=== PATIENT | male | born 1950 | race Two or more races ===

== ENCOUNTER 2019-09-13 16:01 | Inpatient (IN) | payer OTHER ==
[2019-09-13] MEDS ORDERED: IPRATROPIUM-ALBUTEROL 3 ML NEB INHALATION PRN (20:31)
[2019-09-13] MEDS: SODIUM CHLORIDE 0.9% 1,000 ML IV SCH (20:57)
[2019-09-14] MEDS: SODIUM CHLORIDE 0.9% 1,000 ML IV SCH ×2 (05:05→17:46)
[2019-09-14 06:35] LABS: African American GFR (CKD) >90 (>60 ml/min/1.73 sqM); Anion Gap 6 mmol/L; Blood Urea Nitrogen 17 mg/dL (9-20); Calcium 8.4 mg/dL (8.4-10.2); Carbon Dioxide 29 mmol/L (22-30); Chloride 100 mmol/L (98-107); Glucose 88 mg/dL (74-99); Non-African American GFR(CKD) >90 (>60 ml/min/1.73 sqM); Potassium 4.2 mmol/L (3.5-5.1); Sodium 135 mmol/L (137-145)
[2019-09-14 06:40] LABS: Basophils % (A) 0 %; Eosinophils % (A) 0 %; HCT 35.6 % (39.0-53.0); HGB 11.5 gm/dL (13.0-17.5); Lymphocytes # (A) 0.6 k/uL (1.0-4.8); Lymphocytes % (A) 3 %; MCHC 32.4 g/dL (31.0-37.0); MCV 98.8 fL (80.0-100.0); Mean Platelet Volume 7.6; Monocytes # (A) 0.7 k/uL (0-1.0); Monocytes % (A) 3 %; Neutrophils # (A) 19.3 k/uL (1.3-7.7); Neutrophils % (A) 93 %; Platelet Count 193 k/uL (150-450); RDW 12.7 % (11.5-15.5); WBC 20.7 k/uL (3.8-10.6)
[2019-09-14] MEDS ORDERED: LOPERAMIDE 2 MG CAP PO PRN (07:08)
--- NOTE | 2019-09-14 07:13 | P.HPIM ---
History of Present Illness This is a pleasant 68 years old male with past medical history of COPD, Parkinson disease, status post pacemaker, nicotine dependence, hypertension, hyperlipidemia. As per documents Patient was transferred from [facility] as predicament patient is originally from [place] recently moved to [place] to live with his daughter who had recent bronchoscopy done about 3-4 days ago for possible lung masses at the [facility] facility in [place]. The stomach presents with dyspnea and cough and there was mention of blood in the sputum. Patient himself says that he was living with his daughter and her place, he has history of COPD and on 2 L/m home oxygen via nasal cannula, when he got difficulty breathing with coughing with yellow phlegm of one-day duration and he checked his oxygen level and stated was low so he went to [facility] and from there the transfer him to [facility] in [place], they told me he has abnormal chest x-ray and they did CAT scan but was not sure what was abnormal to the chest x-ray. Patient still smokes about 1 pack per day and he quit about 2 weeks ago, denies alcohol or illicit tracts. At baseline and he walks very little using a cane. Vitals: Patient is afebrile, blood pressure was 90/55 currently 110/63, he saturating 94% on 3 L, no tachycardia, mild tachypnea with respiratory rate 18- 23 Labs from [place] showing negative troponin, sodium 142, potassium 4.3, creatinine 0.7, liver enzymes elevated. Chest x-ray: Bibasilar airway disease suspicious for pneumonia or pneumonitis, with no vascular congestion and trace pleural effusion. Also has leukocytosis of 20 5.0K, hemoglobin 13.5, platelets 252. BNP is 3787. EKG showing ventricular paced rhythm with no significant ST T changes, QTC of 455 I [facility] patient was given 1 dose of Solu-Medrol 125 mg, and he was started on levofloxacin and IV vancomycin. Review of Systems CONSTITUTIONAL: No fever, no malaise, no fatigue. HEENT: No recent visual problems or hearing problems. Denied any sore throat. CARDIOVASCULAR: No orthopnea, PND, no palpitations, no syncope. PULMONARY: No sneezing or sore throat. GASTROINTESTINAL: No diarrhea, no nausea, no vomiting, no abdominal pain. Normoactive bowel sounds. NEUROLOGICAL: No headaches, no weakness, no numbness. HEMATOLOGICAL: Denies any bleeding or petechiae. GENITOURINARY: Denies any burning micturition, frequency, or urgency. MUSCULOSKELETAL/RHEUMATOLOGICAL: Denies any joint pain, swelling, or any muscle pain. ENDOCRINE: Denies any polyuria or polydipsia. ROS unobtainable: due to endotracheal tube Past Medical History Past Medical History: COPD Additional Past Medical History / Comment(s): pacer, emphesma, parkinsons History of Any Multi-Drug Resistant Organisms: None Reported Smoking Status: Current every day smoker Medications and Allergies Home Medications Medication Instructions Recorded Confirmed Type Albuterol Inhaler [Ventolin Hfa 2 puff INHALATION RT-QID 09/13/19 09/13/19 History Inhaler] Artificial Tears-Hypromellose 1 drop BOTH EYES QID 09/13/19 09/13/19 History [Artificial Tear Drops] Aspirin EC [Ecotrin Low Dose] 81 mg PO DAILY 09/13/19 09/13/19 History Budesonide/Formoterol Fumarate 2 puff INHALATION RT-BID 09/13/19 09/13/19 History [Symbicort 80-4.5 Mcg Inhaler] Cetirizine HCl [Zyrtec] 10 mg PO DAILY 09/13/19 09/13/19 History Cholecalciferol [Vitamin D3 (25 2,000 unit PO DAILY 09/13/19 09/13/19 History Mcg = 1000 Iu)] Furosemide [Lasix] 40 mg PO DAILY 09/13/19 09/13/19 History Furosemide [Lasix] 40 mg PO DAILY@1500 PRN 09/13/19 09/13/19 History Gabapentin 300 mg PO BID 09/13/19 09/13/19 History Loperamide HCl [Loperamide] 4 mg PO Q6H 09/13/19 09/13/19 History Magnesium Oxide [Mag-Ox] 800 mg PO DAILY 09/13/19 09/13/19 History Metoprolol Tartrate [Lopressor] 12.5 mg PO BID 09/13/19 09/13/19 History Omeprazole 40 mg PO BID 09/13/19 09/13/19 History Potassium Chloride ER [K-Dur 10] 10 meq PO DAILY 09/13/19 09/13/19 History Primidone [Mysoline] 50 mg PO BID 09/13/19 09/13/19 History Terbinafine [LamISIL] 250 mg PO DAILY 09/13/19 09/13/19 History Vits A,C,E/Lutein/Minerals 1 tab PO BID 09/13/19 09/13/19 History [Ocuvite with Lutein Tablet] Warfarin Sodium [Coumadin] 5 mg PO HS 09/13/19 09/13/19 History amLODIPine [Norvasc] 10 mg PO DAILY 09/13/19 09/13/19 History Allergies Allergy/AdvReac Type Severity Reaction Status Date / Time cephradine AdvReac Cough Verified 09/13/19 19:24 lisinopril AdvReac Cough Verified 09/13/19 19:24 Physical Exam Vitals: Vital Signs Temp Pulse Resp BP Pulse Ox 09/14/19 04:00 98.2 F 72 18 110/63 94 L 09/14/19 03:50 20 09/13/19 23:03 98.4 F 71 20 95/55 93 L 09/13/19 18:52 98.8 F 71 23 97/63 93 L 09/13/19 18:51 98.2 F 70 20 92/51 96 Intake and Output 09/13/19 09/13/19 09/14/19 14:59 22:59 06:59 Intake Total 240 Balance 240 Intake: Oral 240 Other: # Voids 1 Weight 63.503 kg 67.1 kg GENERAL: The patient is alert and oriented x3, not in any acute distress. Well developed, well nourished. HEENT: Pupils are round and equally reacting to light. EOMI. No scleral icterus. No conjunctival pallor. Normocephalic, atraumatic. No pharyngeal erythema. No thyromegaly. CARDIOVASCULAR: S1 and S2 present. No murmurs, rubs, or gallops. -PULMONARY: Chest is clear to auscultation, bilateral expiratory wheezing ABDOMEN: Soft, nontender, nondistended, normoactive bowel sounds. No palpable organomegaly. MUSCULOSKELETAL: No joint swelling or deformity. EXTREMITIES: No cyanosis, clubbing, or pedal edema. NEUROLOGICAL: Gross neurological examination did not reveal any focal deficits. SKIN: No rashes. No petechiae Results CBC & Chem 7: 09/14/19 05:26 09/14/19 05:26 Labs: Abnormal Lab Results - Last 24 Hours (Table) 09/14/19 09/14/19 Range/Units 05:26 05:26 WBC 20.7 H (3.8-10.6) k/uL RBC 3.60 L (4.30-5.90) m/uL Hgb 11.5 L (13.0-17.5) gm/dL Hct 35.6 L (39.0-53.0) % Neutrophils # 19.3 H (1.3-7.7) k/uL Lymphocytes # 0.6 L (1.0-4.8) k/uL Sodium 135 L (137-145) mmol/L Creatinine 0.53 L (0.66-1.25) mg/dL Microbiology - Last 24 Hours (Table) 09/13/19 22:13 Sputum Culture - Preliminary Sputum Thrombosis Risk Factor Assmnt - Choose All That Apply Any of the Below Risk Factors Present?: Yes Each Factor Represents 1 point: Abnormal pulmonary function (COPD) Each Risk Factor Represents 2 Points: Age 61-74 years Thrombosis Risk Factor Assessment Total Risk Factor Score: 3 Thrombosis Risk Factor Assessment Level: Moderate Risk Assessment and Plan Plan: This is a pleasant 68 years old male who was transferred from [facility] for possible pneumonia and bibasilar infiltrates. We'll continue with Rocephin and Zithromax, continue with steroids and bronchodilators. sent for respiratory and blood culture. Repeat chest x-ray. Consult pulmonary Labs and medication were reviewed.. Continue same treatment. Continue with symptomatic treatment. Resume home medication. Monitor lytes and vitals. DVT and GI prophylaxis. Further recommendations of the clinical course of the patient DVT prophylaxis: On Coumadin GI Prophylaxis: Pepcid PT/OT: Pending Prognosis is guarded
[2019-09-14 08:15] LABS: Basophils % (A) 0 %; Eosinophils % (A) 0 %; HCT 37.3 % (39.0-53.0); HGB 12.1 gm/dL (13.0-17.5); Lymphocytes # (A) 0.6 k/uL (1.0-4.8); Lymphocytes % (A) 3 %; MCH 31.9 pg (25.0-35.0); MCHC 32.5 g/dL (31.0-37.0); MCV 98.3 fL (80.0-100.0); Mean Platelet Volume 7.6; Monocytes # (A) 0.6 k/uL (0-1.0); Monocytes % (A) 3 %; Neutrophils # (A) 17.4 k/uL (1.3-7.7); Neutrophils % (A) 93 %; Platelet Count 210 k/uL (150-450); RBC 3.79 m/uL (4.30-5.90); RDW 12.7 % (11.5-15.5); WBC 18.7 k/uL (3.8-10.6)
[2019-09-14 08:24] LABS: INR 1.3 (<1.2); Partial Thromboplastin Time 31.6 sec (22.0-30.0); Prothrombin Time 13.3 sec (9.0-12.0)
[2019-09-14 08:31] LABS: ALT 19 U/L (21-72); AST 17 U/L (17-59); African American GFR (CKD) >90 (>60 ml/min/1.73 sqM); Albumin 3.2 g/dL (3.5-5.0); Alkaline Phosphatase 47 U/L (38-126); Anion Gap 8 mmol/L; Bilirubin, Delta 0.1 mg/dL (0.0-0.2); Bilirubin,Unconjugated 0.5 mg/dL (0.0-1.1); Blood Urea Nitrogen 16 mg/dL (9-20); Calcium 8.6 mg/dL (8.4-10.2); Carbon Dioxide 30 mmol/L (22-30); Chloride 99 mmol/L (98-107); Glucose 101 mg/dL (74-99); Non-African American GFR(CKD) >90 (>60 ml/min/1.73 sqM); Potassium 4.1 mmol/L (3.5-5.1); Sodium 137 mmol/L (137-145); Total Bilirubin 0.6 mg/dL (0.2-1.3); Total Protein 5.9 g/dL (6.3-8.2)
[2019-09-14] MEDS ORDERED: AZITHROMYCIN 500 MG in SODIUM CHLORIDE 0.9% 250 ML IVPB SCH (09:00)
[2019-09-14] MEDS ORDERED: predniSONE 20 MG TAB PO SCH (09:00)
[2019-09-14] MEDS ORDERED: FAMOTIDINE 20 MG/2 ML VIAL IV SCH (09:00)
[2019-09-14] MEDS: IPRATROPIUM-ALBUTEROL 3 ML NEB INHALATION SCH ×4 (09:14→20:06)
[2019-09-14] MEDS: SYMBICORT 80-4.5 MCG INHALER INHALATION SCH ×2 (09:15→20:06)
--- NOTE | 2019-09-14 09:40 | XR ---
EXAMINATION TYPE: XR chest 2V DATE OF EXAM: 09/14/2019 COMPARISON: NONE TECHNIQUE: PA and lateral views submitted. HISTORY: Cough FINDINGS: There is a large area of consolidation involving the right lower lobe with pleural thickening. There is a rib deformity on the right. Left-sided patchy infiltrate and small bilateral effusions or pleura l thickening noted. Interstitial prominence seen bilaterally. Cardiac device noted. No pneumothorax. Atherosclerotic change aorta. Hyperinflation suggestive COPD. Chronic rib deformity on the right uppe r rib cage noted suggest remote trauma. IMPRESSION: 1. Bilateral infiltrate. Suspect a large mass in the right lower lobe with possible rib deformity or metastasis. Recommend CT of the chest.
[2019-09-14] MEDS: HEPARIN SODIUM,PORCINE 5,000 UNIT/ML 1 ML VIAL SQ SCH ×2 (10:47→19:38)
[2019-09-14] MEDS: methylPREDNISolone SOD SUCCI 125 MG/2 ML VIAL IV SCH ×4 (10:47→22:20)
[2019-09-14] MEDS: ARTIFICIAL TEARS-HYPROMELLOSE DROPS 15 ML BTL BOTH EYES SCH ×4 (10:47→20:28)
--- NOTE | 2019-09-14 11:33 | FL ---
EXAMINATION TYPE: FL barium swallow w video DATE OF EXAM: 09/14/2019 MODIFIED SWALLOW / DEGLUTITION STUDY CLINICAL HISTORY: Dysphagia. Rule out aspiration. History of Parkinson's. TECHNIQUE: Deglutition study is performed utilizing thin liquid barium, honey and nectar thick liqui d barium, barium thick applesauce, and barium coated cracker. A total of 2 minutes 26 seconds of fluo roscopic time utilized. Serial spot images saved. COMPARISON: None. FINDINGS: The oral and pharyngeal phases show mild delay in initiation with satisfactory propagation with all modalities tested. Satisfactory mastication is seen with solid modalities tested. Patient d id have some coughing making chewing difficult. There is transient penetration with thin liquid bariu m and nectar thick liquid barium which clears even more rapidly with chin tuck. No aspiration with an y modality. Mild to moderate pharyngeal residue was appreciated with more viscous modalities. IMPRESSION: No aspiration observed. Please refer to speech therapist notes for further details if ne cessary.
[2019-09-14] MEDS: PRIMIDONE 50 MG TAB PO SCH ×2 (17:45→19:39)
[2019-09-14] MEDS: GABAPENTIN 300 MG CAP PO SCH ×2 (17:45→19:38)
[2019-09-14] MEDS: amLODIPine 10 MG TAB PO SCH (17:45)
[2019-09-14] MEDS: CHOLECALCIFEROL 1,000 UNIT TAB PO SCH (17:45)
[2019-09-14] MEDS: MAGNESIUM OXIDE 400 MG TAB PO SCH (17:45)
[2019-09-14] MEDS: TERBINAFINE 250 MG TAB PO SCH (17:45)
[2019-09-14] MEDS: METOPROLOL TARTRATE 12.5 MG TAB PO SCH ×2 (17:45→19:39)
[2019-09-14] MEDS: ASPIRIN 81 MG PO SCH (17:45)
[2019-09-14] MEDS: FUROSEMIDE 40 MG TAB PO SCH (17:46)
[2019-09-14] MEDS: POTASSIUM CHLORIDE ER 10 MEQ TAB.ER.PRT PO SCH (17:46)
[2019-09-14] MEDS: FAMOTIDINE 20 MG TAB PO SCH (19:38)
[2019-09-14] MEDS ORDERED: WARFARIN 5 MG TAB PO SCH (21:00)
--- NOTE | 2019-09-14 21:49 | CT ---
EXAMINATION TYPE: CT chest wo con DATE OF EXAM: 09/14/2019 COMPARISON: Radiograph same day HISTORY: 68-year-old male Lung mass. TECHNIQUE: Contiguous axial scanning of the chest without IV contrast. Coronal and sagittal reconstru ctions performed. CT DLP: 300 mGycm Automated exposure control for dose reduction was used. FINDINGS: Left anterior chest wall pacemaker generator with right atrial, right ventricular, and coronary sinus leads. Heart upper limits of normal in size without pericardial effusion. Three-vessel coronary artery calci fications are present. Mild to moderate arthritic arch calcifications with a conventional arch vessel branching anatomy. Ect atic upper descending thoracic aorta 3.3 cm. Mild generalized anasarca change. Abnormally enlarged bilateral axillary lymph nodes measuring 2.3 x 1.9 cm on the right and 2 on the l eft measuring up to 2.5 x 1.7 cm. Left tracheobronchial angle lymph node measures 1.3 cm. Precarinal lymph node measures 1.2 cm. Subcar inal lymph node measures 3.8 cm in may be contiguous with the right infrahilar mass which occludes th e bronchus intermedius. Mass is estimated to measure up to at least 6.4 cm. There is focal 6.7 x 5.6 cm round fluid collection along the inferior major fissure and extensive pat jayde consolidation throughout the right lower lobe and to a lesser extent within the right middle lobe . Chronic pleural-based calcifications posteriorly in the lower lungs on both sides. Old healed fractur e deformities perform right base. Additional patchy and confluent consolidation within the lingula at the midlung level, axial image 33 . Suspect scarring in rounded atelectasis in the left lower lobe. Background of mild to moderate emphys johann. Visualized upper abdomen shows continuity syndrome and calcified granulomas within the spleen. Left a drenal nodule measures 2.7 x 1.8 cm. Right adrenal nodule measures 3.5 x 1.8 cm and are not diagnosti c of adrenal adenomas. Possible additional gastrohepatic ligament lymph node measuring 2.0 cm, axial image 63. Bones: No osseous destructive process. Atrophy of the right-sided rotator cuff musculature suggests u nderlying chronic rotator cuff tear. IMPRESSION: 1. COPD WITH MILD TO MODERATE EMPHYSEMA. PLEURAL BASED CALCIFICATIONS COULD BE SECONDARY TO PRIOR PLE URODESIS, OLD EMPYEMA, OR OLD HEMOTHORACES. SUGGESTION OF SOME SCARRING AND ROUNDED ATELECTASIS IN TH E LEFT LOWER LOBE. 2. LARGE RIGHT INFRAHILAR MASS OBSTRUCTING THE BRONCHUS INTERMEDIUS MEASURING AT LEAST 6.4 CM AND DEM ONSTRATING EITHER EXTENSION INTO THE SUBCARINAL REGION OR CONTIGUOUS 3.8 CM SUBCARINAL LYMPHADENOPATH Y. 3. ADDITIONAL ENLARGED MEDIASTINAL LYMPH NODES MEASURING UP TO 1.3 CM AND BILATERAL AXILLARY LYMPHADE NOPATHY MEASURING UP TO 1.9 CM SHORT AXIS ALSO SUSPICIOUS FOR METASTATIC DISEASE. BILATERAL ADRENAL N ODULES MEASURING UP TO 3.5 CM AND POSSIBLE 1.9 CM GASTROHEPATIC LIGAMENT METASTATIC LYMPH NODE. 4. EXTENSIVE POSTOBSTRUCTIVE PNEUMONITIS WITHIN THE RIGHT LOWER LOBE. THERE IS A 6.7 X 5.6 CM ROUND F LUID COLLECTION ALONG THE INFERIOR RIGHT MAJOR FISSURE SUGGESTIVE OF A LOCULATED PLEURAL EFFUSION. 5. ADDITIONAL PNEUMONIC INFILTRATE WITHIN THE LINGULA.
--- NOTE | 2019-09-14 21:54 | CONS ---
CONSULTATION Eloy Guzman is a 68-year-old male who presented to [facility] with increasing shortness of breath. He was transferred to [facility] for further treatment. He recently was being worked up apparently for a lung mass at the ID in [place] and underwent a bronchoscopy 3 to 4 days ago. He says he had what he thinks was a panic attack where he became more short of breath. He was transferred to again [facility]. He has shortness of breath at this time but is feeling slightly better than yesterday. PAST MEDICAL HISTORY: His past medical history is positive for Parkinson's disease, hypertension, previous pacemaker placement, emphysema. SOCIAL HISTORY: Patient is a current everyday smoker. He does not drink alcohol excessively. He is a . MEDICATIONS: His medications prior to admission were: 1. Amlodipine. 2. Coumadin. 3. Ocuvite. 4. Lamisil. 5. Mysoline. 6. K-Dur 10. 7. Omeprazole. 8. Lopressor. 9. Magnesium oxide. 10.Loperamide. 11.Gabapentin. 12.Lasix. 13.Vitamin D3. 14.Zyrtec. 15.Symbicort. 16.Ecotrin. 17.Albuterol inhaler. 18.Artificial Tears. PHYSICAL EXAMINATION: He was lying in bed. He was moderately short of breath and in moderate respiratory distress. His blood pressure was 130/57, respiratory rate of 18, pulse rate of 70, temperature 98.2. Oxygen saturation on 3 L by nasal cannula is 98%. HEENT reveals pupils that are equal. Chest reveals decreased breath sounds, prolonged exhalation and expiratory wheeze. Cardiovascular system is in S1, S2. No S3, no S4. No murmurs. Abdomen is soft. There is no pedal edema. LABS: White count is 18.7, hemoglobin of 12.1 with 17,400 neutrophils. PT/INR is 1.3. Sodium 137, potassium 4.1, chloride 99, bicarb 30. BUN 16, creatinine 0.55. IMAGING: Chest x-ray shows evidence of bibasilar infiltrate with a possible large mass in the right lower zone, bilateral small effusions. IMPRESSION AT THIS TIME: 1. Postprocedural pneumonia is likely. 2. Chronic obstructive pulmonary disease exacerbation. 3. Lung mass, etiology of which is unclear. At this point in time, we would switch his antibiotics to cover for gram-negatives and anaerobes to Zosyn. [facility] his [facility]. Keep him on IV steroids, bronchodilators, aerosolized steroids. Prognosis at this time is guarded. He is not to be considered for CPR or intubation. MMODL / IJN: [id number] /
[2019-09-14] MEDS: PIPERACILLIN-TAZOBACTAM 3.375 GM in SODIUM CHLORIDE 0.9% 100 ML IVPB SCH (22:20)
[2019-09-15] MEDS: SODIUM CHLORIDE 0.9% 1,000 ML IV SCH ×2 (05:51→21:17)
[2019-09-15] MEDS: INSULIN ASPART (NovoLOG) 100 UNIT/ML VIAL SQ SCH ×4 (05:56→21:17)
[2019-09-15] MEDS: methylPREDNISolone SOD SUCCI 125 MG/2 ML VIAL IV SCH (05:56)
[2019-09-15 06:02] LABS: Glucose,Whole Blood 128 mg/dL (75-99)
[2019-09-15 06:36] LABS: Basophils % (A) 0 %; Eosinophils % (A) 0 %; HCT 33.7 % (39.0-53.0); HGB 11.5 gm/dL (13.0-17.5); Lymphocytes # (A) 0.4 k/uL (1.0-4.8); Lymphocytes % (A) 3 %; MCH 33.4 pg (25.0-35.0); MCHC 34.1 g/dL (31.0-37.0); Mean Platelet Volume 6.7; Monocytes # (A) 0.2 k/uL (0-1.0); Monocytes % (A) 2 %; Neutrophils # (A) 11.1 k/uL (1.3-7.7); Neutrophils % (A) 95 %; Platelet Count 194 k/uL (150-450); RBC 3.44 m/uL (4.30-5.90); RDW 12.7 % (11.5-15.5); WBC 11.8 k/uL (3.8-10.6)
[2019-09-15 06:48] LABS: INR 1.1 (<1.2); Prothrombin Time 11.2 sec (9.0-12.0)
[2019-09-15 06:59] LABS: African American GFR (CKD) >90 (>60 ml/min/1.73 sqM); Anion Gap 7 mmol/L; Blood Urea Nitrogen 13 mg/dL (9-20); Calcium 8.5 mg/dL (8.4-10.2); Carbon Dioxide 33 mmol/L (22-30); Chloride 96 mmol/L (98-107); Glucose 130 mg/dL (74-99); Non-African American GFR(CKD) >90 (>60 ml/min/1.73 sqM); Potassium 3.8 mmol/L (3.5-5.1); Sodium 136 mmol/L (137-145)
[2019-09-15] MEDS: IPRATROPIUM-ALBUTEROL 3 ML NEB INHALATION SCH ×4 (07:31→19:19)
[2019-09-15] MEDS ORDERED: AZITHROMYCIN 500 MG TAB PO SCH (09:00)
--- NOTE | 2019-09-15 10:19 | P.PN ---
Subjective This is a pleasant 68 years old male with past medical history of COPD, Parkinson disease, status post pacemaker, nicotine dependence, hypertension, hyperlipidemia. As per documents Patient was transferred from [facility] as predicament patient is originally from [place] recently moved to [place] to live with his daughter who had recent bronchoscopy done about 3-4 days ago for possible lung masses at the [facility] in [place]. The stomach presents with dyspnea and cough and there was mention of blood in the sputum. Patient himself says that he was living with his daughter and her place, he has history of COPD and on 2 L/m home oxygen via nasal cannula, when he got difficulty breathing with coughing with yellow phlegm of one-day duration and he checked his oxygen level and stated was low so he went to [facility] and from there the transfer him to [facility] in [place], they told me he has abnormal chest x-ray and they did CAT scan but was not sure what was abnormal to the chest x-ray. Patient still smokes about 1 pack per day and he quit about 2 weeks ago, denies alcohol or illicit tracts. At baseline and he walks very little using a cane. Vitals: Patient is afebrile, blood pressure was 90/55 currently 110/63, he saturating 94% on 3 L, no tachycardia, mild tachypnea with respiratory rate 18- 23 Labs from [place] showing negative troponin, sodium 142, potassium 4.3, creatinine 0.7, liver enzymes elevated. Chest x-ray: Bibasilar airway disease suspicious for pneumonia or pneumonitis, with no vascular congestion and trace pleural effusion. Also has leukocytosis of 20 5.0K, hemoglobin 13.5, platelets 252. BNP is 3787. EKG showing ventricular paced rhythm with no significant ST T changes, QTC of 455 I [facility] patient was given 1 dose of Solu-Medrol 125 mg, and he was started on levofloxacin and IV vancomycin. 09/15/2019 Patient still have the similar respiratory symptoms he came in with some dyspnea and coughing with phlegm. And no chest pain. Vitals are stable and he is on 3 L oxygen via [place] similar to his baseline. WBC is back to 11.8 K which is close to normal. INR is 1.1 and patient is on Coumadin 5 m sputum and blood culture are pending. g daily which he was adherent to and he was taken it appeared to come to the hospital as he confirmed to me today. We going to give him extra doses of Coumadin. His blood thinners for his atrial fibrillation where he has pacemaker as well. Swallow evaluation showed small penetration. Patient confirmed to me that he did not go the result of his lung mass biopsy which was done prior to this hospitalization. Pulmonary input is appreciated and patient was started on Zosyn, also lower his on Medrol from 60 down to 40 mg. And lower his normal saline 2 mL per hour Review of systems CONSTITUTIONAL: No fever, no malaise, no fatigue. HEENT: No recent visual problems or hearing problems. Denied any sore throat. CARDIOVASCULAR: No orthopnea, PND, no palpitations, no syncope. PULMONARY: No sneezing or sore throat. GASTROINTESTINAL: No diarrhea, no nausea, no vomiting, no abdominal pain. Normoactive bowel sounds. NEUROLOGICAL: No headaches, no weakness, no numbness. HEMATOLOGICAL: Denies any bleeding or petechiae. GENITOURINARY: Denies any burning micturition, frequency, or urgency. MUSCULOSKELETAL/RHEUMATOLOGICAL: Denies any joint pain, swelling, or any muscle pain. ENDOCRINE: Denies any polyuria or polydipsia. Objective - Vital Signs Vital signs: Vital Signs Temp 98 F 09/15/19 03:00 Pulse 72 09/15/19 07:42 Resp 18 09/15/19 03:00 BP 124/71 09/15/19 03:00 Pulse Ox 96 09/15/19 03:00 Intake & Output 09/14/19 09/15/19 09/15/19 18:59 06:59 18:59 Intake Total 500 Balance 500 Weight 70.1 kg Intake: Intake, IV Titration 70 Amount Sodium Chloride 0.9% 1, 20 000 ml @ 75 mls/hr IV . [id number] TOM Rx#:[id number] cefTRIAXone 2 gm In 50 Sodium Chloride 0.9% 50 ml @ 100 mls/hr IVPB Q24HR TOM Rx#:[id number] Oral 430 Other: # Voids 3 1 - Labs CBC & Chem 7: 09/15/19 05:45 09/15/19 05:45 Labs: Abnormal Lab Results - Last 24 Hours (Table) 09/15/19 09/15/19 09/15/19 Range/Units 05:45 05:45 05:54 WBC 11.8 H (3.8-10.6) k/uL RBC 3.44 L (4.30-5.90) m/uL Hgb 11.5 L (13.0-17.5) gm/dL Hct 33.7 L (39.0-53.0) % Neutrophils # 11.1 H (1.3-7.7) k/uL Lymphocytes # 0.4 L (1.0-4.8) k/uL Sodium 136 L (137-145) mmol/L Chloride 96 L (98-107) mmol/L Carbon Dioxide 33 H (22-30) mmol/L Creatinine 0.53 L (0.66-1.25) mg/dL Glucose 130 H (74-99) mg/dL POC Glucose (mg/dL) 128 H (75-99) mg/dL Microbiology - Last 24 Hours (Table) 09/14/19 07:45 Blood Culture - Preliminary Blood No Growth after 24 hours 09/13/19 22:13 Gram Stain - Preliminary Sputum Sputum Culture - Preliminary Assessment and Plan Assessment: Bilateral pneumonia suspicious for aspiration versus postobstructive Lung mass status post biopsy, with result is pending A. fib status post pacemaker, rate controlled and on Coumadin. Mild to moderate acute COPD exacerbation History of Parkinson disease Chronic hypoxic respiratory failure Nicotine dependence Hypertension Hyperlipidemia Plan: This is a pleasant 68 years old male who was transferred from [facility] for possible pneumonia and bibasilar infiltrates. We'll continue with Rocephin and Zithromax, continue with steroids and bronchodilators. sent for respiratory and blood culture. Repeat chest x-ray. Consult pulmonary Labs and medication were reviewed.. Continue same treatment. Continue with symptomatic treatment. Resume home medication. Monitor lytes and vitals. DVT and GI prophylaxis. Further recommendations of the clinical course of the patient DVT prophylaxis: On Coumadin GI Prophylaxis: Pepcid PT/OT: Pending Prognosis is guarded
[2019-09-15] MEDS: GABAPENTIN 300 MG CAP PO SCH ×2 (10:35→21:16)
[2019-09-15] MEDS: ASPIRIN 81 MG PO SCH (10:35)
[2019-09-15] MEDS: MAGNESIUM OXIDE 400 MG TAB PO SCH (10:35)
[2019-09-15] MEDS: CHOLECALCIFEROL 1,000 UNIT TAB PO SCH (10:35)
[2019-09-15] MEDS: PRIMIDONE 50 MG TAB PO SCH ×2 (10:35→21:16)
[2019-09-15] MEDS: PIPERACILLIN-TAZOBACTAM 3.375 GM in SODIUM CHLORIDE 0.9% 100 ML IVPB SCH ×3 (10:35→23:25)
[2019-09-15] MEDS: HYDROcodone/APAP 5-325MG 1 EACH TAB PO PRN ×2 (10:36→23:23)
[2019-09-15] MEDS: amLODIPine 10 MG TAB PO SCH (10:36)
[2019-09-15] MEDS: FUROSEMIDE 40 MG TAB PO SCH (10:36)
[2019-09-15] MEDS: METOPROLOL TARTRATE 12.5 MG TAB PO SCH ×2 (10:36→21:17)
[2019-09-15] MEDS: POTASSIUM CHLORIDE ER 10 MEQ TAB.ER.PRT PO SCH (10:36)
[2019-09-15] MEDS: FAMOTIDINE 20 MG TAB PO SCH ×2 (10:36→21:16)
[2019-09-15] MEDS: ARTIFICIAL TEARS-HYPROMELLOSE DROPS 15 ML BTL BOTH EYES SCH ×4 (10:45→21:22)
[2019-09-15] MEDS: HEPARIN SODIUM,PORCINE 5,000 UNIT/ML 1 ML VIAL SQ SCH ×2 (10:45→21:17)
--- NOTE | 2019-09-15 11:19 | PN ---
PROGRESS NOTE Covering for Dr. Glenn Silva. DATE OF SERVICE: 09/15/2019 Patient is a 68-year-old male who is seen sitting up in a chair. He is awake, alert. States that he is feeling a bit better. I did look into the chart to see if there was any results on the bronch the patient had at the [facility]. However, none were noted. The patient is going to be seen by speech therapy and have a swallow eval. Currently, patient is hemodynamically stable afebrile in no acute distress. PHYSICAL EXAM: VITAL SIGNS: Temp 98, heart rate is 76, respiratory rate 18, blood pressure is 124/71 and O2 sats 96% on 3 L O2 via nasal cannula. HEENT: Head is normocephalic, atraumatic. Neck: Is supple. Trachea is midline. LUNGS: With diminished breath sounds. No clear rales or wheezes. HEART: S1, S2 are heard. Not tachycardic. ABDOMEN: Soft. Bowel sounds are positive. EXTREMITIES: With trace edema on the right. No edema on the left. NEUROLOGIC: Patient is awake and alert. LABS: White count 11.8, hemoglobin is 11.5, hematocrit 33.7 with 194,000 platelets. PT 11.2, INR is 1.1. Sodium is 136, potassium is 3.8, chloride 96. CO2 is 33, anion gap is 7, BUN is 13, creatinine 0.53. Glucose is 130. Calcium is 8.5. CT of the chest shows COPD with [id number] emphysema. Pleural-based calcifications could be secondary to prior pleurodesis. Old empyema or old hemothoraces. Suggestion of some scarring and round atelectasis in the left lower lobe. Large right infrahilar mass obstructing the bronchus intermedius measuring at least 6.4 cm and demonstrating either extension to the subcarinal region or contiguous 3.8 cm subcarinal lymphadenopathy. Additional enlarged mediastinal lymph node measuring up to 1.3 cm and bilateral axillary lymphadenopathy measuring up to 1.9 cm, short axis also suspicious suspicious for metastatic disease. Bilateral adrenal nodules measuring up to 3.5 cm and possible 1.9 cm gastrohepatic ligament metastatic lymph node. Extensive post obstructive pneumonitis within the right lower lobe. There is a 6.7 x 5.6 cm round fluid collection along the inferior right major fissure suggestive of a loculated pleural effusion. Additional pneumonic infiltrate within the lingula. IMPRESSION AT THIS TIME: 1. Post procedure pneumonia. 2. Chronic obstructive pulmonary disease exacerbation. 3. Lung mass. PLAN: Continue current medications which have been reviewed. Continue bronchodilators and aerosol steroids. Continue the IV steroids. Continue the antibiotics. Continue GI and DVT prophylaxis and will follow patient closely with you making further changes as necessary. MMODL / IJN: [id number] /
[2019-09-15 11:57] LABS: Glucose,Whole Blood 168 mg/dL (75-99)
[2019-09-15] MEDS: methylPREDNISolone SOD SUCCI 40 MG/ML 1 ML VIAL IV SCH ×2 (15:01→23:25)
[2019-09-15] MEDS: TERBINAFINE 250 MG TAB PO SCH (15:01)
[2019-09-15 17:01] LABS: Glucose,Whole Blood 120 mg/dL (75-99)
[2019-09-15] MEDS ORDERED: WARFARIN 10 MG TAB PO ONE (18:00)
[2019-09-15] MEDS: BUDESONIDE 0.5 MG/2 ML NEBU INHALATION SCH (19:19)
[2019-09-15 20:57] LABS: Glucose,Whole Blood 134 mg/dL (75-99)
[2019-09-16 06:12] LABS: Glucose,Whole Blood 111 mg/dL (75-99)
[2019-09-16] MEDS: INSULIN ASPART (NovoLOG) 100 UNIT/ML VIAL SQ SCH ×4 (06:18→22:21)
[2019-09-16] MEDS: HYDROcodone/APAP 5-325MG 1 EACH TAB PO PRN ×3 (06:26→18:50)
[2019-09-16 06:31] LABS: Basophils % (A) 0 %; Eosinophils % (A) 0 %; HCT 34.9 % (39.0-53.0); HGB 11.9 gm/dL (13.0-17.5); Lymphocytes # (A) 0.4 k/uL (1.0-4.8); Lymphocytes % (A) 3 %; MCH 33.2 pg (25.0-35.0); MCHC 34.1 g/dL (31.0-37.0); MCV 97.2 fL (80.0-100.0); Mean Platelet Volume 6.8; Monocytes # (A) 0.2 k/uL (0-1.0); Monocytes % (A) 2 %; Neutrophils # (A) 10.5 k/uL (1.3-7.7); Neutrophils % (A) 94 %; Platelet Count 209 k/uL (150-450); RBC 3.59 m/uL (4.30-5.90); RDW 12.6 % (11.5-15.5); WBC 11.2 k/uL (3.8-10.6)
[2019-09-16 06:38] LABS: INR 1.4 (<1.2); Prothrombin Time 14.1 sec (9.0-12.0)
[2019-09-16 06:39] LABS: African American GFR (CKD) >90 (>60 ml/min/1.73 sqM); Anion Gap 6 mmol/L; Blood Urea Nitrogen 16 mg/dL (9-20); Calcium 8.6 mg/dL (8.4-10.2); Carbon Dioxide 32 mmol/L (22-30); Chloride 96 mmol/L (98-107); Glucose 111 mg/dL (74-99); Non-African American GFR(CKD) >90 (>60 ml/min/1.73 sqM); Potassium 4.2 mmol/L (3.5-5.1); Sodium 134 mmol/L (137-145)
[2019-09-16] MEDS: BUDESONIDE 0.5 MG/2 ML NEBU INHALATION SCH ×2 (08:28→20:26)
[2019-09-16] MEDS: IPRATROPIUM-ALBUTEROL 3 ML NEB INHALATION SCH ×4 (08:28→20:26)
[2019-09-16] MEDS: PIPERACILLIN-TAZOBACTAM 3.375 GM in SODIUM CHLORIDE 0.9% 100 ML IVPB SCH ×3 (09:36→22:41)
[2019-09-16] MEDS: METOPROLOL TARTRATE 12.5 MG TAB PO SCH ×2 (09:37→20:20)
[2019-09-16] MEDS: ARTIFICIAL TEARS-HYPROMELLOSE DROPS 15 ML BTL BOTH EYES SCH ×4 (09:37→22:22)
[2019-09-16] MEDS: methylPREDNISolone SOD SUCCI 40 MG/ML 1 ML VIAL IV SCH ×3 (09:37→22:41)
[2019-09-16] MEDS: amLODIPine 10 MG TAB PO SCH (09:37)
[2019-09-16] MEDS: CHOLECALCIFEROL 1,000 UNIT TAB PO SCH (09:37)
[2019-09-16] MEDS: PRIMIDONE 50 MG TAB PO SCH ×2 (09:38→20:20)
[2019-09-16] MEDS: HEPARIN SODIUM,PORCINE 5,000 UNIT/ML 1 ML VIAL SQ SCH ×2 (09:38→20:21)
[2019-09-16] MEDS: POTASSIUM CHLORIDE ER 10 MEQ TAB.ER.PRT PO SCH (09:38)
[2019-09-16] MEDS: GABAPENTIN 300 MG CAP PO SCH ×2 (09:38→20:21)
[2019-09-16] MEDS: MAGNESIUM OXIDE 400 MG TAB PO SCH (09:38)
[2019-09-16] MEDS: FAMOTIDINE 20 MG TAB PO SCH ×2 (09:38→20:20)
[2019-09-16] MEDS: TERBINAFINE 250 MG TAB PO SCH (09:38)
[2019-09-16] MEDS: FUROSEMIDE 40 MG TAB PO SCH (09:38)
[2019-09-16] MEDS: ASPIRIN 81 MG PO SCH (09:38)
--- NOTE | 2019-09-16 11:12 | P.PN ---
Subjective This is a pleasant 68 years old male with past medical history of COPD, Parkinson disease, status post pacemaker, nicotine dependence, hypertension, hyperlipidemia. As per documents Patient was transferred from [facility] as predicament patient is originally from [place] recently moved to [place] to live with his daughter who had recent bronchoscopy done about 3-4 days ago for possible lung masses at the [facility] in [place]. The stomach presents with dyspnea and cough and there was mention of blood in the sputum. Patient himself says that he was living with his daughter and her place, he has history of COPD and on 2 L/m home oxygen via nasal cannula, when he got difficulty breathing with coughing with yellow phlegm of one-day duration and he checked his oxygen level and stated was low so he went to [facility] and from there the transfer him to [facility] in [place], they told me he has abnormal chest x-ray and they did CAT scan but was not sure what was abnormal to the chest x-ray. Patient still smokes about 1 pack per day and he quit about 2 weeks ago, denies alcohol or illicit tracts. At baseline and he walks very little using a cane. Vitals: Patient is afebrile, blood pressure was 90/55 currently 110/63, he saturating 94% on 3 L, no tachycardia, mild tachypnea with respiratory rate 18- 23 Labs from [place] showing negative troponin, sodium 142, potassium 4.3, creatinine 0.7, liver enzymes elevated. Chest x-ray: Bibasilar airway disease suspicious for pneumonia or pneumonitis, with no vascular congestion and trace pleural effusion. Also has leukocytosis of 20 5.0K, hemoglobin 13.5, platelets 252. BNP is 3787. EKG showing ventricular paced rhythm with no significant ST T changes, QTC of 455 I [facility] patient was given 1 dose of Solu-Medrol 125 mg, and he was started on levofloxacin and IV vancomycin. 09/15/2019 Patient still have the similar respiratory symptoms he came in with some dyspnea and coughing with phlegm. And no chest pain. Vitals are stable and he is on 3 L oxygen via [place] similar to his baseline. WBC is back to 11.8 K which is close to normal. INR is 1.1 and patient is on Coumadin 5 m sputum and blood culture are pending. g daily which he was adherent to and he was taken it appeared to come to the hospital as he confirmed to me today. We going to give him extra doses of Coumadin. His blood thinners for his atrial fibrillation where he has pacemaker as well. Swallow evaluation showed small penetration. Patient confirmed to me that he did not go the result of his lung mass biopsy which was done prior to this hospitalization. Pulmonary input is appreciated and patient was started on Zosyn, also lower his on Medrol from 60 down to 40 mg. And lower his normal saline 2 mL per hour 09/16/2019 Patient still feels this ache with some improvement especially with bronchodilator. His coughing with phlegm. He is hemodynamically stable. He saturating 98% on 3 L of oxygen. Leukocytosis improving gradually to 11.2k, INR is 1.4, Coumadin dose was already increased from 5 to 7.5 mg for his A. fib. Electrolytes are acceptable and creatinine is normal. Sugar is controlled. Pending, patient remains on Zosyn currently. And Solu-Medrol 40 mg, normal saline at [address] thorax shows COPD, pneumonia and lung mass, see the report for more details. Hematology/oncology team were consulted and they're still pending Objective - Vital Signs Vital signs: Vital Signs Temp 98.3 F 09/16/19 08:30 Pulse 72 09/16/19 08:43 Resp 18 09/16/19 08:30 BP 123/65 09/16/19 08:30 Pulse Ox 98 09/16/19 08:30 Intake & Output 09/15/19 09/16/19 09/16/19 18:59 06:59 18:59 Intake Total 680 290 240 Output Total 900 200 Balance 680 -610 40 Weight 72.6 kg Intake: IV 50 Invasive Line 2 50 Oral 680 240 240 Output: Urine 900 200 Other: Voiding Method Toilet Urinal # Voids 2 1 - Exam GENERAL: The patient is alert and oriented x3, not in any acute distress. Well developed, well nourished. HEENT: Pupils are round and equally reacting to light. EOMI. No scleral icterus. No conjunctival pallor. Normocephalic, atraumatic. No pharyngeal erythema. No thyromegaly. CARDIOVASCULAR: S1 and S2 present. No murmurs, rubs, or gallops. -PULMONARY: Chest is clear to auscultation, bilateral expiratory wheezing ABDOMEN: Soft, nontender, nondistended, normoactive bowel sounds. No palpable organomegaly. MUSCULOSKELETAL: No joint swelling or deformity. EXTREMITIES: No cyanosis, clubbing, or pedal edema. NEUROLOGICAL: Gross neurological examination did not reveal any focal deficits. SKIN: No rashes. No petechiae - Labs CBC & Chem 7: 09/16/19 05:34 09/16/19 05:34 Labs: Abnormal Lab Results - Last 24 Hours (Table) 09/15/19 09/15/19 09/15/19 Range/Units 11:39 16:39 20:56 WBC (3.8-10.6) k/uL RBC (4.30-5.90) m/uL Hgb (13.0-17.5) gm/dL Hct (39.0-53.0) % Neutrophils # (1.3-7.7) k/uL Lymphocytes # (1.0-4.8) k/uL PT (9.0-12.0) sec INR (<1.2) Sodium (137-145) mmol/L Chloride (98-107) mmol/L Carbon Dioxide (22-30) mmol/L Creatinine (0.66-1.25) mg/dL Glucose (74-99) mg/dL POC Glucose (mg/dL) 168 H 120 H 134 H (75-99) mg/dL 09/16/19 09/16/19 09/16/19 Range/Units 05:34 05:34 05:34 WBC 11.2 H (3.8-10.6) k/uL RBC 3.59 L (4.30-5.90) m/uL Hgb 11.9 L (13.0-17.5) gm/dL Hct 34.9 L (39.0-53.0) % Neutrophils # 10.5 H (1.3-7.7) k/uL Lymphocytes # 0.4 L (1.0-4.8) k/uL PT 14.1 H (9.0-12.0) sec INR 1.4 H (<1.2) Sodium 134 L (137-145) mmol/L Chloride 96 L (98-107) mmol/L Carbon Dioxide 32 H (22-30) mmol/L Creatinine 0.55 L (0.66-1.25) mg/dL Glucose 111 H (74-99) mg/dL POC Glucose (mg/dL) (75-99) mg/dL 09/16/19 Range/Units 06:02 WBC (3.8-10.6) k/uL RBC (4.30-5.90) m/uL Hgb (13.0-17.5) gm/dL Hct (39.0-53.0) % Neutrophils # (1.3-7.7) k/uL Lymphocytes # (1.0-4.8) k/uL PT (9.0-12.0) sec INR (<1.2) Sodium (137-145) mmol/L Chloride (98-107) mmol/L Carbon Dioxide (22-30) mmol/L Creatinine (0.66-1.25) mg/dL Glucose (74-99) mg/dL POC Glucose (mg/dL) 111 H (75-99) mg/dL Microbiology - Last 24 Hours (Table) 09/14/19 07:45 Blood Culture - Preliminary Blood No Growth after 48 hours Assessment and Plan Assessment: Bilateral pneumonia suspicious for aspiration versus postobstructive Lung mass status post biopsy, with result is pending A. fib status post pacemaker, rate controlled and on Coumadin. Mild to moderate acute COPD exacerbation History of Parkinson disease Chronic hypoxic respiratory failure Nicotine dependence Hypertension Hyperlipidemia Plan: This is a pleasant 68 years old male who was transferred from [facility] for possible pneumonia and bibasilar infiltrates. We'll continue with Zosyn, continue with steroids and bronchodilators. sent for respiratory and blood culture. Repeat chest x-ray. Follow-up recommendations by pulmonary and cardiology teams. Labs and medication were reviewed.. Continue same treatment. Continue with symptomatic treatment. Resume home medication. Monitor lytes and vitals. DVT and GI prophylaxis. Further recommendations of the clinical course of the patient DVT prophylaxis: On Coumadin GI Prophylaxis: Pepcid PT/OT: Patient will benefit from ECF for rehab, healthcare social worker was consulted Prognosis is guarded
[2019-09-16 11:50] LABS: Glucose,Whole Blood 104 mg/dL (75-99)
--- NOTE | 2019-09-16 12:44 | PN ---
PROGRESS NOTE DATE OF SERVICE: 09/16/2019 The patient is a 68-year-old male who was seen sitting up in a chair. He is awake and alert. Feeling a little bit better today. States that they did do a swallow eval and he was told that he is able to the eat what he wants to eat. They did not find any signs of aspiration. The patient states that he does not believe they have obtained the results of the bronchoscopy done at the [facility] and his daughter will be in tomorrow and he hopes that she will to bring the results in. Patient is hemodynamically stable, afebrile, in no acute distress. PHYSICAL EXAMINATION: VITAL SIGNS: Temp 98.3, heart rate 72, respiratory rate 18, blood pressure is 123/65, O2 sats 98% on 3 L O2 via nasal cannula. HEENT. Head is normocephalic, atraumatic. NECK: Is supple. Trachea is midline. LUNGS: With decreased breath sounds and some fine scattered wheezes. HEART: S1 and S2 are heard. Not tachycardic. ABDOMEN: Soft. Bowel sounds are good. EXTREMITIES: With 1+ edema bilaterally. NEUROLOGIC: Patient is awake and alert. LABS: White count 11.2, hemoglobin 11.9, hematocrit 34.9 with 209,000 platelets. PT is 14.1, INR is 1.4. Sodium is 134, potassium is 4.2, chloride is 96, CO2 is 32, anion gap is 6. BUN 16, creatinine 0.55. Glucose is 111. Calcium is 8.6. No new imaging to review. IMPRESSION AT THIS TIME: 1. Post procedure pneumonia. 2. Chronic obstructive pulmonary disease with acute exacerbation. 3. Lung mass. PLAN: Continue current medications which have been reviewed with bronchodilators and aerosol steroids. Continue IV Solu-Medrol and antibiotics. Continue GI and DVT prophylaxis. Increase activity as tolerated. We will follow patient closely with you making further changes as necessary. MMODL / IJN: [id number] /
--- NOTE | 2019-09-16 15:46 | CDI ---
Documentation Clarification Form Date: 09/16/2019 3:38:38 PM From: Liat Young RN, CCDS Admit Date: 09/13/2019 6:50:00 PM Patient Name: Eloy Guzman Visit Number: [id number] Discharge Date: ATTENTION: The Clinical Documentation Specialists (CDI) and [facility] Coding Staff appreciate your assistance in clarifying documentation. Please respond to the clarification below the line at the bottom and electronically sign. The CDI & [facility] Coding staff will review the response and follow-up if needed. Please note: Queries are made part of the Legal Health Record. If you have any questions, please contact the author of this message via ITS. Dr. Jomar Peterson Atrial Fibrillation is documented in your history and physical and subsequent progress notes and further clarification is needed. History/Risk Factors: Atrial Fibrillation post pacemaker, Parkinsons, COPD, Current every day smoker Clinical Indicators: 68-year-old male with history of atrial fibrillation. EKG/telemetry: showing ventricular paced rhythm with no significant ST T wave changes. Treatment: PT/INR monitoring Coumadin 5 Mg PO In your professional opinion, can you please clarify the type of Atrial Fibrillation, if known? Chronic/Permanent Paroxysmal Persistent Other, please specify Unable to determine (Last Revision: January 2018) unable to determine MTDD
--- NOTE | 2019-09-16 16:29 | P.CONS ---
History of Present Illness - Reason for Consult Consult date: 09/16/19 lung mass Requesting physician: Jomar E Sheet - Chief Complaint TRUDY, cough - History of Present Illness Mr. Guzman is a very pleasant 68-year-old male patient [facility] [place] who presented to the hospital with progressive shortness of breath and difficulty in breathing. If been asked to see the patient in regards to a lung mass found on imaging. Pt is status post a biopsy at the [facility] in [place] with pathology pending, he has a f/u appt Thursday. Patient states recent changes in speech, some slurring and loss of words, voice changes, states previous weight 250lbs, he lost a significant amount when his but, he has lost more, he has progressive weakness, no nausea, vomiting, mild chest discomfort with coughing, no hemoptysis, acute changes in bowel or bladder, bleeding, does have easy bruising, on coumadin for afib and pacemaker. He hurt his right shoulder and has decreased ROM, numbness or tingling. Review of Systems 14 point ROS is negative except as stated in HPI Past Medical History Past Medical History: COPD Additional Past Medical History / Comment(s): pacer, emphesma, parkinsons History of Any Multi-Drug Resistant Organisms: None Reported Past Psychological History: No Psychological Hx Reported Smoking Status: Current every day smoker - Past Family History Mother Family Medical History: Coronary Artery Disease (CAD), Hypertension Father Family Medical History: Hyperlipidemia, Hypertension Medications and Allergies Home Medications Medication Instructions Recorded Confirmed Type Albuterol Inhaler [Ventolin Hfa 2 puff INHALATION RT-QID 09/13/19 09/13/19 History Inhaler] Artificial Tears-Hypromellose 1 drop BOTH EYES QID 09/13/19 09/13/19 History [Artificial Tear Drops] Aspirin EC [Ecotrin Low Dose] 81 mg PO DAILY 09/13/19 09/13/19 History Budesonide/Formoterol Fumarate 2 puff INHALATION RT-BID 09/13/19 09/13/19 History [Symbicort 80-4.5 Mcg Inhaler] Cetirizine HCl [Zyrtec] 10 mg PO DAILY 09/13/19 09/13/19 History Cholecalciferol [Vitamin D3 (25 2,000 unit PO DAILY 09/13/19 09/13/19 History Mcg = 1000 Iu)] Furosemide [Lasix] 40 mg PO DAILY 09/13/19 09/13/19 History Furosemide [Lasix] 40 mg PO DAILY@1500 PRN 09/13/19 09/13/19 History Gabapentin 300 mg PO BID 09/13/19 09/13/19 History Loperamide HCl [Loperamide] 4 mg PO Q6H 09/13/19 09/13/19 History Magnesium Oxide [Mag-Ox] 800 mg PO DAILY 09/13/19 09/13/19 History Metoprolol Tartrate [Lopressor] 12.5 mg PO BID 09/13/19 09/13/19 History Omeprazole 40 mg PO BID 09/13/19 09/13/19 History Potassium Chloride ER [K-Dur 10] 10 meq PO DAILY 09/13/19 09/13/19 History Primidone [Mysoline] 50 mg PO BID 09/13/19 09/13/19 History Terbinafine [LamISIL] 250 mg PO DAILY 09/13/19 09/13/19 History Vits A,C,E/Lutein/Minerals 1 tab PO BID 09/13/19 09/13/19 History [Ocuvite with Lutein Tablet] Warfarin Sodium [Coumadin] 5 mg PO HS 09/13/19 09/13/19 History amLODIPine [Norvasc] 10 mg PO DAILY 09/13/19 09/13/19 History Allergies Allergy/AdvReac Type Severity Reaction Status Date / Time cephradine AdvReac Cough Verified 09/13/19 19:24 lisinopril AdvReac Cough Verified 09/13/19 19:24 Physical Exam Vitals: Vital Signs Temp Pulse Pulse Resp BP Pulse Ox Pulse Ox 09/16/19 12:33 72 09/16/19 12:22 76 09/16/19 12:16 94 L 09/16/19 12:10 69 18 120/63 97 09/16/19 08:43 72 09/16/19 08:30 98.3 F 74 18 123/65 98 09/16/19 08:28 72 09/16/19 04:00 98.1 F 75 18 145/63 93 L 09/16/19 00:00 97.7 F 69 17 141/64 94 L 09/15/19 20:00 97.2 F L 70 18 102/59 94 L 09/15/19 19:34 70 09/15/19 19:19 68 98 09/15/19 16:24 76 09/15/19 16:14 76 Pulse Ox Pulse Ox 09/16/19 12:33 09/16/19 12:22 09/16/19 12:16 93 L 92 L 09/16/19 12:10 09/16/19 08:43 09/16/19 08:30 09/16/19 08:28 09/16/19 04:00 09/16/19 00:00 09/15/19 20:00 09/15/19 19:34 09/15/19 19:19 09/15/19 16:24 09/15/19 16:14 Intake and Output 09/16/19 09/16/19 09/16/19 06:59 14:59 22:59 Intake Total 30 840 Output Total 400 200 Balance -370 640 Intake: IV 30 Invasive Line 2 30 Oral 840 Output: Urine 400 200 Other: Voiding Method Toilet Urinal # Voids 1 2 Weight 72.6 kg - Constitutional General appearance: cooperative, no acute distress, thin - EENT Eyes: anicteric sclerae, EOMI, poor dentition ENT: hearing grossly normal - Neck Neck: no lymphadenopathy - Respiratory Respiratory: bilateral: diminished, rhonchi - Cardiovascular Heart sounds: normal: S1, S2 Abnormal Heart Sounds: no systolic murmur, no diastolic murmur, no rub, no S3 Gallop, no S4 Gallop, no click, no other leg Peripheral Edema: bilateral: None - Gastrointestinal General gastrointestinal: no absent bowel sounds, no decreased bowel sounds, no distended, no hepatomegaly, no hyperactive bowel sounds, normal bowel sounds, no organomegaly, no rigid, no scaphoid, soft, no splenomegaly, no tenderness, no umbilical hernia, no ventral hernia - Neurologic slurred speech - Musculoskeletal decreased ROM RUE - Psychiatric Psychiatric: A&O x's 3, appropriate affect, intact judgment & insight Results CBC & Chem 7: 09/16/19 05:34 09/16/19 05:34 Labs: Abnormal Lab Results - Last 24 Hours (Table) 09/15/19 09/15/19 09/16/19 Range/Units 16:39 20:56 05:34 WBC 11.2 H (3.8-10.6) k/uL RBC 3.59 L (4.30-5.90) m/uL Hgb 11.9 L (13.0-17.5) gm/dL Hct 34.9 L (39.0-53.0) % Neutrophils # 10.5 H (1.3-7.7) k/uL Lymphocytes # 0.4 L (1.0-4.8) k/uL PT (9.0-12.0) sec INR (<1.2) Sodium (137-145) mmol/L Chloride (98-107) mmol/L Carbon Dioxide (22-30) mmol/L Creatinine (0.66-1.25) mg/dL Glucose (74-99) mg/dL POC Glucose (mg/dL) 120 H 134 H (75-99) mg/dL 09/16/19 09/16/19 09/16/19 Range/Units 05:34 05:34 06:02 WBC (3.8-10.6) k/uL RBC (4.30-5.90) m/uL Hgb (13.0-17.5) gm/dL Hct (39.0-53.0) % Neutrophils # (1.3-7.7) k/uL Lymphocytes # (1.0-4.8) k/uL PT 14.1 H (9.0-12.0) sec INR 1.4 H (<1.2) Sodium 134 L (137-145) mmol/L Chloride 96 L (98-107) mmol/L Carbon Dioxide 32 H (22-30) mmol/L Creatinine 0.55 L (0.66-1.25) mg/dL Glucose 111 H (74-99) mg/dL POC Glucose (mg/dL) 111 H (75-99) mg/dL 09/16/19 Range/Units 11:36 WBC (3.8-10.6) k/uL RBC (4.30-5.90) m/uL Hgb (13.0-17.5) gm/dL Hct (39.0-53.0) % Neutrophils # (1.3-7.7) k/uL Lymphocytes # (1.0-4.8) k/uL PT (9.0-12.0) sec INR (<1.2) Sodium (137-145) mmol/L Chloride (98-107) mmol/L Carbon Dioxide (22-30) mmol/L Creatinine (0.66-1.25) mg/dL Glucose (74-99) mg/dL POC Glucose (mg/dL) 104 H (75-99) mg/dL Microbiology - Last 24 Hours (Table) 09/13/19 22:13 Gram Stain - Final Sputum Sputum Culture - Final 09/14/19 07:45 Blood Culture - Preliminary Blood No Growth after [address] scan - chest: report reviewed Assessment and Plan (1) Lung mass Narrative/Plan: Patient is status post biopsy at the [facility] in [place]. Patient states he has an appointment on Thursday for follow-up regarding this. Granddaughter confirms that the patient has had additional scans as well. We will not order any additional workup at this time. Current Visit: Yes Status: Acute Code(s): R91.8 - OTHER NONSPECIFIC ABNORMAL FINDING OF LUNG FIELD SNOMED Code(s): 940788195 (2) Postobstructive pneumonia Narrative/Plan: Patient is being followed by Pulmonary and being treated for the same. Current Visit: Yes Status: Acute Priority: High Code(s): J18.9 - PNEUMONIA, UNSPECIFIED ORGANISM SNOMED Code(s): 416821696
[2019-09-16 16:56] LABS: Glucose,Whole Blood 137 mg/dL (75-99)
[2019-09-16] MEDS: SODIUM CHLORIDE 0.9% 1,000 ML IV SCH (16:59)
[2019-09-16] MEDS: WARFARIN 7.5 MG TAB PO SCH (20:20)
[2019-09-16] MEDS: DICLOFENAC SODIUM GEL 100 GM TUBE TOPICAL SCH (20:21)
[2019-09-16 20:30] LABS: Glucose,Whole Blood 117 mg/dL (75-99)
--- NOTE | 2019-09-16 23:03 | P.EN ---
I got a call from the physician from the [facility] in [place] stating the pathology report is showing small cell cancer. i asked him to fax the pathology report and provided unit number also informed RN at bed side and request for record and pathologist report to be obtained.
[2019-09-17 05:48] LABS: Basophils % (A) 0 %; Eosinophils % (A) 0 %; HCT 36.9 % (39.0-53.0); HGB 12.5 gm/dL (13.0-17.5); Lymphocytes # (A) 0.3 k/uL (1.0-4.8); Lymphocytes % (A) 4 %; MCH 32.6 pg (25.0-35.0); MCHC 33.8 g/dL (31.0-37.0); MCV 96.4 fL (80.0-100.0); Mean Platelet Volume 6.5; Monocytes # (A) 0.2 k/uL (0-1.0); Monocytes % (A) 2 %; Neutrophils # (A) 7.7 k/uL (1.3-7.7); Neutrophils % (A) 94 %; Platelet Count 236 k/uL (150-450); RBC 3.83 m/uL (4.30-5.90); RDW 12.6 % (11.5-15.5); WBC 8.3 k/uL (3.8-10.6)
[2019-09-17 05:58] LABS: African American GFR (CKD) >90 (>60 ml/min/1.73 sqM); Anion Gap 7 mmol/L; Blood Urea Nitrogen 16 mg/dL (9-20); Calcium 8.8 mg/dL (8.4-10.2); Carbon Dioxide 34 mmol/L (22-30); Chloride 93 mmol/L (98-107); Glucose 114 mg/dL (74-99); Non-African American GFR(CKD) >90 (>60 ml/min/1.73 sqM); Prothrombin Time 19.8 sec (9.0-12.0); Sodium 134 mmol/L (137-145)
[2019-09-17 06:22] LABS: Glucose,Whole Blood 108 mg/dL (75-99)
[2019-09-17] MEDS: INSULIN ASPART (NovoLOG) 100 UNIT/ML VIAL SQ SCH ×4 (06:22→22:12)
[2019-09-17] MEDS: HYDROcodone/APAP 5-325MG 1 EACH TAB PO PRN ×2 (06:22→13:12)
[2019-09-17] MEDS: FUROSEMIDE 40 MG TAB PO SCH (08:20)
[2019-09-17] MEDS: POTASSIUM CHLORIDE ER 10 MEQ TAB.ER.PRT PO SCH (08:20)
[2019-09-17] MEDS: TERBINAFINE 250 MG TAB PO SCH (08:20)
[2019-09-17] MEDS: GABAPENTIN 300 MG CAP PO SCH ×2 (08:20→20:11)
[2019-09-17] MEDS: PRIMIDONE 50 MG TAB PO SCH ×2 (08:20→20:11)
[2019-09-17] MEDS: ASPIRIN 81 MG PO SCH (08:20)
[2019-09-17] MEDS: METOPROLOL TARTRATE 12.5 MG TAB PO SCH ×2 (08:20→20:11)
[2019-09-17] MEDS: amLODIPine 10 MG TAB PO SCH (08:21)
[2019-09-17] MEDS: MAGNESIUM OXIDE 400 MG TAB PO SCH (08:21)
[2019-09-17] MEDS: FAMOTIDINE 20 MG TAB PO SCH ×2 (08:21→20:12)
[2019-09-17] MEDS: PIPERACILLIN-TAZOBACTAM 3.375 GM in SODIUM CHLORIDE 0.9% 100 ML IVPB SCH ×3 (08:21→22:13)
[2019-09-17] MEDS: CHOLECALCIFEROL 1,000 UNIT TAB PO SCH (08:21)
[2019-09-17] MEDS: methylPREDNISolone SOD SUCCI 40 MG/ML 1 ML VIAL IV SCH ×2 (08:21→20:12)
[2019-09-17] MEDS: DICLOFENAC SODIUM GEL 100 GM TUBE TOPICAL SCH ×4 (08:22→22:12)
[2019-09-17] MEDS: ARTIFICIAL TEARS-HYPROMELLOSE DROPS 15 ML BTL BOTH EYES SCH ×4 (08:30→20:12)
[2019-09-17] MEDS: BUDESONIDE 0.5 MG/2 ML NEBU INHALATION SCH ×2 (08:54→19:12)
[2019-09-17] MEDS: IPRATROPIUM-ALBUTEROL 3 ML NEB INHALATION SCH ×4 (08:54→19:12)
[2019-09-17] MEDS: HEPARIN SODIUM,PORCINE 5,000 UNIT/ML 1 ML VIAL SQ SCH ×2 (11:33→20:12)
[2019-09-17] MEDS: SODIUM CHLORIDE 0.9% 1,000 ML IV SCH (11:34)
[2019-09-17 11:40] LABS: Glucose,Whole Blood 107 mg/dL (75-99)
--- NOTE | 2019-09-17 15:23 | PN ---
PROGRESS NOTE DATE OF SERVICE: 09/17/2019 Patient is a 68-year-old male who is seen lying in bed, awake, alert. Denies any worsening shortness of breath. Denies any pain. He is hemodynamically stable, afebrile, in no acute distress. It appears that a phone call came in last night from the [facility] in [place] informing the primary team that the pathology for the bronchoscopy that was done at the [facility] was positive for small cell cancer. The patient is aware of that. PHYSICAL EXAM: VITAL SIGNS: Temperature 97.3, heart rate is 71, respiratory rate 18, blood pressure is 121/58, O2 sats 97% on 3 L O2 via nasal cannula. HEENT: Head is normocephalic, atraumatic. Neck is supple. Trachea is midline. LUNGS: With decreased breath sounds and fine expiratory wheeze in the left upper lobe. HEART: S1, S2 are heard. Not tachycardic. ABDOMEN: Soft. Bowel sounds are positive. EXTREMITIES: With trace edema bilaterally. NEUROLOGIC: Patient is awake and alert. LABS: White count is 8.3, hemoglobin 12.5, hematocrit 36.9 with 236,000 platelets. PT is 19.8, INR is 2.0. Sodium is 134, potassium is 4, chloride is 93, CO2 is 34, anion gap is 7, BUN is 16, creatinine 0.58, glucose is 114, calcium is 8.8. No new imaging to review. IMPRESSION: 1. Post procedure pneumonia. 2. Chronic obstructive pulmonary disease with acute exacerbation. 3. Lung mass with pathology positive for small cell lung cancer per the [facility]. PLAN: Continue current medications which have been reviewed. Will start weaning IV Solu- Medrol. Continue the antibiotics. Continue GI, DVT prophylaxis, and increase activity as tolerated. We will follow patient closely with you making further changes as necessary. MMODL / IJN: [id number] /
[2019-09-17 16:35] LABS: Glucose,Whole Blood 197 mg/dL (75-99)
[2019-09-17] MEDS: ALPRAZolam 0.25 MG TAB PO PRN (20:11)
[2019-09-17] MEDS: WARFARIN 7.5 MG TAB PO SCH (20:12)
[2019-09-17 20:42] LABS: Glucose,Whole Blood 108 mg/dL (75-99)
--- NOTE | 2019-09-17 21:14 | PN ---
PROGRESS NOTE DATE OF SERVICE: September 17, 2019 CHIEF COMPLAINT: Weak and tired. Eloy is seen today as a followup. He remains weak, tired, short of breath. He has lost a significant amount of weight over the last few months. He denies any fever or chills. No nausea or vomiting. PHYSICAL EXAMINATION: He is alert, oriented x3. He does not appear to be in pain. His vital signs: Temperature 97.6, afebrile, pulse 72 regular, respiration 18, blood pressure 115/59. HEENT: Normocephalic, atraumatic. NECK: Supple. CHEST equal expansion bilaterally. LUNGS revealed decreased breath sounds in the right lung and the left base and the right lower lobe. ABDOMEN: Soft. There is no tenderness. EXTREMITIES reveal minimal edema. SKIN: Multiple bruises in the upper extremities. LABORATORY DATA: WBC are 8.3, hemoglobin 12.5, hematocrit 36.9, platelet 239. Sodium 143, potassium 4.0, chloride is 93, CO2 is 34, BUN is 16, creatinine 0.58. IMPRESSION: Recent diagnosis of lung carcinoma. Preliminary report from the [facility] is consistent with small cell lung carcinoma. A recent CT scan done on September 14 revealed very large right infrahilar mass with postobstructive changes along with mediastinal and bilateral hilar adenopathies and there was also large bilateral adrenal lesion and also suspicious gastrohepatic ligament lymph node and rounded fluid collection along the right major fissure. RECOMMENDATION: 1. I did discuss the above CAT scan finding with the patient and his daughter at bedside. 2. To complete workup he might require a PET scan in the outpatient setting. However, based on recent CAT scan finding, likely the patient has extensive stage disease and also to complete the workup, an MRI of the brain would be obtained. However, he has a pacemaker. A CT scan could be considered. 3. We discussed systemic therapy with a combination of chemotherapy and immunotherapy. Likely will start him early next week and possibly as an inpatient prior to his discharge. Thank you very much. MMODL / IJN: [id number] /
[2019-09-18] MEDS: SODIUM CHLORIDE 0.9% 1,000 ML IV SCH (05:20)
[2019-09-18] MEDS: HYDROcodone/APAP 5-325MG 1 EACH TAB PO PRN ×3 (05:37→19:42)
[2019-09-18 05:41] LABS: Glucose,Whole Blood 91 mg/dL (75-99)
[2019-09-18] MEDS: INSULIN ASPART (NovoLOG) 100 UNIT/ML VIAL SQ SCH ×4 (05:41→20:54)
[2019-09-18] MEDS: IPRATROPIUM-ALBUTEROL 3 ML NEB INHALATION SCH ×4 (08:33→20:04)
[2019-09-18] MEDS: BUDESONIDE 0.5 MG/2 ML NEBU INHALATION SCH ×2 (08:33→20:04)
[2019-09-18] MEDS: GABAPENTIN 300 MG CAP PO SCH ×2 (08:37→19:42)
[2019-09-18] MEDS: ASPIRIN 81 MG PO SCH (08:37)
[2019-09-18] MEDS: CHOLECALCIFEROL 1,000 UNIT TAB PO SCH (08:37)
[2019-09-18] MEDS: ALPRAZolam 0.25 MG TAB PO PRN ×2 (08:37→19:42)
[2019-09-18] MEDS: FUROSEMIDE 40 MG TAB PO SCH (08:37)
[2019-09-18] MEDS: FAMOTIDINE 20 MG TAB PO SCH ×2 (08:37→19:42)
[2019-09-18] MEDS: MAGNESIUM OXIDE 400 MG TAB PO SCH (08:37)
[2019-09-18] MEDS: TERBINAFINE 250 MG TAB PO SCH (08:37)
[2019-09-18] MEDS: PRIMIDONE 50 MG TAB PO SCH ×2 (08:37→19:42)
[2019-09-18] MEDS: METOPROLOL TARTRATE 12.5 MG TAB PO SCH ×2 (08:38→19:41)
[2019-09-18] MEDS: POTASSIUM CHLORIDE ER 10 MEQ TAB.ER.PRT PO SCH (08:38)
[2019-09-18] MEDS: PIPERACILLIN-TAZOBACTAM 3.375 GM in SODIUM CHLORIDE 0.9% 100 ML IVPB SCH ×3 (08:38→22:49)
[2019-09-18] MEDS: methylPREDNISolone SOD SUCCI 40 MG/ML 1 ML VIAL IV SCH (08:38)
[2019-09-18] MEDS: amLODIPine 10 MG TAB PO SCH (08:38)
[2019-09-18] MEDS: DICLOFENAC SODIUM GEL 100 GM TUBE TOPICAL SCH ×4 (08:39→20:54)
[2019-09-18 08:42] LABS: INR 3.2 (<1.2); Prothrombin Time 30.7 sec (9.0-12.0)
[2019-09-18] MEDS: HEPARIN SODIUM,PORCINE 5,000 UNIT/ML 1 ML VIAL SQ SCH (08:48)
[2019-09-18] MEDS: ARTIFICIAL TEARS-HYPROMELLOSE DROPS 15 ML BTL BOTH EYES SCH ×4 (08:48→20:55)
[2019-09-18 08:54] LABS: African American GFR (CKD) >90 (>60 ml/min/1.73 sqM); Anion Gap 9 mmol/L; Blood Urea Nitrogen 18 mg/dL (9-20); Calcium 9.1 mg/dL (8.4-10.2); Carbon Dioxide 36 mmol/L (22-30); Chloride 91 mmol/L (98-107); Glucose 89 mg/dL (74-99); Non-African American GFR(CKD) >90 (>60 ml/min/1.73 sqM); Potassium 3.9 mmol/L (3.5-5.1); Sodium 136 mmol/L (137-145)
[2019-09-18 11:26] LABS: Glucose,Whole Blood 160 mg/dL (75-99)
[2019-09-18] MEDS: predniSONE 50 MG TAB PO SCH (11:54)
--- NOTE | 2019-09-18 13:07 | PN ---
PROGRESS NOTE DATE OF SERVICE: 09/18/2019 Patient is a 68-year-old male who is seen sitting up in a chair. He is awake, alert, comfortable at this time. Does state that he had an episode last night of some confusion where he pulled out his IV and could not get his breath. Further discussion with nursing indicates patient appears to have had a panic attack. Oxygen saturation was in the upper 90s at the time. Patient did get informed of the diagnosis of stage IV lung cancer yesterday as well and is a bit anxious about the new diagnosis. Patient's vital signs are stable. The patient is afebrile, in no acute distress. Daughter is at the bedside at this time as well. PHYSICAL EXAM: VITAL SIGNS: Temp is 98.8, heart rate is 67, respiratory rate is 18, blood pressure is 109/66, O2 sats 96% on 2 L O2 via nasal cannula. HEENT: Head is normocephalic, atraumatic. Neck is supple. Trachea is midline. LUNGS: With fair air entry bilaterally. A few scattered wheezes and diminished bases. HEART: S1, S2 are heard. Not tachycardic. ABDOMEN: Soft. Bowel sounds are positive. EXTREMITIES: With 1+ edema bilaterally. NEUROLOGIC: Patient is awake and alert, comfortable at this time. LABS: PT is 30.7, INR is 3.2, sodium is 136, potassium is 3.9, chloride is 91, CO2 is 36, anion gap is 9, BUN is 18, creatinine 0.77, glucose is 89, calcium is 9.1. No new imaging to review. IMPRESSION: 1. Post procedure pneumonia. 2. Chronic obstructive pulmonary disease with acute exacerbation. 3. Stage IV small cell lung cancer. PLAN: Will stop IV Solu-Medrol and start patient on oral prednisone. Continue the antibiotics. Continue GI prophylaxis. Patient is supratherapeutic with his INR. Would hold Coumadin today. Continue to increase activity as tolerated and will follow patient closely with you making further changes as necessary. MMODL / IJN: [id number] /
[2019-09-18 16:57] LABS: Glucose,Whole Blood 141 mg/dL (75-99)
[2019-09-18] MEDS: WARFARIN 7.5 MG TAB PO SCH (19:36)
[2019-09-18 19:59] LABS: Glucose,Whole Blood 232 mg/dL (75-99)
--- NOTE | 2019-09-18 23:52 | P.PN ---
Subjective Progress Note Date: 09/17/19 Principal diagnosis: Recently diagnosed lung mass. Status post biopsy at [facility] in [place]. Report pending. Postobstructive pneumonia. This is a pleasant 68 years old male with past medical history of COPD, Parkinson disease, status post pacemaker, nicotine dependence, hypertension, hyperlipidemia. As per documents Patient was transferred from [facility] as predicament patient is originally from [place] recently moved to [place] to live with his daughter who had recent bronchoscopy done about 3-4 days ago for possible lung masses at the [facility] in [place]. The stomach presents with dyspnea and cough and there was mention of blood in the s putum. Patient himself says that he was living with his daughter and her place, he has history of COPD and on 2 L/m home oxygen via nasal cannula, when he got difficulty breathing with coughing with yellow phlegm of one-day duration and he checked his oxygen level and stated was low so he went to [facility] and from there the transfer him to [facility] in [place], they told me he has abnor mal chest x-ray and they did CAT scan but was not sure what was abnormal to the chest x-ray. Patient still smokes about 1 pack per day and he quit about 2 weeks ago, denies alcohol or illicit tracts. At baseline and he walks very little using a cane. Vitals: Patient is afebrile, blood pressure was 90/55 currently 110/63, he saturating 94% on 3 L, no tachycardia, mild tachypnea with respiratory rate 18- 23 Labs from [place] showing negative troponin, sodium 142, potassium 4.3, creatinine 0.7, liver enzymes elevated. Chest x-ray: Bibasilar airway disease suspicious for pneumonia or pneumonitis, with no vascular congestion and trace pleural effusion. Also has leukocytosis of 20 5.0K, hemoglobin 13.5, platelets 252. BNP is 3787. EKG showing ventricular paced rhythm with no significant ST T changes, QTC of 455 I [facility] patient was given 1 dose of Solu-Medrol 125 mg, and he was started on levofloxacin and IV vancomycin. 09/15/2019 Patient still have the similar respiratory symptoms he came in with some dyspnea and coughing with phlegm. And no chest pain. Vitals are stable and he is on 3 L oxygen via NC similar to his baseline. WBC is back to 11.8 K which is close to normal. INR is 1.1 and patient is on Coumadin 5 m sputum and blood culture are pending. g daily which he was adherent to and he was taken it appeared to come to the hospital as he confirmed to me today. We going to give him extra doses of Coumadin. His blood thinners for his atrial fibrillation where he has pacemaker as well. Swallow evaluation showed small penetration. Patient confirmed to me that he did not go the result of his lung mass biopsy which was done prior to this hospitalization. Pulmonary input is appreciated and patient was started on Zosyn, also lower his on Medrol from 60 down to 40 mg. And lower his normal saline 2 mL per hour 09/16/2019 Patient still feels this ache with some improvement especially with bronchodilator. His coughing with phlegm. He is hemodynamically stable. He saturating 98% on 3 L of oxygen. Leukocytosis improving gradually to 11.2k, INR is 1.4, Coumadin dose was already increased from 5 to 7.5 mg for his A. fib. Electrolytes are acceptable and creatinine is normal. Sugar is controlled. Pending, patient remains on Zosyn currently. And Solu-Medrol 40 mg, normal saline at [address] thorax shows COPD, pneumonia and lung mass, see the report for more details. Hematology/oncology team were consulted and they're still pending 09/17/2019 Patient has been having cough and exertional dyspnea. Currently on nausea micheal karlene oxygen. Leukocytosis is improving. Antibiotics in the form of Zosyn. Patient is also being continued on Coumadin for atrial fibrillation. Awaiting biopsy report at [facility].. Patient has scheduled appointment on Thursday. Hematology is on board. Pulmonary is following as well. Patient has been afebrile. Tolerating oral diet. No nausea vomiting or diarrhea. Current medications reviewed. Objective - Vital Signs Vital signs: Vital Signs Temp 97.6 F 09/17/19 15:00 Pulse 70 09/17/19 15:51 Resp 18 09/17/19 15:00 BP 115/59 09/17/19 15:00 Pulse Ox 97 09/17/19 15:38 Intake & Output 09/16/19 09/17/19 09/17/19 18:59 06:59 18:59 Intake Total 1080 960 Output Total 200 1225 900 Balance 880 -1225 60 Intake: Oral 1080 960 Output: Urine 200 1225 900 Other: Voiding Method Toilet Toilet Urinal Urinal # Voids 2 1 1 - Exam GENERAL: The patient is alert and oriented x3, not in any acute distress. Well developed, well nourished. HEENT: Pupils are round and equally reacting to light. EOMI. No scleral icterus. No conjunctival pallor. Normocephalic, atraumatic. No pharyngeal erythema. No thyromegaly. CARDIOVASCULAR: S1 and S2 present. No murmurs, rubs, or gallops. -PULMONARY: Chest is clear to auscultation, bilateral expiratory wheezing ABDOMEN: Soft, nontender, nondistended, normoactive bowel sounds. No palpable organomegaly. MUSCULOSKELETAL: No joint swelling or deformity. EXTREMITIES: No cyanosis, clubbing, or pedal edema. NEUROLOGICAL: Gross neurological examination did not reveal any focal deficits. SKIN: No rashes. No petechiae - Labs CBC & Chem 7: 09/17/19 05:15 09/18/19 08:26 Labs: Abnormal Lab Results - Last 24 Hours (Table) 09/16/19 09/17/19 09/17/19 Range/Units 20:29 05:15 05:15 RBC 3.83 L (4.30-5.90) m/uL Hgb 12.5 L (13.0-17.5) gm/dL Hct 36.9 L (39.0-53.0) % Lymphocytes # 0.3 L (1.0-4.8) k/uL PT (9.0-12.0) sec INR (<1.2) Sodium 134 L (137-145) mmol/L Chloride 93 L (98-107) mmol/L Carbon Dioxide 34 H (22-30) mmol/L Creatinine 0.58 L (0.66-1.25) mg/dL Glucose 114 H (74-99) mg/dL POC Glucose (mg/dL) 117 H (75-99) mg/dL 09/17/19 09/17/19 09/17/19 Range/Units 05:15 06:21 11:38 RBC (4.30-5.90) m/uL Hgb (13.0-17.5) gm/dL Hct (39.0-53.0) % Lymphocytes # (1.0-4.8) k/uL PT 19.8 H (9.0-12.0) sec INR 2.0 H (<1.2) Sodium (137-145) mmol/L Chloride (98-107) mmol/L Carbon Dioxide (22-30) mmol/L Creatinine (0.66-1.25) mg/dL Glucose (74-99) mg/dL POC Glucose (mg/dL) 108 H 107 H (75-99) mg/dL 09/17/19 Range/Units 16:34 RBC (4.30-5.90) m/uL Hgb (13.0-17.5) gm/dL Hct (39.0-53.0) % Lymphocytes # (1.0-4.8) k/uL PT (9.0-12.0) sec INR (<1.2) Sodium (137-145) mmol/L Chloride (98-107) mmol/L Carbon Dioxide (22-30) mmol/L Creatinine (0.66-1.25) mg/dL Glucose (74-99) mg/dL POC Glucose (mg/dL) 197 H (75-99) mg/dL Microbiology - Last 24 Hours (Table) 09/14/19 07:45 Blood Culture - Preliminary Blood No Growth after 72 hours Assessment and Plan Assessment: Bilateral pneumonia suspicious for aspiration versus postobstructive Lung mass status post biopsy, with result is pending from [facility] Chronic A. fib status post pacemaker, rate controlled and on Coumadin. Mild to moderate acute COPD exacerbation History of Parkinson disease Chronic hypoxic respiratory failure Nicotine dependence Hypertension Hyperlipidemia Plan: This is a pleasant 68 years old male who was transferred from [facility] for possible pneumonia and bibasilar infiltrates. We'll continue with Zosyn, continue with steroids and bronchodilators. sent for respiratory and blood culture. Follow-up recommendations by pulmonary and cardiology teams. Labs and medication were reviewed.. Continue same treatment. Continue with symptomatic treatment. Resume home medication. Monitor lytes and vitals. DVT and GI prophylaxis. Further recommendations of the clinical course of the patient DVT prophylaxis: On Coumadin GI Prophylaxis: Pepcid PT/OT: Patient will benefit from ECF for rehab, social welfare administrator was consulted Prognosis is guarded Time with Patient: Greater than 30
--- NOTE | 2019-09-18 23:56 | P.PN ---
Subjective Progress Note Date: 09/18/19 Principal diagnosis: Recently diagnosed lung mass. Status post biopsy at [facility] in [place]. Report pending. Postobstructive pneumonia. This is a pleasant 68 years old male with past medical history of COPD, Parkinson disease, status post pacemaker, nicotine dependence, hypertension, hyperlipidemia. As per documents Patient was transferred from [facility] as predicament patient is originally from [place] recently moved to [place] to live with his daughter who had recent bronchoscopy done about 3-4 days ago for possible lung masses at the [facility] in [place]. The stomach presents with dyspnea and cough and there was mention of blood in the s putum. Patient himself says that he was living with his daughter and her place, he has history of COPD and on 2 L/m home oxygen via nasal cannula, when he got difficulty breathing with coughing with yellow phlegm of one-day duration and he checked his oxygen level and stated was low so he went to [facility] and from there the transfer him to [facility] in [place], they told me he has abnor mal chest x-ray and they did CAT scan but was not sure what was abnormal to the chest x-ray. Patient still smokes about 1 pack per day and he quit about 2 weeks ago, denies alcohol or illicit tracts. At baseline and he walks very little using a cane. Vitals: Patient is afebrile, blood pressure was 90/55 currently 110/63, he saturating 94% on 3 L, no tachycardia, mild tachypnea with respiratory rate 18- 23 Labs from [place] showing negative troponin, sodium 142, potassium 4.3, creatinine 0.7, liver enzymes elevated. Chest x-ray: Bibasilar airway disease suspicious for pneumonia or pneumonitis, with no vascular congestion and trace pleural effusion. Also has leukocytosis of 20 5.0K, hemoglobin 13.5, platelets 252. BNP is 3787. EKG showing ventricular paced rhythm with no significant ST T changes, QTC of 455 I [facility] patient was given 1 dose of Solu-Medrol 125 mg, and he was started on levofloxacin and IV vancomycin. 09/15/2019 Patient still have the similar respiratory symptoms he came in with some dyspnea and coughing with phlegm. And no chest pain. Vitals are stable and he is on 3 L oxygen via NC similar to his baseline. WBC is back to 11.8 K which is close to normal. INR is 1.1 and patient is on Coumadin 5 m sputum and blood culture are pending. g daily which he was adherent to and he was taken it appeared to come to the hospital as he confirmed to me today. We going to give him extra doses of Coumadin. His blood thinners for his atrial fibrillation where he has pacemaker as well. Swallow evaluation showed small penetration. Patient confirmed to me that he did not go the result of his lung mass biopsy which was done prior to this hospitalization. Pulmonary input is appreciated and patient was started on Zosyn, also lower his on Medrol from 60 down to 40 mg. And lower his normal saline 2 mL per hour 09/16/2019 Patient still feels this ache with some improvement especially with bronchodilator. His coughing with phlegm. He is hemodynamically stable. He saturating 98% on 3 L of oxygen. Leukocytosis improving gradually to 11.2k, INR is 1.4, Coumadin dose was already increased from 5 to 7.5 mg for his A. fib. Electrolytes are acceptable and creatinine is normal. Sugar is controlled. Pending, patient remains on Zosyn currently. And Solu-Medrol 40 mg, normal saline at [address] thorax shows COPD, pneumonia and lung mass, see the report for more details. Hematology/oncology team were consulted and they're still pending 09/17/2019 Patient has been having cough and exertional dyspnea. Currently on nausea micheal karlene oxygen. Leukocytosis is improving. Antibiotics in the form of Zosyn. Patient is also being continued on Coumadin for atrial fibrillation. Awaiting biopsy report at [facility].. Patient has scheduled appointment on Thursday. Hematology is on board. Pulmonary is following as well. Patient has been afebrile. Tolerating oral diet. No nausea vomiting or diarrhea. 09 18 2019 Patient is currently sitting in the chair. On nausea cannula oxygen. Continued on breathing treatments and antibiotics. Final recommendations from oncology and biopsy report is pending. No other acute overnight issues. Patient has been afebrile. INR is 3.2 today Current medications reviewed. Active Medications Hydrocodone Bitart/Acetaminophen (Alden 5-325) 1 each PO Q6HR PRN PRN Reason: Moderate Pain Last Admin: 09/18/19 19:42 Dose: 1 each Documented by: Albuterol/Ipratropium (Duoneb 0.5 Mg-3 Mg/3 Ml Soln) 3 ml INHALATION RT-QID [facility] Last Admin: 09/18/19 20:04 Dose: 3 ml Documented by: Albuterol/Ipratropium (Duoneb 0.5 Mg-3 Mg/3 Ml Soln) 3 ml INHALATION RT-QID PRN PRN Reason: Shortness Of Breath Or Wheezing Alprazolam (Xanax) 0.25 mg PO TID PRN PRN Reason: Anxiety Last Admin: 09/18/19 19:42 Dose: 0.25 mg Documented by: Amlodipine Besylate (Norvasc) 10 mg PO DAILY [facility] Last Admin: 09/18/19 08:38 Dose: 10 mg Documented by: Artificial Tears (Artificial Tear Drops) 1 drops BOTH EYES QID [facility] Last Admin: 09/18/19 20:55 Dose: 1 drops Documented by: Aspirin (Aspirin) 81 mg PO DAILY [facility] Last Admin: 09/18/19 08:37 Dose: 81 mg Documented by: Budesonide (Pulmicort) 0.5 mg INHALATION RT-BID [facility] Last Admin: 09/18/19 20:04 Dose: 0.5 mg Documented by: Cholecalciferol (Vitamin D3 (25 Mcg = 1000 Iu)) 2,000 unit PO DAILY [facility] Last Admin: 09/18/19 08:37 Dose: 2,000 unit Documented by: Diclofenac Sodium (Voltaren Gel) 2 gm TOPICAL QID [facility] Last Admin: 09/18/19 20:54 Dose: 2 gm Documented by: Famotidine (Pepcid) 20 mg PO Q12HR [facility] Last Admin: 09/18/19 19:42 Dose: 20 mg Documented by: Furosemide (Lasix) 40 mg PO DAILY [facility] Last Admin: 09/18/19 08:37 Dose: 40 mg Documented by: Gabapentin (Neurontin) 300 mg PO BID [facility] Last Admin: 09/18/19 19:42 Dose: 300 mg Documented by: Sodium Chloride (Saline 0.9%) 1,000 mls @ 50 mls/hr IV .Q20H [facility] Last Admin: 09/18/19 05:20 Dose: Not Given Documented by: Piperacillin Sod/Tazobactam (Sod 3.375 gm/ Sodium Chloride) 100 mls @ 25 mls/hr IVPB Q8HR [facility] Last Admin: 09/18/19 22:49 Dose: 25 mls/hr Documented by: Insulin Aspart (Novolog) 0 unit SQ ACHS [facility]; Protocol Last Admin: 09/18/19 20:54 Dose: 8 unit Documented by: Loperamide HCl (Imodium) 4 mg PO Q6H PRN PRN Reason: Diarrhea Magnesium Oxide (Mag-Ox) 800 mg PO DAILY [facility] Last Admin: 09/18/19 08:37 Dose: 800 mg Documented by: Metoprolol Tartrate (Lopressor) 12.5 mg PO BID [facility] Last Admin: 09/18/19 19:41 Dose: 12.5 mg Documented by: Potassium Chloride (K-Dur 10) 10 meq PO DAILY [facility] Last Admin: 09/18/19 08:38 Dose: 10 meq Documented by: Prednisone () 50 mg PO DAILY [facility] Last Admin: 09/18/19 11:54 Dose: 50 mg Documented by: Primidone (Mysoline) 50 mg PO BID [facility] Last Admin: 09/18/19 19:42 Dose: 50 mg Documented by: Terbinafine HCl (Lamisil) 250 mg PO DAILY [facility] Last Admin: 09/18/19 08:37 Dose: 250 mg Documented by: Warfarin Sodium (Coumadin) 7.5 mg PO HS [facility] Last Admin: 09/18/19 19:36 Dose: Not Given Documented by: Objective - Vital Signs Vital signs: Vital Signs Temp 96.2 F L 09/18/19 15:00 Pulse 64 09/18/19 20:22 Resp 18 09/18/19 15:00 BP 103/56 09/18/19 15:00 Pulse Ox 98 09/18/19 16:04 Intake & Output 09/18/19 09/18/19 09/19/19 06:59 18:59 06:59 Intake Total 400 760 Output Total 2100 Balance -1700 760 Weight 67.8 kg Intake: Intake, IV Titration 400 100 Amount Piperacillin-Tazobactam 3 100 100 .375 gm In Sodium Chloride 0.9% 100 ml @ 25 mls/hr IVPB Q8HR [facility] Rx# :[id number] Sodium Chloride 0.9% 1, 300 000 ml @ 50 mls/hr IV . Q20H [facility] Rx#:[id number] Oral 660 Output: Urine 2100 Other: Voiding Method Toilet Toilet Urinal Urinal # Voids 1 # Bowel Movements 1 - Exam GENERAL: The patient is alert and oriented x3, not in any acute distress. Well developed, well nourished. HEENT: Pupils are round and equally reacting to light. EOMI. No scleral icterus. No conjunctival pallor. Normocephalic, atraumatic. No pharyngeal erythema. No thyromegaly. CARDIOVASCULAR: S1 and S2 present. No murmurs, rubs, or gallops. -PULMONARY: Chest is clear to auscultation, scattered rhonchi. Mild expiratory wheeze. ABDOMEN: Soft, nontender, nondistended, normoactive bowel sounds. No palpable organomegaly. MUSCULOSKELETAL: No joint swelling or deformity. EXTREMITIES: No cyanosis, clubbing, or pedal edema. NEUROLOGICAL: Gross neurological examination did not reveal any focal deficits. SKIN: No rashes. No petechiae - Labs CBC & Chem 7: 09/17/19 05:15 09/18/19 08:26 Labs: Abnormal Lab Results - Last 24 Hours (Table) 09/17/19 09/18/19 09/18/19 Range/Units 20:41 08:26 08:26 PT 30.7 H (9.0-12.0) sec INR 3.2 H (<1.2) Sodium 136 L (137-145) mmol/L Chloride 91 L (98-107) mmol/L Carbon Dioxide 36 H (22-30) mmol/L POC Glucose (mg/dL) 108 H (75-99) mg/dL 09/18/19 09/18/19 09/18/19 Range/Units 11: 16:56 19:58 PT (9.0-12.0) sec INR (<1.2) Sodium (137-145) mmol/L Chloride (98-107) mmol/L Carbon Dioxide (22-30) mmol/L POC Glucose (mg/dL) 160 H 141 H 232 H (75-99) mg/dL Microbiology - Last 24 Hours (Table) 09/14/19 07:45 Blood Culture - Preliminary Blood No Growth after 96 hours Assessment and Plan Assessment: Bilateral pneumonia suspicious for aspiration versus postobstructive Lung mass status post biopsy, with result is pending from [facility] Chronic A. fib status post pacemaker, rate controlled and on Coumadin. Mild to moderate acute COPD exacerbation History of Parkinson disease Chronic hypoxic respiratory failure Nicotine dependence Hypertension Hyperlipidemia Plan: This is a pleasant 68 years old male who was transferred from [facility] for possible pneumonia and bibasilar infiltrates. We'll continue with Zosyn, continue with steroids and bronchodilators. sent for respiratory and blood culture. Follow-up recommendations by pulmonary and cardiology teams. Labs and medication were reviewed.. Continue same treatment. Continue with symptomatic treatment. Monitor lytes and vitals. DVT and GI prophylaxis. Further recommendations of the clinical course of the patient DVT prophylaxis: On Coumadin GI Prophylaxis: Pepcid PT/OT: Patient will benefit from ECF for rehab, social economist was consulted Prognosis is guarded Time with Patient: Greater than 30
[2019-09-19] MEDS: SODIUM CHLORIDE 0.9% 1,000 ML IV SCH ×2 (05:08→22:46)
[2019-09-19 06:08] LABS: Glucose,Whole Blood 125 mg/dL (75-99)
[2019-09-19 06:34] LABS: Basophils % (A) 0 %; Eosinophils % (A) 0 %; HCT 38.7 % (39.0-53.0); HGB 13.1 gm/dL (13.0-17.5); Lymphocytes # (A) 0.5 k/uL (1.0-4.8); Lymphocytes % (A) 5 %; MCH 32.9 pg (25.0-35.0); MCHC 33.9 g/dL (31.0-37.0); Mean Platelet Volume 6.2; Monocytes # (A) 0.6 k/uL (0-1.0); Monocytes % (A) 6 %; Neutrophils # (A) 9.2 k/uL (1.3-7.7); Neutrophils % (A) 88 %; Platelet Count 258 k/uL (150-450); RBC 3.98 m/uL (4.30-5.90); RDW 12.7 % (11.5-15.5); WBC 10.5 k/uL (3.8-10.6)
[2019-09-19 06:40] LABS: INR 3.6 (<1.2); Prothrombin Time 34.2 sec (9.0-12.0)
[2019-09-19] MEDS: INSULIN ASPART (NovoLOG) 100 UNIT/ML VIAL SQ SCH ×4 (06:41→20:01)
[2019-09-19 06:47] LABS: African American GFR (CKD) >90 (>60 ml/min/1.73 sqM); Anion Gap 6 mmol/L; Blood Urea Nitrogen 16 mg/dL (9-20); Calcium 8.6 mg/dL (8.4-10.2); Carbon Dioxide 38 mmol/L (22-30); Chloride 92 mmol/L (98-107); Glucose 136 mg/dL (74-99); Non-African American GFR(CKD) >90 (>60 ml/min/1.73 sqM); Potassium 3.7 mmol/L (3.5-5.1); Sodium 136 mmol/L (137-145)
[2019-09-19] MEDS: HYDROcodone/APAP 5-325MG 1 EACH TAB PO PRN (08:35)
[2019-09-19] MEDS: CHOLECALCIFEROL 1,000 UNIT TAB PO SCH (08:36)
[2019-09-19] MEDS: FAMOTIDINE 20 MG TAB PO SCH ×2 (08:36→20:55)
[2019-09-19] MEDS: FUROSEMIDE 40 MG TAB PO SCH (08:36)
[2019-09-19] MEDS: MAGNESIUM OXIDE 400 MG TAB PO SCH (08:36)
[2019-09-19] MEDS: PRIMIDONE 50 MG TAB PO SCH ×2 (08:36→22:46)
[2019-09-19] MEDS: ASPIRIN 81 MG PO SCH (08:36)
[2019-09-19] MEDS: METOPROLOL TARTRATE 12.5 MG TAB PO SCH ×2 (08:36→20:55)
[2019-09-19] MEDS: GABAPENTIN 300 MG CAP PO SCH ×2 (08:36→20:55)
[2019-09-19] MEDS: amLODIPine 10 MG TAB PO SCH (08:36)
[2019-09-19] MEDS: POTASSIUM CHLORIDE ER 10 MEQ TAB.ER.PRT PO SCH (08:36)
[2019-09-19] MEDS: IPRATROPIUM-ALBUTEROL 3 ML NEB INHALATION SCH ×4 (08:37→20:13)
[2019-09-19] MEDS: PIPERACILLIN-TAZOBACTAM 3.375 GM in SODIUM CHLORIDE 0.9% 100 ML IVPB SCH ×2 (08:37→16:14)
[2019-09-19] MEDS: BUDESONIDE 0.5 MG/2 ML NEBU INHALATION SCH ×2 (08:37→20:13)
[2019-09-19] MEDS: DICLOFENAC SODIUM GEL 100 GM TUBE TOPICAL SCH ×4 (08:39→20:55)
[2019-09-19] MEDS: TERBINAFINE 250 MG TAB PO SCH (08:40)
[2019-09-19] MEDS: predniSONE 50 MG TAB PO SCH (08:40)
[2019-09-19] MEDS: ARTIFICIAL TEARS-HYPROMELLOSE DROPS 15 ML BTL BOTH EYES SCH ×4 (08:41→20:55)
--- NOTE | 2019-09-19 09:52 | P.PN ---
Subjective This is a pleasant 68 years old male with past medical history of COPD, Parkinson disease, status post pacemaker, nicotine dependence, hypertension, hyperlipidemia. As per documents Patient was transferred from [facility] as predicament patient is originally from [place] recently moved to [place] to live with his daughter who had recent bronchoscopy done about 3-4 days ago for possible lung masses at the [facility] in [place]. The stomach presents with dyspnea and cough and there was mention of blood in the sputum. Patient himself says that he was living with his daughter and her place, he has history of COPD and on 2 L/m home oxygen via nasal cannula, when he got difficulty breathing with coughing with yellow phlegm of one-day duration and he checked his oxygen level and stated was low so he went to [facility] and from there the transfer him to [facility] in [place], they told me he has abnormal chest x-ray and they did CAT scan but was not sure what was abnormal to the chest x-ray. Patient still smokes about 1 pack per day and he quit about 2 weeks ago, denies alcohol or illicit tracts. At baseline and he walks very little using a cane. Vitals: Patient is afebrile, blood pressure was 90/55 currently 110/63, he saturating 94% on 3 L, no tachycardia, mild tachypnea with respiratory rate 18- 23 Labs from [place] showing negative troponin, sodium 142, potassium 4.3, creatinine 0.7, liver enzymes elevated. Chest x-ray: Bibasilar airway disease suspicious for pneumonia or pneumonitis, with no vascular congestion and trace pleural effusion. Also has leukocytosis of 20 5.0K, hemoglobin 13.5, platelets 252. BNP is 3787. EKG showing ventricular paced rhythm with no significant ST T changes, QTC of 455 I [facility] patient was given 1 dose of Solu-Medrol 125 mg, and he was started on levofloxacin and IV vancomycin. 09/15/2019 Patient still have the similar respiratory symptoms he came in with some dyspnea and coughing with phlegm. And no chest pain. Vitals are stable and he is on 3 L oxygen via NC similar to his baseline. WBC is back to 11.8 K which is close to normal. INR is 1.1 and patient is on Coumadin 5 m sputum and blood culture are pending. g daily which he was adherent to and he was taken it appeared to come to the hospital as he confirmed to me today. We going to give him extra doses of Coumadin. His blood thinners for his atrial fibrillation where he has pacemaker as well. Swallow evaluation showed small penetration. Patient confirmed to me that he did not go the result of his lung mass biopsy which was done prior to this hospitalization. Pulmonary input is appreciated and patient was started on Zosyn, also lower his on Medrol from 60 down to 40 mg. And lower his normal saline 2 mL per hour 09/16/2019 Patient still feels this ache with some improvement especially with bronchodilator. His coughing with phlegm. He is hemodynamically stable. He saturating 98% on 3 L of oxygen. Leukocytosis improving gradually to 11.2k, INR is 1.4, Coumadin dose was already increased from 5 to 7.5 mg for his A. fib. Electrolytes are acceptable and creatinine is normal. Sugar is controlled. Pending, patient remains on Zosyn currently. And Solu-Medrol 40 mg, normal saline at [address] thorax shows COPD, pneumonia and lung mass, see the report for more details. Hematology/oncology team were consulted and they're still pending 09/19/2019 Patient is awake and alert, is still have some dyspnea but is improving. Patient and family at bedside are aware with the patient diagnosis of lung cancer and expecting chemotherapy to be started in house, therapy today. Vitals are stable, WBC is back to normal at 10.5 K. INR 3.6, BMP is unremarkable. Sugars controlled. Also we'll hold Coumadin today and start tomorrow at 6 mg as his INR still supratherapeutic. Objective - Vital Signs Vital signs: Vital Signs Temp 96.8 F L 09/19/19 08:42 Pulse 72 09/19/19 08:56 Resp 16 09/19/19 08:42 BP 115/57 09/19/19 08:42 Pulse Ox 97 09/19/19 08:42 Intake & Output 09/18/19 09/19/19 09/19/19 18:59 06:59 18:59 Intake Total 760 230 Output Total 500 Balance 760 -500 230 Weight 71.8 kg Intake: Intake, IV Titration 100 Amount Piperacillin-Tazobactam 3 100 .375 gm In Sodium Chloride 0.9% 100 ml @ 25 mls/hr IVPB Q8HR [facility] Rx# :[id number] Oral 660 230 Output: Urine 500 Other: Voiding Method Toilet Toilet Urinal Urinal # Voids 1 # Bowel Movements 1 - Exam GENERAL: The patient is alert and oriented x3, not in any acute distress. Well developed, well nourished. HEENT: Pupils are round and equally reacting to light. EOMI. No scleral icterus. No conjunctival pallor. Normocephalic, atraumatic. No pharyngeal erythema. No thyromegaly. CARDIOVASCULAR: S1 and S2 present. No murmurs, rubs, or gallops. -PULMONARY: Chest is clear to auscultation, bilateral expiratory wheezing ABDOMEN: Soft, nontender, nondistended, normoactive bowel sounds. No palpable organomegaly. MUSCULOSKELETAL: No joint swelling or deformity. EXTREMITIES: No cyanosis, clubbing, or pedal edema. NEUROLOGICAL: Gross neurological examination did not reveal any focal deficits. SKIN: No rashes. No petechiae - Labs CBC & Chem 7: 09/19/19 05:25 09/19/19 05:25 Labs: Abnormal Lab Results - Last 24 Hours (Table) 09/18/19 09/18/19 09/18/19 Range/Units 11: 16:56 19:58 RBC (4.30-5.90) m/uL Hct (39.0-53.0) % Neutrophils # (1.3-7.7) k/uL Lymphocytes # (1.0-4.8) k/uL PT (9.0-12.0) sec INR (<1.2) Sodium (137-145) mmol/L Chloride (98-107) mmol/L Carbon Dioxide (22-30) mmol/L Glucose (74-99) mg/dL POC Glucose (mg/dL) 160 H 141 H 232 H (75-99) mg/dL 09/19/19 09/19/19 09/19/19 Range/Units 05:25 05:25 05:25 RBC 3.98 L (4.30-5.90) m/uL Hct 38.7 L (39.0-53.0) % Neutrophils # 9.2 H (1.3-7.7) k/uL Lymphocytes # 0.5 L (1.0-4.8) k/uL PT 34.2 H (9.0-12.0) sec INR 3.6 H (<1.2) Sodium 136 L (137-145) mmol/L Chloride 92 L (98-107) mmol/L Carbon Dioxide 38 H (22-30) mmol/L Glucose 136 H (74-99) mg/dL POC Glucose (mg/dL) (75-99) mg/dL 09/19/19 Range/Units 06:02 RBC (4.30-5.90) m/uL Hct (39.0-53.0) % Neutrophils # (1.3-7.7) k/uL Lymphocytes # (1.0-4.8) k/uL PT (9.0-12.0) sec INR (<1.2) Sodium (137-145) mmol/L Chloride (98-107) mmol/L Carbon Dioxide (22-30) mmol/L Glucose (74-99) mg/dL POC Glucose (mg/dL) 125 H (75-99) mg/dL Microbiology - Last 24 Hours (Table) 09/14/19 07:45 Blood Culture - Preliminary Blood No Growth after 96 hours Assessment and Plan Assessment: Bilateral pneumonia suspicious for aspiration versus postobstructive Lung mass status post biopsy, but due to small cell lung cancer, patient is aware oncology team are following A. fib status post pacemaker, rate controlled and on Coumadin. Mild to moderate acute COPD exacerbation History of Parkinson disease Chronic hypoxic respiratory failure Nicotine dependence Hypertension Hyperlipidemia Plan: This is a pleasant 68 years old male who was transferred from [facility] for possible pneumonia and bibasilar infiltrates. We'll continue with Zosyn, continue with steroids and bronchodilators. Continue with the prednisone with slow taper. Oncology team are planning for chemotherapy, and outpatient workup including PET scan. Continue with oxygen Labs and medication were reviewed.. Continue same treatment. Continue with s ymptomatic treatment. Resume home medication. Monitor lytes and vitals. DVT and GI prophylaxis. Further recommendations of the clinical course of the patient DVT prophylaxis: On Coumadin GI Prophylaxis: Pepcid PT/OT: Patient will benefit from ECF for rehab, social work instructor was consulted Prognosis is guarded
[2019-09-19 12:21] LABS: Glucose,Whole Blood 124 mg/dL (75-99)
--- NOTE | 2019-09-19 15:09 | P.PN ---
Subjective Progress Note Date: 09/19/19 Principal diagnosis: Bilateral aspiration pneumonia, lung mass, small cell lung cancer, atrial fibrillation, moderate COPD with acute exacerbation, advanced Parkinson's disease, acute on chronic hypoxic respiratory failure, hypertension hypertensive cardiovascular disease, dyslipidemia 09/19/2019, patient has removed to oncology and it patient has been diagnosed with small cell lung cancer biopsy was performed at [facility] hematology is considering initiation of chemotherapy patient is somewhat anxious family present at bedside, denies any chest pain Objective - Vital Signs Vital signs: Vital Signs Temp 98.6 F 09/19/19 14:33 Pulse 70 09/19/19 14:33 Resp 17 09/19/19 14:33 BP 110/58 09/19/19 14:33 Pulse Ox 95 09/19/19 14:33 Intake & Output 09/18/19 09/19/19 09/19/19 18:59 06:59 18:59 Intake Total 760 330 Output Total 500 Balance 760 -500 330 Weight 71.8 kg Intake: Intake, IV Titration 100 100 Amount Piperacillin-Tazobactam 3 100 100 .375 gm In Sodium Chloride 0.9% 100 ml @ 25 mls/hr IVPB Q8HR [facility] Rx# :[id number] Oral 660 230 Output: Urine 500 Other: Voiding Method Toilet Toilet Toilet Urinal Urinal Urinal # Voids 1 # Bowel Movements 1 - Exam GENERAL: The patient is alert and oriented x3, not in any acute distress. Well developed, well nourished. HEENT: Pupils are round and equally reacting to light. EOMI. No scleral icterus. No conjunctival pallor. Normocephalic, atraumatic. No pharyngeal erythema. No thyromegaly. CARDIOVASCULAR: S1 and S2 present. No murmurs, rubs, or gallops. -PULMONARY: Chest is clear to auscultation, bilateral expiratory wheezing ABDOMEN: Soft, nontender, nondistended, normoactive bowel sounds. No palpable organomegaly. MUSCULOSKELETAL: No joint swelling or deformity. EXTREMITIES: No cyanosis, clubbing, or pedal edema. NEUROLOGICAL: Gross neurological examination did not reveal any focal deficits. SKIN: No rashes. No petechiae - Labs CBC & Chem 7: 09/19/19 05:25 09/19/19 05:25 Labs: Abnormal Lab Results - Last 24 Hours (Table) 09/18/19 09/18/19 09/19/19 Range/Units 16:56 19:58 05:25 RBC 3.98 L (4.30-5.90) m/uL Hct 38.7 L (39.0-53.0) % Neutrophils # 9.2 H (1.3-7.7) k/uL Lymphocytes # 0.5 L (1.0-4.8) k/uL PT (9.0-12.0) sec INR (<1.2) Sodium (137-145) mmol/L Chloride (98-107) mmol/L Carbon Dioxide (22-30) mmol/L Glucose (74-99) mg/dL POC Glucose (mg/dL) 141 H 232 H (75-99) mg/dL 09/19/19 09/19/19 09/19/19 Range/Units 05:25 05:25 06:02 RBC (4.30-5.90) m/uL Hct (39.0-53.0) % Neutrophils # (1.3-7.7) k/uL Lymphocytes # (1.0-4.8) k/uL PT 34.2 H (9.0-12.0) sec INR 3.6 H (<1.2) Sodium 136 L (137-145) mmol/L Chloride 92 L (98-107) mmol/L Carbon Dioxide 38 H (22-30) mmol/L Glucose 136 H (74-99) mg/dL POC Glucose (mg/dL) 125 H (75-99) mg/dL 09/19/19 Range/Units 11:58 RBC (4.30-5.90) m/uL Hct (39.0-53.0) % Neutrophils # (1.3-7.7) k/uL Lymphocytes # (1.0-4.8) k/uL PT (9.0-12.0) sec INR (<1.2) Sodium (137-145) mmol/L Chloride (98-107) mmol/L Carbon Dioxide (22-30) mmol/L Glucose (74-99) mg/dL POC Glucose (mg/dL) 124 H (75-99) mg/dL Microbiology - Last 24 Hours (Table) 09/14/19 07:45 Blood Culture - Preliminary Blood No Growth after 120 hours Assessment and Plan Assessment: Bilateral pneumonia versus postobstructive changes Small cell lung cancer Atrial fibrillation well anticoagulated Moderate to severe COPD Advanced Parkinson's disease Chronic hypoxic respiratory failure Dyslipidemia Hypertension hypertensive cardiovascular disease Plan: Continue Zosyn bronchodilators and steroids Continue prednisone slowly taper it Patient has been on Coumadin Chemotherapy plan as per oncology service Time with Patient: Greater than 30
[2019-09-19] MEDS: DEXAMETHASONE SOD PHOSPHATE 10 MG/ML 1 ML VIAL IV SCH (16:14)
[2019-09-19] MEDS: ONDANSETRON 16 MG in SODIUM CHLORIDE 0.9% 50 ML IVPB SCH (16:14)
[2019-09-19] MEDS: FAMOTIDINE 20 MG/2 ML VIAL IVP SCH (16:14)
[2019-09-19] MEDS ORDERED: [UNRECOGNIZED DRUG - OTHER] IV ONE (17:00)
[2019-09-19] MEDS ORDERED: CARBOPLATIN IV ONE (17:00)
[2019-09-19 17:03] LABS: Glucose,Whole Blood 142 mg/dL (75-99)
--- NOTE | 2019-09-19 17:43 | P.PN ---
Subjective Progress Note Date: 09/19/19 Principal diagnosis: small cell lung cancer In follow-up today patient has no specific complaints, still some generalized weakness, appetite is pretty large though, no nausea or vomiting, he denies any acute changes in his bowel or bladder habits. Breathing is stable, no pain Objective - Vital Signs Vital signs: Vital Signs Temp 98.6 F 09/19/19 14:33 Pulse 72 09/19/19 15:42 Resp 17 09/19/19 14:33 BP 110/58 09/19/19 14:33 Pulse Ox 96 09/19/19 15:32 Intake & Output 09/18/19 09/19/19 09/19/19 18:59 06:59 18:59 Intake Total 760 330 Output Total 500 Balance 760 -500 330 Weight 71.8 kg Intake: Intake, IV Titration 100 100 Amount Piperacillin-Tazobactam 3 100 100 .375 gm In Sodium Chloride 0.9% 100 ml @ 25 mls/hr IVPB Q8HR [facility] Rx# :[id number] Oral 660 230 Output: Urine 500 Other: Voiding Method Toilet Toilet Toilet Urinal Urinal Urinal # Voids 1 # Bowel Movements 1 - Constitutional General appearance: Present: cooperative, no acute distress, thin - EENT Eyes: Present: anicteric sclerae, EOMI - Respiratory Respiratory: bilateral: rhonchi, wheezing - Cardiovascular Rhythm: regular Heart sounds: normal: S1, S2 Abnormal Heart Sounds: Absent: systolic murmur, diastolic murmur, rub, S3 Gallop, S4 Gallop, click, other - Peripheral edema leg Peripheral Edema: right: Trace, left: 2+ - Gastrointestinal General gastrointestinal: Present: normal bowel sounds, soft - Musculoskeletal Musculoskeletal: Present: generalized weakness - Psychiatric Psychiatric: Present: A&O x's 3, appropriate affect, intact judgment & insight - Labs CBC & Chem 7: 09/19/19 05:25 09/19/19 05:25 Labs: Abnormal Lab Results - Last 24 Hours (Table) 09/18/19 09/19/19 09/19/19 Range/Units 19:58 05:25 05:25 RBC 3.98 L (4.30-5.90) m/uL Hct 38.7 L (39.0-53.0) % Neutrophils # 9.2 H (1.3-7.7) k/uL Lymphocytes # 0.5 L (1.0-4.8) k/uL PT 34.2 H (9.0-12.0) sec INR 3.6 H (<1.2) Sodium (137-145) mmol/L Chloride (98-107) mmol/L Carbon Dioxide (22-30) mmol/L Glucose (74-99) mg/dL POC Glucose (mg/dL) 232 H (75-99) mg/dL 09/19/19 09/19/19 09/19/19 Range/Units 05:25 06:02 11:58 RBC (4.30-5.90) m/uL Hct (39.0-53.0) % Neutrophils # (1.3-7.7) k/uL Lymphocytes # (1.0-4.8) k/uL PT (9.0-12.0) sec INR (<1.2) Sodium 136 L (137-145) mmol/L Chloride 92 L (98-107) mmol/L Carbon Dioxide 38 H (22-30) mmol/L Glucose 136 H (74-99) mg/dL POC Glucose (mg/dL) 125 H 124 H (75-99) mg/dL 09/19/19 Range/Units 17:01 RBC (4.30-5.90) m/uL Hct (39.0-53.0) % Neutrophils # (1.3-7.7) k/uL Lymphocytes # (1.0-4.8) k/uL PT (9.0-12.0) sec INR (<1.2) Sodium (137-145) mmol/L Chloride (98-107) mmol/L Carbon Dioxide (22-30) mmol/L Glucose (74-99) mg/dL POC Glucose (mg/dL) 142 H (75-99) mg/dL Microbiology - Last 24 Hours (Table) 09/14/19 07:45 Blood Culture - Preliminary Blood No Growth after 120 hours Assessment and Plan (1) Small cell lung cancer Narrative/Plan: Pathology was reported as small cell lung cancer. Patient and family state multiple images performed at the [facility] in [place]. So, at this time, we do not know if this is limited stage or extensive stage. We will await one more day for those reports, if they are not received then re-staging is going to be recommended. Dr. Hussein spoke with the patient and his family about beginning chemotherapy over the weekend due to his severe symptoms and progressive decline, rather rapidly. They are interested in pursuing active treatment. Reviewed carboplatin and etoposide days 1, 2 and 3, reviewed some of the side effects that can be anticipated. All of their questions were answered to the best of my ability. Orders have been sent. Plan is to start treatment tomorrow. Current Visit: Yes Status: Acute Priority: High Code(s): C34.90 - MALIGNANT NEOPLASM OF UNSP PART OF UNSP BRONCHUS OR LUNG SNOMED Code(s): 498972736 (2) Lung mass Current Visit: Yes Status: Acute Code(s): R91.8 - OTHER NONSPECIFIC ABNORMAL FINDING OF LUNG FIELD SNOMED Code(s): 577945786 (3) Postobstructive pneumonia Narrative/Plan: Due to above, start treatment with hopeful relief of symptoms from cancer Current Visit: Yes Status: Acute Priority: High Code(s): J18.9 - PNEUMONIA, UNSPECIFIED ORGANISM SNOMED Code(s): 167643571 Time with Patient: Greater than 30 (chemo ed, counseling and coordingating care)
[2019-09-19] MEDS: ETOPOSIDE 190 MG in SODIUM CHLORIDE 0.9% 500 ML 500 ML IV SCH (19:48)
[2019-09-19 19:54] LABS: Glucose,Whole Blood 125 mg/dL (75-99)
[2019-09-19] MEDS ORDERED: FAMOTIDINE 20 MG/2 ML VIAL IVP SCH (20:00)
[2019-09-20] MEDS: PIPERACILLIN-TAZOBACTAM 3.375 GM in SODIUM CHLORIDE 0.9% 100 ML IVPB SCH ×4 (05:58→23:29)
[2019-09-20 07:27] LABS: Glucose,Whole Blood 110 mg/dL (75-99)
[2019-09-20] MEDS: IPRATROPIUM-ALBUTEROL 3 ML NEB INHALATION SCH ×4 (07:43→22:12)
[2019-09-20] MEDS: BUDESONIDE 0.5 MG/2 ML NEBU INHALATION SCH ×2 (07:43→22:12)
[2019-09-20] MEDS: INSULIN ASPART (NovoLOG) 100 UNIT/ML VIAL SQ SCH ×4 (07:43→20:17)
--- NOTE | 2019-09-20 08:38 | P.PN ---
Subjective This is a pleasant 68 years old male with past medical history of COPD, Parkinson disease, status post pacemaker, nicotine dependence, hypertension, hyperlipidemia. As per documents Patient was transferred from [facility] as predicament patient is originally from [place] recently moved to [place] to live with his daughter who had recent bronchoscopy done about 3-4 days ago for possible lung masses at the [facility] in [place]. The stomach presents with dyspnea and cough and there was mention of blood in the sputum. Patient himself says that he was living with his daughter and her place, he has history of COPD and on 2 L/m home oxygen via nasal cannula, when he got difficulty breathing with coughing with yellow phlegm of one-day duration and he checked his oxygen level and stated was low so he went to [facility] and from there the transfer him to [facility] in [place], they told me he has abnormal chest x-ray and they did CAT scan but was not sure what was abnormal to the chest x-ray. Patient still smokes about 1 pack per day and he quit about 2 weeks ago, denies alcohol or illicit tracts. At baseline and he walks very little using a cane. Vitals: Patient is afebrile, blood pressure was 90/55 currently 110/63, he saturating 94% on 3 L, no tachycardia, mild tachypnea with respiratory rate 18- 23 Labs from [place] showing negative troponin, sodium 142, potassium 4.3, creatinine 0.7, liver enzymes elevated. Chest x-ray: Bibasilar airway disease suspicious for pneumonia or pneumonitis, with no vascular congestion and trace pleural effusion. Also has leukocytosis of 20 5.0K, hemoglobin 13.5, platelets 252. BNP is 3787. EKG showing ventricular paced rhythm with no significant ST T changes, QTC of 455 I [facility] patient was given 1 dose of Solu-Medrol 125 mg, and he was started on levofloxacin and IV vancomycin. 09/15/2019 Patient still have the similar respiratory symptoms he came in with some dyspnea and coughing with phlegm. And no chest pain. Vitals are stable and he is on 3 L oxygen via [place] similar to his baseline. WBC is back to 11.8 K which is close to normal. INR is 1.1 and patient is on Coumadin 5 m sputum and blood culture are pending. g daily which he was adherent to and he was taken it appeared to come to the hospital as he confirmed to me today. We going to give him extra doses of Coumadin. His blood thinners for his atrial fibrillation where he has pacemaker as well. Swallow evaluation showed small penetration. Patient confirmed to me that he did not go the result of his lung mass biopsy which was done prior to this hospitalization. Pulmonary input is appreciated and patient was started on Zosyn, also lower his on Medrol from 60 down to 40 mg. And lower his normal saline 2 mL per hour 09/16/2019 Patient still feels this ache with some improvement especially with bronchodilator. His coughing with phlegm. He is hemodynamically stable. He saturating 98% on 3 L of oxygen. Leukocytosis improving gradually to 11.2k, INR is 1.4, Coumadin dose was already increased from 5 to 7.5 mg for his A. fib. Electrolytes are acceptable and creatinine is normal. Sugar is controlled. Pending, patient remains on Zosyn currently. And Solu-Medrol 40 mg, normal saline at [address] thorax shows COPD, pneumonia and lung mass, see the report for more details. Hematology/oncology team were consulted and they're still pending 09/19/2019 Patient is awake and alert, is still have some dyspnea but is improving. Patient and family at bedside are aware with the patient diagnosis of lung cancer and expecting chemotherapy to be started in house, therapy today. Vitals are stable, WBC is back to normal at 10.5 K. INR 3.6, BMP is unremarkable. Sugars controlled. Also we'll hold Coumadin today and start tomorrow at 6 mg as his INR still supratherapeutic. 09/20/2019 Patient feels generally tired however he does not have significant respiratory or GI symptoms he denies chest pain. Vitals are stable and patient is afebrile. Sugars controlled. Labs are still pending. Patient remains on Zosyn and prednisone 40 mg daily and normal saline at 50 mg,his INR yesterday was 3.6 and his Coumadin was held and lowered to 6 mg first dose today. Follow up INR level. Patient was instructed and is to follow-up with the oncologist was discharge as he might need PET scan. And he agrees Objective - Vital Signs Vital signs: Vital Signs Temp 96.4 F L 09/20/19 05:00 Pulse 72 11/26/19 07:59 Resp 16 09/20/19 05:00 BP 150/70 09/20/19 05:00 Pulse Ox 99 09/20/19 07:43 Intake & Output 09/19/19 09/20/19 09/20/19 18:59 06:59 18:59 Intake Total 330 2190 Output Total 700 Balance 330 1490 Weight 75.5 kg Intake: Intake, IV Titration 100 1010 Amount Etoposide 190 mg In 510 Sodium Chloride 0.9% 500 ml 500 ml @ 509.5 mls/hr IV Q24H [facility] Rx#:[id number] Piperacillin-Tazobactam 3 100 100 .375 gm In Sodium Chloride 0.9% 100 ml @ 25 mls/hr IVPB Q8HR [facility] Rx# :[id number] Sodium Chloride 0.9% 1, 400 000 ml @ 50 mls/hr IV . Q20H [facility] Rx#:[id number] Oral 230 1180 Output: Urine 700 Other: Voiding Method Toilet Toilet Urinal # Voids 3 - Exam GENERAL: The patient is alert and oriented x3, not in any acute distress. Well developed, well nourished. HEENT: Pupils are round and equally reacting to light. EOMI. No scleral icterus. No conjunctival pallor. Normocephalic, atraumatic. No pharyngeal erythema. No thyromegaly. CARDIOVASCULAR: S1 and S2 present. No murmurs, rubs, or gallops. -PULMONARY: Chest is clear to auscultation, bilateral expiratory wheezing ABDOMEN: Soft, nontender, nondistended, normoactive bowel sounds. No palpable organomegaly. MUSCULOSKELETAL: No joint swelling or deformity. EXTREMITIES: No cyanosis, clubbing, or pedal edema. NEUROLOGICAL: Gross neurological examination did not reveal any focal deficits. SKIN: No rashes. No petechiae - Labs CBC & Chem 7: 09/19/19 05:25 09/19/19 05:25 Labs: Abnormal Lab Results - Last 24 Hours (Table) 09/19/19 09/19/19 09/19/19 Range/Units 11:58 17:01 19:52 POC Glucose (mg/dL) 124 H 142 H 125 H (75-99) mg/dL 09/20/19 Range/Units 07:26 POC Glucose (mg/dL) 110 H (75-99) mg/dL Microbiology - Last 24 Hours (Table) 09/14/19 07:45 Blood Culture - Preliminary Blood No Growth after 120 hours Assessment and Plan Assessment: Bilateral pneumonia suspicious for aspiration versus postobstructive Lung mass status post biopsy, but due to small cell lung cancer, patient is aware oncology team started chemotherapy A. fib status post pacemaker, rate controlled and on Coumadin. Mild to moderate acute COPD exacerbation History of Parkinson disease Chronic hypoxic respiratory failure Nicotine dependence Hypertension Hyperlipidemia Plan: This is a pleasant 68 years old male who is in the hospital for pneumonia of lung cancer.. We'll continue with Zosyn, continue with steroids and bronchodilators. Continue with the prednisone with slow taper. Oncology team forstart patient on chemotherapy, and outpatient workup including PET scan. Continue with oxygen Labs and medication were reviewed.. Continue same treatment. Continue with symptomatic treatment. Resume home medication. Monitor lytes and vitals. DVT and GI prophylaxis. Further recommendations of the clinical course of the patient DVT prophylaxis: On Coumadin GI Prophylaxis: Pepcid PT/OT: Patient will benefit from ECF for rehab, health and social care teacher was consulted Prognosis is guarded
[2019-09-20] MEDS: TERBINAFINE 250 MG TAB PO SCH (09:13)
[2019-09-20] MEDS: MAGNESIUM OXIDE 400 MG TAB PO SCH (09:13)
[2019-09-20] MEDS: ASPIRIN 81 MG PO SCH (09:13)
[2019-09-20] MEDS: METOPROLOL TARTRATE 12.5 MG TAB PO SCH ×2 (09:13→20:17)
[2019-09-20] MEDS: FAMOTIDINE 20 MG TAB PO SCH ×3 (09:13→20:17)
[2019-09-20] MEDS: predniSONE 20 MG TAB PO SCH (09:13)
[2019-09-20] MEDS: GABAPENTIN 300 MG CAP PO SCH ×2 (09:13→20:17)
[2019-09-20] MEDS: POTASSIUM CHLORIDE ER 10 MEQ TAB.ER.PRT PO SCH (09:13)
[2019-09-20] MEDS: FUROSEMIDE 40 MG TAB PO SCH (09:13)
[2019-09-20] MEDS: CHOLECALCIFEROL 1,000 UNIT TAB PO SCH (09:13)
[2019-09-20] MEDS: amLODIPine 10 MG TAB PO SCH (09:13)
[2019-09-20] MEDS: DICLOFENAC SODIUM GEL 100 GM TUBE TOPICAL SCH ×4 (09:14→21:27)
[2019-09-20] MEDS: PRIMIDONE 50 MG TAB PO SCH ×2 (09:14→20:18)
[2019-09-20] MEDS: ARTIFICIAL TEARS-HYPROMELLOSE DROPS 15 ML BTL BOTH EYES SCH ×4 (09:14→21:27)
[2019-09-20 10:27] LABS: Basophils % (A) 0 %; Eosinophils % (A) 0 %; HGB 12.9 gm/dL (13.0-17.5); Lymphocytes # (A) 0.5 k/uL (1.0-4.8); Lymphocytes % (A) 4 %; MCH 32.7 pg (25.0-35.0); MCHC 33.2 g/dL (31.0-37.0); MCV 98.7 fL (80.0-100.0); Mean Platelet Volume 6.2; Monocytes # (A) 0.6 k/uL (0-1.0); Monocytes % (A) 5 %; Neutrophils # (A) 11.8 k/uL (1.3-7.7); Neutrophils % (A) 91 %; Platelet Count 306 k/uL (150-450); RBC 3.95 m/uL (4.30-5.90)
[2019-09-20 10:29] LABS: African American GFR (CKD) >90 (>60 ml/min/1.73 sqM); Anion Gap 7 mmol/L; Calcium 8.6 mg/dL (8.4-10.2); Carbon Dioxide 35 mmol/L (22-30); Chloride 93 mmol/L (98-107); Glucose 97 mg/dL (74-99); Non-African American GFR(CKD) >90 (>60 ml/min/1.73 sqM); Potassium 3.6 mmol/L (3.5-5.1); Sodium 135 mmol/L (137-145)
[2019-09-20 10:31] LABS: INR 2.2 (<1.2); Prothrombin Time 21.8 sec (9.0-12.0)
[2019-09-20 10:58] LABS: Blood Urea Nitrogen 17 mg/dL (9-20)
[2019-09-20 11:24] LABS: Glucose,Whole Blood 105 mg/dL (75-99)
[2019-09-20] MEDS: SALT AND SODA MOUTHWASH 1,000 ML PO SCH ×4 (13:27→23:29)
[2019-09-20] MEDS: ONDANSETRON 16 MG in SODIUM CHLORIDE 0.9% 50 ML IVPB SCH (16:57)
[2019-09-20] MEDS: FAMOTIDINE 20 MG/2 ML VIAL IVP SCH (16:58)
[2019-09-20] MEDS: DEXAMETHASONE SOD PHOSPHATE 10 MG/ML 1 ML VIAL IV SCH (16:58)
[2019-09-20] MEDS: WARFARIN 5 MG TAB PO SCH (16:59)
[2019-09-20 17:15] LABS: Glucose,Whole Blood 116 mg/dL (75-99)
--- NOTE | 2019-09-20 18:28 | P.PN ---
Subjective Progress Note Date: 09/20/19 Principal diagnosis: small cell lung cancer Patient started chemotherapy yesterday, he will continue today. Patient denies any significant complaints related to the treatment, no side effects to report, no oral irritation, nausea, diarrhea. Objective - Vital Signs Vital signs: Vital Signs Temp 97.8 F 09/20/19 11:35 Pulse 72 09/20/19 15:57 Resp 20 09/20/19 11:35 BP 118/68 09/20/19 11:35 Pulse Ox 96 09/20/19 11:35 Intake & Output 09/19/19 09/20/19 09/20/19 18:59 06:59 18:59 Intake Total 330 2190 500 Output Total 700 Balance 330 1490 500 Weight 75.5 kg 75.5 kg Intake: Intake, IV Titration 100 1010 500 Amount Etoposide 190 mg In 510 Sodium Chloride 0.9% 500 ml 500 ml @ 509.5 mls/hr IV Q24H TOM Rx#:[id number] Piperacillin-Tazobactam 3 100 100 100 .375 gm In Sodium Chloride 0.9% 100 ml @ 25 mls/hr IVPB Q8HR TOM Rx# :[id number] Sodium Chloride 0.9% 1, 400 400 000 ml @ 50 mls/hr IV . Q20H TOM Rx#:[id number] Oral 230 1180 Output: Urine 700 Other: Voiding Method Toilet Toilet Toilet Urinal # Voids 3 1 - Constitutional General appearance: Present: cooperative, no acute distress, thin - EENT Eyes: Present: anicteric sclerae, EOMI ENT: Present: hearing grossly normal, normal oropharynx - Respiratory Respiratory: bilateral: CTA, diminished - Cardiovascular Rhythm: regular Heart sounds: normal: S1, S2 - Peripheral edema leg Peripheral Edema: bilateral: None - Gastrointestinal General gastrointestinal: Present: normal bowel sounds, soft - Musculoskeletal Musculoskeletal: Present: generalized weakness - Psychiatric Psychiatric: Present: A&O x's 3, appropriate affect, intact judgment & insight - Labs CBC & Chem 7: 09/20/19 09:54 09/20/19 09:54 Labs: Abnormal Lab Results - Last 24 Hours (Table) 09/19/19 09/20/19 09/20/19 Range/Units 19:52 07:26 09:54 WBC 13.0 H (3.8-10.6) k/uL RBC 3.95 L (4.30-5.90) m/uL Hgb 12.9 L (13.0-17.5) gm/dL Neutrophils # 11.8 H (1.3-7.7) k/uL Lymphocytes # 0.5 L (1.0-4.8) k/uL PT (9.0-12.0) sec INR (<1.2) Sodium (137-145) mmol/L Chloride (98-107) mmol/L Carbon Dioxide (22-30) mmol/L Creatinine (0.66-1.25) mg/dL POC Glucose (mg/dL) 125 H 110 H (75-99) mg/dL 09/20/19 09/20/19 09/20/19 Range/Units 09:54 09:54 11:22 WBC (3.8-10.6) k/uL RBC (4.30-5.90) m/uL Hgb (13.0-17.5) gm/dL Neutrophils # (1.3-7.7) k/uL Lymphocytes # (1.0-4.8) k/uL PT 21.8 H (9.0-12.0) sec INR 2.2 H (<1.2) Sodium 135 L (137-145) mmol/L Chloride 93 L (98-107) mmol/L Carbon Dioxide 35 H (22-30) mmol/L Creatinine 0.64 L (0.66-1.25) mg/dL POC Glucose (mg/dL) 105 H (75-99) mg/dL 09/20/19 Range/Units 17:03 WBC (3.8-10.6) k/uL RBC (4.30-5.90) m/uL Hgb (13.0-17.5) gm/dL Neutrophils # (1.3-7.7) k/uL Lymphocytes # (1.0-4.8) k/uL PT (9.0-12.0) sec INR (<1.2) Sodium (137-145) mmol/L Chloride (98-107) mmol/L Carbon Dioxide (22-30) mmol/L Creatinine (0.66-1.25) mg/dL POC Glucose (mg/dL) 116 H (75-99) mg/dL Microbiology - Last 24 Hours (Table) 09/14/19 07:45 Blood Culture - Final Blood No Growth after 144 hours Assessment and Plan (1) Small cell lung cancer Narrative/Plan: Pathology was reported as small cell lung cancer. Still pending scans. The reports were not available at office but, there was a response with anticipation of delivery tomorrow? Started 1st cycle of carboplatin and etoposide days 1, 2 and 3, 09/19/19. Pt seems to have tolerated well. He had no questions today. Labs daily Daily f/u Cont chemo without adjustment Current Visit: Yes Status: Acute Priority: High Code(s): C34.90 - MALIGNANT NEOPLASM OF UNSP PART OF UNSP BRONCHUS OR LUNG SNOMED Code(s): 746556453 (2) Lung mass Current Visit: Yes Status: Acute Code(s): R91.8 - OTHER NONSPECIFIC ABNORMAL FINDING OF LUNG FIELD SNOMED Code(s): 052113620 (3) Postobstructive pneumonia Narrative/Plan: Due to above in part, start treatment with hopeful relief of symptoms from cancer. Abx and steroids cont and are improving pt symptoms Current Visit: Yes Status: Acute Priority: High Code(s): J18.9 - PNEUMONIA, UNSPECIFIED ORGANISM SNOMED Code(s): 262531294
[2019-09-20] MEDS: ETOPOSIDE 190 MG in SODIUM CHLORIDE 0.9% 500 ML 500 ML IV SCH (19:41)
[2019-09-20 20:11] LABS: Glucose,Whole Blood 142 mg/dL (75-99)
[2019-09-20] MEDS: SODIUM CHLORIDE 0.9% 1,000 ML IV SCH (20:19)
[2019-09-20] MEDS: ALPRAZolam 0.25 MG TAB PO PRN (21:26)
[2019-09-20] MEDS: HYDROcodone/APAP 5-325MG 1 EACH TAB PO PRN (21:50)
[2019-09-21] MEDS: SALT AND SODA MOUTHWASH 1,000 ML PO SCH ×4 (05:45→21:09)
[2019-09-21 07:09] LABS: Glucose,Whole Blood 99 mg/dL (75-99)
[2019-09-21 07:57] LABS: Basophils # (A) 0.1 k/uL (0-0.2); Basophils % (A) 1 %; Eosinophils % (A) 0 %; HCT 37.9 % (39.0-53.0); HGB 12.9 gm/dL (13.0-17.5); Lymphocytes # (A) 0.3 k/uL (1.0-4.8); Lymphocytes % (A) 3 %; MCH 33.2 pg (25.0-35.0); MCV 97.6 fL (80.0-100.0); Mean Platelet Volume 6.6; Monocytes # (A) 0.5 k/uL (0-1.0); Monocytes % (A) 5 %; Neutrophils # (A) 9.6 k/uL (1.3-7.7); Neutrophils % (A) 91 %; Platelet Count 267 k/uL (150-450); RBC 3.88 m/uL (4.30-5.90); WBC 10.5 k/uL (3.8-10.6)
[2019-09-21 08:07] LABS: INR 1.8 (<1.2)
[2019-09-21 08:10] LABS: African American GFR (CKD) >90 (>60 ml/min/1.73 sqM); Anion Gap 4 mmol/L; Blood Urea Nitrogen 20 mg/dL (9-20); Calcium 9.6 mg/dL (8.4-10.2); Carbon Dioxide 37 mmol/L (22-30); Chloride 92 mmol/L (98-107); Glucose 85 mg/dL (74-99); Non-African American GFR(CKD) >90 (>60 ml/min/1.73 sqM); Potassium 4.4 mmol/L (3.5-5.1); Sodium 133 mmol/L (137-145)
[2019-09-21] MEDS: INSULIN ASPART (NovoLOG) 100 UNIT/ML VIAL SQ SCH ×4 (08:40→21:09)
[2019-09-21] MEDS: MAGNESIUM OXIDE 400 MG TAB PO SCH (08:58)
[2019-09-21] MEDS: ASPIRIN 81 MG PO SCH (08:59)
[2019-09-21] MEDS: FUROSEMIDE 40 MG TAB PO SCH (08:59)
[2019-09-21] MEDS: predniSONE 20 MG TAB PO SCH (08:59)
[2019-09-21] MEDS: FAMOTIDINE 20 MG TAB PO SCH (08:59)
[2019-09-21] MEDS: CHOLECALCIFEROL 1,000 UNIT TAB PO SCH (08:59)
[2019-09-21] MEDS: GABAPENTIN 300 MG CAP PO SCH ×2 (08:59→21:08)
[2019-09-21] MEDS: METOPROLOL TARTRATE 12.5 MG TAB PO SCH ×2 (08:59→21:08)
[2019-09-21] MEDS: POTASSIUM CHLORIDE ER 10 MEQ TAB.ER.PRT PO SCH (08:59)
[2019-09-21] MEDS: amLODIPine 10 MG TAB PO SCH (08:59)
[2019-09-21] MEDS: PRIMIDONE 50 MG TAB PO SCH ×2 (09:01→21:08)
[2019-09-21] MEDS: TERBINAFINE 250 MG TAB PO SCH (09:02)
[2019-09-21] MEDS: PIPERACILLIN-TAZOBACTAM 3.375 GM in SODIUM CHLORIDE 0.9% 100 ML IVPB SCH ×2 (09:03→18:12)
[2019-09-21] MEDS: IPRATROPIUM-ALBUTEROL 3 ML NEB INHALATION SCH ×4 (09:45→20:25)
[2019-09-21] MEDS: BUDESONIDE 0.5 MG/2 ML NEBU INHALATION SCH ×2 (09:45→20:25)
[2019-09-21 11:22] LABS: Glucose,Whole Blood 102 mg/dL (75-99)
[2019-09-21] MEDS ORDERED: BISACODYL 5 MG TABLET.DR PO PRN (12:02)
--- NOTE | 2019-09-21 12:32 | P.CON ---
Consult Note - . Consult date: 09/21/19 Assessment/Plan:: This is a 68-year-old pleasant gentleman being seen by the wound care center for nonhealing ulceration to the coccyx. Patient states that the ulceration started bothering him yesterday increasing with pain. Patient states that he has previously had a similar ulceration in the past. He used barrier cream at that time. Patient states that the ulceration has increasing him pain. He denies any drainage from the site. Chest medical history significant for COPD, emphysema, is a current every day smoker. Ulceration is Limited to skin breakdown. Wound skin is attached. Area shows granulation with minimal slough. Measuring approximately 2 x 0.4 x 0.1 cm. Periwound has erythema no ecchymosis. Review of systems: Integumentary: Reports ulceration, no other wounds, no pruritus, no unusual bruising Physical exam: Integumentary: See HPI Assessment/plan: 1. Nonhealing ulceration with pressure component Limited to skin breakdown. Apply zinc barrier cream daily, DuoDERM to cover. Utilize wall for cushion for sitting. Discussed with patient the importance of offloading. Discussed with patient the need for outpatient wound treatment if ulceration does not heal. Patient of family verbalized understanding. Thank you, for the consultation. Any questions please contact the wound care center DNP note has been reviewed and discussed with Dr. Ahuja and the impression and plan of care has been directed as dictated.
[2019-09-21] MEDS: ARTIFICIAL TEARS-HYPROMELLOSE DROPS 15 ML BTL BOTH EYES SCH ×4 (13:07→21:10)
[2019-09-21] MEDS: DICLOFENAC SODIUM GEL 100 GM TUBE TOPICAL SCH ×4 (13:09→21:10)
[2019-09-21] MEDS: PANTOPRAZOLE 40 MG TABLET PO SCH ×2 (13:18→18:16)
--- NOTE | 2019-09-21 14:09 | P.PN ---
Subjective Progress Note Date: 09/20/19 Principal diagnosis: Bilateral aspiration pneumonia, lung mass, small cell lung cancer, atrial fibrillation, moderate COPD with acute exacerbation, advanced Parkinson's disease, acute on chronic hypoxic respiratory failure, hypertension hypertensive cardiovascular disease, dyslipidemia 09/20/2019, patient seen eval examined during the rounds labs reviewed medications reviewed, still short of breath cough and congestion slightly better, patient is going chemotherapy 09/19/2019, patient has removed to oncology and it patient has been diagnosed with small cell lung cancer biopsy was performed at [facility] hematology is considering initiation of chemotherapy patient is somewhat anxious family present at bedside, denies any chest pain Objective - Vital Signs Vital signs: Vital Signs Temp 97.8 F 09/20/19 11:35 Pulse 72 09/20/19 15:57 Resp 20 09/20/19 11:35 BP 118/68 09/20/19 11:35 Pulse Ox 96 09/20/19 11:35 Intake & Output 09/19/19 09/20/19 09/20/19 18:59 06:59 18:59 Intake Total 330 2190 500 Output Total 700 Balance 330 1490 500 Weight 75.5 kg 75.5 kg Intake: Intake, IV Titration 100 1010 500 Amount Etoposide 190 mg In 510 Sodium Chloride 0.9% 500 ml 500 ml @ 509.5 mls/hr IV Q24H TOM Rx#:[id number] Piperacillin-Tazobactam 3 100 100 100 .375 gm In Sodium Chloride 0.9% 100 ml @ 25 mls/hr IVPB Q8HR TOM Rx# :[id number] Sodium Chloride 0.9% 1, 400 400 000 ml @ 50 mls/hr IV . Q20H TOM Rx#:[id number] Oral 230 1180 Output: Urine 700 Other: Voiding Method Toilet Toilet Toilet Urinal # Voids 3 1 - Exam GENERAL: The patient is alert and oriented x3, not in any acute distress. Well developed, well nourished. HEENT: Pupils are round and equally reacting to light. EOMI. No scleral icterus. No conjunctival pallor. Normocephalic, atraumatic. No pharyngeal erythema. No thyromegaly. CARDIOVASCULAR: S1 and S2 present. No murmurs, rubs, or gallops. -PULMONARY: Chest is clear to auscultation, bilateral expiratory wheezing ABDOMEN: Soft, nontender, nondistended, normoactive bowel sounds. No palpable organomegaly. MUSCULOSKELETAL: No joint swelling or deformity. EXTREMITIES: No cyanosis, clubbing, or pedal edema. NEUROLOGICAL: Gross neurological examination did not reveal any focal deficits. SKIN: No rashes. No petechiae - Labs CBC & Chem 7: 09/21/19 07:36 09/21/19 07:36 Labs: Abnormal Lab Results - Last 24 Hours (Table) 09/19/19 09/20/19 09/20/19 Range/Units 19:52 07:26 09:54 WBC 13.0 H (3.8-10.6) k/uL RBC 3.95 L (4.30-5.90) m/uL Hgb 12.9 L (13.0-17.5) gm/dL Neutrophils # 11.8 H (1.3-7.7) k/uL Lymphocytes # 0.5 L (1.0-4.8) k/uL PT (9.0-12.0) sec INR (<1.2) Sodium (137-145) mmol/L Chloride (98-107) mmol/L Carbon Dioxide (22-30) mmol/L Creatinine (0.66-1.25) mg/dL POC Glucose (mg/dL) 125 H 110 H (75-99) mg/dL 09/20/19 09/20/19 09/20/19 Range/Units 09:54 09:54 11:22 WBC (3.8-10.6) k/uL RBC (4.30-5.90) m/uL Hgb (13.0-17.5) gm/dL Neutrophils # (1.3-7.7) k/uL Lymphocytes # (1.0-4.8) k/uL PT 21.8 H (9.0-12.0) sec INR 2.2 H (<1.2) Sodium 135 L (137-145) mmol/L Chloride 93 L (98-107) mmol/L Carbon Dioxide 35 H (22-30) mmol/L Creatinine 0.64 L (0.66-1.25) mg/dL POC Glucose (mg/dL) 105 H (75-99) mg/dL 09/20/19 Range/Units 17:03 WBC (3.8-10.6) k/uL RBC (4.30-5.90) m/uL Hgb (13.0-17.5) gm/dL Neutrophils # (1.3-7.7) k/uL Lymphocytes # (1.0-4.8) k/uL PT (9.0-12.0) sec INR (<1.2) Sodium (137-145) mmol/L Chloride (98-107) mmol/L Carbon Dioxide (22-30) mmol/L Creatinine (0.66-1.25) mg/dL POC Glucose (mg/dL) 116 H (75-99) mg/dL Microbiology - Last 24 Hours (Table) 09/14/19 07:45 Blood Culture - Final Blood No Growth after 144 hours Assessment and Plan Assessment: Bilateral pneumonia versus postobstructive changes Small cell lung cancer Atrial fibrillation well anticoagulated Moderate to severe COPD Advanced Parkinson's disease Chronic hypoxic respiratory failure Dyslipidemia Hypertension hypertensive cardiovascular disease Plan: Continue Zosyn bronchodilators and steroids Continue prednisone slowly taper it Patient has been on Coumadin Chemotherapy plan as per oncology service Time with Patient: Greater than 30
--- NOTE | 2019-09-21 14:10 | P.PN ---
Subjective Progress Note Date: 09/21/19 Principal diagnosis: Bilateral aspiration pneumonia, lung mass, small cell lung cancer, atrial fibrillation, moderate COPD with acute exacerbation, advanced Parkinson's disease, acute on chronic hypoxic respiratory failure, hypertension hypertensive cardiovascular disease, dyslipidemia September 21 2019, patient seen eval reexamined during the rounds sitting upright on the bed breathing K more comfortably off of oxygen patient is due for a third dose of chemotherapy later on today 09/20/2019, patient seen eval examined during the rounds labs reviewed medications reviewed, still short of breath cough and congestion slightly better, patient is going chemotherapy 09/19/2019, patient has removed to oncology and it patient has been diagnosed with small cell lung cancer biopsy was performed at [facility] hematology is considering initiation of chemotherapy patient is somewhat anxious family present at bedside, denies any chest pain Objective - Vital Signs Vital signs: Vital Signs Temp 98.6 F 09/21/19 11:22 Pulse 72 09/21/19 13:17 Resp 22 09/21/19 11:22 BP 122/67 09/21/19 11:22 Pulse Ox 92 L 09/21/19 11:22 Intake & Output 09/20/19 09/21/19 09/21/19 18:59 06:59 18:59 Intake Total 500 2070 500 Balance 500 2070 500 Weight 75.5 kg 75.4 kg Intake: Intake, IV Titration 500 1000 500 Amount Etoposide 190 mg In 500 Sodium Chloride 0.9% 500 ml 500 ml @ 509.5 mls/hr IV Q24H TOM Rx#:[id number] Piperacillin-Tazobactam 3 100 100 100 .375 gm In Sodium Chloride 0.9% 100 ml @ 25 mls/hr IVPB Q8HR TOM Rx# :[id number] Sodium Chloride 0.9% 1, 400 400 400 000 ml @ 50 mls/hr IV . Q20H TOM Rx#:[id number] Oral 1070 Other: Voiding Method Toilet Toilet Toilet # Voids 1 3 # Bowel Movements 1 - Exam GENERAL: The patient is alert and oriented x3, not in any acute distress. Well developed, well nourished. HEENT: Pupils are round and equally reacting to light. EOMI. No scleral icterus. No conjunctival pallor. Normocephalic, atraumatic. No pharyngeal erythema. No thyromegaly. CARDIOVASCULAR: S1 and S2 present. No murmurs, rubs, or gallops. -PULMONARY: Chest is clear to auscultation, bilateral expiratory wheezing ABDOMEN: Soft, nontender, nondistended, normoactive bowel sounds. No palpable organomegaly. MUSCULOSKELETAL: No joint swelling or deformity. EXTREMITIES: No cyanosis, clubbing, or pedal edema. NEUROLOGICAL: Gross neurological examination did not reveal any focal deficits. SKIN: No rashes. No petechiae - Labs CBC & Chem 7: 09/21/19 07:36 09/21/19 07:36 Labs: Abnormal Lab Results - Last 24 Hours (Table) 09/20/19 09/20/19 09/21/19 Range/Units 17:03 20:08 07:36 RBC 3.88 L (4.30-5.90) m/uL Hgb 12.9 L (13.0-17.5) gm/dL Hct 37.9 L (39.0-53.0) % Neutrophils # 9.6 H (1.3-7.7) k/uL Lymphocytes # 0.3 L (1.0-4.8) k/uL PT (9.0-12.0) sec INR (<1.2) Sodium (137-145) mmol/L Chloride (98-107) mmol/L Carbon Dioxide (22-30) mmol/L POC Glucose (mg/dL) 116 H 142 H (75-99) mg/dL 09/21/19 09/21/19 09/21/19 Range/Units 07:36 07:36 11:11 RBC (4.30-5.90) m/uL Hgb (13.0-17.5) gm/dL Hct (39.0-53.0) % Neutrophils # (1.3-7.7) k/uL Lymphocytes # (1.0-4.8) k/uL PT 18.0 H (9.0-12.0) sec INR 1.8 H (<1.2) Sodium 133 L (137-145) mmol/L Chloride 92 L (98-107) mmol/L Carbon Dioxide 37 H (22-30) mmol/L POC Glucose (mg/dL) 102 H (75-99) mg/dL Microbiology - Last 24 Hours (Table) 11/20/19 07:45 Blood Culture - Final Blood No Growth after 144 hours Assessment and Plan Assessment: Bilateral pneumonia versus postobstructive changes Small cell lung cancer Atrial fibrillation well anticoagulated Moderate to severe COPD Advanced Parkinson's disease Chronic hypoxic respiratory failure Dyslipidemia Hypertension hypertensive cardiovascular disease Plan: Continue Zosyn bronchodilators and steroids, at the time of discharge can be switched to oral Augmentin with one week of therapy, agree with discharge planning Continue prednisone slowly taper it Patient has been on Coumadin Chemotherapy plan as per oncology service Time with Patient: Greater than 30
--- NOTE | 2019-09-21 15:34 | XR ---
EXAMINATION TYPE: XR chest 1V portable DATE OF EXAM: 09/21/2019 COMPARISON: Prior chest x-ray 09/14/2019 HISTORY: Shortness of breath TECHNIQUE: Single frontal view of the chest is obtained. FINDINGS: Findings are similar to prior exam. Pacemaker is noted. There is scarring at the lung base s with mass at the right lung base, possible airspace disease in the lingula. Heart size is unchanged . Prominence of the central vascularity, there may be underlying pulmonary artery hypertension. No ev ident pneumothorax. Prominent lung volumes consistent with underlying emphysema. IMPRESSION: Stable exam. Findings consistent with patient's known lung mass, emphysema, correlate fo r pneumonia, there is a right lower lobe lung mass.
--- NOTE | 2019-09-21 16:16 | P.PN ---
Subjective Progress Note Date: 09/21/19 Principal diagnosis: small cell lung cancer In follow-up today patient has no new complaints, he feels his voice is a little bit stronger, little bit clear, he denies any side effects related to chemotherapy, breathing is stable, denies any other complaints at this time, appetite is very good, patient is generally weak but he is still able to get around short distances independently. Objective - Vital Signs Vital signs: Vital Signs Temp 98.6 F 09/21/19 11:22 Pulse 72 09/21/19 13:17 Resp 22 09/21/19 11:22 BP 122/67 09/21/19 11:22 Pulse Ox 93 L 09/21/19 12:07 Intake & Output 09/20/19 09/21/19 09/21/19 18:59 06:59 18:59 Intake Total 500 2070 500 Balance 500 2070 500 Weight 75.5 kg 75.4 kg Intake: Intake, IV Titration 500 1000 500 Amount Etoposide 190 mg In 500 Sodium Chloride 0.9% 500 ml 500 ml @ 509.5 mls/hr IV Q24H TOM Rx#:[id number] Piperacillin-Tazobactam 3 100 100 100 .375 gm In Sodium Chloride 0.9% 100 ml @ 25 mls/hr IVPB Q8HR TOM Rx# :[id number] Sodium Chloride 0.9% 1, 400 400 400 000 ml @ 50 mls/hr IV . Q20H TOM Rx#:[id number] Oral 1070 Other: Voiding Method Toilet Toilet Toilet # Voids 1 3 # Bowel Movements 1 - Constitutional General appearance: Present: cooperative, no acute distress, thin - EENT Eyes: Present: anicteric sclerae, EOMI ENT: Present: hearing grossly normal - Respiratory Respiratory: bilateral: CTA, diminished - Cardiovascular Rhythm: regular Heart sounds: normal: S1, S2 - Peripheral edema leg Peripheral Edema: bilateral: 2+, Pitting - Gastrointestinal General gastrointestinal: Present: normal bowel sounds, soft - Neurologic Neurologic Comment(s): mildly slurred speech Neurologic: Present: CNII-XII intact - Musculoskeletal Musculoskeletal: Present: generalized weakness, strength equal bilaterally - Psychiatric Psychiatric: Present: A&O x's 3, appropriate affect, intact judgment & insight - Labs CBC & Chem 7: 09/21/19 07:36 09/21/19 07:36 Labs: Abnormal Lab Results - Last 24 Hours (Table) 09/20/19 09/20/19 09/21/19 Range/Units 17:03 20:08 07:36 RBC 3.88 L (4.30-5.90) m/uL Hgb 12.9 L (13.0-17.5) gm/dL Hct 37.9 L (39.0-53.0) % Neutrophils # 9.6 H (1.3-7.7) k/uL Lymphocytes # 0.3 L (1.0-4.8) k/uL PT (9.0-12.0) sec INR (<1.2) Sodium (137-145) mmol/L Chloride (98-107) mmol/L Carbon Dioxide (22-30) mmol/L POC Glucose (mg/dL) 116 H 142 H (75-99) mg/dL 09/21/19 09/21/19 09/21/19 Range/Units 07:36 07:36 11:11 RBC (4.30-5.90) m/uL Hgb (13.0-17.5) gm/dL Hct (39.0-53.0) % Neutrophils # (1.3-7.7) k/uL Lymphocytes # (1.0-4.8) k/uL PT 18.0 H (9.0-12.0) sec INR 1.8 H (<1.2) Sodium 133 L (137-145) mmol/L Chloride 92 L (98-107) mmol/L Carbon Dioxide 37 H (22-30) mmol/L POC Glucose (mg/dL) 102 H (75-99) mg/dL Assessment and Plan (1) Small cell lung cancer Narrative/Plan: Pathology was reported as small cell lung cancer. PET already sched in [place] for 09/27. [facility] today. Request sent, still waiting. Completed 1st cycle of carboplatin and etoposide days 1, 2 and 3, 09/19/19- 09/21/19, tolerated well. Answered pt and family questions today. F/U appt and post chemo instruction in [place] Pt ok from Hem/Onc standpoint to be discharged once cleared by Attending and Consulting Physicians Current Visit: Yes Status: Acute Priority: High Code(s): C34.90 - MALIGNANT NEOPLASM OF UNSP PART OF UNSP BRONCHUS OR LUNG SNOMED Code(s): 563429010 (2) Postobstructive pneumonia Narrative/Plan: Due to above in part, start treatment with hopeful relief of symptoms from cancer. Abx and steroids cont, pt symptoms are better Current Visit: Yes Status: Acute Priority: High Code(s): J18.9 - PNEUMONIA, UNSPECIFIED ORGANISM SNOMED Code(s): 479951423
[2019-09-21] MEDS: SODIUM CHLORIDE 0.9% 1,000 ML IV SCH (18:09)
[2019-09-21] MEDS: ONDANSETRON 16 MG in SODIUM CHLORIDE 0.9% 50 ML IVPB SCH (18:16)
[2019-09-21] MEDS: WARFARIN 5 MG TAB PO SCH ×2 (18:16→18:17)
[2019-09-21] MEDS: FAMOTIDINE 20 MG/2 ML VIAL IVP SCH (18:17)
[2019-09-21] MEDS: DEXAMETHASONE SOD PHOSPHATE 10 MG/ML 1 ML VIAL IV SCH (18:17)
[2019-09-21 18:20] LABS: Glucose,Whole Blood 154 mg/dL (75-99)
[2019-09-21] MEDS: ETOPOSIDE 190 MG in SODIUM CHLORIDE 0.9% 500 ML 500 ML IV SCH (19:41)
[2019-09-21 20:16] LABS: Glucose,Whole Blood 133 mg/dL (75-99)
[2019-09-21] MEDS: ALPRAZolam 0.25 MG TAB PO PRN (21:09)
[2019-09-21] MEDS: HYDROcodone/APAP 5-325MG 1 EACH TAB PO PRN (22:16)
[2019-09-22] MEDS: PIPERACILLIN-TAZOBACTAM 3.375 GM in SODIUM CHLORIDE 0.9% 100 ML IVPB SCH ×3 (00:29→18:04)
[2019-09-22] MEDS: SALT AND SODA MOUTHWASH 1,000 ML PO SCH ×5 (01:34→20:56)
[2019-09-22 07:06] LABS: Glucose,Whole Blood 96 mg/dL (75-99)
[2019-09-22] MEDS: INSULIN ASPART (NovoLOG) 100 UNIT/ML VIAL SQ SCH ×4 (07:09→20:56)
[2019-09-22] MEDS: GABAPENTIN 300 MG CAP PO SCH ×2 (07:48→20:53)
[2019-09-22] MEDS: CHOLECALCIFEROL 1,000 UNIT TAB PO SCH (07:49)
[2019-09-22] MEDS: METOPROLOL TARTRATE 12.5 MG TAB PO SCH ×2 (07:49→20:52)
[2019-09-22] MEDS: POTASSIUM CHLORIDE ER 10 MEQ TAB.ER.PRT PO SCH (07:49)
[2019-09-22] MEDS: ASPIRIN 81 MG PO SCH (07:49)
[2019-09-22] MEDS: amLODIPine 10 MG TAB PO SCH (07:49)
[2019-09-22] MEDS: MAGNESIUM OXIDE 400 MG TAB PO SCH (07:49)
[2019-09-22] MEDS: predniSONE 20 MG TAB PO SCH (07:49)
[2019-09-22] MEDS: PANTOPRAZOLE 40 MG TABLET PO SCH ×2 (07:49→18:02)
[2019-09-22] MEDS: PRIMIDONE 50 MG TAB PO SCH ×2 (07:51→20:52)
[2019-09-22] MEDS: TERBINAFINE 250 MG TAB PO SCH (07:51)
[2019-09-22] MEDS: DICLOFENAC SODIUM GEL 100 GM TUBE TOPICAL SCH ×4 (07:54→21:46)
[2019-09-22] MEDS: ARTIFICIAL TEARS-HYPROMELLOSE DROPS 15 ML BTL BOTH EYES SCH ×4 (07:56→21:46)
[2019-09-22] MEDS: IPRATROPIUM-ALBUTEROL 3 ML NEB INHALATION SCH ×4 (08:00→19:36)
[2019-09-22] MEDS: BUDESONIDE 0.5 MG/2 ML NEBU INHALATION SCH ×2 (08:00→19:36)
[2019-09-22] MEDS: HYDROcodone/APAP 5-325MG 1 EACH TAB PO PRN ×2 (08:12→20:53)
[2019-09-22 08:54] LABS: Basophils % (A) 0 %; Eosinophils % (A) 0 %; HCT 36.8 % (39.0-53.0); HGB 12.6 gm/dL (13.0-17.5); Lymphocytes # (A) 0.4 k/uL (1.0-4.8); Lymphocytes % (A) 4 %; MCH 33.1 pg (25.0-35.0); MCHC 34.1 g/dL (31.0-37.0); MCV 96.9 fL (80.0-100.0); Mean Platelet Volume 6.5; Monocytes # (A) 0.4 k/uL (0-1.0); Monocytes % (A) 4 %; Neutrophils # (A) 9.7 k/uL (1.3-7.7); Neutrophils % (A) 92 %; Platelet Count 271 k/uL (150-450); RDW 12.9 % (11.5-15.5); WBC 10.6 k/uL (3.8-10.6)
[2019-09-22 08:59] LABS: INR 2.1 (<1.2); Prothrombin Time 20.4 sec (9.0-12.0)
[2019-09-22 09:07] LABS: African American GFR (CKD) >90 (>60 ml/min/1.73 sqM); Anion Gap 7 mmol/L; Blood Urea Nitrogen 27 mg/dL (9-20); Carbon Dioxide 32 mmol/L (22-30); Chloride 93 mmol/L (98-107); Glucose 81 mg/dL (74-99); Non-African American GFR(CKD) >90 (>60 ml/min/1.73 sqM); Potassium 4.7 mmol/L (3.5-5.1); Sodium 132 mmol/L (137-145)
--- NOTE | 2019-09-22 10:01 | P.PN ---
Subjective Progress Note Date: 09/21/19 Principal diagnosis: This is a pleasant 68 years old male with past medical history of COPD, Parkinson disease, status post pacemaker, nicotine dependence, hypertension, hyperlipidemia. As per documents Patient was transferred from [facility] [place] as predicament patient is originally from [place] recently moved to [place] to live with his daughter who had recent bronchoscopy done about 3-4 days ago for possible lung masses at the [facility] in [place]. The stomach presents with dyspnea and cough and there was mention of blood in the sputum. Patient himself says that he was living with his daughter and her place, he has history of COPD and on 2 L/m home oxygen via nasal cannula, when he got difficulty breathing with coughing with yellow phlegm of one-day duration and he checked his oxygen level and stated was low so he went to [facility] and from there the transfer him to [facility] in [place], they told me he has abnormal chest x-ray and they did CAT scan but was not sure what was abnormal to the chest x-ray. Patient still smokes about 1 pack per day and he quit about 2 weeks ago, denies alcohol or illicit tracts. At baseline and he walks very little using a cane. Vitals: Patient is afebrile, blood pressure was 90/55 currently 110/63, he saturating 94% on 3 L, no tachycardia, mild tachypnea with respiratory rate 18- 23 Labs from [place] showing negative troponin, sodium 142, potassium 4.3, creatinine 0.7, liver enzymes elevated. Chest x-ray: Bibasilar airway disease suspicious for pneumonia or pneumonitis, with no vascular congestion and trace pleural effusion. Also has leukocytosis of 20 5.0K, hemoglobin 13.5, platelets 252. BNP is 3787. EKG showing ventricular paced rhythm with no significant ST T changes, QTC of [address] I [facility] [place] patient was given 1 dose of Solu-Medrol 125 mg, and he was started on levofloxacin and IV vancomycin. 09/15/2019 Patient still have the similar respiratory symptoms he came in with some dyspnea and coughing with phlegm. And no chest pain. Vitals are stable and he is on 3 L oxygen via NC similar to his baseline. WBC is back to 11.8 K which is close to normal. INR is 1.1 and patient is on Coumadin 5 m sputum and blood culture are pending. g daily which he was adherent to and he was taken it appeared to come to the hospital as he confirmed to me today. We going to give him extra doses of Coumadin. His blood thinners for his atrial fibrillation where he has pacemaker as well. Swallow evaluation showed small penetration. Patient confirmed to me that he did not go the result of his lung mass biopsy which was done prior to this hospitalization. Pulmonary input is appreciated and patient was started on Zosyn, also lower his on Medrol from 60 down to 40 mg. And lower his normal saline 2 mL per hour 09/16/2019 Patient still feels this ache with some improvement especially with bronchodilator. His coughing with phlegm. He is hemodynamically stable. He saturating 98% on 3 L of oxygen. Leukocytosis improving gradually to 11.2k, INR is 1.4, Coumadin dose was already increased from 5 to 7.5 mg for his A. fib. Electrolytes are acceptable and creatinine is normal. Sugar is controlled. Pending, patient remains on Zosyn currently. And Solu-Medrol 40 mg, normal saline at [address] thorax shows COPD, pneumonia and lung mass, see the report for more details. Hematology/oncology team were consulted and they're still pending 09/19/2019 Patient is awake and alert, is still have some dyspnea but is improving. Patient and family at bedside are aware with the patient diagnosis of lung cancer and expecting chemotherapy to be started in house, therapy today. Vitals are stable, WBC is back to normal at 10.5 K. INR 3.6, BMP is unremarkable. Sugars controlled. Also we'll hold Coumadin today and start tomorrow at 6 mg as his INR still supratherapeutic. 09/20/2019 Patient feels generally tired however he does not have significant respiratory or GI symptoms he denies chest pain. Vitals are stable and patient is afebrile. Sugars controlled. Labs are still pending. Patient remains on Zosyn and prednisone 40 mg daily and normal saline at 50 mg,his INR yesterday was 3.6 and his Coumadin was held and lowered to 6 mg first dose today. Follow up INR level. Patient was instructed and is to follow-up with the oncologist was discharge as he might need PET scan. And he agrees 09/21/19 Patient is lying in bed in no acute distress receiving chemo and tolerating well thus far. Patient is to receive his last dose this evening and will be following up with oncology in the outpatient setting upon discharge. Patient denies any chest pain, shortness of breath, or palpitations at this time. Patient is afeb rile. Patient denies any nausea or vomiting and is tolerating diet. Patient is having some heart burn/indigestion and states that the pepcid isn't helping. Protonix will be ordered. Patient also states that he has not had a bowel movement in 3-4 days but denies abdominal discomfort. Dulcolax was ordered. Objective - Vital Signs Vital signs: Vital Signs Temp 97.9 F 09/22/19 05:00 Pulse 72 09/22/19 08:16 Resp 20 09/22/19 05:00 BP 143/83 09/22/19 05:00 Pulse Ox 99 09/22/19 05:00 Intake & Output 09/21/19 09/22/19 09/22/19 18:59 06:59 18:59 Intake Total 500 2500 Output Total 700 Balance -200 2500 Weight 72 kg Intake: Intake, IV Titration 500 900 Amount Etoposide 190 mg In 500 Sodium Chloride 0.9% 500 ml 500 ml @ 509.5 mls/hr IV Q24H TOM Rx#:[id number] Piperacillin-Tazobactam 3 100 100 .375 gm In Sodium Chloride 0.9% 100 ml @ 25 mls/hr IVPB Q8HR TOM Rx# :[id number] Sodium Chloride 0.9% 1, 400 300 000 ml @ 50 mls/hr IV . Q20H TOM Rx#:[id number] Oral 1600 Output: Urine 700 Other: Voiding Method Toilet Toilet # Voids 3 5 # Bowel Movements 2 - Exam GENERAL: The patient is alert and oriented x3, not in any acute distress. Well developed, well nourished. HEENT: Pupils are round and equally reacting to light. EOMI. No scleral icterus. No conjunctival pallor. Normocephalic, atraumatic. No pharyngeal erythema. No thyromegaly. CARDIOVASCULAR: S1 and S2 present. No murmurs, rubs, or gallops. -PULMONARY: Chest is clear to auscultation, bilateral expiratory wheezing ABDOMEN: Soft, nontender, nondistended, normoactive bowel sounds. No palpable organomegaly. MUSCULOSKELETAL: No joint swelling or deformity. EXTREMITIES: No cyanosis, clubbing, or pedal edema. NEUROLOGICAL: Gross neurological examination did not reveal any focal deficits. SKIN: No rashes. No petechiae - Labs CBC & Chem 7: 09/22/19 08:12 09/22/19 08:12 Labs: Abnormal Lab Results - Last 24 Hours (Table) 09/21/19 09/21/19 09/21/19 Range/Units 11:11 18:19 20:14 RBC (4.30-5.90) m/uL Hgb (13.0-17.5) gm/dL Hct (39.0-53.0) % Neutrophils # (1.3-7.7) k/uL Lymphocytes # (1.0-4.8) k/uL PT (9.0-12.0) sec INR (<1.2) Sodium (137-145) mmol/L Chloride (98-107) mmol/L Carbon Dioxide (22-30) mmol/L BUN (9-20) mg/dL Creatinine (0.66-1.25) mg/dL POC Glucose (mg/dL) 102 H 154 H 133 H (75-99) mg/dL 09/22/19 09/22/19 09/22/19 Range/Units 08:12 08:12 08:12 RBC 3.80 L (4.30-5.90) m/uL Hgb 12.6 L (13.0-17.5) gm/dL Hct 36.8 L (39.0-53.0) % Neutrophils # 9.7 H (1.3-7.7) k/uL Lymphocytes # 0.4 L (1.0-4.8) k/uL PT 20.4 H (9.0-12.0) sec INR 2.1 H (<1.2) Sodium 132 L (137-145) mmol/L Chloride 93 L (98-107) mmol/L Carbon Dioxide 32 H (22-30) mmol/L BUN 27 H (9-20) mg/dL Creatinine 0.58 L (0.66-1.25) mg/dL POC Glucose (mg/dL) (75-99) mg/dL Assessment and Plan Assessment: Bilateral pneumonia suspicious for aspiration versus postobstructive Lung mass status post biopsy, but due to small cell lung cancer, patient is aware oncology team started chemotherapy A. fib status post pacemaker, rate controlled and on Coumadin. Mild to moderate acute COPD exacerbation History of Parkinson disease Chronic hypoxic respiratory failure Nicotine dependence Hypertension Hyperlipidemia Recommendations and discussion: Patient is to receive his last dose of chemo this evening and will likely be discharged. Patient's chemotherapy was not finished until after 11pm and will be discharged in the morning. Patient will continue with bronchodilators, steroids, and antibiotics at this time. Will continue to monitor closely. Discharge in the am.
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
[2019-09-22 11:16] LABS: Glucose,Whole Blood 104 mg/dL (75-99)
[2019-09-22] MEDS: IOPAMIDOL CONTRAST (ORAL USE) VIAL PO PRN ×2 (13:31→14:55)
[2019-09-22] MEDS: SODIUM CHLORIDE 0.9% 1,000 ML IV SCH (13:33)
--- NOTE | 2019-09-22 15:16 | XR ---
EXAMINATION TYPE: XR chest 1V DATE OF EXAM: 09/22/2019 CLINICAL HISTORY: Difficulty breathing and CHF progress study. TECHNIQUE: Single AP portable upright view of the chest is obtained. COMPARISON: Chest x-ray from one day earlier. CT chest September 14, 2019. FINDINGS: Persistent mild cardiomegaly with dual lead pacemaker. Persistent right greater than left bibasilar opacities. Background chronic parenchymal change and right hilar fullness. Osseous structur es remain demineralized. Impression: Chronic emphysematous change and mild cardiomegaly with right greater than left bibasilar opacities favoring scarring and/or atelectasis with areas of residual acute infiltrate difficult to exclude on background chronic changes. Underlying pulmonary neoplasm is again seen as there is persis tent lower lung mass and right hilar adenopathy noted.
--- NOTE | 2019-09-22 15:17 | P.PN ---
Subjective 68 years old male with past medical history of COPD, Parkinson disease, status post pacemaker, nicotine dependence, hypertension, hyperlipidemia. As per documents Patient was transferred from [facility] as predicament patient is originally from [place] recently moved to [place] to live with his daughter who had recent bronchoscopy done about 3-4 days ago for possible lung masses at the [facility] in [place]. The stomach presents with dyspnea and cough and there was mention of blood in the sputum. Patient himself says that he was living with his daughter and her place, he has history of COPD and on 2 L/m home oxygen via nasal cannula, when he got difficulty breathing with coughing with yellow phlegm of one-day duration and he checked his oxygen level and stated was low so he went to [facility] and from there the transfer him to [facility] in [place], they told me he has abnormal chest x-ray and they did CAT scan but was not sure what was abnormal to the chest x-ray. Patient still smokes about 1 pack per day and he quit about 2 weeks ago, denies alcohol or illicit tracts. At baseline and he walks very little using a cane. Vitals: Patient is afebrile, blood pressure was 90/55 currently 110/63, he saturating 94% on 3 L, no tachycardia, mild tachypnea with respiratory rate 18- 23 Labs from [place] showing negative troponin, sodium 142, potassium 4.3, creatinine 0.7, liver enzymes elevated. Chest x-ray: Bibasilar airway disease suspicious for pneumonia or pneumonitis, with no vascular congestion and trace pleural effusion. Also has leukocytosis of 20 5.0K, hemoglobin 13.5, platelets 252. BNP is 3787. EKG showing ventricular paced rhythm with no significant ST T changes, QTC of 455 I [facility] patient was given 1 dose of Solu-Medrol 125 mg, and he was started on levofloxacin and IV vancomycin. 09/15/2019 Patient still have the similar respiratory symptoms he came in with some dyspnea and coughing with phlegm. And no chest pain. Vitals are stable and he is on 3 L oxygen via [place] similar to his baseline. WBC is back to 11.8 K which is close to normal. INR is 1.1 and patient is on Coumadin 5 m sputum and blood culture are pending. g daily which he was adherent to and he was taken it appeared to come to the hospital as he confirmed to me today. We going to give him extra doses of Coumadin. His blood thinners for his atrial fibrillation where he has pacemaker as well. Swallow evaluation showed small penetration. Patient confirmed to me that he did not go the result of his lung mass biopsy which was done prior to this hospitalization. Pulmonary input is appreciated and patient was started on Zosyn, also lower his on Medrol from 60 down to 40 m g. And lower his normal saline 2 mL per hour 09/16/2019 Patient still feels this ache with some improvement especially with bronchodilator. His coughing with phlegm. He is hemodynamically stable. He saturating 98% on 3 L of oxygen. Leukocytosis improving gradually to 11.2k, INR is 1.4, Coumadin dose was already increased from 5 to 7.5 mg for his A. fib. Electrolytes are acceptable and creatinine is normal. Sugar is controlled. Pending, patient remains on Zosyn currently. And Solu-Medrol 40 mg, normal saline at [address] thorax shows COPD, pneumonia and lung mass, see the report for more details. Hematology/oncology team were consulted and they're still pending 09/19/2019 Patient is awake and alert, is still have some dyspnea but is improving. Patient and family at bedside are aware with the patient diagnosis of lung cancer and expecting chemotherapy to be started in house, therapy today. Vitals are stable, WBC is back to normal at 10.5 K. INR 3.6, BMP is unremarkable. Sugars controlled. Also we'll hold Coumadin today and start tomorrow at 6 mg as his INR still supratherapeutic. 09/20/2019 Patient feels generally tired however he does not have significant respiratory or GI symptoms he denies chest pain. Vitals are stable and patient is afebrile. Sugars controlled. Labs are still pending. Patient remains on Zosyn and prednisone 40 mg daily and normal saline at 50 mg,his INR yesterday was 3.6 and his Coumadin was held and lowered to 6 mg first dose today. Follow up INR level. Patient was instructed and is to follow-up with the oncologist was discharge as he might need PET scan. And he agrees 09/21/19 Patient is lying in bed in no acute distress receiving chemo and tolerating well thus far. Patient is to receive his last dose this evening and will be following up with oncology in the outpatient setting upon discharge. Patient denies any chest pain, shortness of breath, or palpitations at this time. Patient is afebrile. Patient denies any nausea or vomiting and is tolerating diet. Patient is having some heart burn/indigestion and states that the pepcid isn't helping. Protonix will be ordered. Patient also states that he has not had a bowel movement in 3-4 days but denies abdominal discomfort. Dulcolax was ordered. 09/22/2019 Patient had episodes of GI bleed although small, patient is on Coumadin with therapy cannot of 2.1, hold off Coumadin gastroneurology is being consulted patient has urinary retention although patient is not on many narcotics that can cause urinary retention, we'll continue to do every 6 hourlybladder scans and if he doesn't improve by tomorrow but a Lynch catheter and urology was consulted patient will be started on tamsulosin will also obtain a chest x-ray as his saturations are low patient does use home oxygen. Patient completed his chemotherapy yesterday. Constitutional: Denied any fatigue denied any fever. Cardio vascular: denied any chest pain, palpitations Gastrointestinal denied any nausea vomiting Pulmonary: Denied any shortness of breath cough Neurologic denied any new focal deficits All inpatient medications were reviewed and appropriate changes in these medications as dictated in the interval history and assessment and plan. Objective - Vital Signs Vital signs: Vital Signs Temp 98 F 09/22/19 11:56 Pulse 70 09/22/19 11:56 Resp 16 09/22/19 11:56 BP 109/64 09/22/19 11:56 Pulse Ox 94 L 09/22/19 11:56 Intake & Output 09/21/19 09/22/19 09/22/19 18:59 06:59 18:59 Intake Total 500 2500 400 Output Total 700 1250 Balance -200 2500 -850 Weight 72 kg Intake: Intake, IV Titration 500 900 Amount Etoposide 190 mg In 500 Sodium Chloride 0.9% 500 ml 500 ml @ 509.5 mls/hr IV Q24H [facility] Rx#:[id number] Piperacillin-Tazobactam 3 100 100 .375 gm In Sodium Chloride 0.9% 100 ml @ 25 mls/hr IVPB Q8HR [facility] Rx# :[id number] Sodium Chloride 0.9% 1, 400 300 000 ml @ 50 mls/hr IV . Q20H [facility] Rx#:[id number] Oral 1600 400 Output: Urine 700 Post Void Residual 1250 Other: Voiding Method Toilet Toilet Toilet Urinal # Voids 3 5 # Bowel Movements 2 - Exam GENERAL: The patient is alert and oriented x3, not in any acute distress. Well developed, well nourished. HEENT: Pupils are round and equally reacting to light. EOMI. No scleral icterus. No conjunctival pallor. Normocephalic, atraumatic. No pharyngeal erythema. No thyromegaly. CARDIOVASCULAR: S1 and S2 present. No murmurs, rubs, or gallops. -PULMONARY: Chest is clear to auscultation, bilateral expiratory wheezing ABDOMEN: Soft, nontender, nondistended, normoactive bowel sounds. No palpable organomegaly. there are probably hemorrhoids with some blood at can see on rectal exam MUSCULOSKELETAL: No joint swelling or deformity. EXTREMITIES: No cyanosis, clubbing, or pedal edema. NEUROLOGICAL: Gross neurological examination did not reveal any focal deficits. SKIN: No rashes. No petechiae - Labs CBC & Chem 7: 09/22/19 08:12 09/22/19 08:12 Labs: Abnormal Lab Results - Last 24 Hours (Table) 09/21/19 09/21/19 09/22/19 Range/Units 18:19 20:14 08:12 RBC (4.30-5.90) m/uL Hgb (13.0-17.5) gm/dL Hct (39.0-53.0) % Neutrophils # (1.3-7.7) k/uL Lymphocytes # (1.0-4.8) k/uL PT (9.0-12.0) sec INR (<1.2) Sodium 132 L (137-145) mmol/L Chloride 93 L (98-107) mmol/L Carbon Dioxide 32 H (22-30) mmol/L BUN 27 H (9-20) mg/dL Creatinine 0.58 L (0.66-1.25) mg/dL POC Glucose (mg/dL) 154 H 133 H (75-99) mg/dL 11/28/19 11/28/19 11/28/19 Range/Units 08:12 08:12 11:15 RBC 3.80 L (4.30-5.90) m/uL Hgb 12.6 L (13.0-17.5) gm/dL Hct 36.8 L (39.0-53.0) % Neutrophils # 9.7 H (1.3-7.7) k/uL Lymphocytes # 0.4 L (1.0-4.8) k/uL PT 20.4 H (9.0-12.0) sec INR 2.1 H (<1.2) Sodium (137-145) mmol/L Chloride (98-107) mmol/L Carbon Dioxide (22-30) mmol/L BUN (9-20) mg/dL Creatinine (0.66-1.25) mg/dL POC Glucose (mg/dL) 104 H (75-99) mg/dL Assessment and Plan Plan: possible acute GI bleed Coumadin will be held, it appears to have some hemorrhoids gastroneurology will be consulted -Bilateral pneumonia aspiration versus postobstructive for which patient is on Zosyn at this time -small cell lung cancer for which patient received chemotherapy -COPD without any significant exacerbation -Parkinson's -Chronic hypercapnic respiratory failure uses 2 L of oxygen secondary to COPD -Hypertension #10 hyperlipidemia -Urinary retentionevery 6 hourly bladder scans along with straight catheterization if retention more than 2250 mL the patient continues to retain neurology will be consulted patient was started on tamsulosin -Hyponatremia appears to have hypervolemic hyponatremia increasing the fluids 200 mL/h we'll Allsop an chest x-ray clinically doesn't appear to have CHF but will rule it out before I start him on fluids
--- NOTE | 2019-09-22 16:09 | CT ---
EXAMINATION TYPE: CT abdomen pelvis w con DATE OF EXAM: 09/22/2019 COMPARISON: Chest CT 8 days ago. HISTORY: Increased abdomen pain, rectal bleeding, difficulty voiding. CT DLP: 998 mGycm, Automated Exposure Control for Dose Reduction was Utilized. CONTRAST: CT scan of the abdomen and pelvis is performed with oral and with IV Contrast, patient injected with 100 mL of Isovue 300. FINDINGS: LUNG BASES: Persistent calcified right posterior pleural plaque. Persistent low dense right lower lob e oval mass axial image 10. Persistent right hilar adenopathy encasing and narrowing the right lower lobe bronchus. Partial visualization of cardiac pacemaker wires. Persistent mild cardiomegaly and cor onary artery calcification. Patchy bibasilar scarring and/or atelectasis LIVER/GB: Central positioning of the liver. Contracted gallbladder PANCREAS: No significant abnormality is seen. SPLEEN: Scattered small calcifications throughout the spleen consistent with old granulomatous diseas e. ADRENALS: Suspicious right greater than left and size bilateral adrenal masses given thoracic finding s. KIDNEYS: Symmetric cortical medullary uptake and excretion with asymmetric left renal atrophy and cor tical thinning. A few scattered simple-appearing thin-walled cysts throughout the right kidney are pr esent. Mildly distended bladder past the level of iliac crests. BOWEL: Oral contrast only reaches proximal ileal level making evaluation of distal bowel slightly sub optimal. There is no suspicious small or large bowel dilatation. There is some prominence of fecal ma terial throughout the colon with significant thecal prominent sigmoid rectal colon. PROSTATE/SEMINAL VESICLES: No gross abnormality seen. LYMPH NODES: No greater than 1cm abdominal or pelvic lymph nodes are appreciated. OSSEOUS STRUCTURES: Demineralization with loss of normal curvature. Moderate to severe multilevel ant erior and lateral spurring. Multilevel [id number] disc space narrowing. Moderate to severe narr owing and mild to moderate spurring both hip joints OTHER: Right groin clips and phleboliths are present. Moderate to severe calcified plaque of the aort a extends into branch vessels. Mild to moderate diffuse subcutaneous edema and/or soft tissue anasarc a noted IMPRESSION: 1. Mild to moderate distention of bladder. Asymmetric atrophy left kidney noted. 2. Overall nonobstructive bowel gas pattern. Fairly moderate diffuse colonic fecal stasis with more s evere rectal fecal stasis or infection noted. 3. 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
[2019-09-22 17:28] LABS: Glucose,Whole Blood 111 mg/dL (75-99)
[2019-09-22] MEDS ORDERED: WARFARIN 5 MG TAB PO SCH (18:00)
[2019-09-22] MEDS: TAMSULOSIN 0.4 MG CAP.ER.24H PO SCH (18:02)
[2019-09-22 20:14] LABS: Glucose,Whole Blood 114 mg/dL (75-99)
[2019-09-22] MEDS: ALPRAZolam 0.25 MG TAB PO PRN (20:52)
[2019-09-23] MEDS: PIPERACILLIN-TAZOBACTAM 3.375 GM in SODIUM CHLORIDE 0.9% 100 ML IVPB SCH ×3 (00:37→16:56)
[2019-09-23] MEDS: SALT AND SODA MOUTHWASH 1,000 ML PO SCH ×5 (00:53→21:53)
[2019-09-23] MEDS: HYDROcodone/APAP 5-325MG 1 EACH TAB PO PRN ×2 (05:45→21:52)
[2019-09-23 07:01] LABS: Glucose,Whole Blood 91 mg/dL (75-99)
[2019-09-23] MEDS: IPRATROPIUM-ALBUTEROL 3 ML NEB INHALATION SCH ×4 (07:24→20:12)
[2019-09-23] MEDS: BUDESONIDE 0.5 MG/2 ML NEBU INHALATION SCH ×2 (07:24→20:12)
[2019-09-23 08:55] LABS: Basophils % (A) 0 %; Eosinophils % (A) 1 %; HCT 36.2 % (39.0-53.0); Lymphocytes # (A) 0.6 k/uL (1.0-4.8); Lymphocytes % (A) 9 %; MCH 32.8 pg (25.0-35.0); MCHC 33.1 g/dL (31.0-37.0); Mean Platelet Volume 6.6; Monocytes # (A) 0.2 k/uL (0-1.0); Monocytes % (A) 3 %; Neutrophils # (A) 5.5 k/uL (1.3-7.7); Neutrophils % (A) 88 %; Platelet Count 199 k/uL (150-450); RBC 3.66 m/uL (4.30-5.90); RDW 12.9 % (11.5-15.5); WBC 6.3 k/uL (3.8-10.6)
[2019-09-23 09:01] LABS: African American GFR (CKD) >90 (>60 ml/min/1.73 sqM); Anion Gap 5 mmol/L; Blood Urea Nitrogen 23 mg/dL (9-20); Calcium 8.1 mg/dL (8.4-10.2); Carbon Dioxide 32 mmol/L (22-30); Chloride 96 mmol/L (98-107); Glucose 84 mg/dL (74-99); Non-African American GFR(CKD) >90 (>60 ml/min/1.73 sqM); Potassium 4.1 mmol/L (3.5-5.1); Sodium 133 mmol/L (137-145)
[2019-09-23 09:20] LABS: INR 2.3 (<1.2); Prothrombin Time 22.2 sec (9.0-12.0)
[2019-09-23] MEDS: INSULIN ASPART (NovoLOG) 100 UNIT/ML VIAL SQ SCH ×4 (09:55→21:54)
[2019-09-23] MEDS: POTASSIUM CHLORIDE ER 10 MEQ TAB.ER.PRT PO SCH (10:09)
[2019-09-23] MEDS: METOPROLOL TARTRATE 12.5 MG TAB PO SCH ×2 (10:09→21:53)
[2019-09-23] MEDS: PRIMIDONE 50 MG TAB PO SCH ×2 (10:09→21:53)
[2019-09-23] MEDS: predniSONE 20 MG TAB PO SCH (10:10)
[2019-09-23] MEDS: ASPIRIN 81 MG PO SCH (10:10)
[2019-09-23] MEDS: CHOLECALCIFEROL 1,000 UNIT TAB PO SCH (10:10)
[2019-09-23] MEDS: GABAPENTIN 300 MG CAP PO SCH ×2 (10:10→21:53)
[2019-09-23] MEDS: ARTIFICIAL TEARS-HYPROMELLOSE DROPS 15 ML BTL BOTH EYES SCH ×4 (10:11→21:54)
[2019-09-23] MEDS: PANTOPRAZOLE 40 MG TABLET PO SCH ×2 (10:11→16:56)
[2019-09-23] MEDS: amLODIPine 10 MG TAB PO SCH (10:11)
[2019-09-23] MEDS: MAGNESIUM OXIDE 400 MG TAB PO SCH (10:12)
[2019-09-23] MEDS: DICLOFENAC SODIUM GEL 100 GM TUBE TOPICAL SCH ×3 (10:12→16:57)
[2019-09-23] MEDS: HYDROCORTISONE SUPPOSITORY 25 MG SUPP RECTAL SCH (10:13)
[2019-09-23] MEDS: TERBINAFINE 250 MG TAB PO SCH (10:13)
[2019-09-23 11:23] LABS: Glucose,Whole Blood 115 mg/dL (75-99)
--- NOTE | 2019-09-23 11:53 | P.PN ---
Subjective Progress Note Date: 09/23/19 Principal diagnosis: Bilateral aspiration pneumonia, lung mass, small cell lung cancer, atrial fibrillation, moderate COPD with acute exacerbation, advanced Parkinson's disease, acute on chronic hypoxic respiratory failure, hypertension hypertensive cardiovascular disease, dyslipidemia 09/23/2019, patient seen eval examined during the rounds labs reviewed medications reviewed care plan discussed with the patient and staff at length patient is having some left lower quadrant discomfort and pain has multiple bowel movements associated with some streaks of blood and hematochezia, hemoglobin however remains stable at level of 12 patient is on Coumadin along with therapeutic PT/INR of 2.3, patient also have urinary retention requiring straight cath, computed tomography scan of the abdomen was performed revealed distended urinary bladder, atrophic left kidney, nonobstructive bowel gas pattern was seen with fecal stasis, 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, patient has finished course of chemotherapy now, patient is an enema to evacuate September 21 2019, patient seen eval reexamined during the rounds sitting upright on the bed breathing K more comfortably off of oxygen patient is due for a third dose of chemotherapy later on today 09/20/2019, patient seen eval examined during the rounds labs reviewed medications reviewed, still short of breath cough and congestion slightly better, patient is going chemotherapy 09/19/2019, patient has removed to oncology and it patient has been diagnosed with small cell lung cancer biopsy was performed at [facility] hematology is considering initiation of chemotherapy patient is somewhat anxious family present at bedside, denies any chest pain Objective - Vital Signs Vital signs: Vital Signs Temp 98 F 09/23/19 05:00 Pulse 76 09/23/19 07:40 Resp 18 09/23/19 05:00 BP 128/81 09/23/19 05:00 Pulse Ox 100 09/23/19 05:00 Intake & Output 09/22/19 09/23/19 09/23/19 18:59 06:59 18:59 Intake Total 400 1840 Output Total 2250 1675 Balance -1850 165 Weight 73.2 kg Intake: Intake, IV Titration 1200 Amount Piperacillin-Tazobactam 3 200 .375 gm In Sodium Chloride 0.9% 100 ml @ 25 mls/hr IVPB Q8HR [facility] Rx# :[id number] Sodium Chloride 0.9% 1, 1000 000 ml @ 100 mls/hr IV . Q10H [facility] Rx#:[id number] Oral 400 640 Output: Post Void Residual 2250 1675 Other: Voiding Method Toilet Toilet Urinal Urinal # Voids 5 # Bowel Movements 3 - Exam GENERAL: The patient is alert and oriented x3, not in any acute distress. Well developed, well nourished. HEENT: Pupils are round and equally reacting to light. EOMI. No scleral icterus. No conjunctival pallor. Normocephalic, atraumatic. No pharyngeal erythema. No thyromegaly. CARDIOVASCULAR: S1 and S2 present. No murmurs, rubs, or gallops. -PULMONARY: Chest is clear to auscultation, bilateral expiratory wheezing ABDOMEN: Soft, nontender, nondistended, normoactive bowel sounds. No palpable organomegaly. MUSCULOSKELETAL: No joint swelling or deformity. EXTREMITIES: No cyanosis, clubbing, or pedal edema. NEUROLOGICAL: Gross neurological examination did not reveal any focal deficits. SKIN: No rashes. No petechiae - Labs CBC & Chem 7: 09/23/19 08:33 09/23/19 08:33 Labs: Abnormal Lab Results - Last 24 Hours (Table) 09/22/19 09/22/19 09/23/19 Range/Units 17:27 20:13 08:33 RBC (4.30-5.90) m/uL Hgb (13.0-17.5) gm/dL Hct (39.0-53.0) % Lymphocytes # (1.0-4.8) k/uL PT 22.2 H (9.0-12.0) sec INR 2.3 H (<1.2) Sodium (137-145) mmol/L Chloride (98-107) mmol/L Carbon Dioxide (22-30) mmol/L BUN (9-20) mg/dL POC Glucose (mg/dL) 111 H 114 H (75-99) mg/dL Calcium (8.4-10.2) mg/dL 09/23/19 09/23/19 09/23/19 Range/Units 08:33 08:33 11:22 RBC 3.66 L (4.30-5.90) m/uL Hgb 12.0 L (13.0-17.5) gm/dL Hct 36.2 L (39.0-53.0) % Lymphocytes # 0.6 L (1.0-4.8) k/uL PT (9.0-12.0) sec INR (<1.2) Sodium 133 L (137-145) mmol/L Chloride 96 L (98-107) mmol/L Carbon Dioxide 32 H (22-30) mmol/L BUN 23 H (9-20) mg/dL POC Glucose (mg/dL) 115 H (75-99) mg/dL Calcium 8.1 L (8.4-10.2) mg/dL Assessment and Plan Assessment: Bilateral pneumonia versus postobstructive changes Small cell lung cancer status post chemotherapy Hematochezia likely superficial his skin rupture in perirectal area no signs of overt bleeding is seen, Urinary retention Atrial fibrillation well anticoagulated Moderate to severe COPD Advanced Parkinson's disease Chronic hypoxic respiratory failure Dyslipidemia Hypertension hypertensive cardiovascular disease Plan: Agree with monitoring hemoglobin closely Monitor observe hemodynamics Will keep patient in hematology/oncology department for now but if hemodynamic compromises noted will transfer to ICU Continue Zosyn bronchodilators and steroids, Continue prednisone slowly taper it however patient will require a small dose maintenance for presumed adrenal insufficiency given bilateral metastases to the adrenal gland Patient has been on Coumadin Chemotherapy plan as per oncology service Time with Patient: Greater than 30
[2019-09-23] MEDS ORDERED: LACTULOSE 20 GM/30 ML CUP PO PRN (12:45)
--- NOTE | 2019-09-23 12:47 | P.PN ---
Subjective 68 years old male with past medical history of COPD, Parkinson disease, status post pacemaker, nicotine dependence, hypertension, hyperlipidemia. As per documents Patient was transferred from [facility] as predicament patient is originally from [place] recently moved to [place] to live with his daughter who had recent bronchoscopy done about 3-4 days ago for possible lung masses at the [facility] in [place]. The stomach presents with dyspnea and cough and there was mention of blood in the sputum. Patient himself says that he was living with his daughter and her place, he has history of COPD and on 2 L/m home oxygen via nasal cannula, when he got difficulty breathing with coughing with yellow phlegm of one-day duration and he checked his oxygen level and stated was low so he went to [facility] and from there the transfer him to [facility] in [place], they told me he has abnormal chest x-ray and they did CAT scan but was not sure what was abnormal to the chest x-ray. Patient still smokes about 1 pack per day and he quit about 2 weeks ago, denies alcohol or illicit tracts. At baseline and he walks very little using a cane. Vitals: Patient is afebrile, blood pressure was 90/55 currently 110/63, he saturating 94% on 3 L, no tachycardia, mild tachypnea with respiratory rate 18- 23 Labs from [place] showing negative troponin, sodium 142, potassium 4.3, creatinine 0.7, liver enzymes elevated. Chest x-ray: Bibasilar airway disease suspicious for pneumonia or pneumonitis, with no vascular congestion and trace pleural effusion. Also has leukocytosis of 20 5.0K, hemoglobin 13.5, platelets 252. BNP is 3787. EKG showing ventricular paced rhythm with no significant ST T changes, QTC of 455 I [facility] patient was given 1 dose of Solu-Medrol 125 mg, and he was started on levofloxacin and IV vancomycin. 09/15/2019 Patient still have the similar respiratory symptoms he came in with some dyspnea and coughing with phlegm. And no chest pain. Vitals are stable and he is on 3 L oxygen via NC similar to his baseline. WBC is back to 11.8 K which is close to normal. INR is 1.1 and patient is on Coumadin 5 m sputum and blood culture are pending. g daily which he was adherent to and he was taken it appeared to come to the hospital as he confirmed to me today. We going to give him extra doses of Coumadin. His blood thinners for his atrial fibrillation where he has pacemaker as well. Swallow evaluation showed small penetration. Patient confirmed to me that he did not go the result of his lung mass biopsy which was done prior to this hospitalization. Pulmonary input is appreciated and patient was started on Zosyn, also lower his on Medrol from 60 down to 40 m g. And lower his normal saline 2 mL per hour 09/16/2019 Patient still feels this ache with some improvement especially with bronchodilator. His coughing with phlegm. He is hemodynamically stable. He saturating 98% on 3 L of oxygen. Leukocytosis improving gradually to 11.2k, INR is 1.4, Coumadin dose was already increased from 5 to 7.5 mg for his A. fib. Electrolytes are acceptable and creatinine is normal. Sugar is controlled. Pending, patient remains on Zosyn currently. And Solu-Medrol 40 mg, normal saline at [address] thorax shows COPD, pneumonia and lung mass, see the report for more details. Hematology/oncology team were consulted and they're still pending 09/19/2019 Patient is awake and alert, is still have some dyspnea but is improving. Patient and family at bedside are aware with the patient diagnosis of lung cancer and expecting chemotherapy to be started in house, therapy today. Vitals are stable, WBC is back to normal at 10.5 K. INR 3.6, BMP is unremarkable. Sugars controlled. Also we'll hold Coumadin today and start tomorrow at 6 mg as his INR still supratherapeutic. 09/20/2019 Patient feels generally tired however he does not have significant respiratory or GI symptoms he denies chest pain. Vitals are stable and patient is afebrile. Sugars controlled. Labs are still pending. Patient remains on Zosyn and prednisone 40 mg daily and normal saline at 50 mg,his INR yesterday was 3.6 and his Coumadin was held and lowered to 6 mg first dose today. Follow up INR level. Patient was instructed and is to follow-up with the oncologist was discharge as he might need PET scan. And he agrees 09/21/19 Patient is lying in bed in no acute distress receiving chemo and tolerating well thus far. Patient is to receive his last dose this evening and will be following up with oncology in the outpatient setting upon discharge. Patient denies any chest pain, shortness of breath, or palpitations at this time. Patient is afebrile. Patient denies any nausea or vomiting and is tolerating diet. Patient is having some heart burn/indigestion and states that the pepcid isn't helping. Protonix will be ordered. Patient also states that he has not had a bowel movement in 3-4 days but denies abdominal discomfort. Dulcolax was ordered. 09/22/2019 Patient had episodes of GI bleed although small, patient is on Coumadin with therapy cannot of 2.1, hold off Coumadin gastroneurology is being consulted patient has urinary retention although patient is not on many narcotics that can cause urinary retention, we'll continue to do every 6 hourlybladder scans and if he doesn't improve by tomorrow but a Lynch catheter and urology was consulted patient will be started on tamsulosin will also obtain a chest x-ray as his saturations are low patient does use home oxygen. Patient completed his chemotherapy yesterday. 09/23/2019 Patient is still having streaks of blood probably secondary to hemorrhoids. Which is again secondary to severe constipation. Patient has urinary retention probably from constipation as well. Patient's serum sodium improved marginally. Urology will evaluated the patient today. Constitutional: Denied any fatigue denied any fever. Cardio vascular: denied any chest pain, palpitations Gastrointestinal denied any nausea vomiting Pulmonary: Denied any shortness of breath cough Neurologic denied any new focal deficits All inpatient medications were reviewed and appropriate changes in these medications as dictated in the interval history and assessment and plan. Objective - Vital Signs Vital signs: Vital Signs Temp 98 F 09/23/19 05:00 Pulse 72 09/23/19 12:42 Resp 18 09/23/19 05:00 BP 128/81 09/23/19 05:00 Pulse Ox 100 09/23/19 05:00 Intake & Output 09/22/19 09/23/19 09/23/19 18:59 06:59 18:59 Intake Total 400 1840 Output Total 2250 1675 Balance -1850 165 Weight 73.2 kg Intake: Intake, IV Titration 1200 Amount Piperacillin-Tazobactam 3 200 .375 gm In Sodium Chloride 0.9% 100 ml @ 25 mls/hr IVPB Q8HR TOM Rx# :[id number] Sodium Chloride 0.9% 1, 1000 000 ml @ 100 mls/hr IV . Q10H TOM Rx#:[id number] Oral 400 640 Output: Post Void Residual 2250 1675 Other: Voiding Method Toilet Toilet Urinal Urinal # Voids 5 # Bowel Movements 3 - Exam GENERAL: The patient is alert and oriented x3, not in any acute distress. Well developed, well nourished. HEENT: Pupils are round and equally reacting to light. EOMI. No scleral icterus. No conjunctival pallor. Normocephalic, atraumatic. No pharyngeal erythema. No thyromegaly. CARDIOVASCULAR: S1 and S2 present. No murmurs, rubs, or gallops. -PULMONARY: Chest is clear to auscultation, bilateral expiratory wheezing ABDOMEN: Soft, nontender, nondistended, normoactive bowel sounds. No palpable organomegaly. there are probably hemorrhoids with some blood at can see on rectal exam MUSCULOSKELETAL: No joint swelling or deformity. EXTREMITIES: No cyanosis, clubbing, or pedal edema. NEUROLOGICAL: Gross neurological examination did not reveal any focal deficits. SKIN: No rashes. No petechiae - Labs CBC & Chem 7: 09/23/19 08:33 09/23/19 08:33 Labs: Abnormal Lab Results - Last 24 Hours (Table) 09/22/19 09/22/19 09/23/19 Range/Units 17:27 20:13 08:33 RBC (4.30-5.90) m/uL Hgb (13.0-17.5) gm/dL Hct (39.0-53.0) % Lymphocytes # (1.0-4.8) k/uL PT 22.2 H (9.0-12.0) sec INR 2.3 H (<1.2) Sodium (137-145) mmol/L Chloride (98-107) mmol/L Carbon Dioxide (22-30) mmol/L BUN (9-20) mg/dL POC Glucose (mg/dL) 111 H 114 H (75-99) mg/dL Calcium (8.4-10.2) mg/dL 09/23/19 09/23/19 09/23/19 Range/Units 08:33 08:33 11:22 RBC 3.66 L (4.30-5.90) m/uL Hgb 12.0 L (13.0-17.5) gm/dL Hct 36.2 L (39.0-53.0) % Lymphocytes # 0.6 L (1.0-4.8) k/uL PT (9.0-12.0) sec INR (<1.2) Sodium 133 L (137-145) mmol/L Chloride 96 L (98-107) mmol/L Carbon Dioxide 32 H (22-30) mmol/L BUN 23 H (9-20) mg/dL POC Glucose (mg/dL) 115 H (75-99) mg/dL Calcium 8.1 L (8.4-10.2) mg/dL Assessment and Plan Plan: possible acute GI bleed Coumadin will be held, it appears to have some hemorrhoids gastroenterology evaluated the patient, patient appears to have constipation -Bilateral pneumonia aspiration versus postobstructive for which patient is on Zosyn at this time -small cell lung cancer for which patient received chemotherapy -COPD without any significant exacerbation -Parkinson's -Chronic hypercapnic respiratory failure uses 2 L of oxygen secondary to COPD -Hypertension #10 hyperlipidemia -Urinary retention requiring straight catheterization often patient was started back on tamsulosin and neurology will evaluate the patient and the urinary retention is probably secondary to constipation -Hyponatremia appears to have hypervolemic hyponatremia patient will be continued on IV fluids and recheck basic metabolic profile tomorrow
[2019-09-23 16:50] LABS: Glucose,Whole Blood 237 mg/dL (75-99)
[2019-09-23] MEDS: SODIUM CHLORIDE 0.9% 1,000 ML IV SCH (16:55)
[2019-09-23] MEDS: TAMSULOSIN 0.4 MG CAP.ER.24H PO SCH (16:56)
[2019-09-23] MEDS ORDERED: WARFARIN 0.5 MG TAB PO ONE (18:00)
[2019-09-23 21:50] LABS: Glucose,Whole Blood >600 mg/dL (75-99)
[2019-09-23 21:52] LABS: Glucose,Whole Blood 125 mg/dL (75-99)
[2019-09-23] MEDS: ALPRAZolam 0.25 MG TAB PO PRN (21:53)
--- NOTE | 2019-09-23 22:19 | P.GSCN ---
History of Present Illness Consult date: 09/23/19 Reason for Consult: urinary retention History of present illness: Mr. Guzman is a 68-year-old male with history of lung cancer currently on chem otherapy. He is admitted to the hospital with pneumonia. Urology is consulted for urinary retention, he's required CIC 4 with PVR greater than 700 mL. He denies any voiding symptoms at baseline, but indicated for the past few days she's been having difficulty voiding complains of straining with urination weak stream and a dribbling stream. denies any hematuria and dysuria. Denies any history of urinary retention, gross hematuria, or kidney stones. Of note he is also complaining of constipation. Review of CT shows significant stool burden within the rectum. Review of Systems - Constitutional Denies chills, Denies fever - Cardiovascular Denies chest pain - Respiratory Reports cough, Reports home oxygen - Gastrointestinal Reports constipation, Denies nausea, Denies vomiting - Genitourinary Reports urinary retention, Denies dysuria, Denies hematuria - Musculoskeletal Denies low back pain, Denies muscle weakness - Neurological Denies confusion, Denies weakness Past Medical History Past Medical History: COPD Additional Past Medical History / Comment(s): leydirkalyn, [email or web address] History of Any Multi-Drug Resistant Organisms: None Reported Additional Past Surgical History / Comment(s): No surgeries Past Psychological History: No Psychological Hx Reported Smoking Status: Current every day smoker - Past Family History Mother Family Medical History: Coronary Artery Disease (CAD), Hypertension Father Family Medical History: Hyperlipidemia, Hypertension Medications and Allergies Home Medications Medication Instructions Recorded Confirmed Type Albuterol Inhaler [Ventolin Hfa 2 puff INHALATION RT-QID 09/13/19 09/13/19 History Inhaler] Artificial Tears-Hypromellose 1 drop BOTH EYES QID 09/13/19 09/13/19 History [Artificial Tear Drops] Aspirin EC [Ecotrin Low Dose] 81 mg PO DAILY 09/13/19 09/13/19 History Budesonide/Formoterol Fumarate 2 puff INHALATION RT-BID 09/13/19 09/13/19 History [Symbicort 80-4.5 Mcg Inhaler] Cetirizine HCl [Zyrtec] 10 mg PO DAILY 09/13/19 09/13/19 History Cholecalciferol [Vitamin D3 (25 2,000 unit PO DAILY 09/13/19 09/13/19 History Mcg = 1000 Iu)] Gabapentin 300 mg PO BID 09/13/19 09/13/19 History Loperamide HCl [Loperamide] 4 mg PO Q6H 09/13/19 09/13/19 History Magnesium Oxide [Mag-Ox] 800 mg PO DAILY 09/13/19 09/13/19 History Metoprolol Tartrate [Lopressor] 12.5 mg PO BID 09/13/19 09/13/19 History Omeprazole 40 mg PO BID 09/13/19 09/13/19 History Potassium Chloride ER [K-Dur 10] 10 meq PO DAILY 09/13/19 09/13/19 History Primidone [Mysoline] 50 mg PO BID 09/13/19 09/13/19 History Terbinafine [LamISIL] 250 mg PO DAILY 09/13/19 09/13/19 History Vits A,C,E/Lutein/Minerals 1 tab PO BID 09/13/19 09/13/19 History [Ocuvite with Lutein Tablet] Warfarin Sodium [Coumadin] 5 mg PO HS 09/13/19 09/13/19 History amLODIPine [Norvasc] 10 mg PO DAILY 09/13/19 09/13/19 History Amoxic-Pot Clav 875-125Mg 1 tab PO Q12HR 7 Days #14 tablet 09/21/19 Rx [Augmentin 875-125] Bisacodyl [Dulcolax] 10 mg PO DAILY PRN #10 tablet. 09/21/19 Rx Diclofenac Sodium Gel [Voltaren 2 gm TOPICAL QID 30 Days #1 tube 09/21/19 Rx Gel] predniSONE 10 mg PO DIRECTED #30 tab 09/21/19 Rx Allergies Allergy/AdvReac Type Severity Reaction Status Date / Time cephradine AdvReac Cough Verified 09/13/19 19:24 lisinopril AdvReac Cough Verified 09/13/19 19:24 Surgical - Exam Vital Signs Temp Pulse Resp BP Pulse Ox 98.2 F 70 20 92/51 96 09/13/19 18:51 09/13/19 18:51 09/13/19 18:51 09/13/19 18:51 09/13/19 18:51 - General no distress, no pain - ENT normal mucosa, no hearing loss - Abdomen Abdomen: soft, non tender - Psychiatric oriented to time, oriented to person, oriented to place Results - Labs 09/23/19 08:33 09/23/19 08:33 Abnormal Lab Results - Last 24 Hours (Table) 09/23/19 09/23/19 09/23/19 Range/Units 08:33 08:33 08:33 RBC 3.66 L (4.30-5.90) m/uL Hgb 12.0 L (13.0-17.5) gm/dL Hct 36.2 L (39.0-53.0) % Lymphocytes # 0.6 L (1.0-4.8) k/uL PT 22.2 H (9.0-12.0) sec INR 2.3 H (<1.2) Sodium 133 L (137-145) mmol/L Chloride 96 L (98-107) mmol/L Carbon Dioxide 32 H (22-30) mmol/L BUN 23 H (9-20) mg/dL POC Glucose (mg/dL) (75-99) mg/dL Calcium 8.1 L (8.4-10.2) mg/dL 09/23/19 09/23/19 09/23/19 Range/Units 11:22 16:48 21:49 RBC (4.30-5.90) m/uL Hgb (13.0-17.5) gm/dL Hct (39.0-53.0) % Lymphocytes # (1.0-4.8) k/uL PT (9.0-12.0) sec INR (<1.2) Sodium (137-145) mmol/L Chloride (98-107) mmol/L Carbon Dioxide (22-30) mmol/L BUN (9-20) mg/dL POC Glucose (mg/dL) 115 H 237 H >600 H (75-99) mg/dL Calcium (8.4-10.2) mg/dL 09/23/19 Range/Units 21:51 RBC (4.30-5.90) m/uL Hgb (13.0-17.5) gm/dL Hct (39.0-53.0) % Lymphocytes # (1.0-4.8) k/uL PT (9.0-12.0) sec INR (<1.2) Sodium (137-145) mmol/L Chloride (98-107) mmol/L Carbon Dioxide (22-30) mmol/L BUN (9-20) mg/dL POC Glucose (mg/dL) 125 H (75-99) mg/dL Calcium (8.4-10.2) mg/dL Diabetes panel 09/23/19 Range/Units 08:33 Sodium 133 L (137-145) mmol/L Potassium 4.1 (3.5-5.1) mmol/L Chloride 96 L (98-107) mmol/L Carbon Dioxide 32 H (22-30) mmol/L BUN 23 H (9-20) mg/dL Creatinine 0.67 (0.66-1.25) mg/dL Glucose 84 (74-99) mg/dL Calcium 8.1 L (8.4-10.2) mg/dL Calcium panel 09/23/19 Range/Units 08:33 Calcium 8.1 L (8.4-10.2) mg/dL Pituitary panel 09/23/19 Range/Units 08:33 Sodium 133 L (137-145) mmol/L Potassium 4.1 (3.5-5.1) mmol/L Chloride 96 L (98-107) mmol/L Carbon Dioxide 32 H (22-30) mmol/L BUN 23 H (9-20) mg/dL Creatinine 0.67 (0.66-1.25) mg/dL Glucose 84 (74-99) mg/dL Calcium 8.1 L (8.4-10.2) mg/dL Adrenal panel 09/23/19 Range/Units 08:33 Sodium 133 L (137-145) mmol/L Potassium 4.1 (3.5-5.1) mmol/L Chloride 96 L (98-107) mmol/L Carbon Dioxide 32 H (22-30) mmol/L BUN 23 H (9-20) mg/dL Creatinine 0.67 (0.66-1.25) mg/dL Glucose 84 (74-99) mg/dL Calcium 8.1 L (8.4-10.2) mg/dL - Imaging CT scan - abdomen: other (significant stool burden in rectum, Prostate gland approx 30 g) Assessment and Plan Assessment: 68-year-old male admitted with with a history of lung cancer on chemotherapy, ad mitted for a possible pneumonia. urology is consulted for urinary retention, he's required CIC 4. Denies any voiding symptoms at baseline. Review of CT shows significant stool burden. His urinary retention is multifactorial, secondary to his deconditioning from chemotherapy and his severe constipation Plan: -insert a Lynch catheter -Continue Flomax, please discharge patient home on Flomax -Please obtain a UA to r/o out UTI as contributing factor to his retention -bowel regimen for patient constipation -Follow up in 1 week in urology clinic for a trial of void. if he still inpatient at 1 week then trial of void could be performed in the hospital
[2019-09-24] MEDS: PIPERACILLIN-TAZOBACTAM 3.375 GM in SODIUM CHLORIDE 0.9% 100 ML IVPB SCH ×4 (00:03→23:49)
[2019-09-24] MEDS: DICLOFENAC SODIUM GEL 100 GM TUBE TOPICAL SCH ×5 (00:50→21:23)
[2019-09-24] MEDS: SALT AND SODA MOUTHWASH 1,000 ML PO SCH ×5 (00:50→22:05)
[2019-09-24] MEDS: SODIUM CHLORIDE 0.9% 1,000 ML IV SCH ×4 (02:04→14:24)
[2019-09-24] MEDS: HYDROcodone/APAP 5-325MG 1 EACH TAB PO PRN ×2 (05:12→19:12)
[2019-09-24 06:49] LABS: Glucose,Whole Blood 84 mg/dL (75-99)
[2019-09-24 07:29] LABS: Basophils % (A) 0 %; Eosinophils # (A) 0.1 k/uL (0-0.7); Eosinophils % (A) 1 %; HCT 30.9 % (39.0-53.0); HGB 10.2 gm/dL (13.0-17.5); Lymphocytes # (A) 0.7 k/uL (1.0-4.8); Lymphocytes % (A) 15 %; MCH 32.2 pg (25.0-35.0); MCHC 32.9 g/dL (31.0-37.0); MCV 97.9 fL (80.0-100.0); Mean Platelet Volume 6.4; Monocytes # (A) 0.1 k/uL (0-1.0); Monocytes % (A) 2 %; Neutrophils # (A) 4.1 k/uL (1.3-7.7); Neutrophils % (A) 82 %; Platelet Count 174 k/uL (150-450); RBC 3.16 m/uL (4.30-5.90)
[2019-09-24 07:33] LABS: INR 1.7 (<1.2); Prothrombin Time 16.9 sec (9.0-12.0)
[2019-09-24] MEDS: INSULIN ASPART (NovoLOG) 100 UNIT/ML VIAL SQ SCH ×4 (07:37→21:23)
[2019-09-24 07:47] LABS: African American GFR (CKD) >90 (>60 ml/min/1.73 sqM); Anion Gap 2 mmol/L; Blood Urea Nitrogen 19 mg/dL (9-20); Calcium 7.8 mg/dL (8.4-10.2); Carbon Dioxide 34 mmol/L (22-30); Chloride 97 mmol/L (98-107); Glucose 74 mg/dL (74-99); Non-African American GFR(CKD) >90 (>60 ml/min/1.73 sqM); Potassium 4.4 mmol/L (3.5-5.1); Sodium 133 mmol/L (137-145)
[2019-09-24] MEDS: predniSONE 20 MG TAB PO SCH (08:05)
[2019-09-24] MEDS: CHOLECALCIFEROL 1,000 UNIT TAB PO SCH (08:05)
[2019-09-24] MEDS: PANTOPRAZOLE 40 MG TABLET PO SCH ×2 (08:05→18:01)
[2019-09-24] MEDS: METOPROLOL TARTRATE 12.5 MG TAB PO SCH ×2 (08:05→21:22)
[2019-09-24] MEDS: GABAPENTIN 300 MG CAP PO SCH ×2 (08:05→21:22)
[2019-09-24] MEDS: amLODIPine 10 MG TAB PO SCH (08:05)
[2019-09-24] MEDS: ASPIRIN 81 MG PO SCH (08:05)
[2019-09-24] MEDS: HYDROCORTISONE SUPPOSITORY 25 MG SUPP RECTAL SCH (08:06)
[2019-09-24] MEDS: POLYETHYLENE GLYCOL 3350 17 GM POWD.PACK PO SCH (08:06)
[2019-09-24] MEDS: POTASSIUM CHLORIDE ER 10 MEQ TAB.ER.PRT PO SCH (08:06)
[2019-09-24] MEDS: MAGNESIUM OXIDE 400 MG TAB PO SCH (08:06)
[2019-09-24] MEDS: TERBINAFINE 250 MG TAB PO SCH (08:07)
[2019-09-24] MEDS: PRIMIDONE 50 MG TAB PO SCH ×2 (08:07→22:05)
[2019-09-24] MEDS: ARTIFICIAL TEARS-HYPROMELLOSE DROPS 15 ML BTL BOTH EYES SCH ×4 (08:13→21:23)
[2019-09-24] MEDS: BUDESONIDE 0.5 MG/2 ML NEBU INHALATION SCH ×2 (08:31→20:31)
[2019-09-24] MEDS: IPRATROPIUM-ALBUTEROL 3 ML NEB INHALATION SCH ×4 (08:31→20:31)
[2019-09-24] MEDS: BISACODYL 10 MG SUPP RECTAL SCH (10:23)
--- NOTE | 2019-09-24 10:28 | P.PN ---
Subjective Progress Note Date: 09/24/19 Principal diagnosis: Bilateral aspiration pneumonia, lung mass, small cell lung cancer, atrial fibrillation, moderate COPD with acute exacerbation, advanced Parkinson's disease, acute on chronic hypoxic respiratory failure, hypertension hypertensive cardiovascular disease, dyslipidemia 09/24/2019, patient seen eval reexamined during the rounds labs reviewed medications reviewed no more hematochezia or lower GI bleeding has been seen however hemoglobin drop down to 10, patient denies any down pain is stable shortness of breath has finished chemotherapy labs reviewed medications reviewed, INR is 1.7 hemoglobin is 10.2 down from 12 yesterday, sodium is 133 09/23/2019, patient seen eval examined during the rounds labs reviewed medications reviewed care plan discussed with the patient and staff at length patient is having some left lower quadrant discomfort and pain has multiple bowel movements associated with some streaks of blood and hematochezia, hemoglobin however remains stable at level of 12 patient is on Coumadin along with therapeutic PT/INR of 2.3, patient also have urinary retention requiring straight cath, computed tomography scan of the abdomen was performed revealed distended urinary bladder, atrophic left kidney, nonobstructive bowel gas pattern was seen with fecal stasis, 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, patient has finished course of chemotherapy now, patient is an enema to evacuate September 21 2019, patient seen eval reexamined during the rounds sitting upright on the bed breathing K more comfortably off of oxygen patient is due for a third dose of chemotherapy later on today 09/20/2019, patient seen eval examined during the rounds labs reviewed medications reviewed, still short of breath cough and congestion slightly better, patient is going chemotherapy 09/19/2019, patient has removed to oncology and it patient has been diagnosed with small cell lung cancer biopsy was performed at [facility] hematology is considering initiation of chemotherapy patient is somewhat anxious family present at bedside, denies any chest pain Objective - Vital Signs Vital signs: Vital Signs Temp 98.1 F 09/24/19 04:51 Pulse 69 09/24/19 08:31 Resp 18 09/23/19 21:00 BP 103/62 09/24/19 04:51 Pulse Ox 97 09/24/19 04:51 Intake & Output 09/23/19 09/24/19 09/24/19 18:59 06:59 18:59 Intake Total 1500 Output Total 1100 1200 1000 Balance 400 -1200 -1000 Weight 73 kg Intake: Intake, IV Titration 900 Amount Piperacillin-Tazobactam 3 100 .375 gm In Sodium Chloride 0.9% 100 ml @ 25 mls/hr IVPB Q8HR TOM Rx# :[id number] Sodium Chloride 0.9% 1, 800 000 ml @ 100 mls/hr IV . Q10H TOM Rx#:[id number] Oral 600 Output: Urine 1100 1200 1000 Uretheral (Lynch) 1100 1200 Other: Voiding Method Indwelling Catheter Indwelling Catheter # Voids 1 # Bowel Movements 2 1 1 - Exam GENERAL: The patient is alert and oriented x3, not in any acute distress. Well developed, well nourished. HEENT: Pupils are round and equally reacting to light. EOMI. No scleral icterus. No conjunctival pallor. Normocephalic, atraumatic. No pharyngeal erythema. No thyromegaly. CARDIOVASCULAR: S1 and S2 present. No murmurs, rubs, or gallops. -PULMONARY: Chest is clear to auscultation, bilateral expiratory wheezing ABDOMEN: Soft, nontender, nondistended, normoactive bowel sounds. No palpable organomegaly. MUSCULOSKELETAL: No joint swelling or deformity. EXTREMITIES: No cyanosis, clubbing, or pedal edema. NEUROLOGICAL: Gross neurological examination did not reveal any focal deficits. SKIN: No rashes. No petechiae - Labs CBC & Chem 7: 09/24/19 06:56 09/24/19 06:56 Labs: Abnormal Lab Results - Last 24 Hours (Table) 09/23/19 09/23/19 09/23/19 Range/Units 11:22 16:48 21:49 RBC (4.30-5.90) m/uL Hgb (13.0-17.5) gm/dL Hct (39.0-53.0) % Lymphocytes # (1.0-4.8) k/uL PT (9.0-12.0) sec INR (<1.2) Sodium (137-145) mmol/L Chloride (98-107) mmol/L Carbon Dioxide (22-30) mmol/L Creatinine (0.66-1.25) mg/dL POC Glucose (mg/dL) 115 H 237 H >600 H (75-99) mg/dL Calcium (8.4-10.2) mg/dL 09/23/19 09/24/19 09/24/19 Range/Units 21:51 06:56 06:56 RBC 3.16 L (4.30-5.90) m/uL Hgb 10.2 L (13.0-17.5) gm/dL Hct 30.9 L (39.0-53.0) % Lymphocytes # 0.7 L (1.0-4.8) k/uL PT 16.9 H (9.0-12.0) sec INR 1.7 H (<1.2) Sodium (137-145) mmol/L Chloride (98-107) mmol/L Carbon Dioxide (22-30) mmol/L Creatinine (0.66-1.25) mg/dL POC Glucose (mg/dL) 125 H (75-99) mg/dL Calcium (8.4-10.2) mg/dL 09/24/19 Range/Units 06:56 RBC (4.30-5.90) m/uL Hgb (13.0-17.5) gm/dL Hct (39.0-53.0) % Lymphocytes # (1.0-4.8) k/uL PT (9.0-12.0) sec INR (<1.2) Sodium 133 L (137-145) mmol/L Chloride 97 L (98-107) mmol/L Carbon Dioxide 34 H (22-30) mmol/L Creatinine 0.52 L (0.66-1.25) mg/dL POC Glucose (mg/dL) (75-99) mg/dL Calcium 7.8 L (8.4-10.2) mg/dL Assessment and Plan Assessment: Bilateral pneumonia versus postobstructive changes Small cell lung cancer status post chemotherapy Hematochezia likely superficial his skin rupture in perirectal area no signs of overt bleeding is seen, Low hemoglobin Urinary retention Atrial fibrillation well anticoagulated Moderate to severe COPD Advanced Parkinson's disease Chronic hypoxic respiratory failure Dyslipidemia Hypertension hypertensive cardiovascular disease Plan: Agree with monitoring hemoglobin closely Monitor observe hemodynamics Will keep patient in hematology/oncology department for now but if hemodynamic compromises noted will transfer to ICU Continue Zosyn bronchodilators and steroids, Continue prednisone slowly taper it however patient will require a small dose maintenance for presumed adrenal insufficiency given bilateral metastases to the adrenal gland Patient has been on Coumadin Chemotherapy plan as per oncology service Time with Patient: Greater than 30
[2019-09-24 11:03] LABS: Glucose,Whole Blood 92 mg/dL (75-99)
--- NOTE | 2019-09-24 14:17 | P.PN ---
Subjective Progress Note Date: 09/24/19 Principal diagnosis: Pneumonia Mr. Guzman is a 68-year-old male with a past medical history of COPD, Parkinson's disease, atrial fibrillation, hypertension, hyperlipidemia who was transferred from [facility] for ongoing evaluation of dyspnea and cough. Patient also had a lung biopsy done at [facility] in [place] that was positive forsmall cell lung cancer. On 09/24/2019 - patient is lying in the bed comfortably with his family members at the bedside. Patient denies having any more blood in his stool. He was severely constipated and was having urinary retention yesterday. Urology was consulted and a Lynch's catheter has been placed and he is doing much better in terms of his lower abdominal discomfort. He also mentions that he had 3-4 bowel movements that were nonbloody since last night. As the patient was having hematochezia his Coumadin was kept on hold yesterday. patient's hemoglobin dropped from 12.0-10.2. But he is not complaining of active bleeding currently. Patient denies having any chest pain or palpitations. Difficulty in breathing is at baseline. He continues to have cough that is nonproductive in nature. Abdominal discomfort is much better. He has mild swelling of his lower extremities. Patient's labs and medications have been reviewed. Active Medications Hydrocodone Bitart/Acetaminophen ([place] 5-325) 1 each PO Q6HR PRN PRN Reason: Moderate Pain Last Admin: 09/24/19 05:12 Dose: 1 each Documented by: Albuterol/Ipratropium (Duoneb 0.5 Mg-3 Mg/3 Ml Soln) 3 ml INHALATION RT-QID [facility] Last Admin: 09/24/19 12:04 Dose: 3 ml Documented by: Albuterol/Ipratropium (Duoneb 0.5 Mg-3 Mg/3 Ml Soln) 3 ml INHALATION RT-QID PRN PRN Reason: Shortness Of Breath Or Wheezing Alprazolam (Xanax) 0.25 mg PO TID PRN PRN Reason: Anxiety Last Admin: 09/23/19 21:53 Dose: 0.25 mg Documented by: Artificial Tears (Artificial Tear Drops) 1 drops BOTH EYES QID [facility] Last Admin: 09/24/19 13:02 Dose: 1 drops Documented by: Aspirin (Aspirin) 81 mg PO DAILY [facility] Last Admin: 09/24/19 08:05 Dose: 81 mg Documented by: Bisacodyl (Dulcolax) 10 mg RECTAL DAILY [facility] Last Admin: 09/24/19 10:23 Dose: Not Given Documented by: Budesonide (Pulmicort) 0.5 mg INHALATION RT-BID [facility] Last Admin: 09/24/19 08:31 Dose: 0.5 mg Documented by: Cholecalciferol (Vitamin D3 (25 Mcg = 1000 Iu)) 2,000 unit PO DAILY [facility] Last Admin: 09/24/19 08:05 Dose: 2,000 unit Documented by: Diclofenac Sodium (Voltaren Gel) 2 gm TOPICAL QID [facility] Last Admin: 09/24/19 13:01 Dose: Not Given Documented by: Enoxaparin Sodium (Lovenox) 70 mg SQ BID [facility] Gabapentin (Neurontin) 300 mg PO BID [facility] Last Admin: 09/24/19 08:05 Dose: 300 mg Documented by: Hydrocortisone Acetate (Anusol-Hc) 25 mg RECTAL DAILY [facility] Last Admin: 09/24/19 08:06 Dose: Not Given Documented by: Sodium Chloride (Saline 0.9%) 1,000 mls @ 100 mls/hr IV .Q10H [facility] Last Admin: 09/24/19 10:43 Dose: 100 mls/hr Documented by: Piperacillin Sod/Tazobactam (Sod 3.375 gm/ Sodium Chloride) 100 mls @ 25 mls/hr IVPB Q8HR [facility] Last Admin: 09/24/19 10:24 Dose: 25 mls/hr Documented by: Insulin Aspart (Novolog) 0 unit SQ ACHS [facility]; Protocol Last Admin: 09/24/19 13:00 Dose: Not Given Documented by: Lactulose (Cephulac) 20 gm PO BID PRN PRN Reason: Constipation Loperamide HCl (Imodium) 4 mg PO Q6H PRN PRN Reason: Diarrhea Magnesium Oxide (Mag-Ox) 800 mg PO DAILY [facility] Last Admin: 09/24/19 08:06 Dose: 800 mg Documented by: Metoprolol Tartrate (Lopressor) 12.5 mg PO BID [facility] Last Admin: 09/24/19 08:05 Dose: 12.5 mg Documented by: Miscellaneous Information (Coumadin Per Pharmacy) 0 each MISCELLANE DIRECTED PRN PRN Reason: PER PROTOCOL Pantoprazole Sodium (Protonix) 40 mg PO AC-BID [facility] Last Admin: 09/24/19 08:05 Dose: 40 mg Documented by: Polyethylene Glycol (Miralax) 17 gm PO DAILY [facility] Last Admin: 09/24/19 08:06 Dose: 17 gm Documented by: Potassium Chloride (K-Dur 10) 10 meq PO DAILY [facility] Last Admin: 09/24/19 08:06 Dose: 10 meq Documented by: Prednisone () 40 mg PO DAILY [facility] Last Admin: 09/24/19 08:05 Dose: 40 mg Documented by: Primidone (Mysoline) 50 mg PO BID [facility] Last Admin: 09/24/19 08:07 Dose: 50 mg Documented by: Sodium Bicarbonate () 5 ml PO 5XD [facility] Last Admin: 09/24/19 08:17 Dose: 5 ml Documented by: Tamsulosin HCl (Flomax) 0.4 mg PO PC-SUPPER [facility] Last Admin: 09/23/19 16:56 Dose: 0.4 mg Documented by: Terbinafine HCl (Lamisil) 250 mg PO DAILY [facility] Last Admin: 09/24/19 08:07 Dose: 250 mg Documented by: Objective - Vital Signs Vital signs: Vital Signs Temp 98.3 F 09/24/19 11:27 Pulse 72 09/24/19 12:14 Resp 16 09/24/19 11:27 BP 95/58 09/24/19 11:27 Pulse Ox 98 09/24/19 11:27 Intake & Output 09/23/19 09/24/19 09/24/19 18:59 06:59 18:59 Intake Total 1500 Output Total 1100 1200 2300 Balance 400 -1200 -2300 Weight 73 kg Intake: Intake, IV Titration 900 Amount Piperacillin-Tazobactam 3 100 .375 gm In Sodium Chloride 0.9% 100 ml @ 25 mls/hr IVPB Q8HR [facility] Rx# :[id number] Sodium Chloride 0.9% 1, 800 000 ml @ 100 mls/hr IV . Q10H [facility] Rx#:[id number] Oral 600 Output: Urine 1100 1200 2300 Uretheral (Lynch) 1100 1200 Other: Voiding Method Indwelling Catheter Indwelling Catheter Indwelling Catheter # Voids 1 # Bowel Movements 2 1 1 - Exam PHYSICAL EXAM GENERAL: The patient is alert and oriented x3, not in any acute distress. Chronically ill appearance HEENT: Pupils are round and equally reacting to light. EOMI. No scleral icterus. No conjunctival pallor. Normocephalic, atraumatic. No pharyngeal erythema. No thyromegaly. CARDIOVASCULAR: S1 and S2 present. No murmurs, rubs, or gallops. PULMONARY: Chest is clear to auscultation, bilateral expiratory wheezing Rhonchi with prolonged expiration. ABDOMEN: Soft, nontender, nondistended, normoactive bowel sounds. MUSCULOSKELETAL: No joint swelling or deformity. EXTREMITIES: No cyanosis, clubbing, mild pedal edema. NEUROLOGICAL: Gross neurological examination did not reveal any focal deficits. SKIN: sing is frail - Labs CBC & Chem 7: 09/24/19 06:56 09/24/19 06:56 Labs: Abnormal Lab Results - Last 24 Hours (Table) 09/23/19 09/23/19 09/23/19 Range/Units 16:48 21:49 21:51 RBC (4.30-5.90) m/uL Hgb (13.0-17.5) gm/dL Hct (39.0-53.0) % Lymphocytes # (1.0-4.8) k/uL PT (9.0-12.0) sec INR (<1.2) Sodium (137-145) mmol/L Chloride (98-107) mmol/L Carbon Dioxide (22-30) mmol/L Creatinine (0.66-1.25) mg/dL POC Glucose (mg/dL) 237 H >600 H 125 H (75-99) mg/dL Calcium (8.4-10.2) mg/dL 09/24/19 09/24/19 09/24/19 Range/Units 06:56 06:56 06:56 RBC 3.16 L (4.30-5.90) m/uL Hgb 10.2 L (13.0-17.5) gm/dL Hct 30.9 L (39.0-53.0) % Lymphocytes # 0.7 L (1.0-4.8) k/uL PT 16.9 H (9.0-12.0) sec INR 1.7 H (<1.2) Sodium 133 L (137-145) mmol/L Chloride 97 L (98-107) mmol/L Carbon Dioxide 34 H (22-30) mmol/L Creatinine 0.52 L (0.66-1.25) mg/dL POC Glucose (mg/dL) (75-99) mg/dL Calcium 7.8 L (8.4-10.2) mg/dL Assessment and Plan Assessment: ASSESSMENT Hematochezia - probably due to hemorrhoids Acute blood loss anemia- secondary to above Bilateral pneumonia versus postobstructive changes Small cell lung cancer Advanced Parkinson's disease Moderate to severe COPD Atrial fibrillation Chronic hypoxic respiratory failure Hypertension Hyperlipidemia PLAN: Patient's hemoglobin been dropped from 12-10.2. So his Coumadin was on hold. But the bleeding is probably due to significant constipation and h emorrhoids. Patient having 3-4 bowel movements and nonbloody in nature. Patient will be restarted on Lovenox for anticoagulation. Continue with antibiotics as per pulmonary recommendations. Urology was consulted and patient had a Lynch's catheter placed yesterday. We'll continue with the rest of his current medication regimen. Patient is no code. Overall prognosis is guarded. Further recommendations to follow depending on the progress of the patient. The treatment plan was discussed in detail with the patient's family members at bedside.
[2019-09-24] MEDS: ENOXAPARIN 80 MG/0.8 ML SYRINGE SQ SCH ×2 (15:33→23:49)
[2019-09-24 17:36] LABS: Glucose,Whole Blood 122 mg/dL (75-99)
[2019-09-24] MEDS: TAMSULOSIN 0.4 MG CAP.ER.24H PO SCH (18:01)
--- NOTE | 2019-09-24 18:48 | P.CONS ---
History of Present Illness - Reason for Consult Consult date: 09/23/19 Constipation, blood per rectum Requesting physician: June Barajas - Chief Complaint Shortness of breath, or blood in sputum - History of Present Illness 68-year-old male with multiple medical comorbidities including COPD, Parkinson's disease, nicotine dependence, hypertension, hyperlipidemia and small cell lung cancer who was initially transferred from [facility] referring seen with complaints of dyspnea, cough and blood in his sputum. Currently the ni kay is receiving treatment for multiple medical problems including urinary retention, bilateral pneumonia and is on thyroid spectrum antibiotic use. Consult was placed after the patient noted 2 days of rectal bleeding. The patient stated that he was having painless bright red blood predominantly with wiping. He is had episodes of constipation passing only small amounts of hard stool. The patient had imaging performed with findings of a large stool burden. His last colonoscopy was approximately 1 year ago in [place] and significant for colonic polyps and hemorrhoids. Hemoglobin has been stable at 12.6. The patient does report problems with hemorrhoids in the past as well as constipa tion. He has tried MiraLAX therapy at home for constipation. Review of Systems REVIEW OF SYSTEMS: CONSTITUTIONAL: Denies any fevers, chills, weight change or fatigue. CARDIOVASCULAR: Denies any chest pain, palpitations high or low blood pressures RESPIRATORY: He does report shortness of breath, cough and hemoptysis.. GENITOURINARY: The patient has complained of problems with urinary retention. MUSCULOSKELETAL: No weakness reported. SKIN: Denies any new rashes or lesions, jaundice or pallor. PSYCHIATRIC: Denies any recent changes in his mood. NEUROLOGY: Denies headache, denies any new focal deficits. EARS/NOSE/THROAT: No recent hearing change, congestion, nasal discharge or sore throat. EYES: No pain in eyes, discharge or change in vision. GASTROINTESTINAL: As per HPI. Past Medical History Past Medical History: COPD Additional Past Medical History / Comment(s): kalyn mejia parkinsonserena History of Any Multi-Drug Resistant Organisms: None Reported Past Psychological History: No Psychological Hx Reported Smoking Status: Current every day smoker - Past Family History Mother Family Medical History: Coronary Artery Disease (CAD), Hypertension Father Family Medical History: Hyperlipidemia, Hypertension Medications and Allergies Home Medications Medication Instructions Recorded Confirmed Type Albuterol Inhaler [Ventolin Hfa 2 puff INHALATION RT-QID 09/13/19 09/13/19 History Inhaler] Artificial Tears-Hypromellose 1 drop BOTH EYES QID 09/13/19 09/13/19 History [Artificial Tear Drops] Aspirin EC [Ecotrin Low Dose] 81 mg PO DAILY 09/13/19 09/13/19 History Budesonide/Formoterol Fumarate 2 puff INHALATION RT-BID 09/13/19 09/13/19 History [Symbicort 80-4.5 Mcg Inhaler] Cetirizine HCl [Zyrtec] 10 mg PO DAILY 09/13/19 09/13/19 History Cholecalciferol [Vitamin D3 (25 2,000 unit PO DAILY 09/13/19 09/13/19 History Mcg = 1000 Iu)] Gabapentin 300 mg PO BID 09/13/19 09/13/19 History Loperamide HCl [Loperamide] 4 mg PO Q6H 09/13/19 09/13/19 History Magnesium Oxide [Mag-Ox] 800 mg PO DAILY 09/13/19 09/13/19 History Metoprolol Tartrate [Lopressor] 12.5 mg PO BID 09/13/19 09/13/19 History Omeprazole 40 mg PO BID 09/13/19 09/13/19 History Potassium Chloride ER [K-Dur 10] 10 meq PO DAILY 09/13/19 09/13/19 History Primidone [Mysoline] 50 mg PO BID 09/13/19 09/13/19 History Terbinafine [LamISIL] 250 mg PO DAILY 09/13/19 09/13/19 History Vits A,C,E/Lutein/Minerals 1 tab PO BID 09/13/19 09/13/19 History [Ocuvite with Lutein Tablet] Warfarin Sodium [Coumadin] 5 mg PO HS 09/13/19 09/13/19 History amLODIPine [Norvasc] 10 mg PO DAILY 09/13/19 09/13/19 History Amoxic-Pot Clav 875-125Mg 1 tab PO Q12HR 7 Days #14 tablet 09/21/19 Rx [Augmentin 875-125] Bisacodyl [Dulcolax] 10 mg PO DAILY PRN #10 tablet. 09/21/19 Rx Diclofenac Sodium Gel [Voltaren 2 gm TOPICAL QID 30 Days #1 tube 09/21/19 Rx Gel] predniSONE 10 mg PO DIRECTED #30 tab 09/21/19 Rx Allergies Allergy/AdvReac Type Severity Reaction Status Date / Time cephradine AdvReac Cough Verified 09/13/19 19:24 lisinopril AdvReac Cough Verified 09/13/19 19:24 Physical Exam Vitals: Vital Signs Temp Pulse Pulse Resp BP Pulse Ox 09/23/19 07:40 76 09/23/19 07:25 73 09/23/19 05:00 98 F 73 18 128/81 100 09/22/19 23:53 74 20 09/22/19 21:00 97.7 F 74 20 115/66 100 09/22/19 16:00 70 16 09/22/19 11:56 98 F 70 16 109/64 94 L 09/22/19 11:30 67 Intake and Output 09/22/19 09/23/19 09/23/19 22:59 06:59 14:59 Intake Total 900 940 Output Total 1745 930 Balance -845 10 Intake: Intake, IV Titration 500 700 Amount Piperacillin-Tazobactam 3 100 100 .375 gm In Sodium Chloride 0.9% 100 ml @ 25 mls/hr IVPB Q8HR [facility] Rx# :[id number] Sodium Chloride 0.9% 1, 400 600 000 ml @ 100 mls/hr IV . Q10H [facility] Rx#:[id number] Oral 400 240 Output: Post Void Residual 1745 930 Other: Voiding Method Toilet Toilet Urinal Urinal # Voids 3 5 # Bowel Movements 1 3 Weight 73.2 kg On physical examination, patient appears comfortable in no apparent distress. HEAD: Normocephalic, atraumatic. EYES: No scleral icterus. No conjunctival injection. MOUTH: No lesions, tongue midline. NECK: Trachea midline, no gross abnormalities. CHEST: Decreased air entry in all lung huynh, no respiratory distress. HEART: S1-S2 appreciated, no murmurs appreciated. ABDOMEN: Soft, obese. Bowel sounds are positive. No organomegaly. No guarding or rigidity. EXTREMITIES: No pedal edema. SKIN: No rashes, no jaundice. NEUROLOGIC: Alert and oriented x3. No focal deficits. Results CBC & Chem 7: 09/24/19 06:56 09/24/19 06:56 Labs: Abnormal Lab Results - Last 24 Hours (Table) 09/22/19 09/22/19 09/23/19 Range/Units 17:27 20:13 08:33 RBC (4.30-5.90) m/uL Hgb (13.0-17.5) gm/dL Hct (39.0-53.0) % Lymphocytes # (1.0-4.8) k/uL PT 22.2 H (9.0-12.0) sec INR 2.3 H (<1.2) Sodium (137-145) mmol/L Chloride (98-107) mmol/L Carbon Dioxide (22-30) mmol/L BUN (9-20) mg/dL POC Glucose (mg/dL) 111 H 114 H (75-99) mg/dL Calcium (8.4-10.2) mg/dL 09/23/19 09/23/19 09/23/19 Range/Units 08:33 08:33 11:22 RBC 3.66 L (4.30-5.90) m/uL Hgb 12.0 L (13.0-17.5) gm/dL Hct 36.2 L (39.0-53.0) % Lymphocytes # 0.6 L (1.0-4.8) k/uL PT (9.0-12.0) sec INR (<1.2) Sodium 133 L (137-145) mmol/L Chloride 96 L (98-107) mmol/L Carbon Dioxide 32 H (22-30) mmol/L BUN 23 H (9-20) mg/dL POC Glucose (mg/dL) 115 H (75-99) mg/dL Calcium 8.1 L (8.4-10.2) mg/dL CT scan - abdomen: report reviewed (Computed tomography scan of the abdomen with findings of a distended bladder, fecal stasis in bilateral adrenal metastases.) Assessment and Plan (1) Constipation Narrative/Plan: 68-year-old male with multiple medical comorbidities including metastatic small cell lung cancer currently being treated for bilateral pneumonia and urinary retention was found to have a large degree of fecal stasis on computed tomography scan. Likely secondary to narcotic use in the setting of underlying malignancy. Current Visit: Yes Status: Acute Code(s): K59.00 - CONSTIPATION, UNSPECIFIED SNOMED Code(s): 63901498 (2) Blood per rectum Narrative/Plan: Procrit blood with wiping with patient reporting colonoscopy approximately 1 year ago in [place] which was essentially normal. Suspicion is for perirectal disease and hemorrhoids with plan for local treatment. Current Visit: Yes Status: Acute Code(s): K62.5 - HEMORRHAGE OF ANUS AND RECTUM SNOMED Code(s): 21140344 (3) Postobstructive pneumonia Current Visit: Yes Status: Acute Priority: High Code(s): J18.9 - PNEUMONIA, UNSPECIFIED ORGANISM SNOMED Code(s): 304470250 (4) Small cell lung cancer Current Visit: Yes Status: Acute Priority: High Code(s): C34.90 - MALIGNANT NEOPLASM OF UNSP PART OF UNSP BRONCHUS OR LUNG SNOMED Code(s): 180269060 Plan: Supportive care Local hemorrhoidal treatment with Anusol. Okay for diet MiraLAX started daily and Dulcolax suppositories started daily Continue other laxatives as needed for bowel movements Continue to monitor stool output No plans for endoscopic evaluation at this time Continue other medical management Thank you for allowing us to participate in the care of the patient we will continue to follow
--- NOTE | 2019-09-24 18:54 | P.PN ---
Subjective Progress Note Date: 09/24/19 Principal diagnosis: Blood per rectum, fecal stasis, constipation Patient is seen lying in bed with family bedside. They do report some hard bowel movements yesterday and some softer bowel movements today. Objective - Vital Signs Vital signs: Vital Signs Temp 98.3 F 09/24/19 11:27 Pulse 72 09/24/19 12:14 Resp 16 09/24/19 11:27 BP 95/58 09/24/19 11:27 Pulse Ox 98 09/24/19 11:27 Intake & Output 09/23/19 09/24/19 09/24/19 18:59 06:59 18:59 Intake Total 1500 Output Total 1100 1200 3500 Balance 400 -1200 -3500 Weight 73 kg Intake: Intake, IV Titration 900 Amount Piperacillin-Tazobactam 3 100 .375 gm In Sodium Chloride 0.9% 100 ml @ 25 mls/hr IVPB Q8HR [facility] Rx# :[id number] Sodium Chloride 0.9% 1, 800 000 ml @ 100 mls/hr IV . Q10H [facility] Rx#:[id number] Oral 600 Output: Urine 1100 1200 3500 Uretheral (Lynch) 1100 1200 Other: Voiding Method Indwelling Catheter Indwelling Catheter Indwelling Catheter # Voids 1 # Bowel Movements 2 1 1 - Exam On physical examination, patient appears comfortable in no apparent distress. HEAD: Normocephalic, atraumatic. EYES: No scleral icterus. No conjunctival injection. MOUTH: No lesions, tongue midline. NECK: Trachea midline, no gross abnormalities. ABDOMEN: Soft, mildly tender to deep palpation. Bowel sounds are positive. No organomegaly. No guarding or rigidity. EXTREMITIES: No pedal edema. SKIN: No rashes, no jaundice. NEUROLOGIC: Alert and oriented. No focal deficits. - Labs CBC & Chem 7: 09/24/19 06:56 09/24/19 06:56 Labs: Abnormal Lab Results - Last 24 Hours (Table) 09/23/19 09/23/19 09/24/19 Range/Units 21:49 21:51 06:56 RBC (4.30-5.90) m/uL Hgb (13.0-17.5) gm/dL Hct (39.0-53.0) % Lymphocytes # (1.0-4.8) k/uL PT 16.9 H (9.0-12.0) sec INR 1.7 H (<1.2) Sodium (137-145) mmol/L Chloride (98-107) mmol/L Carbon Dioxide (22-30) mmol/L Creatinine (0.66-1.25) mg/dL POC Glucose (mg/dL) >600 H 125 H (75-99) mg/dL Calcium (8.4-10.2) mg/dL 09/24/19 09/24/19 09/24/19 Range/Units 06:56 06:56 17:33 RBC 3.16 L (4.30-5.90) m/uL Hgb 10.2 L (13.0-17.5) gm/dL Hct 30.9 L (39.0-53.0) % Lymphocytes # 0.7 L (1.0-4.8) k/uL PT (9.0-12.0) sec INR (<1.2) Sodium 133 L (137-145) mmol/L Chloride 97 L (98-107) mmol/L Carbon Dioxide 34 H (22-30) mmol/L Creatinine 0.52 L (0.66-1.25) mg/dL POC Glucose (mg/dL) 122 H (75-99) mg/dL Calcium 7.8 L (8.4-10.2) mg/dL Assessment and Plan (1) Constipation Narrative/Plan: 68-year-old male with multiple medical comorbidities including metastatic small cell lung cancer currently being treated for bilateral pneumonia and urinary retention was found to have a large degree of fecal stasis on computed tomography scan. Likely secondary to narcotic use in the setting of underlying malignancy. Current Visit: Yes Status: Acute Code(s): K59.00 - CONSTIPATION, UNSPECIFIED SNOMED Code(s): 67070520 (2) Blood per rectum Narrative/Plan: Procrit blood with wiping with patient reporting colonoscopy approximately 1 year ago in [place] which was essentially normal. Suspicion is for perirectal disease and hemorrhoids with plan for local treatment. Current Visit: Yes Status: Acute Code(s): K62.5 - HEMORRHAGE OF ANUS AND RECTUM SNOMED Code(s): 16763474 (3) Postobstructive pneumonia Current Visit: Yes Status: Acute Priority: High Code(s): J18.9 - PNEUMONIA, UNSPECIFIED ORGANISM SNOMED Code(s): 273490642 (4) Small cell lung cancer Current Visit: Yes Status: Acute Priority: High Code(s): C34.90 - MALIGNANT NEOPLASM OF UNSP PART OF UNSP BRONCHUS OR LUNG SNOMED Code(s): 420383273 Plan: Supportive care Local hemorrhoidal treatment with Anusol Okay for diet MiraLAX daily and Dulcolax suppositories daily, we'll titrate according to bowel movements Continue other laxatives as needed for bowel movements Abdominal x-ray ordered for tomorrow to check stool burden Continue to monitor stool output No plans for endoscopic evaluation at this time Continue other medical management Thank you for allowing us to participate in the care of the patient we will continue to follow
[2019-09-24 19:47] LABS: Glucose,Whole Blood 138 mg/dL (75-99)
[2019-09-24] MEDS: ALPRAZolam 0.25 MG TAB PO PRN (21:22)
[2019-09-25] MEDS: SALT AND SODA MOUTHWASH 1,000 ML PO SCH ×5 (00:10→20:42)
[2019-09-25] MEDS: SODIUM CHLORIDE 0.9% 1,000 ML IV SCH ×4 (04:57→20:42)
[2019-09-25 06:44] LABS: Glucose,Whole Blood 84 mg/dL (75-99)
[2019-09-25 06:51] LABS: Basophils % (A) 0 %; Eosinophils # (A) 0.2 k/uL (0-0.7); Eosinophils % (A) 4 %; HCT 33.4 % (39.0-53.0); Lymphocytes # (A) 0.8 k/uL (1.0-4.8); Lymphocytes % (A) 16 %; MCH 32.1 pg (25.0-35.0); MCV 97.5 fL (80.0-100.0); Mean Platelet Volume 6.5; Monocytes # (A) 0.1 k/uL (0-1.0); Monocytes % (A) 1 %; Neutrophils % (A) 80 %; Platelet Count 167 k/uL (150-450); RBC 3.42 m/uL (4.30-5.90); RDW 12.7 % (11.5-15.5); WBC 5.1 k/uL (3.8-10.6)
[2019-09-25 07:29] LABS: INR 1.3 (<1.2); Prothrombin Time 12.9 sec (9.0-12.0)
[2019-09-25] MEDS: IPRATROPIUM-ALBUTEROL 3 ML NEB INHALATION SCH ×4 (07:45→20:46)
[2019-09-25] MEDS: BUDESONIDE 0.5 MG/2 ML NEBU INHALATION SCH ×2 (07:45→20:46)
[2019-09-25] MEDS: INSULIN ASPART (NovoLOG) 100 UNIT/ML VIAL SQ SCH ×4 (08:02→22:21)
[2019-09-25] MEDS: BISACODYL 10 MG SUPP RECTAL SCH (08:04)
[2019-09-25 08:06] LABS: African American GFR (CKD) >90 (>60 ml/min/1.73 sqM); Anion Gap 3 mmol/L; Blood Urea Nitrogen 20 mg/dL (9-20); Calcium 8.4 mg/dL (8.4-10.2); Carbon Dioxide 35 mmol/L (22-30); Chloride 97 mmol/L (98-107); Glucose 74 mg/dL (74-99); Non-African American GFR(CKD) >90 (>60 ml/min/1.73 sqM); Potassium 4.3 mmol/L (3.5-5.1); Sodium 135 mmol/L (137-145)
--- NOTE | 2019-09-25 08:42 | XR ---
EXAM: XR Abdomen, 2 Views CLINICAL HISTORY: Constipation. Assess stool burden. TECHNIQUE: Frontal view of the abdomen/pelvis with upright view of the abdomen. COMPARISON: None. FINDINGS: Lower thorax: Cardiomegaly. Small bilateral pleural effusions. Subsegmental atelectasis at the lung bases. Intraperitoneal space: No free air. Gastrointestinal tract: Contrast material is noted within are the distal large bowel. Nonspecific bowel gas pattern. Organs: Is 0.3 cm and is 0.2 cm nonobstructing calculi in the lower pole region of the right kidney are suggested. Bones/joints: Osteopenia. Advanced degenerative disc disease of the lumbar spine. Vasculature: Atherosclerotic disease. Mild to moderate osteoarthritic changes about the hip joints. Other findings: Mild to moderate quantity of stool. IMPRESSION: Contrast material within the distal colon. Mild to moderate quantity of stool. Nonspecific bowel gas pattern.
[2019-09-25] MEDS: CHOLECALCIFEROL 1,000 UNIT TAB PO SCH (09:19)
[2019-09-25] MEDS: POTASSIUM CHLORIDE ER 10 MEQ TAB.ER.PRT PO SCH (09:19)
[2019-09-25] MEDS: METOPROLOL TARTRATE 12.5 MG TAB PO SCH ×2 (09:19→20:38)
[2019-09-25] MEDS: MAGNESIUM OXIDE 400 MG TAB PO SCH (09:19)
[2019-09-25] MEDS: GABAPENTIN 300 MG CAP PO SCH ×2 (09:19→20:38)
[2019-09-25] MEDS: DICLOFENAC SODIUM GEL 100 GM TUBE TOPICAL SCH ×4 (09:20→20:40)
[2019-09-25] MEDS: PANTOPRAZOLE 40 MG TABLET PO SCH ×2 (09:20→17:19)
[2019-09-25] MEDS: ARTIFICIAL TEARS-HYPROMELLOSE DROPS 15 ML BTL BOTH EYES SCH ×4 (09:20→20:49)
[2019-09-25] MEDS: ASPIRIN 81 MG PO SCH (09:20)
[2019-09-25] MEDS: predniSONE 20 MG TAB PO SCH (09:20)
[2019-09-25] MEDS: PIPERACILLIN-TAZOBACTAM 3.375 GM in SODIUM CHLORIDE 0.9% 100 ML IVPB SCH ×2 (09:21→17:19)
[2019-09-25] MEDS: HYDROCORTISONE SUPPOSITORY 25 MG SUPP RECTAL SCH (09:28)
[2019-09-25] MEDS: POLYETHYLENE GLYCOL 3350 17 GM POWD.PACK PO SCH ×2 (09:46→20:49)
[2019-09-25] MEDS: TERBINAFINE 250 MG TAB PO SCH (09:47)
[2019-09-25] MEDS: ENOXAPARIN 80 MG/0.8 ML SYRINGE SQ SCH ×2 (09:47→20:45)
[2019-09-25] MEDS: PRIMIDONE 50 MG TAB PO SCH ×2 (09:47→20:45)
[2019-09-25] MEDS ORDERED: LACTULOSE 20 GM/30 ML CUP PO ONE (10:06)
--- NOTE | 2019-09-25 10:28 | P.PN ---
Subjective Progress Note Date: 09/25/19 Principal diagnosis: Bilateral aspiration pneumonia, lung mass, small cell lung cancer, atrial fibrillation, moderate COPD with acute exacerbation, advanced Parkinson's disease, acute on chronic hypoxic respiratory failure, hypertension hypertensive cardiovascular disease, dyslipidemia 09/25/2019, patient seen eval examined during the rounds labs reviewed medications reviewed care plan discussed with the patient as well that he has improved patient appears less distended and feels less distended as well respiratory status remains unchanged but still have intermittent shortness of breath and cough has finished his chemotherapy, labs reviewed white cell count remains normal with stable hemoglobin PT/INR is 12.9 and 1.3 can't resume Coumadin now 09/24/2019, patient seen eval reexamined during the rounds labs reviewed medications reviewed no more hematochezia or lower GI bleeding has been seen however hemoglobin drop down to 10, patient denies any down pain is stable shortness of breath has finished chemotherapy labs reviewed medications reviewed, INR is 1.7 hemoglobin is 10.2 down from 12 yesterday, sodium is 133 09/23/2019, patient seen eval examined during the rounds labs reviewed medications reviewed care plan discussed with the patient and staff at length patient is having some left lower quadrant discomfort and pain has multiple bowel movements associated with some streaks of blood and hematochezia, hemoglobin however remains stable at level of 12 patient is on Coumadin along with therapeutic PT/INR of 2.3, patient also have urinary retention requiring straight cath, computed tomography scan of the abdomen was performed revealed distended urinary bladder, atrophic left kidney, nonobstructive bowel gas pattern was seen with fecal stasis, 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, patient has finished course of chemotherapy now, patient is an enema to evacuate September 21 2019, patient seen eval reexamined during the rounds sitting upright on the bed breathing K more comfortably off of oxygen patient is due for a third dose of chemotherapy later on today 09/20/2019, patient seen eval examined during the rounds labs reviewed medications reviewed, still short of breath cough and congestion slightly better, patient is going chemotherapy 09/19/2019, patient has removed to oncology and it patient has been diagnosed with small cell lung cancer biopsy was performed at [facility] hematology is considering initiation of chemotherapy patient is somewhat anxious family present at bedside, denies any chest pain Objective - Vital Signs Vital signs: Vital Signs Temp 98.3 F 09/25/19 05:00 Pulse 72 09/25/19 07:58 Resp 18 09/25/19 05:00 BP 124/68 09/25/19 05:00 Pulse Ox 100 09/25/19 05:00 Intake & Output 09/24/19 09/25/19 09/25/19 18:59 06:59 18:59 Output Total 3500 3500 3000 Balance -3500 -3500 -3000 Weight 73 kg Output: Urine 3500 3500 3000 Uretheral (Lynch) 2900 Other: Voiding Method Indwelling Catheter Indwelling Catheter Indwelling Catheter # Voids 1 # Bowel Movements 1 1 - Exam GENERAL: The patient is alert and oriented x3, not in any acute distress. Well developed, well nourished. HEENT: Pupils are round and equally reacting to light. EOMI. No scleral icterus. No conjunctival pallor. Normocephalic, atraumatic. No pharyngeal erythema. No thyromegaly. CARDIOVASCULAR: S1 and S2 present. No murmurs, rubs, or gallops. -PULMONARY: Chest is clear to auscultation, bilateral expiratory wheezing ABDOMEN: Soft, nontender, nondistended, normoactive bowel sounds. No palpable organomegaly. MUSCULOSKELETAL: No joint swelling or deformity. EXTREMITIES: No cyanosis, clubbing, or pedal edema. NEUROLOGICAL: Gross neurological examination did not reveal any focal deficits. SKIN: No rashes. No petechiae - Labs CBC & Chem 7: 09/25/19 06:37 09/25/19 06:37 Labs: Abnormal Lab Results - Last 24 Hours (Table) 09/24/19 09/24/19 09/25/19 Range/Units 17:33 19:46 06:37 RBC (4.30-5.90) m/uL Hgb (13.0-17.5) gm/dL Hct (39.0-53.0) % Lymphocytes # (1.0-4.8) k/uL PT 12.9 H (9.0-12.0) sec INR 1.3 H (<1.2) Sodium (137-145) mmol/L Chloride (98-107) mmol/L Carbon Dioxide (22-30) mmol/L Creatinine (0.66-1.25) mg/dL POC Glucose (mg/dL) 122 H 138 H (75-99) mg/dL 09/25/19 09/25/19 Range/Units 06:37 06:37 RBC 3.42 L (4.30-5.90) m/uL Hgb 11.0 L (13.0-17.5) gm/dL Hct 33.4 L (39.0-53.0) % Lymphocytes # 0.8 L (1.0-4.8) k/uL PT (9.0-12.0) sec INR (<1.2) Sodium 135 L (137-145) mmol/L Chloride 97 L (98-107) mmol/L Carbon Dioxide 35 H (22-30) mmol/L Creatinine 0.57 L (0.66-1.25) mg/dL POC Glucose (mg/dL) (75-99) mg/dL Assessment and Plan Assessment: Bilateral pneumonia versus postobstructive changes Small cell lung cancer status post chemotherapy Hematochezia likely superficial his skin rupture in perirectal area no signs of overt bleeding is seen, Low hemoglobin Urinary retention Atrial fibrillation not well anticoagulated, Coumadin is being held for suspicion of GI bleed Moderate to severe COPD Advanced Parkinson's disease Chronic hypoxic respiratory failure Dyslipidemia Hypertension hypertensive cardiovascular disease Plan: Agree with monitoring hemoglobin closely our Coumadin can be resumed Monitor observe hemodynamics Will keep patient in hematology/oncology department for now but if hemodynamic compromises noted will transfer to ICU Continue Zosyn bronchodilators and steroids, Continue prednisone slowly taper it however patient will require a small dose maintenance for presumed adrenal insufficiency given bilateral metastases to the adrenal gland Patient has been on Coumadin Chemotherapy plan as per oncology service Time with Patient: Greater than 30
[2019-09-25 11:04] LABS: Glucose,Whole Blood 91 mg/dL (75-99)
--- NOTE | 2019-09-25 12:47 | P.PN ---
Subjective Progress Note Date: 09/25/19 Principal diagnosis: Pneumonia Mr. Guzman is a 68-year-old male with a past medical history of COPD, Parkinson's disease, atrial fibrillation, hypertension, hyperlipidemia who was transferred from [facility] for ongoing evaluation of dyspnea and cough. Patient also had a lung biopsy done at [facility] in [place] that was positive forsmall cell lung cancer. On 09/24/2019 - patient is lying in the bed comfortably with his family members at the bedside. Patient denies having any more blood in his stool. He was severely constipated and was having urinary retention yesterday. Urology was consulted and a Lynch's catheter has been placed and he is doing much better in terms of his lower abdominal discomfort. He also mentions that he had 3-4 bowel movements that were nonbloody since last night. As the patient was having hematochezia his Coumadin was kept on hold yesterday. patient's hemoglobin dropped from 12.0-10.2. But he is not complaining of active bleeding currently. Patient denies having any chest pain or palpitations. Difficulty in breathing is at baseline. He continues to have cough that is nonproductive in nature. Abdominal discomfort is much better. He has mild swelling of his lower extremities. On 09/25/2019 - patient is lying in the bed with his family members at bedside. As per the nursing staff report patient has been complaining of pain in the rectal area. He has some lesions around the rectal area that are painful. They put barrier cream and antifungal cream. Patient had a bowel movement this morning. No blood in his stool. He still continues to have mild difficulty in breathing. Patient's hemoglobin has been stable. He denies having any chest pain or palpitations. No abdominal pain nausea or vomiting. Patient's labs and medications have been reviewed. Active Medications Hydrocodone Bitart/Acetaminophen ([place] 5-325) 1 each PO Q6HR PRN PRN Reason: Moderate Pain Last Admin: 09/24/19 19:12 Dose: 1 each Documented by: Albuterol/Ipratropium (Duoneb 0.5 Mg-3 Mg/3 Ml Soln) 3 ml INHALATION RT-QID TOM Last Admin: 09/25/19 11:33 Dose: 3 ml Documented by: Albuterol/Ipratropium (Duoneb 0.5 Mg-3 Mg/3 Ml Soln) 3 ml INHALATION RT-QID PRN PRN Reason: Shortness Of Breath Or Wheezing Alprazolam (Xanax) 0.25 mg PO TID PRN PRN Reason: Anxiety Last Admin: 09/24/19 21:22 Dose: 0.25 mg Documented by: Artificial Tears (Artificial Tear Drops) 1 drops BOTH EYES QID [facility] Last Admin: 09/25/19 09:20 Dose: 1 drops Documented by: Aspirin (Aspirin) 81 mg PO DAILY [facility] Last Admin: 09/25/19 09:20 Dose: 81 mg Documented by: Budesonide (Pulmicort) 0.5 mg INHALATION RT-BID [facility] Last Admin: 09/25/19 07:45 Dose: 0.5 mg Documented by: Cholecalciferol (Vitamin D3 (25 Mcg = 1000 Iu)) 2,000 unit PO DAILY [facility] Last Admin: 09/25/19 09:19 Dose: 2,000 unit Documented by: Diclofenac Sodium (Voltaren Gel) 2 gm TOPICAL QID [facility] Last Admin: 09/25/19 09:20 Dose: 2 gm Documented by: Enoxaparin Sodium (Lovenox) 70 mg SQ BID [facility] Last Admin: 09/25/19 09:47 Dose: 70 mg Documented by: Gabapentin (Neurontin) 300 mg PO BID [facility] Last Admin: 09/25/19 09:19 Dose: 300 mg Documented by: Hydrocortisone Acetate (Anusol-Hc) 25 mg RECTAL DAILY [facility] Last Admin: 09/25/19 09:28 Dose: Not Given Documented by: Sodium Chloride (Saline 0.9%) 1,000 mls @ 100 mls/hr IV .Q10H [facility] Last Admin: 09/25/19 09:49 Dose: Not Given Documented by: Piperacillin Sod/Tazobactam (Sod 3.375 gm/ Sodium Chloride) 100 mls @ 25 mls/hr IVPB Q8HR [facility] Last Admin: 09/25/19 09:21 Dose: 25 mls/hr Documented by: Insulin Aspart (Novolog) 0 unit SQ ACHS [facility]; Protocol Last Admin: 09/25/19 11:44 Dose: Not Given Documented by: Lactulose (Cephulac) 20 gm PO BID PRN PRN Reason: Constipation Loperamide HCl (Imodium) 4 mg PO Q6H PRN PRN Reason: Diarrhea Magnesium Oxide (Mag-Ox) 800 mg PO DAILY [facility] Last Admin: 09/25/19 09:19 Dose: 800 mg Documented by: Metoprolol Tartrate (Lopressor) 12.5 mg PO BID [facility] Last Admin: 09/25/19 09:19 Dose: 12.5 mg Documented by: Miscellaneous Information (Coumadin Per Pharmacy) 0 each MISCELLANE DIRECTED PRN PRN Reason: PER PROTOCOL Pantoprazole Sodium (Protonix) 40 mg PO AC-BID [facility] Last Admin: 09/25/19 09:20 Dose: 40 mg Documented by: Polyethylene Glycol (Miralax) 17 gm PO BID [facility] Potassium Chloride (K-Dur 10) 10 meq PO DAILY [facility] Last Admin: 09/25/19 09:19 Dose: 10 meq Documented by: Prednisone () 40 mg PO DAILY [facility] Last Admin: 09/25/19 09:20 Dose: 40 mg Documented by: Primidone (Mysoline) 50 mg PO BID [facility] Last Admin: 09/25/19 09:47 Dose: 50 mg Documented by: Sodium Bicarbonate () 5 ml PO 5XD [facility] Last Admin: 09/25/19 11:41 Dose: 5 ml Documented by: Tamsulosin HCl (Flomax) 0.4 mg PO PC-SUPPER [facility] Last Admin: 09/24/19 18:01 Dose: 0.4 mg Documented by: Terbinafine HCl (Lamisil) 250 mg PO DAILY [facility] Last Admin: 09/25/19 09:47 Dose: 250 mg Documented by: Objective - Vital Signs Vital signs: Vital Signs Temp 98.3 F 09/25/19 11:27 Pulse 72 09/25/19 11:43 Resp 20 09/25/19 11:27 BP 101/58 09/25/19 11:27 Pulse Ox 98 09/25/19 11:27 Intake & Output 09/24/19 09/25/19 09/25/19 18:59 06:59 18:59 Output Total 3500 3500 3000 Balance -3500 -3500 -3000 Weight 73 kg Output: Urine 3500 3500 3000 Uretheral (Lynch) 2900 Other: Voiding Method Indwelling Catheter Indwelling Catheter Indwelling Catheter # Voids 1 # Bowel Movements 1 2 - Exam PHYSICAL EXAM GENERAL: The patient is alert and oriented x3, not in any acute distress. Chronically ill appearance HEENT: Pupils are round and equally reacting to light. EOMI. No scleral icterus. No conjunctival pallor. Normocephalic, atraumatic. No pharyngeal erythema. No thyromegaly. CARDIOVASCULAR: S1 and S2 present. No murmurs, rubs, or gallops. PULMONARY: Chest is clear to auscultation, bilateral expiratory wheezing Rhonchi with prolonged expiration. ABDOMEN: Soft, nontender, nondistended, normoactive bowel sounds. MUSCULOSKELETAL: No joint swelling or deformity. EXTREMITIES: No cyanosis, clubbing, mild pedal edema. Examination of the rectal area - punched-out lesions in the perineal area around the rectum. Surrounding skin is erythematous. NEUROLOGICAL: Gross neurological examination did not reveal any focal deficits. SKIN: sing is frail - Labs CBC & Chem 7: 09/25/19 06:37 09/25/19 06:37 Labs: Abnormal Lab Results - Last 24 Hours (Table) 09/24/19 09/24/19 09/25/19 Range/Units 17:33 19:46 06:37 RBC (4.30-5.90) m/uL Hgb (13.0-17.5) gm/dL Hct (39.0-53.0) % Lymphocytes # (1.0-4.8) k/uL PT 12.9 H (9.0-12.0) sec INR 1.3 H (<1.2) Sodium (137-145) mmol/L Chloride (98-107) mmol/L Carbon Dioxide (22-30) mmol/L Creatinine (0.66-1.25) mg/dL POC Glucose (mg/dL) 122 H 138 H (75-99) mg/dL 09/25/19 09/25/19 Range/Units 06:37 06:37 RBC 3.42 L (4.30-5.90) m/uL Hgb 11.0 L (13.0-17.5) gm/dL Hct 33.4 L (39.0-53.0) % Lymphocytes # 0.8 L (1.0-4.8) k/uL PT (9.0-12.0) sec INR (<1.2) Sodium 135 L (137-145) mmol/L Chloride 97 L (98-107) mmol/L Carbon Dioxide 35 H (22-30) mmol/L Creatinine 0.57 L (0.66-1.25) mg/dL POC Glucose (mg/dL) (75-99) mg/dL Assessment and Plan Assessment: ASSESSMENT Hematochezia - probably due to hemorrhoids - no more active bleeding 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 He is currently on Lovenox and as per Dr. Silva's recommendations he can be on Coumadin. Continue with antibiotics as per pulmonary recommendations. Valtrex for herpes lesions. We will monitor creatinine closely. Urology on board - patient had a Lynch's catheter placed yesterday- doing well. We'll continue with the rest of his current medication regimen. Patient is no code. Overall prognosis is guarded. Further r ecommendations to follow depending on the progress of the patient. The treatment plan was discussed in detail with the patient's family members at bedside.
[2019-09-25] MEDS: valACYclovir 500 MG TAB PO SCH ×2 (13:37→20:46)
[2019-09-25 17:11] LABS: Glucose,Whole Blood 116 mg/dL (75-99)
[2019-09-25] MEDS: TAMSULOSIN 0.4 MG CAP.ER.24H PO SCH (17:19)
[2019-09-25] MEDS: HYDROcodone/APAP 5-325MG 1 EACH TAB PO PRN (17:22)
[2019-09-25 20:02] LABS: Glucose,Whole Blood 137 mg/dL (75-99)
[2019-09-25] MEDS: ALPRAZolam 0.25 MG TAB PO PRN (20:38)
--- NOTE | 2019-09-25 21:43 | P.PN ---
Subjective Progress Note Date: 09/25/19 Principal diagnosis: Blood per rectum, fecal stasis, constipation Patient is seen lying in bed with family bedside. Patient had a large bowel movement after lactulose today. No further rectal bleeding. Objective - Vital Signs Vital signs: Vital Signs Temp 98.3 F 09/25/19 05:00 Pulse 72 09/25/19 07:58 Resp 18 09/25/19 05:00 BP 124/68 09/25/19 05:00 Pulse Ox 100 09/25/19 05:00 Intake & Output 09/24/19 09/25/19 09/25/19 18:59 06:59 18:59 Output Total 3500 3500 3000 Balance -3500 -3500 -3000 Weight 73 kg Output: Urine 3500 3500 3000 Uretheral (Lynch) 2900 Other: Voiding Method Indwelling Catheter Indwelling Catheter Indwelling Catheter # Voids 1 # Bowel Movements 1 1 - Exam On physical examination, patient appears comfortable in no apparent distress. HEAD: Normocephalic, atraumatic. EYES: No scleral icterus. No conjunctival injection. MOUTH: No lesions, tongue midline. NECK: Trachea midline, no gross abnormalities. ABDOMEN: Soft, mildly tender to deep palpation. Bowel sounds are positive. No organomegaly. No guarding or rigidity. EXTREMITIES: No pedal edema. SKIN: No rashes, no jaundice. NEUROLOGIC: Alert and oriented. No focal deficits. - Labs CBC & Chem 7: 09/25/19 06:37 09/25/19 06:37 Labs: Abnormal Lab Results - Last 24 Hours (Table) 09/24/19 09/24/19 09/25/19 Range/Units 17:33 19:46 06:37 RBC (4.30-5.90) m/uL Hgb (13.0-17.5) gm/dL Hct (39.0-53.0) % Lymphocytes # (1.0-4.8) k/uL PT 12.9 H (9.0-12.0) sec INR 1.3 H (<1.2) Sodium (137-145) mmol/L Chloride (98-107) mmol/L Carbon Dioxide (22-30) mmol/L Creatinine (0.66-1.25) mg/dL POC Glucose (mg/dL) 122 H 138 H (75-99) mg/dL 09/25/19 09/25/19 Range/Units 06:37 06:37 RBC 3.42 L (4.30-5.90) m/uL Hgb 11.0 L (13.0-17.5) gm/dL Hct 33.4 L (39.0-53.0) % Lymphocytes # 0.8 L (1.0-4.8) k/uL PT (9.0-12.0) sec INR (<1.2) Sodium 135 L (137-145) mmol/L Chloride 97 L (98-107) mmol/L Carbon Dioxide 35 H (22-30) mmol/L Creatinine 0.57 L (0.66-1.25) mg/dL POC Glucose (mg/dL) (75-99) mg/dL Assessment and Plan (1) Constipation Narrative/Plan: 68-year-old male with multiple medical comorbidities including metastatic small cell lung cancer currently being treated for bilateral pneumonia and urinary retention was found to have a large degree of fecal stasis on computed tomography scan. Likely secondary to narcotic use in the setting of underlying malignancy. Current Visit: Yes Status: Acute Code(s): K59.00 - CONSTIPATION, UNSPECIFIED SNOMED Code(s): 41264872 (2) Blood per rectum Narrative/Plan: Procrit blood with wiping with patient reporting colonoscopy approximately 1 year ago in [place] which was essentially normal. Suspicion is for perirectal disease and hemorrhoids with plan for local treatment. Current Visit: Yes Status: Acute Code(s): K62.5 - HEMORRHAGE OF ANUS AND RECTUM SNOMED Code(s): 00506904 (3) Postobstructive pneumonia Current Visit: Yes Status: Acute Priority: High Code(s): J18.9 - PNEUMONIA, UNSPECIFIED ORGANISM SNOMED Code(s): 281854384 (4) Small cell lung cancer Current Visit: Yes Status: Acute Priority: High Code(s): C34.90 - MALIGNANT NEOPLASM OF UNSP PART OF UNSP BRONCHUS OR LUNG SNOMED Code(s): 161776447 Plan: Supportive care Local hemorrhoidal treatment with Anusol Okay for diet MiraLAX increased to twice daily 1 dose of lactulose given today Continue other laxatives as needed for bowel movements Abdominal x-ray ordered and significant for mild to moderate stool for Continue to monitor stool output No plans for endoscopic evaluation at this time Continue other medical management Thank you for allowing us to participate in the care of the patient the gastroenterology service will stand by, please call us for any questions or concerns
[2019-09-26] MEDS: PIPERACILLIN-TAZOBACTAM 3.375 GM in SODIUM CHLORIDE 0.9% 100 ML IVPB SCH ×4 (00:06→23:18)
[2019-09-26] MEDS: SALT AND SODA MOUTHWASH 1,000 ML PO SCH ×6 (00:22→23:18)
[2019-09-26] MEDS: SODIUM CHLORIDE 0.9% 1,000 ML IV SCH ×3 (05:06→17:18)
[2019-09-26 06:56] LABS: Glucose,Whole Blood 92 mg/dL (75-99)
[2019-09-26 07:30] LABS: Basophils % (A) 0 %; Eosinophils # (A) 0.1 k/uL (0-0.7); Eosinophils % (A) 2 %; HGB 10.8 gm/dL (13.0-17.5); Lymphocytes # (A) 0.8 k/uL (1.0-4.8); Lymphocytes % (A) 18 %; MCH 33.4 pg (25.0-35.0); MCHC 33.8 g/dL (31.0-37.0); MCV 98.8 fL (80.0-100.0); Mean Platelet Volume 6.3; Monocytes % (A) 1 %; Neutrophils # (A) 3.6 k/uL (1.3-7.7); Neutrophils % (A) 79 %; Platelet Count 146 k/uL (150-450); RBC 3.24 m/uL (4.30-5.90); RDW 12.9 % (11.5-15.5); WBC 4.5 k/uL (3.8-10.6)
[2019-09-26 07:38] LABS: Prothrombin Time 11.1 sec (9.0-12.0)
[2019-09-26] MEDS: INSULIN ASPART (NovoLOG) 100 UNIT/ML VIAL SQ SCH ×4 (07:47→21:42)
[2019-09-26 07:49] LABS: African American GFR (CKD) >90 (>60 ml/min/1.73 sqM); Anion Gap 7 mmol/L; Blood Urea Nitrogen 16 mg/dL (9-20); Calcium 8.5 mg/dL (8.4-10.2); Carbon Dioxide 28 mmol/L (22-30); Chloride 97 mmol/L (98-107); Glucose 70 mg/dL (74-99); Non-African American GFR(CKD) >90 (>60 ml/min/1.73 sqM); Potassium 4.4 mmol/L (3.5-5.1); Sodium 132 mmol/L (137-145)
[2019-09-26] MEDS: DICLOFENAC SODIUM GEL 100 GM TUBE TOPICAL SCH ×4 (07:55→21:44)
[2019-09-26] MEDS: METOPROLOL TARTRATE 12.5 MG TAB PO SCH ×2 (07:56→20:53)
[2019-09-26] MEDS: MAGNESIUM OXIDE 400 MG TAB PO SCH (07:58)
[2019-09-26] MEDS: POTASSIUM CHLORIDE ER 10 MEQ TAB.ER.PRT PO SCH (07:58)
[2019-09-26] MEDS: CHOLECALCIFEROL 1,000 UNIT TAB PO SCH (08:03)
[2019-09-26] MEDS: POLYETHYLENE GLYCOL 3350 17 GM POWD.PACK PO SCH ×2 (08:03→21:43)
[2019-09-26] MEDS: predniSONE 20 MG TAB PO SCH (08:03)
[2019-09-26] MEDS: ARTIFICIAL TEARS-HYPROMELLOSE DROPS 15 ML BTL BOTH EYES SCH ×4 (08:03→21:44)
[2019-09-26] MEDS: GABAPENTIN 300 MG CAP PO SCH ×2 (08:03→20:54)
[2019-09-26] MEDS: PANTOPRAZOLE 40 MG TABLET PO SCH ×2 (08:03→17:15)
[2019-09-26] MEDS: ASPIRIN 81 MG PO SCH (08:03)
[2019-09-26] MEDS: ENOXAPARIN 80 MG/0.8 ML SYRINGE SQ SCH ×2 (08:04→21:42)
[2019-09-26] MEDS: HYDROCORTISONE SUPPOSITORY 25 MG SUPP RECTAL SCH (08:05)
[2019-09-26] MEDS: PRIMIDONE 50 MG TAB PO SCH ×2 (08:05→21:43)
[2019-09-26] MEDS: valACYclovir 500 MG TAB PO SCH ×2 (08:05→21:43)
[2019-09-26] MEDS: TERBINAFINE 250 MG TAB PO SCH (08:05)
[2019-09-26] MEDS: IPRATROPIUM-ALBUTEROL 3 ML NEB INHALATION SCH ×4 (08:23→21:20)
[2019-09-26] MEDS: BUDESONIDE 0.5 MG/2 ML NEBU INHALATION SCH ×2 (08:23→21:20)
--- NOTE | 2019-09-26 09:38 | P.CONS ---
History of Present Illness - Reason for Consult Consult date: 09/26/19 Perineal lesions - History of Present Illness This is a 68-year-old male with history of lung mass worked up at [facility] in [place] found to have small cell lung cancer. He presented to the hospital with difficulty breathing and has been treated for pneumonia. Oncology has followed the patient and he completed his first cycle of carboplatin and etoposide days 1-13, completed on September 21. The patient was cleared by oncology for discharge home. He has had other, complicated factors including urinary retention requiring Lynch catheter placement, rectal bleeding along with constipation and fecal stasis and seen by Dr. Tillman. Patient is also been followed by pulmonary medicine for pneumonia. Patient was seen by the wound care team for nonhealing decubitus ulcer to the coccyx with wound care in the form of zinc barrier cream daily do a term and cushion for sitting. Patient presented with leukocytosis of 20.7 now down to 4.5, hemoglobin has been stable at 11.0. He has had a slight drop in his platelet count 146. Creatinine 0.48. INR 1.0 and patient is on chronic Coumadin for atrial fibrillation status post pacemaker. Patient is on Zosyn for possible gram-negative pneumonia with plan for Augmentin at the time of discharge. Blood culture shows no growth after 144 hours. Sputum cultures finalized with normal matteo Patient did present with signs of sepsis with leukocytosis and hypotension. Blood pressure is improved. Consult is regarding lesions around the rectal and gluteal cleft patient thinks this was first noticed early yesterday. He has been complaining of rectal pain. Nursing has applied barrier cream. Herpes simplex virus panel is in progress and patient is on oral Valtrex 500 mg twice daily. The patient states that he had chills this morning but no fever. He feels tired and states he cannot sleep in the hospital. He denies any nausea vomiting or diarrhea. He thinks that he is eating and drinking okay. He has had significant weight loss. Review of Systems Constitutional: Reports chills, Reports fatigue, Reports weakness, Reports weight loss, Denies fever, Denies poor appetite Eyes: denies blurred vision, denies pain Ears, nose, mouth and throat: Denies dysphagia, Denies headache, Denies nasal congestion, Denies nasal discharge, Denies sore throat, Denies vertigo Cardiovascular: Reports dyspnea on exertion, Reports shortness of breath, Denies chest pain, Denies leg edema, Denies lightheadedness Respiratory: Reports cough, Reports cough with sputum, Reports dyspnea, Reports respiratory infections, Denies excessive sputum, Denies hemoptysis, Denies home oxygen, Denies wheezing Gastrointestinal: Reports constipation, Denies abdominal pain, Denies diarrhea, Denies loss of appetite, Denies nausea, Denies vomiting Genitourinary: Reports urinary retention, Denies dysuria Musculoskeletal: Reports muscle weakness, Denies myalgias Integumentary: Reports wounds, Denies pruritus, Denies rash Neurological: Denies change in mentation, Denies change in speech, Denies numbness, Denies seizures, Denies weakness Psychiatric: Denies anxiety, Denies depression Endocrine: Denies fatigue, Denies weight change Past Medical History Past Medical History: COPD Additional Past Medical History / Comment(s): pacer, emphesma, parkinsons History of Any Multi-Drug Resistant Organisms: None Reported Additional Past Surgical History / Comment(s): No surgeries Past Psychological History: No Psychological Hx Reported Smoking Status: Current every day smoker - Past Family History Mother Family Medical History: Coronary Artery Disease (CAD), Hypertension Father Family Medical History: Hyperlipidemia, Hypertension Medications and Allergies Home Medications Medication Instructions Recorded Confirmed Type Albuterol Inhaler [Ventolin Hfa 2 puff INHALATION RT-QID 09/13/19 09/13/19 History Inhaler] Artificial Tears-Hypromellose 1 drop BOTH EYES QID 09/13/19 09/13/19 History [Artificial Tear Drops] Aspirin EC [Ecotrin Low Dose] 81 mg PO DAILY 09/13/19 09/13/19 History Budesonide/Formoterol Fumarate 2 puff INHALATION RT-BID 09/13/19 09/13/19 History [Symbicort 80-4.5 Mcg Inhaler] Cetirizine HCl [Zyrtec] 10 mg PO DAILY 09/13/19 09/13/19 History Cholecalciferol [Vitamin D3 (25 2,000 unit PO DAILY 09/13/19 09/13/19 History Mcg = 1000 Iu)] Gabapentin 300 mg PO BID 09/13/19 09/13/19 History Loperamide HCl [Loperamide] 4 mg PO Q6H 09/13/19 09/13/19 History Magnesium Oxide [Mag-Ox] 800 mg PO DAILY 09/13/19 09/13/19 History Metoprolol Tartrate [Lopressor] 12.5 mg PO BID 09/13/19 09/13/19 History Omeprazole 40 mg PO BID 09/13/19 09/13/19 History Potassium Chloride ER [K-Dur 10] 10 meq PO DAILY 09/13/19 09/13/19 History Primidone [Mysoline] 50 mg PO BID 09/13/19 09/13/19 History Terbinafine [LamISIL] 250 mg PO DAILY 09/13/19 09/13/19 History Vits A,C,E/Lutein/Minerals 1 tab PO BID 09/13/19 09/13/19 History [Ocuvite with Lutein Tablet] Warfarin Sodium [Coumadin] 5 mg PO HS 09/13/19 09/13/19 History amLODIPine [Norvasc] 10 mg PO DAILY 09/13/19 09/13/19 History Amoxic-Pot Clav 875-125Mg 1 tab PO Q12HR 7 Days #14 tablet 09/21/19 Rx [Augmentin 875-125] Bisacodyl [Dulcolax] 10 mg PO DAILY PRN #10 tablet. 09/21/19 Rx Diclofenac Sodium Gel [Voltaren 2 gm TOPICAL QID 30 Days #1 tube 09/21/19 Rx Gel] predniSONE 10 mg PO DIRECTED #30 tab 09/21/19 Rx Allergies Allergy/AdvReac Type Severity Reaction Status Date / Time cephradine AdvReac Cough Verified 09/13/19 19:24 lisinopril AdvReac Cough Verified 09/13/19 19:24 Physical Exam Vitals: Vital Signs Temp Pulse Pulse Resp BP Pulse Ox 09/26/19 08:34 72 09/26/19 08:23 70 09/26/19 05:00 98.2 F 55 L 18 122/77 98 09/26/19 00:00 71 18 09/25/19 21:03 68 09/25/19 21:00 98.1 F 71 18 105/55 98 09/25/19 20:50 68 09/25/19 11:43 72 09/25/19 11:33 72 09/25/19 11:27 98.3 F 68 20 101/58 98 Intake and Output 1209/26/19 09/26/19 22:59 06:59 14:59 Intake Total 800 700 Output Total 950 1700 1600 Balance -150 -1000 -1600 Intake: Intake, IV Titration 200 700 Amount Piperacillin-Tazobactam 3 100 100 .375 gm In Sodium Chloride 0.9% 100 ml @ 25 mls/hr IVPB Q8HR TOM Rx# :[id number] Sodium Chloride 0.9% 1, 100 600 000 ml @ 100 mls/hr IV . Q10H TOM Rx#:[id number] Oral 600 Output: Urine 950 1700 1600 Uretheral (Lynch) 1700 Other: Voiding Method Indwelling Catheter Indwelling Catheter # Voids 1 2 # Bowel Movements 1 1 Weight 73.5 kg Gen: This is a 68-year-old male. He is sitting on the edge of the bed and appears to be in no acute distress. HEENT: Head is atraumatic, normocephalic. Pupils equal, round. Sclerae is anicteric. NECK: Supple. No JVD. No lymphadenopathy. No thyromegaly. LUNGS: Expiratory wheezing on the left with scattered rhonchi, prolonged expiration. No intercostal retractions. HEART: Regular rate and rhythm. No murmur. ABDOMEN: Soft. Bowel sounds are present. No masses. No tenderness. At the rectal area in the gluteal cleft there are small lesions noted with surrounding erythema EXTREMITIES: No pedal edema. No calf tenderness. NEUROLOGICAL: Patient is awake, alert and oriented x3. Cranial nerves 2 through 12 are grossly intact. Patient's speech is slow and slurred which is his baseline. Results Results: Laboratory Results WBC 4.5 k/uL (3.8-10.6) 09/26/19 07:04 RBC 3.24 m/uL (4.30-5.90) L 09/26/19 07:04 Hgb 10.8 gm/dL (13.0-17.5) L 09/26/19 07:04 Hct 32.0 % (39.0-53.0) L 09/26/19 07:04 MCV 98.8 fL (80.0-100.0) 09/26/19 07:04 MCH 33.4 pg (25.0-35.0) 09/26/19 07:04 MCHC 33.8 g/dL (31.0-37.0) 09/26/19 07:04 RDW 12.9 % (11.5-15.5) 09/26/19 07:04 Plt Count 146 k/uL (150-450) L 09/26/19 07:04 Neutrophils % 79 % 09/26/19 07:04 Lymphocytes % 18 % 09/26/19 07:04 Monocytes % 1 % 09/26/19 07:04 Eosinophils % 2 % 09/26/19 07:04 Basophils % 0 % 09/26/19 07:04 Neutrophils # 3.6 k/uL (1.3-7.7) 09/26/19 07:04 Lymphocytes # 0.8 k/uL (1.0-4.8) L 09/26/19 07:04 Monocytes # 0.0 k/uL (0-1.0) 09/26/19 07:04 Eosinophils # 0.1 k/uL (0-0.7) 09/26/19 07:04 Basophils # 0.0 k/uL (0-0.2) 09/26/19 07:04 PT 11.1 sec (9.0-12.0) 09/26/19 07:04 INR 1.0 (<1.2) 09/26/19 07:04 APTT 31.6 sec (22.0-30.0) H 09/14/19 07:45 Sodium 132 mmol/L (137-145) L 09/26/19 07:04 Potassium 4.4 mmol/L (3.5-5.1) 09/26/19 07:04 Chloride 97 mmol/L (98-107) L 09/26/19 07:04 Carbon Dioxide 28 mmol/L (22-30) 09/26/19 07:04 Anion Gap 7 mmol/L 09/26/19 07:04 BUN 16 mg/dL (9-20) 09/26/19 07:04 Creatinine 0.48 mg/dL (0.66-1.25) L 09/26/19 07:04 Est GFR (CKD-EPI)AfAm >90 (>60 ml/min/1.73 sqM) 09/26/19 07:04 Est GFR (CKD-EPI)NonAf >90 (>60 ml/min/1.73 sqM) 09/26/19 07:04 Glucose 70 mg/dL (74-99) L 09/26/19 07:04 POC Glucose (mg/dL) 92 mg/dL (75-99) 09/26/19 06:55 POC Glu Gas Mask Assembler Quiana Ramirez 09/26/19 06:55 Calcium 8.5 mg/dL (8.4-10.2) 09/26/19 07:04 Total Bilirubin 0.6 mg/dL (0.2-1.3) 09/14/19 07:45 Conjugated Bilirubin 0.0 mg/dL (0.0-0.3) 09/14/19 07:45 Unconjugated Bilirubin 0.5 mg/dL (0.0-1.1) 09/14/19 07:45 Delta Bilirubin 0.1 mg/dL (0.0-0.2) 09/14/19 07:45 AST 17 U/L (17-59) 09/14/19 07:45 ALT 19 U/L (21-72) L 09/14/19 07:45 Alkaline Phosphatase 47 U/L (38-126) 09/14/19 07:45 Total Protein 5.9 g/dL (6.3-8.2) L 09/14/19 07:45 Albumin 3.2 g/dL (3.5-5.0) L 09/14/19 07:45 CBC & Chem 7: 09/26/19 07:04 09/26/19 07:04 Labs: Abnormal Lab Results - Last 24 Hours (Table) 09/25/19 09/25/19 09/26/19 Range/Units 17:05 20:01 07:04 RBC 3.24 L (4.30-5.90) m/uL Hgb 10.8 L (13.0-17.5) gm/dL Hct 32.0 L (39.0-53.0) % Plt Count 146 L (150-450) k/uL Lymphocytes # 0.8 L (1.0-4.8) k/uL Sodium (137-145) mmol/L Chloride (98-107) mmol/L Creatinine (0.66-1.25) mg/dL Glucose (74-99) mg/dL POC Glucose (mg/dL) 116 H 137 H (75-99) mg/dL 09/26/19 Range/Units 07:04 RBC (4.30-5.90) m/uL Hgb (13.0-17.5) gm/dL Hct (39.0-53.0) % Plt Count (150-450) k/uL Lymphocytes # (1.0-4.8) k/uL Sodium 132 L (137-145) mmol/L Chloride 97 L (98-107) mmol/L Creatinine 0.48 L (0.66-1.25) mg/dL Glucose 70 L (74-99) mg/dL POC Glucose (mg/dL) (75-99) mg/dL Assessment and Plan Plan: This is a 68-year-old male patient presented to the hospital with difficulty breathing and sepsis secondary to pneumonia, possible gram-negative pneumonia. He has underlying small cell lung cancer and started on chemotherapy and followed by oncology. Patient is noted to have perineal lesions which are in the gluteal cleft near the rectum appear to be herpes type lesions. Herpes testing is in progress. Patient is on Valtrex and the area cream is used. Patient's course has also been complicated by urinary retention requiring Lynch catheter. Local wound care will be addressed. Continue supportive care. Further recommendations as patient progresses. The above dictated assessment and findings were discussed with Dr. Liu. The impression and plan of care have been directed as dictated. Niki Gibbs nurse practitioner acting as scribe for Dr. Liu.
[2019-09-26] MEDS ORDERED: RX INFO: IV CONTRAST WAS GIVEN 1 EACH MISC MISCELLANE PRN (11:21)
[2019-09-26 11:46] LABS: Glucose,Whole Blood 111 mg/dL (75-99)
[2019-09-26 13:37] LABS: Appearance,Urine Clear (Clear); Bacteria,Urine Rare /hpf; Bilirubin,Urine Negative (Negative); Blood,Urine Trace (Negative); Budding Yeast,Urine Few /hpf; Color,Urine Light Yellow; Glucose,Urine (UA) Negative (Negative); Ketones,Urine Negative (Negative); Leukocyte Esterase,Urine Negative (Negative); Mucus,Urine Rare /hpf; Nitrite,Urine Negative (Negative); Protein,Urine Negative (Negative); RBC,Urine 19 /hpf (0-5); Specific Gravity,Urine 1.009 (1.001-1.035); Urobilinogen,Urine <2.0 mg/dL (<2.0)
--- NOTE | 2019-09-26 14:27 | CT ---
EXAMINATION TYPE: CT brain w con DATE OF EXAM: 09/26/2019 COMPARISON: NONE HISTORY: Staging, Lung CA CT DLP: 1012.7 mGycm Automated Exposure Control for Dose Reduction was Utilized. TECHNIQUE: CT scan of the head is performed with IV contrast.,CT scan of the head is performed withou t and with with IV Contrast, patient injected with 100 mL of Isovue 300. FINDINGS: Noncontrast images show no acute intracranial hemorrhage or midline shift. The ventricles and sulci are symmetrically prominent compatible with age-related volume loss. Few areas of hypoatte nuation are nonspecific in the periventricular white matter and likely on the basis of chronic microa ngiopathy. No abnormal enhancement. Postcontrast images show no suspicious enhancing intraparenchymal mass. The globes are intact and the visualized sinuses are clear. There is leftward nasal septal dev iation and a mild/moderate mucosal thickening in the ethmoid cyst. Remaining visualized paranasal sin uses and mastoid air cells are well aerated. IMPRESSION: No evidence of intracranial metastasis.
--- NOTE | 2019-09-26 16:23 | P.PN ---
Subjective Progress Note Date: 09/26/19 Principal diagnosis: Bilateral aspiration pneumonia, lung mass, small cell lung cancer, atrial fibrillation, moderate COPD with acute exacerbation, advanced Parkinson's disease, acute on chronic hypoxic respiratory failure, hypertension hypertensive cardiovascular disease, dyslipidemia 09/26/2019, patient seen and evaluated examined during the rounds overall doing better had no bowel movement today some discomfort is present patient has been getting a stool softener hemoglobin remained stable patient probably considered for discharge later on today or tomorrow 09/25/2019, patient seen eval examined during the rounds labs reviewed medications reviewed care plan discussed with the patient as well that he has improved patient appears less distended and feels less distended as well respiratory status remains unchanged but still have intermittent shortness of breath and cough has finished his chemotherapy, labs reviewed white cell count remains normal with stable hemoglobin PT/INR is 12.9 and 1.3 can't resume Coumadin now 09/24/2019, patient seen eval reexamined during the rounds labs reviewed medications reviewed no more hematochezia or lower GI bleeding has been seen however hemoglobin drop down to 10, patient denies any down pain is stable shortness of breath has finished chemotherapy labs reviewed medications reviewed, INR is 1.7 hemoglobin is 10.2 down from 12 yesterday, sodium is 133 09/23/2019, patient seen eval examined during the rounds labs reviewed medications reviewed care plan discussed with the patient and staff at length patient is having some left lower quadrant discomfort and pain has multiple bowel movements associated with some streaks of blood and hematochezia, hemoglobin however remains stable at level of 12 patient is on Coumadin along with therapeutic PT/INR of 2.3, patient also have urinary retention requiring straight cath, computed tomography scan of the abdomen was performed revealed distended urinary bladder, atrophic left kidney, nonobstructive bowel gas pattern was seen with fecal stasis, 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, patient has finished course of chemotherapy now, patient is an enema to evacuate September 21 2019, patient seen eval reexamined during the rounds sitting upright on the bed breathing K more comfortably off of oxygen patient is due for a third dose of chemotherapy later on today 09/20/2019, patient seen eval examined during the rounds labs reviewed medicati ons reviewed, still short of breath cough and congestion slightly better, patient is going chemotherapy 09/19/2019, patient has removed to oncology and it patient has been diagnosed with small cell lung cancer biopsy was performed at [facility] hematology is considering initiation of chemotherapy patient is somewhat anxious family present at bedside, denies any chest pain Objective - Vital Signs Vital signs: Vital Signs Temp 98.2 F 09/26/19 12:12 Pulse 76 09/26/19 12:26 Resp 17 09/26/19 12:12 BP 113/68 09/26/19 12:12 Pulse Ox 100 09/26/19 12:12 Intake & Output 09/25/19 09/26/19 09/26/19 18:59 06:59 18:59 Intake Total 900 1500 900 Output Total 3950 1700 2900 Balance -0 200 -1999 Weight 73.5 kg Intake: Intake, IV Titration 900 900 900 Amount Piperacillin-Tazobactam 3 100 200 100 .375 gm In Sodium Chloride 0.9% 100 ml @ 25 mls/hr IVPB Q8HR TOM Rx# :[id number] Sodium Chloride 0.9% 1, 800 700 800 000 ml @ 100 mls/hr IV . Q10H TOM Rx#:[id number] Oral 600 Output: Urine 3950 1700 2900 Uretheral (Lynch) 1700 Other: Voiding Method Indwelling Catheter Indwelling Catheter Indwelling Catheter # Voids 2 # Bowel Movements 2 1 - Exam GENERAL: The patient is alert and oriented x3, not in any acute distress. Well developed, well nourished. HEENT: Pupils are round and equally reacting to light. EOMI. No scleral icterus. No conjunctival pallor. Normocephalic, atraumatic. No pharyngeal erythema. No thyromegaly. CARDIOVASCULAR: S1 and S2 present. No murmurs, rubs, or gallops. -PULMONARY: Chest is clear to auscultation, bilateral expiratory wheezing ABDOMEN: Soft, nontender, nondistended, normoactive bowel sounds. No palpable organomegaly. MUSCULOSKELETAL: No joint swelling or deformity. EXTREMITIES: No cyanosis, clubbing, or pedal edema. NEUROLOGICAL: Gross neurological examination did not reveal any focal deficits. SKIN: No rashes. No petechiae - Labs CBC & Chem 7: 09/26/19 07:04 09/26/19 07:04 Labs: Abnormal Lab Results - Last 24 Hours (Table) 09/25/19 09/25/19 09/26/19 Range/Units 17:05 20:01 07:04 RBC 3.24 L (4.30-5.90) m/uL Hgb 10.8 L (13.0-17.5) gm/dL Hct 32.0 L (39.0-53.0) % Plt Count 146 L (150-450) k/uL Lymphocytes # 0.8 L (1.0-4.8) k/uL Sodium (137-145) mmol/L Chloride (98-107) mmol/L Creatinine (0.66-1.25) mg/dL Glucose (74-99) mg/dL POC Glucose (mg/dL) 116 H 137 H (75-99) mg/dL Urine Blood (Negative) Urine RBC (0-5) /hpf Urine Bacteria (None) /hpf Urine Mucus (None) /hpf Urine Yeast (Budding) (None) /hpf 09/26/19 09/26/19 09/26/19 Range/Units 07:04 11:45 13:13 RBC (4.30-5.90) m/uL Hgb (13.0-17.5) gm/dL Hct (39.0-53.0) % Plt Count (150-450) k/uL Lymphocytes # (1.0-4.8) k/uL Sodium 132 L (137-145) mmol/L Chloride 97 L (98-107) mmol/L Creatinine 0.48 L (0.66-1.25) mg/dL Glucose 70 L (74-99) mg/dL POC Glucose (mg/dL) 111 H (75-99) mg/dL Urine Blood Trace H (Negative) Urine RBC 19 H (0-5) /hpf Urine Bacteria Rare H (None) /hpf Urine Mucus Rare H (None) /hpf Urine Yeast (Budding) Few H (None) /hpf Assessment and Plan Assessment: Bilateral pneumonia versus postobstructive changes Small cell lung cancer status post chemotherapy Hematochezia likely superficial his skin rupture in perirectal area no signs of overt bleeding is seen, Low hemoglobin Urinary retention Atrial fibrillation not well anticoagulated, Coumadin is being held for suspicion of GI bleed Moderate to severe COPD Advanced Parkinson's disease Chronic hypoxic respiratory failure Dyslipidemia Hypertension hypertensive cardiovascular disease Plan: Agree with monitoring hemoglobin closely our Coumadin can be resumed Monitor observe hemodynamics Will keep patient in hematology/oncology department for now but if hemodynamic compromises noted will transfer to ICU Continue Zosyn bronchodilators and steroids, Continue prednisone slowly taper it however patient will require a small dose maintenance for presumed adrenal insufficiency given bilateral metastases to the adrenal gland Patient has been on Coumadin Antibiotics can be changed to Augmentin at the time of discharge Chemotherapy plan as per oncology service Time with Patient: Greater than 30
[2019-09-26 17:03] LABS: Glucose,Whole Blood 125 mg/dL (75-99)
[2019-09-26] MEDS: TAMSULOSIN 0.4 MG CAP.ER.24H PO SCH (17:18)
[2019-09-26] MEDS ORDERED: WARFARIN 5 MG TAB PO ONE (18:00)
--- NOTE | 2019-09-26 18:16 | P.PN ---
Subjective Progress Note Date: 09/26/19 Principal diagnosis: small cell lung cancer In follow-up today patient has no specific complaints other than some anxiety, he is denying any side effects related to chemotherapy. He is weak and they are planning on sending him to rehabilitation to gain some strength before he goes home with his daughter. Objective - Vital Signs Vital signs: Vital Signs Temp 98.2 F 09/26/19 05:00 Pulse 72 09/26/19 08:34 Resp 17 09/26/19 07:40 BP 122/77 09/26/19 05:00 Pulse Ox 98 09/26/19 05:00 Intake & Output 09/25/19 09/26/19 09/26/19 18:59 06:59 18:59 Intake Total 900 1500 Output Total 3950 1700 1600 Balance -3050 -200 -1600 Weight 73.5 kg Intake: Intake, IV Titration 900 900 Amount Piperacillin-Tazobactam 3 100 200 .375 gm In Sodium Chloride 0.9% 100 ml @ 25 mls/hr IVPB Q8HR TOM Rx# :[id number] Sodium Chloride 0.9% 1, 800 700 000 ml @ 100 mls/hr IV . Q10H TOM Rx#:[id number] Oral 600 Output: Urine 3950 1700 1600 Uretheral (Lynch) 1700 Other: Voiding Method Indwelling Catheter Indwelling Catheter Indwelling Catheter # Voids 2 # Bowel Movements 2 1 - Constitutional General appearance: Present: cooperative, no acute distress, thin - EENT Eyes: Present: disc margins sharp, EOMI ENT: Present: hearing grossly normal, normal oropharynx - Respiratory Respiratory: bilateral: diminished - Cardiovascular Rhythm: regular Heart sounds: normal: S1, S2 - Peripheral edema foot Peripheral Edema: bilateral: 2+, Pitting - Gastrointestinal General gastrointestinal: Present: normal bowel sounds, soft - Neurologic Neurologic Comment(s): Slightly slurred speech, generalized upper extremity weakness - Musculoskeletal Musculoskeletal: Present: generalized weakness - Psychiatric Psychiatric: Present: A&O x's 3, appropriate affect, intact judgment & insight - Labs CBC & Chem 7: 09/26/19 07:04 09/26/19 07:04 Labs: Abnormal Lab Results - Last 24 Hours (Table) 09/25/19 09/25/19 09/26/19 Range/Units 17:05 20:01 07:04 RBC 3.24 L (4.30-5.90) m/uL Hgb 10.8 L (13.0-17.5) gm/dL Hct 32.0 L (39.0-53.0) % Plt Count 146 L (150-450) k/uL Lymphocytes # 0.8 L (1.0-4.8) k/uL Sodium (137-145) mmol/L Chloride (98-107) mmol/L Creatinine (0.66-1.25) mg/dL Glucose (74-99) mg/dL POC Glucose (mg/dL) 116 H 137 H (75-99) mg/dL 09/26/19 Range/Units 07:04 RBC (4.30-5.90) m/uL Hgb (13.0-17.5) gm/dL Hct (39.0-53.0) % Plt Count (150-450) k/uL Lymphocytes # (1.0-4.8) k/uL Sodium 132 L (137-145) mmol/L Chloride 97 L (98-107) mmol/L Creatinine 0.48 L (0.66-1.25) mg/dL Glucose 70 L (74-99) mg/dL POC Glucose (mg/dL) (75-99) mg/dL Assessment and Plan (1) Small cell lung cancer Narrative/Plan: Patient completed first cycle of carboplatin and etoposide for small cell lung cancer last week. He has done very well post treatment, no significant side effects, no hematological toxicities. Unfortunately, patient was weak on admission and prolonged hospitalization has contributed to this so, plan is for patient to participate in rehabilitation. No treatment will be given/resumed until patient has completed rehabilitation and been discharged home with his daughter. Patient and daughter understand completion of rehabilitation prior to next chemotherapy. Case was discussed with Electrical Project Manager. Current Visit: Yes Status: Acute Priority: High Code(s): C34.90 - MALIGNANT NEOPLASM OF UNSP PART OF UNSP BRONCHUS OR LUNG SNOMED Code(s): 719028509 (2) Postobstructive pneumonia Narrative/Plan: Due to above in part. S/P 1st cycle of chemo. Abx and steroids cont. Symptoms are better! Current Visit: Yes Status: Acute Priority: High Code(s): J18.9 - PNEUMONIA, UNSPECIFIED ORGANISM SNOMED Code(s): 225322064
--- NOTE | 2019-09-26 19:16 | P.PN ---
Subjective Progress Note Date: 09/26/19 Principal diagnosis: Pneumonia Mr. Guzman is a 68-year-old male with a past medical history of COPD, Parkinson's disease, atrial fibrillation, hypertension, hyperlipidemia who was transferred from [facility] for ongoing evaluation of dyspnea and cough. Patient also had a lung biopsy done at [facility] in [place] that was positive forsmall cell lung cancer. On 09/24/2019 - patient is lying in the bed comfortably with his family members at the bedside. Patient denies having any more blood in his stool. He was severely constipated and was having urinary retention yesterday. Urology was consulted and a Lynch's catheter has been placed and he is doing much better in terms of his lower abdominal discomfort. He also mentions that he had 3-4 bowel movements that were nonbloody since last night. As the patient was having hematochezia his Coumadin was kept on hold yesterday. patient's hemoglobin dropped from 12.0-10.2. But he is not complaining of active bleeding currently. Patient denies having any chest pain or palpitations. Difficulty in breathing is at baseline. He continues to have cough that is nonproductive in nature. Abdominal discomfort is much better. He has mild swelling of his lower extremities. On 09/25/2019 - patient is lying in the bed with his family members at bedside. As per the nursing staff report patient has been complaining of pain in the rectal area. He has some lesions around the rectal area that are painful. They put barrier cream and antifungal cream. Patient had a bowel movement this morning. No blood in his stool. He still continues to have mild difficulty in breathing. Patient's hemoglobin has been stable. He denies having any chest pain or palpitations. No abdominal pain nausea or vomiting. On 09/26/2019 -patient is sitting up at the bedside. He states that his breathing has improved. He still complains of pain around the rectal area. Patient had a bowel movement yesterday that was nonbloody. Patient denies having any chest pain or palpitations. No abdominal pain nausea, vomiting or diarrhea. No dysuria or hematuria. Patient has been afebrile for the past 24 h ours and on reviewing the labs hemoglobin is stable at 10.8. Active Medications Hydrocodone Bitart/Acetaminophen (Bailey 5-325) 1 each PO Q6HR PRN PRN Reason: Moderate Pain Last Admin: 09/25/19 17:22 Dose: 1 each Documented by: Albuterol/Ipratropium (Duoneb 0.5 Mg-3 Mg/3 Ml Soln) 3 ml INHALATION RT-QID [facility] Last Admin: 09/26/19 17:04 Dose: 3 ml Documented by: Albuterol/Ipratropium (Duoneb 0.5 Mg-3 Mg/3 Ml Soln) 3 ml INHALATION RT-QID PRN PRN Reason: Shortness Of Breath Or Wheezing Alprazolam (Xanax) 0.25 mg PO TID PRN PRN Reason: Anxiety Last Admin: 09/25/19 20:38 Dose: 0.25 mg Documented by: Artificial Tears (Artificial Tear Drops) 1 drops BOTH EYES QID [facility] Last Admin: 09/26/19 17:15 Dose: 1 drops Documented by: Aspirin (Aspirin) 81 mg PO DAILY [facility] Last Admin: 09/26/19 08:03 Dose: 81 mg Documented by: Budesonide (Pulmicort) 0.5 mg INHALATION RT-BID [facility] Last Admin: 09/26/19 08:23 Dose: 0.5 mg Documented by: Cholecalciferol (Vitamin D3 (25 Mcg = 1000 Iu)) 2,000 unit PO DAILY [facility] Last Admin: 09/26/19 08:03 Dose: 2,000 unit Documented by: Diclofenac Sodium (Voltaren Gel) 2 gm TOPICAL QID [facility] Last Admin: 09/26/19 17:16 Dose: 2 gm Documented by: Enoxaparin Sodium (Lovenox) 70 mg SQ BID [facility] Last Admin: 09/26/19 08:04 Dose: 70 mg Documented by: Gabapentin (Neurontin) 300 mg PO BID [facility] Last Admin: 09/26/19 08:03 Dose: 300 mg Documented by: Hydrocortisone Acetate (Anusol-Hc) 25 mg RECTAL DAILY [facility] Last Admin: 09/26/19 08:05 Dose: 25 mg Documented by: Sodium Chloride (Saline 0.9%) 1,000 mls @ 100 mls/hr IV .Q10H [facility] Last Admin: 09/26/19 17:18 Dose: 100 mls/hr Documented by: Piperacillin Sod/Tazobactam (Sod 3.375 gm/ Sodium Chloride) 100 mls @ 25 mls/hr IVPB Q8HR [facility] Last Admin: 09/26/19 17:14 Dose: 25 mls/hr Documented by: Insulin Aspart (Novolog) 0 unit SQ ACHS [facility]; Protocol Last Admin: 09/26/19 17:15 Dose: Not Given Documented by: Lactulose (Cephulac) 20 gm PO BID PRN PRN Reason: Constipation Loperamide HCl (Imodium) 4 mg PO Q6H PRN PRN Reason: Diarrhea Magnesium Oxide (Mag-Ox) 800 mg PO DAILY [facility] Last Admin: 09/26/19 07:58 Dose: 800 mg Documented by: Metoprolol Tartrate (Lopressor) 12.5 mg PO BID [facility] Last Admin: 09/26/19 07:56 Dose: 12.5 mg Documented by: Miscellaneous Information (Coumadin Per Pharmacy) 1 each MISCELLANE DIRECTED PRN PRN Reason: Per Protocol Miscellaneous Information (Rx Info: Iv Contrast Was Given) 1 each MISCELLANE DAILY PRN PRN Reason: Per Protocol Stop: 09/28/19 11:21 Pantoprazole Sodium (Protonix) 40 mg PO AC-BID [facility] Last Admin: 09/26/19 17:15 Dose: 40 mg Documented by: Polyethylene Glycol (Miralax) 17 gm PO BID [facility] Last Admin: 09/26/19 08:03 Dose: 17 gm Documented by: Potassium Chloride (K-Dur 10) 10 meq PO DAILY [facility] Last Admin: 09/26/19 07:58 Dose: 10 meq Documented by: Prednisone () 40 mg PO DAILY [facility] Last Admin: 09/26/19 08:03 Dose: 40 mg Documented by: Primidone (Mysoline) 50 mg PO BID [facility] Last Admin: 09/26/19 08:05 Dose: 50 mg Documented by: Sodium Bicarbonate () 5 ml PO 5XD [facility] Last Admin: 09/26/19 17:15 Dose: 5 ml Documented by: Tamsulosin HCl (Flomax) 0.4 mg PO PC-SUPPER [facility] Last Admin: 09/26/19 17:18 Dose: 0.4 mg Documented by: Terbinafine HCl (Lamisil) 250 mg PO DAILY [facility] Last Admin: 09/26/19 08:05 Dose: 250 mg Documented by: Valacyclovir HCl (Valtrex) 500 mg PO BID [facility] Last Admin: 09/26/19 08:05 Dose: 500 mg Documented by: Objective - Vital Signs Vital signs: Vital Signs Temp 98.2 F 09/26/19 12:12 Pulse 76 09/26/19 12:26 Resp 17 09/26/19 12:12 BP 113/68 09/26/19 12:12 Pulse Ox 100 09/26/19 12:12 Intake & Output 09/25/19 09/26/19 09/26/19 18:59 06:59 18:59 Intake Total 900 1500 Output Total 3950 1700 1600 Balance -3050 -200 -1600 Weight 73.5 kg Intake: Intake, IV Titration 900 900 Amount Piperacillin-Tazobactam 3 100 200 .375 gm In Sodium Chloride 0.9% 100 ml @ 25 mls/hr IVPB Q8HR [facility] Rx# :[id number] Sodium Chloride 0.9% 1, 800 700 000 ml @ 100 mls/hr IV . Q10H [facility] Rx#:[id number] Oral 600 Output: Urine 3950 1700 1600 Uretheral (Lynch) 1700 Other: Voiding Method Indwelling Catheter Indwelling Catheter Indwelling Catheter # Voids 2 # Bowel Movements 2 1 - Exam PHYSICAL EXAM GENERAL: The patient is alert and oriented x3, not in any acute distress. Chronically ill appearance HEENT: Pupils are round and equally reacting to light. EOMI. No scleral icterus. No pallor. CARDIOVASCULAR: S1 and S2 present. No murmurs, rubs, or gallops. PULMONARY: Chest is clear to auscultation, bilateral expiratory wheezing Rhonchi with prolonged expiration. ABDOMEN: Soft, nontender, nondistended, normoactive bowel sounds. MUSCULOSKELETAL: No joint swelling or deformity. EXTREMITIES: No cyanosis, clubbing, mild pedal edema. Examination of the rectal area - punched-out lesions in the perineal area around the rectum. Surrounding skin is erythematous. Barrier cream applied. NEUROLOGICAL: Gross neurological examination did not reveal any focal deficits. SKIN: skin is frail - Labs CBC & Chem 7: 09/26/19 07:04 09/26/19 07:04 Labs: Abnormal Lab Results - Last 24 Hours (Table) 09/25/19 09/25/19 09/26/19 Range/Units 17:05 20:01 07:04 RBC 3.24 L (4.30-5.90) m/uL Hgb 10.8 L (13.0-17.5) gm/dL Hct 32.0 L (39.0-53.0) % Plt Count 146 L (150-450) k/uL Lymphocytes # 0.8 L (1.0-4.8) k/uL Sodium (137-145) mmol/L Chloride (98-107) mmol/L Creatinine (0.66-1.25) mg/dL Glucose (74-99) mg/dL POC Glucose (mg/dL) 116 H 137 H (75-99) mg/dL Urine Blood (Negative) Urine RBC (0-5) /hpf Urine Bacteria (None) /hpf Urine Mucus (None) /hpf Urine Yeast (Budding) (None) /hpf 09/26/19 09/26/19 09/26/19 Range/Units 07:04 11:45 13:13 RBC (4.30-5.90) m/uL Hgb (13.0-17.5) gm/dL Hct (39.0-53.0) % Plt Count (150-450) k/uL Lymphocytes # (1.0-4.8) k/uL Sodium 132 L (137-145) mmol/L Chloride 97 L (98-107) mmol/L Creatinine 0.48 L (0.66-1.25) mg/dL Glucose 70 L (74-99) mg/dL POC Glucose (mg/dL) 111 H (75-99) mg/dL Urine Blood Trace H (Negative) Urine RBC 19 H (0-5) /hpf Urine Bacteria Rare H (None) /hpf Urine Mucus Rare H (None) /hpf Urine Yeast (Budding) Few H (None) /hpf Assessment and Plan Assessment: ASSESSMENT Hematochezia - probably due to hemorrhoids - no more active bleeding 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 HSV swab sent for evaluation pending. Continue with Zosyn IV steroids and breathing treatments. Patient has been started on Coumadin for anticoagulation. Oncology on board and closely following the patient. broom worker on board for possible subacute rehab placement. Overall prognosis is guarded. Further recommendations to follow depending on the progress of the patient. The treatment plan was discussed in detail with the patient's family members at bedside.
[2019-09-26 20:29] LABS: Glucose,Whole Blood 108 mg/dL (75-99)
[2019-09-26] MEDS: ALPRAZolam 0.25 MG TAB PO PRN (20:54)
[2019-09-26] MEDS: HYDROcodone/APAP 5-325MG 1 EACH TAB PO PRN (20:54)
--- NOTE | 2019-09-26 21:06 | P.CON ---
Consult Note - . Consult date: 09/26/19 Assessment/Plan:: This is a 68-year-old male with history of lung mass worked up at [facility] in [place] found to have small cell lung cancer. He presented to the hospital with difficulty breathing and has been treated for pneumonia. Oncology has followed the patient and he completed his first cycle of carboplatin and etoposide days 1-13, completed on September 21. The patient was cleared by oncology for discharge home. He has had other, complicated factors including urinary retention requiring Lynch catheter placement, rectal bleeding along with constipation and fecal stasis and seen by Dr. Somers. Patient is also been followed by pulmonary medicine for pneumonia. Patient was seen by the wound care team for nonhealing decubitus ulcer to the coccyx with wound care in the form of zinc barrier cream daily do a term and cushion for sitting. Patient presented with leukocytosis of 20.7 now down to 4.5, hemoglobin has been stable at 11.0. He has had a slight drop in his platelet count 146. Creatinine 0.48. INR 1.0 and patient is on chronic Coumadin for atrial fibrillation status post pacemaker. Patient is on Zosyn for possible gram-negative pneumonia with plan for Augmentin at the time of discharge. Blood culture shows no growth after 144 hours. Sputum cultures finalized with normal matteo Patient did present with signs of sepsis with leukocytosis and hypotension. Blood pressure is improved. Consult is regarding lesions around the rectal and gluteal cleft patient thinks this was first noticed early yesterday. He has been complaining of rectal pain. Nursing has applied barrier cream. Herpes simplex virus panel is in progress and patient is on oral Valtrex 500 mg twice daily. The patient states that he had chills this morning but no fever. He feels tired and states he cannot sleep in the hospital. He denies any nausea vomiting or diarrhea. He thinks that he is eating and drinking okay. He has had significant weight loss. Please see the consult note as dictated by nurse practitioner Mrs. Niki Gibbs. Pleasant 68-year-old male with history of the stage IV small cell lung carcinoma who was recently completed his course of carboplatin with etoposide who presents with increasing shortness of breath stays been complicated by urinary retention, rectal bleeding and constipation. The patient has developed a painful series of lesions on the buttocks. He has noted on the exam they're circumferential around the anus and a somewhat elliptical pattern. The tissue closest to the rectum is spared, no tissue cephalad and caudal to the rectum is also spared and there are no lesions on the scrotum penis area. There is the skin is evidence of some ecchymosis but no other lesions that are similar to this. Herpes PCR from the lesions has been sent to the laboratory is pending at this time. He is being treated with Valtrex for now but apparently there is not been any significant improvement with this treatment. Given that the lesions are on both buttocks, and are in a elliptical but mirror-image distribution would point more to a contact or toxic events. Skin lesions from etoposide are quite common. The topical mucous membrane formulation triamcinolone has been requested to be applied to the lesion to see if that does not allow some significant symptomatic improvement of these lesions. The patient is started aspirin improvement of his many medical issues that have occurred throughout this hospitalization and hopefully will be discharged home with the next few days. These plans are discussed the patient's daughter and granddaughter were present. I agree with evaluation, assessment and plan as dictated by nurse practitioner Mrs. Niki Gibbs.
[2019-09-26 21:16] VITALS: TEMP 98.1
[2019-09-27] MEDS: SALT AND SODA MOUTHWASH 1,000 ML PO SCH ×2 (05:17→11:40)
[2019-09-27 05:30] VITALS: BP 122/63; RESP 18
[2019-09-27 07:16] LABS: Glucose,Whole Blood 88 mg/dL (75-99)
[2019-09-27] MEDS: IPRATROPIUM-ALBUTEROL 3 ML NEB INHALATION SCH ×2 (08:01→11:52)
[2019-09-27] MEDS: BUDESONIDE 0.5 MG/2 ML NEBU INHALATION SCH (08:01)
[2019-09-27] MEDS ORDERED: TRIAMCINOLONE ACET 0.1% ORAL PASTE 5 GM TUBE MUCOUS MEM SCH (08:30)
[2019-09-27] MEDS: INSULIN ASPART (NovoLOG) 100 UNIT/ML VIAL SQ SCH ×2 (08:39→14:13)
[2019-09-27 08:44] LABS: Basophils % (A) 0 %; Eosinophils # (A) 0.1 k/uL (0-0.7); Eosinophils % (A) 4 %; HCT 33.7 % (39.0-53.0); HGB 11.1 gm/dL (13.0-17.5); Lymphocytes % (A) 27 %; MCH 32.2 pg (25.0-35.0); MCHC 33.1 g/dL (31.0-37.0); MCV 97.4 fL (80.0-100.0); Mean Platelet Volume 6.6; Monocytes # (A) 0.1 k/uL (0-1.0); Monocytes % (A) 2 %; Neutrophils # (A) 2.4 k/uL (1.3-7.7); Neutrophils % (A) 67 %; Platelet Count 141 k/uL (150-450); RBC 3.46 m/uL (4.30-5.90); RDW 12.7 % (11.5-15.5); WBC 3.6 k/uL (3.8-10.6)
[2019-09-27 08:45] LABS: Prothrombin Time 10.5 sec (9.0-12.0)
[2019-09-27] MEDS: ASPIRIN 81 MG PO SCH (08:53)
[2019-09-27] MEDS: PIPERACILLIN-TAZOBACTAM 3.375 GM in SODIUM CHLORIDE 0.9% 100 ML IVPB SCH (08:53)
[2019-09-27] MEDS: predniSONE 20 MG TAB PO SCH (08:54)
[2019-09-27] MEDS: GABAPENTIN 300 MG CAP PO SCH (08:54)
[2019-09-27] MEDS: CHOLECALCIFEROL 1,000 UNIT TAB PO SCH (08:54)
[2019-09-27] MEDS: METOPROLOL TARTRATE 12.5 MG TAB PO SCH (08:54)
[2019-09-27] MEDS: PANTOPRAZOLE 40 MG TABLET PO SCH (08:54)
[2019-09-27] MEDS: MAGNESIUM OXIDE 400 MG TAB PO SCH (08:54)
[2019-09-27] MEDS: POTASSIUM CHLORIDE ER 10 MEQ TAB.ER.PRT PO SCH (08:55)
[2019-09-27] MEDS: DICLOFENAC SODIUM GEL 100 GM TUBE TOPICAL SCH (08:55)
[2019-09-27] MEDS: ARTIFICIAL TEARS-HYPROMELLOSE DROPS 15 ML BTL BOTH EYES SCH (08:55)
[2019-09-27] MEDS: POLYETHYLENE GLYCOL 3350 17 GM POWD.PACK PO SCH (08:56)
[2019-09-27] MEDS: valACYclovir 500 MG TAB PO SCH (08:56)
[2019-09-27] MEDS: PRIMIDONE 50 MG TAB PO SCH (08:56)
[2019-09-27] MEDS: ENOXAPARIN 80 MG/0.8 ML SYRINGE SQ SCH (08:56)
[2019-09-27] MEDS: HYDROCORTISONE SUPPOSITORY 25 MG SUPP RECTAL SCH (08:56)
[2019-09-27] MEDS: TERBINAFINE 250 MG TAB PO SCH (08:57)
[2019-09-27 11:38] LABS: Glucose,Whole Blood 96 mg/dL (75-99)
[2019-09-27] MEDS: SODIUM CHLORIDE 0.9% 1,000 ML IV SCH (11:40)
[2019-09-27 12:02] VITALS: PULSE 82
--- NOTE | 2019-09-27 12:20 | XR ---
EXAMINATION TYPE: XR chest 1V DATE OF EXAM: 09/27/2019 COMPARISON: 09/22/2019 HISTORY: Congestion TECHNIQUE: Single frontal view of the chest is obtained. FINDINGS: Underlying COPD noted and there is cardiomegaly with diffuse osteopenia and arthropathy of the shoulders. Cardiac device and atherosclerotic change aorta. Right lower lobe infiltrate with sma ll effusion or pleural thickening. Mass in the right lower lobe not excluded. IMPRESSION: Right lower lobe infiltrate and small effusion superimposed on a background of COPD. Rig ht lower lobe mass suspected.
[2019-09-27 13:04] VITALS: BMI 22.7
--- NOTE | 2019-09-27 13:23 | P.DS ---
Providers Date of admission: 09/13/19 18:50 Attending physician: Jnue Barajas Consults: 09/13/19 20:34 Consult Physician Routine Consulting Provider: Glenn Silva Consult Reason/Comments: Pneumonia Do you want consulting provider notified?: Yes, Notify in am 09/15/19 21:01 Consult Physician Routine Consulting Provider: Duane Stark Consult Reason/Comments: lung mass Do you want consulting provider notified?: Yes 09/22/19 16:18 Consult Physician Routine Consulting Provider: Nate Tompkins Consult Reason/Comments: retention Do you want consulting provider notified?: Yes 09/25/19 13:48 Consult Physician Routine Consulting Provider: Honorio Liu Consult Reason/Comments: perineal lesions Do you want consulting provider notified?: Yes Primary care physician: Stated None Hospital Course: 68-year-old male with a past medical history of COPD, Parkinson's disease, atrial fibrillation, hypertension, hyperlipidemia who was transferred from [facility] for ongoing evaluation of dyspnea and cough. Patient also had a lung biopsy done at [facility] in [place] that was positive forsmall cell lung cancer. On 09/24/2019 - patient is lying in the bed comfortably with his family members at the bedside. Patient denies having any more blood in his stool. He was severely constipated and was having urinary retention yesterday. Urology was consulted and a Teresa's catheter has been placed and he is doing much better in terms of his lower abdominal discomfort. He also mentions that he had 3-4 bowel movements that were nonbloody since last night. As the patient was having hematochezia his Coumadin was kept on hold yesterday. patient's hemoglobin dropped from 12.0-10.2. But he is not complaining of active bleeding currently. Patient denies having any chest pain or palpitations. Difficulty in breathing is at baseline. He continues to have cough that is nonproductive in nature. Abdominal discomfort is much better. He has mild swelling of his lower extremities. On 09/25/2019 - patient is lying in the bed with his family members at bedside. As per the nursing staff report patient has been complaining of pain in the rectal area. He has some lesions around the rectal area that are painful. They put barrier cream and antifungal cream. Patient had a bowel movement this morning. No blood in his stool. He still continues to have mild difficulty in breathing. Patient's hemoglobin has been stable. He denies having any chest pain or palpitations. No abdominal pain nausea or vomiting. On 09/26/2019 -patient is sitting up at the bedside. He states that his breathing has improved. He still complains of pain around the rectal area. Patient had a bowel movement yesterday that was nonbloody. Patient denies having any chest pain or palpitations. No abdominal pain nausea, vomiting or diarrhea. No dysuria or hematuria. Patient has been afebrile for the past 24 hours and on reviewing the labs hemoglobin is stable at 10.8. 09/27/2019 Patient had hemorrhoids and hemorrhoidal bleed during the hospitalization which improved at this time patient is being resumed on Coumadin and bridging Lovenox. INR need to be checked in couple days and Fridays and Lovenox which were discontinued once INR is above 2. Patient is more appropriate for subacute rehabilitation although his VA insurance didn't approve for that because of which patient is being discharged home with home care. Patient does use oxygen at home. Patient still has infiltrate in the right lower lung huynh patient received an of days of antibiotics and infiltrate is expected to stay there for around 8-12 weeks. Infectious disease is following the patient antibiotics as per them. Patient is receiving valacyclovir which will be continued, for painful lesions in the buttock area. PHYSICAL EXAM GENERAL: The patient is alert and oriented x3, not in any acute distress. Chronically ill appearance HEENT: Pupils are round and equally reacting to light. EOMI. No scleral icterus. No pallor. CARDIOVASCULAR: S1 and S2 present. No murmurs, rubs, or gallops. PULMONARY: Chest is clear to auscultation, bilateral expiratory wheezing Rhonchi with prolonged expiration. ABDOMEN: Soft, nontender, nondistended, normoactive bowel sounds. MUSCULOSKELETAL: No joint swelling or deformity. EXTREMITIES: No cyanosis, clubbing, mild pedal edema. Examination of the rectal area - punched-out lesions in the perineal area around the rectum. Surrounding skin is erythematous. Barrier cream applied. NEUROLOGICAL: Gross neurological examination did not reveal any focal deficits. 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 Acute blood loss anemia- secondary to above Bilateral pneumonia versus postobstructive changes Small cell lung cancer Advanced Parkinson's disease Moderate to severe COPD Atrial fibrillation: Patient is being resumed on Coumadin and bridging Lovenox Chronic hypoxic respiratory failure Hypertension Hyperlipidemia Patient Condition at Discharge: Fair Plan - Discharge Summary New Discharge Prescriptions: New Bisacodyl [Dulcolax] 10 mg PO DAILY PRN #10 tablet.dr PRN Reason: Constipation Diclofenac Sodium Gel [Voltaren Gel] 2 gm TOPICAL QID 30 Days #1 tube predniSONE 10 mg PO DAILY #10 tab Hydrocortisone Suppository [Anusol-Hc] 25 mg RECTAL DAILY #20 supp Tamsulosin [Flomax] 0.4 mg PO PC-SUPPER #30 cap.er.24h Enoxaparin [Lovenox] 70 mg SQ BID #14 syringe Budesonide-Formot 160-4.5 Mcg [Symbicort 160-4.5 Mcg Inhaler] 2 puff INHALATION BID #1 inhaler valACYclovir [Valtrex] 500 mg PO BID #14 tab Continue Vits A,C,E/Lutein/Minerals [Ocuvite with Lutein Tablet] 1 tab PO BID Omeprazole 40 mg PO BID Magnesium Oxide [Mag-Ox] 800 mg PO DAILY Cholecalciferol [Vitamin D3 (25 Mcg = 1000 Iu)] 2,000 unit PO DAILY Terbinafine [LamISIL] 250 mg PO DAILY Loperamide HCl [Loperamide] 4 mg PO Q6H Gabapentin 300 mg PO BID Artificial Tears-Hypromellose [Artificial Tear Drops] 1 drop BOTH EYES QID Warfarin Sodium [Coumadin] 5 mg PO HS Budesonide/Formoterol Fumarate [Symbicort 80-4.5 Mcg Inhaler] 2 puff INHALATION RT-BID Albuterol Inhaler [Ventolin Hfa Inhaler] 2 puff INHALATION RT-QID Aspirin EC [Ecotrin Low Dose] 81 mg PO DAILY Metoprolol Tartrate [Lopressor] 12.5 mg PO BID Cetirizine HCl [Zyrtec] 10 mg PO DAILY Primidone [Mysoline] 50 mg PO BID Discontinued Potassium Chloride ER [K-Dur 10] 10 meq PO DAILY Furosemide [Lasix] 40 mg PO DAILY@1500 PRN PRN Reason: Edema Furosemide [Lasix] 40 mg PO DAILY amLODIPine [Norvasc] 10 mg PO DAILY Discharge Medication List Albuterol Inhaler [Ventolin Hfa Inhaler] 2 puff INHALATION RT-QID 09/13/19 [History] Artificial Tears-Hypromellose [Artificial Tear Drops] 1 drop BOTH EYES QID 09/13/19 [History] Aspirin EC [Ecotrin Low Dose] 81 mg PO DAILY 09/13/19 [History] Budesonide/Formoterol Fumarate [Symbicort 80-4.5 Mcg Inhaler] 2 puff INHALATION RT-BID 09/13/19 [History] Cetirizine HCl [Zyrtec] 10 mg PO DAILY 09/13/19 [History] Cholecalciferol [Vitamin D3 (25 Mcg = 1000 Iu)] 2,000 unit PO DAILY 09/13/19 [History] Gabapentin 300 mg PO BID 09/13/19 [History] Loperamide HCl [Loperamide] 4 mg PO Q6H 09/13/19 [History] Magnesium Oxide [Mag-Ox] 800 mg PO DAILY 09/13/19 [History] Metoprolol Tartrate [Lopressor] 12.5 mg PO BID 09/13/19 [History] Omeprazole 40 mg PO BID 09/13/19 [History] Primidone [Mysoline] 50 mg PO BID 09/13/19 [History] Terbinafine [LamISIL] 250 mg PO DAILY 09/13/19 [History] Vits A,C,E/Lutein/Minerals [Ocuvite with Lutein Tablet] 1 tab PO BID 09/13/19 [History] Warfarin Sodium [Coumadin] 5 mg PO HS 09/13/19 [History] Bisacodyl [Dulcolax] 10 mg PO DAILY PRN #10 tablet.dr 09/21/19 [Rx] Diclofenac Sodium Gel [Voltaren Gel] 2 gm TOPICAL QID 30 Days #1 tube 09/21/19 [Rx] Budesonide-Formot 160-4.5 Mcg [Symbicort 160-4.5 Mcg Inhaler] 2 puff INHALATION BID #1 inhaler 09/27/19 [Rx] Enoxaparin [Lovenox] 70 mg SQ BID #14 syringe 09/27/19 [Rx] Hydrocortisone Suppository [Anusol-Hc] 25 mg RECTAL DAILY #20 supp 09/27/19 [Rx] Tamsulosin [Flomax] 0.4 mg PO PC-SUPPER #30 cap.er.24h 09/27/19 [Rx] predniSONE 10 mg PO DAILY #10 tab 09/27/19 [Rx] valACYclovir [Valtrex] 500 mg PO BID #14 tab 09/27/19 [Rx] Follow up Appointment(s[facility] Nate Tompkins MD [STAFF PHYSICIAN] - 1 Week (The office will give you a call with the appointment date and time.) Glenn Silva MD [STAFF PHYSICIAN] - 10/06/19 10:15 am ( ) Estrella Hussein MD [STAFF PHYSICIAN] - 10/04/19 4:45 pm Ambulatory/Diagnostic Orders: Basic Metabolic Panel [LAB.AMB] Time Frame: 2 Days, Location: None Selected Prothrombin Time INR [LAB.AMB] Time Frame: 2 Days, Location: None Selected Patient Instructions/Handouts: Prednisone (By mouth), Amoxicillin/Clavulanate Potassium (By mouth), Diclofenac (On the skin), Bisacodyl (By mouth), How to Stop Smoking (DC), Pneumonia (DC) Activity/Diet/Wound Care/Special Instructions: Patient requires walker at discharge for dx: copd & unsteady gait Isidro at the [facility] - Status post chemotherapy instructions: [place] fluid intake Activity as tolerated Diet as tolerated Temperature monitoring monitoring 1-2 times a day and as needed. Patient is read to report back to the hospital for temperature greater than 100.5 Fahrenheit Antiemetic sent to [facility] in [place] on 09/21/19 Continue antibiotics until finished Continue with prednisone taper Follow Up with primary care provider upon discharge Follow-up with pulmonary in one week Follow-up with oncology Repeat labs in 2-3 days. discharge home with teresa will do trial in urology office in 1 week Discharge Disposition: HOME WITH HOME HEALTH SERVICES
--- NOTE | 2019-09-27 13:33 | P.PN ---
Subjective Progress Note Date: 09/27/19 Principal diagnosis: Bilateral aspiration pneumonia, lung mass, small cell lung cancer, atrial fibrillation, moderate COPD with acute exacerbation, advanced Parkinson's disease, acute on chronic hypoxic respiratory failure, hypertension hypertensive cardiovascular disease, dyslipidemia 09/27/2019, patient seen and evaluated examined during the rounds labs reviewed medications reviewed has been doing better respiratory status is improved now decreased cough congestion is present, WBC and platelet counts remained stable though on the lower side, hemoglobin is 11.1 patient is being discharged later on today would recommend follow-up in outpatient 09/26/2019, patient seen and evaluated examined during the rounds overall doing better had no bowel movement today some discomfort is present patient has been getting a stool softener hemoglobin remained stable patient probably considered for discharge later on today or tomorrow 09/25/2019, patient seen eval examined during the rounds labs reviewed medications reviewed care plan discussed with the patient as well that he has improved patient appears less distended and feels less distended as well respiratory status remains unchanged but still have intermittent shortness of breath and cough has finished his chemotherapy, labs reviewed white cell count remains normal with stable hemoglobin PT/INR is 12.9 and 1.3 can't resume Coumadin now 09/24/2019, patient seen eval reexamined during the rounds labs reviewed medications reviewed no more hematochezia or lower GI bleeding has been seen however hemoglobin drop down to 10, patient denies any down pain is stable shortness of breath has finished chemotherapy labs reviewed medications reviewed, INR is 1.7 hemoglobin is 10.2 down from 12 yesterday, sodium is 133 09/23/2019, patient seen eval examined during the rounds labs reviewed medications reviewed care plan discussed with the patient and staff at length patient is having some left lower quadrant discomfort and pain has multiple bowel movements associated with some streaks of blood and hematochezia, hemoglobin however remains stable at level of 12 patient is on Coumadin along with therapeutic PT/INR of 2.3, patient also have urinary retention requiring straight cath, computed tomography scan of the abdomen was performed revealed distended urinary bladder, atrophic left kidney, nonobstructive bowel gas pattern was seen with fecal stasis, 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, patient has finished course of chemotherapy now, patient is an enema to evacuate September 21 2019, patient seen eval reexamined during the rounds sitting upright on the bed breathing K more comfortably off of oxygen patient is due for a third dose of chemotherapy later on today 09/20/2019, patient seen eval examined during the rounds labs reviewed medications reviewed, still short of breath cough and congestion slightly better, patient is going chemotherapy 09/19/2019, patient has removed to oncology and it patient has been diagnosed with small cell lung cancer biopsy was performed at [facility] hematology is considering initiation of chemotherapy patient is somewhat anxious family present at bedside, denies any chest pain Objective - Vital Signs Vital signs: Vital Signs Temp 98.1 F 09/27/19 05:00 Pulse 82 09/27/19 12:01 Resp 18 09/27/19 07:30 BP 122/63 09/27/19 05:00 Pulse Ox 97 09/27/19 05:00 Intake & Output 09/26/19 09/27/19 09/27/19 18:59 06:59 18:59 Intake Total 900 2220 Output Total 2900 Balance -2000 2220 Weight 72 kg 72 kg Intake: Intake, IV Titration 900 1200 Amount Piperacillin-Tazobactam 3 100 200 .375 gm In Sodium Chloride 0.9% 100 ml @ 25 mls/hr IVPB Q8HR TOM Rx# :[id number] Sodium Chloride 0.9% 1, 800 1000 000 ml @ 100 mls/hr IV . Q10H TOM Rx#:[id number] Oral 1020 Output: Urine 2900 Other: Voiding Method Indwelling Catheter Indwelling Catheter Indwelling Catheter - Exam GENERAL: The patient is alert and oriented x3, not in any acute distress. Well developed, well nourished. HEENT: Pupils are round and equally reacting to light. EOMI. No scleral icterus. No conjunctival pallor. Normocephalic, atraumatic. No pharyngeal erythema. No thyromegaly. CARDIOVASCULAR: S1 and S2 present. No murmurs, rubs, or gallops. -PULMONARY: Chest is clear to auscultation, bilateral expiratory wheezing ABDOMEN: Soft, nontender, nondistended, normoactive bowel sounds. No palpable organomegaly. MUSCULOSKELETAL: No joint swelling or deformity. EXTREMITIES: No cyanosis, clubbing, or pedal edema. NEUROLOGICAL: Gross neurological examination did not reveal any focal deficits. SKIN: No rashes. No petechiae - Labs CBC & Chem 7: 09/27/19 08:06 09/26/19 07:04 Labs: Abnormal Lab Results - Last 24 Hours (Table) 09/25/19 09/26/19 09/26/19 Range/Units 12:50 13:13 17:01 WBC (3.8-10.6) k/uL RBC (4.30-5.90) m/uL Hgb (13.0-17.5) gm/dL Hct (39.0-53.0) % Plt Count (150-450) k/uL POC Glucose (mg/dL) 125 H (75-99) mg/dL Urine Blood Trace H (Negative) Urine RBC 19 H (0-5) /hpf Urine Bacteria Rare H (None) /hpf Urine Mucus Rare H (None) /hpf Urine Yeast (Budding) Few H (None) /hpf HSV I DNA PCR DETECTED H (Not detected) 09/26/19 09/27/19 Range/Units 20:28 08:06 WBC 3.6 L (3.8-10.6) k/uL RBC 3.46 L (4.30-5.90) m/uL Hgb 11.1 L (13.0-17.5) gm/dL Hct 33.7 L (39.0-53.0) % Plt Count 141 L (150-450) k/uL POC Glucose (mg/dL) 108 H (75-99) mg/dL Urine Blood (Negative) Urine RBC (0-5) /hpf Urine Bacteria (None) /hpf Urine Mucus (None) /hpf Urine Yeast (Budding) (None) /hpf HSV I DNA PCR (Not detected) Assessment and Plan Assessment: Bilateral pneumonia versus postobstructive changes Small cell lung cancer status post chemotherapy Hematochezia likely superficial his skin rupture in perirectal area no signs of overt bleeding is seen, Low hemoglobin Urinary retention Atrial fibrillation not well anticoagulated, Coumadin is being held for suspicion of GI bleed Moderate to severe COPD Advanced Parkinson's disease Chronic hypoxic respiratory failure Dyslipidemia Hypertension hypertensive cardiovascular disease Plan: Agree with monitoring hemoglobin closely, continue Coumadin Monitor observe hemodynamics Continue prednisone slowly taper it however patient will require a small dose maintenance for presumed adrenal insufficiency given bilateral metastases to the adrenal gland Antibiotics can be changed to Augmentin at the time of discharge Chemotherapy plan as per oncology service Time with Patient: Greater than 30
[2019-09-27] MEDS ORDERED: WARFARIN 7.5 MG TAB PO ONE (18:00)
--- NOTE | 2019-09-27 20:56 | P.PN ---
Subjective Progress Note Date: 09/27/19 This is a 68-year-old male with history of lung mass worked up at [facility] in [place] found to have small cell lung cancer. He presented to the hospital with difficulty breathing and has been treated for pneumonia. Oncology has followed the patient and he completed his first cycle of carboplatin and etoposide days 1-13, completed on September 21. The patient was cleared by oncology for discharge home. He has had other, complicated factors including urinary retention requiring Lynch catheter placement, rectal bleeding along with constipation and fecal stasis and seen by Dr. Tillman. Patient is also been followed by pulmonary medicine for pneumonia. Patient was seen by the wound c are team for nonhealing decubitus ulcer to the coccyx with wound care in the form of zinc barrier cream daily do a term and cushion for sitting. Patient presented with leukocytosis of 20.7 now down to 4.5, hemoglobin has been stable at 11.0. He has had a slight drop in his platelet count 146. Creatinine 0.48. INR 1.0 and patient is on chronic Coumadin for atrial fibrillation status post pacemaker. Patient is on Zosyn for possible gram-negative pneumonia with plan for Augmentin at the time of discharge. Blood culture shows no growth after 144 hours. Sputum cultures finalized with normal matteo Patient did present with signs of sepsis with leukocytosis and hypotension. Blood pressure is improved. Consult is regarding lesions around the rectal and gluteal cleft patient thinks this was first noticed early yesterday. He has been complaining of rectal pain. Nursing has applied barrier cream. Herpes simplex virus panel is in progress and patient is on oral Valtrex 500 mg twice daily. The patient states that he had chills this morning but no fever. He feels tired and states he cannot sleep in the hospital. He denies any nausea vomiting or diarrhea. He thinks that he is eating and drinking okay. He has had significant weight loss. 09/27/2019 the patient is now considerably better and is being readied for discharge to home. His pain is generally resolved is eating and drinking well. Objective - Vital Signs Vital signs: Vital Signs Temp 98.1 F 09/27/19 05:00 Pulse 82 09/27/19 12:01 Resp 18 09/27/19 07:30 BP 122/63 09/27/19 05:00 Pulse Ox 97 09/27/19 05:00 Intake & Output 09/27/19 09/27/19 09/28/19 06:59 18:59 06:59 Intake Total 2220 1950 Output Total 1300 Balance 2220 650 Weight 72 kg 72 kg Intake: Intake, IV Titration 1200 700 Amount Piperacillin-Tazobactam 3 200 100 .375 gm In Sodium Chloride 0.9% 100 ml @ 25 mls/hr IVPB Q8HR TOM Rx# :[id number] Sodium Chloride 0.9% 1, 1000 600 000 ml @ 100 mls/hr IV . Q10H TOM Rx#:[id number] Oral 1020 1250 Output: Urine 1300 Other: Voiding Method Indwelling Catheter Indwelling Catheter - Exam Gen: This is a 68-year-old male. He is sitting on the edge of the bed and appears to be in no acute distress. HEENT: Head is atraumatic, normocephalic. Pupils equal, round. Sclerae is anicteric. NECK: Supple. No JVD. No lymphadenopathy. No thyromegaly. LUNGS: Expiratory wheezing on the left with scattered rhonchi, prolonged expiration. No intercostal retractions. HEART: Regular rate and rhythm. No murmur. ABDOMEN: Soft. Bowel sounds are present. No masses. No tenderness. At the rectal area there is improvement to the circumferential lesions that are drying up today. Much less tender. EXTREMITIES: No pedal edema. No calf tenderness. NEUROLOGICAL: Patient is awake, alert and oriented x3 - Labs CBC & Chem 7: 09/27/19 08:06 09/26/19 07:04 Labs: Abnormal Lab Results - Last 24 Hours (Table) 09/25/19 09/27/19 Range/Units 12:50 08:06 WBC 3.6 L (3.8-10.6) k/uL RBC 3.46 L (4.30-5.90) m/uL Hgb 11.1 L (13.0-17.5) gm/dL Hct 33.7 L (39.0-53.0) % Plt Count 141 L (150-450) k/uL HSV I DNA PCR DETECTED H (Not detected) Laboratory Results WBC 3.6 k/uL (3.8-10.6) L 09/27/19 08:06 RBC 3.46 m/uL (4.30-5.90) L 09/27/19 08:06 Hgb 11.1 gm/dL (13.0-17.5) L 09/27/19 08:06 Hct 33.7 % (39.0-53.0) L 09/27/19 08:06 MCV 97.4 fL (80.0-100.0) 09/27/19 08:06 MCH 32.2 pg (25.0-35.0) 09/27/19 08:06 MCHC 33.1 g/dL (31.0-37.0) 09/27/19 08:06 RDW 12.7 % (11.5-15.5) 09/27/19 08:06 Plt Count 141 k/uL (150-450) L 09/27/19 08:06 Neutrophils % 67 % 09/27/19 08:06 Lymphocytes % 27 % 09/27/19 08:06 Monocytes % 2 % 09/27/19 08:06 Eosinophils % 4 % 09/27/19 08:06 Basophils % 0 % 09/27/19 08:06 Neutrophils # 2.4 k/uL (1.3-7.7) 09/27/19 08:06 Lymphocytes # 1.0 k/uL (1.0-4.8) 09/27/19 08:06 Monocytes # 0.1 k/uL (0-1.0) 09/27/19 08:06 Eosinophils # 0.1 k/uL (0-0.7) 09/27/19 08:06 Basophils # 0.0 k/uL (0-0.2) 09/27/19 08:06 PT 10.5 sec (9.0-12.0) 09/27/19 08:06 INR 1.0 (<1.2) 09/27/19 08:06 APTT 31.6 sec (22.0-30.0) H 09/14/19 07:45 Sodium 132 mmol/L (137-145) L 09/26/19 07:04 Potassium 4.4 mmol/L (3.5-5.1) 09/26/19 07:04 Chloride 97 mmol/L (98-107) L 09/26/19 07:04 Carbon Dioxide 28 mmol/L (22-30) 09/26/19 07:04 Anion Gap 7 mmol/L 09/26/19 07:04 BUN 16 mg/dL (9-20) 09/26/19 07:04 Creatinine 0.48 mg/dL (0.66-1.25) L 09/26/19 07:04 Est GFR (CKD-EPI)AfAm >90 (>60 ml/min/1.73 sqM) 09/26/19 07:04 Est GFR (CKD-EPI)NonAf >90 (>60 ml/min/1.73 sqM) 09/26/19 07:04 Glucose 70 mg/dL (74-99) L 09/26/19 07:04 POC Glucose (mg/dL) 96 mg/dL (75-99) 09/27/19 11:36 POC Glu [employer] ID Karen Arvizu 09/27/19 11:36 Calcium 8.5 mg/dL (8.4-10.2) 09/26/19 07:04 Total Bilirubin 0.6 mg/dL (0.2-1.3) 09/14/19 07:45 Conjugated Bilirubin 0.0 mg/dL (0.0-0.3) 09/14/19 07:45 Unconjugated Bilirubin 0.5 mg/dL (0.0-1.1) 09/14/19 07:45 Delta Bilirubin 0.1 mg/dL (0.0-0.2) 09/14/19 07:45 AST 17 U/L (17-59) 09/14/19 07:45 ALT 19 U/L (21-72) L 09/14/19 07:45 Alkaline Phosphatase 47 U/L (38-126) 09/14/19 07:45 Total Protein 5.9 g/dL (6.3-8.2) L 09/14/19 07:45 Albumin 3.2 g/dL (3.5-5.0) L 09/14/19 07:45 Urine Color Light Yellow 09/26/19 13:13 Urine Appearance Clear (Clear) 09/26/19 13:13 Urine pH 7.0 (5.0-8.0) 09/26/19 13:13 Ur Specific [place] 1.009 (1.001-1.035) 09/26/19 13:13 Urine Protein Negative (Negative) 09/26/19 13:13 Urine Glucose (UA) Negative (Negative) 09/26/19 13:13 Urine Ketones Negative (Negative) 09/26/19 13:13 Urine Blood Trace (Negative) H 09/26/19 13:13 Urine Nitrite Negative (Negative) 09/26/19 13:13 Urine Bilirubin Negative (Negative) 09/26/19 13:13 Urine Urobilinogen <2.0 mg/dL (<2.0) 09/26/19 13:13 Ur Leukocyte Esterase Negative (Negative) 09/26/19 13:13 Urine RBC 19 /hpf (0-5) H 09/26/19 13:13 Urine WBC 1 /hpf (0-5) 09/26/19 13:13 Urine Bacteria Rare /hpf (None) H 09/26/19 13:13 Urine Mucus Rare /hpf (None) H 09/26/19 13:13 Urine Yeast (Budding) Few /hpf (None) H 09/26/19 13:13 HSV I DNA PCR DETECTED (Not detected) H 09/25/19 12:50 HSV II DNA PCR Not detected (Not detected) 09/25/19 12:50 HSV (PCR) Source See Below 09/25/19 12:50 Assessment and Plan (1) Small cell lung cancer Status: Acute Priority: High Code(s): C34.90 - MALIGNANT NEOPLASM OF UNSP PART OF UNSP BRONCHUS OR LUNG SNOMED Code(s): 854301106 (2) Perirectal discomfort Narrative/Plan: 68-year-old male who has a history of the metastatic small cell lung carcinoma is now feeling considerably better. The. Rectal discomfort is most completely resolved after starting the triamcinolone paste. He is much more comfortable and looks forward to going home. 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 Fortunately he is showing marked improvement it continue a course of Valtrex at his discharge until it is further resolved. He can continue the topical steroid paste which helped with the severe pain. He will follow with oncology. Status: Acute Code(s): K62.89 - OTHER SPECIFIED DISEASES OF ANUS AND RECTUM SNOMED Code(s): 138461785
--- NOTE | 2019-09-28 13:51 | CDI ---
Documentation Clarification Form Date: 09/28/19 From: Elizabeth Canchola Phone: If you have a question about this query, please contact María Dempsey, Human Projectile at [phone] between 8am and 5pm. Admit Date: 09/13/19 Discharge Date: 09/27/19 Patient Name: Eloy Guzman Visit Number: [id number] ATTENTION: The Clinical Documentation Specialists (CDI) and [facility] Coding Staff appreciate your assistance in clarifying documentation. Please respond to the clarification below the line at the bottom and electronically sign. The CDI & [facility] Coding staff will review the response and follow-up if needed. Please note: Queries are made part of the Legal Health Record. If you have any questions, please contact the author of this message via ITS. Dear Dr. Herbie Barajas, The diagnosis sepsis was documented in 09/26 consult by Armando Gibbs for Dr Liu, Dr Liu consult on 09/26 and PN 09/[address] Liu , but is not noted in subsequent documentation. History/Risk Factors: RLL cancer, asp pneumonia, chr respiratory failure,mets to adrenals-bilateral, chronic A fib, Clinical Indicators: WBC 20.7, neutrophils 19.3, hypotensive-92.51 Treatment: IV fluids, IV Rocephin, IV Zosyn Please clarify if the sepsis was Present on admission/active/treated Sepsis Ruled out Other, please specify Clinically unable to determine I cannot speak for Dr. Liu my documentation as per the dictations. [facility]
== END 2019-09-27 14:15 | disposition home health service (06) | DRG 178 ==
LOC: 3SCARD 18:50 → 3NMEDONC 09-19 14:20
PROVIDERS: ADMIT Internal Medicine; ATTEND Internal Medicine
DX: J69.0 Pneumonitis due to inhalation of food and vomit (principal); C34.31 Malignant neoplasm of lower lobe, right bronchus or lung; J96.11 Chronic respiratory failure with hypoxia; C79.71 Secondary malignant neoplasm of right adrenal gland; C79.72 Secondary malignant neoplasm of left adrenal gland; I48.20 Chronic atrial fibrillation, unspecified; B00.89 Other herpesviral infection; D62 Acute posthemorrhagic anemia; E87.1 Hypo-osmolality and hyponatremia; Z66 Do not resuscitate; L89.151 Pressure ulcer of sacral region, stage 1; G20 Parkinson's disease; I95.9 Hypotension, unspecified; I11.9 Hypertensive heart disease without heart failure; J43.9 Emphysema, unspecified; E78.5 Hyperlipidemia, unspecified; K64.9 Unspecified hemorrhoids; N26.1 Atrophy of kidney (terminal); F41.0 Panic disorder [episodic paroxysmal anxiety]; R33.9 Retention of urine, unspecified; K59.03 Drug induced constipation; T40.605A Adverse effect of unspecified narcotics, initial encounter; F17.211 Nicotine dependence, cigarettes, in remission; Z71.6 Tobacco abuse counseling; Z99.81 Dependence on supplemental oxygen; Z79.82 Long term (current) use of aspirin; Z79.51 Long term (current) use of inhaled steroids; Z79.01 Long term (current) use of anticoagulants; Z79.899 Other long term (current) drug therapy; Z95.0 Presence of cardiac pacemaker; Z86.010 Personal history of colon polyps; Z88.1 Allergy status to other antibiotic agents; Z88.8 Allergy status to other drugs, medicaments and biological substances; Z82.49 Family history of ischemic heart disease and other diseases of the circulatory system; Z83.49 Family history of other endocrine, nutritional and metabolic diseases
CPT/HCPCS: 70460; 71045; 71046; 71250; 74018; 74177; 74230; 80048; 80076; 81001; 85025; 85610; 85730; 87040; 87070; 87205; 87529; 94640; 94760

== ENCOUNTER 2019-09-30 14:35 | Emergency (ER) | payer OTHER ==
[2019-09-30 14:47] VITALS: BP 98/57; PULSE 66; RESP 19; TEMP 97.6
--- NOTE | 2019-09-30 15:24 | ED ---
General Adult HPI - General Chief complaint: Urogenital Stated complaint: needs catheter removed Time Seen by Provider: 09/30/19 15:03 Source: patient, RN notes reviewed, old records reviewed Mode of arrival: ambulatory Limitations: no limitations - History of Present Illness Initial comments: 68-year-old male history of stage IV lung cancer presenting for catheter removal. Patient had a Lynch catheter placed on recent admission for urinary retention. This was after several rounds of chemotherapy. He was instructed to present to the emergency department for removal as he does not have a primary care physician in this area. Patient has no complaints. He also was instructed to obtain routine blood testing for monitoring of his INR and sodium at the time of discharge. - Related Data Home Medications Medication Instructions Recorded Confirmed Albuterol Inhaler [Ventolin Hfa 2 puff INHALATION RT-QID 09/13/19 09/13/19 Inhaler] Artificial Tears-Hypromellose 1 drop BOTH EYES QID 09/13/19 09/13/19 [Artificial Tear Drops] Aspirin EC [Ecotrin Low Dose] 81 mg PO DAILY 09/13/19 09/13/19 Budesonide/Formoterol Fumarate 2 puff INHALATION RT-BID 09/13/19 09/13/19 [Symbicort 80-4.5 Mcg Inhaler] Cetirizine HCl [Zyrtec] 10 mg PO DAILY 09/13/19 09/13/19 Cholecalciferol [Vitamin D3 (25 2,000 unit PO DAILY 09/13/19 09/13/19 Mcg = 1000 Iu)] Gabapentin 300 mg PO BID 09/13/19 09/13/19 Loperamide HCl [Loperamide] 4 mg PO Q6H 09/13/19 09/13/19 Magnesium Oxide [Mag-Ox] 800 mg PO DAILY 09/13/19 09/13/19 Metoprolol Tartrate [Lopressor] 12.5 mg PO BID 09/13/19 09/13/19 Omeprazole 40 mg PO BID 09/13/19 09/13/19 Primidone [Mysoline] 50 mg PO BID 09/13/19 09/13/19 Terbinafine [LamISIL] 250 mg PO DAILY 09/13/19 09/13/19 Vits A,C,E/Lutein/Minerals 1 tab PO BID 09/13/19 09/13/19 [Ocuvite with Lutein Tablet] Previous Rx's Medication Instructions Recorded Bisacodyl [Dulcolax] 10 mg PO DAILY PRN #10 tablet.dr 09/21/19 Diclofenac Sodium Gel [Voltaren 2 gm TOPICAL QID 30 Days #1 tube 09/21/19 Gel] Budesonide-Formot 160-4.5 Mcg 2 puff INHALATION BID #1 inhaler 09/27/19 [Symbicort 160-4.5 Mcg Inhaler] Hydrocortisone Suppository 25 mg RECTAL DAILY #20 supp 09/27/19 [Anusol-Hc] Tamsulosin [Flomax] 0.4 mg PO PC-SUPPER #30 cap.er.24h 09/27/19 Warfarin Sodium [Coumadin] 5 mg PO HS 30 Days #30 tab 09/27/19 predniSONE 10 mg PO DAILY #10 tab 09/27/19 valACYclovir [Valtrex] 500 mg PO BID #14 tab 09/27/19 Allergies Allergy/AdvReac Type Severity Reaction Status Date / Time cephradine AdvReac Cough Verified 09/13/19 19:24 lisinopril AdvReac Cough Verified 09/13/19 19:24 Review of Systems ROS Statement: Those systems with pertinent positive or pertinent negative responses have been documented in the HPI. ROS Other: All systems not noted in ROS Statement are negative. Past Medical History Past Medical History: Cancer, COPD Additional Past Medical History / Comment(s): pacer, emphesma, parkinsons History of Any Multi-Drug Resistant Organisms: None Reported Additional Past Surgical History / Comment(s): No surgeries Past Psychological History: No Psychological Hx Reported Smoking Status: Current every day smoker Past Alcohol Use History: None Reported Past Drug Use History: None Reported - Past Family History Mother Family Medical History: Coronary Artery Disease (CAD), Hypertension Father Family Medical History: Hyperlipidemia, Hypertension General Exam Limitations: no limitations General appearance: alert Head exam: Present: atraumatic, normocephalic Eye exam: Present: normal appearance, PERRL ENT exam: Present: normal exam Neck exam: Present: normal inspection. Absent: tenderness Respiratory exam: Present: normal lung sounds bilaterally. Absent: respiratory distress, wheezes Cardiovascular Exam: Present: regular rate, normal rhythm GI/Abdominal exam: Present: soft. Absent: distended exam: Present: normal inspection. Absent: urethral discharge Neurological exam: Present: alert Skin exam: Present: warm, dry, intact. Absent: cyanosis, diaphoretic Course Vital Signs 09/30/19 14:43 Temperature 97.6 F Pulse Rate 66 Respiratory 19 Rate Blood Pressure 98/57 O2 Sat by Pulse 95 Oximetry Medical Decision Making - Medical Decision Making 68-year-old male with urinary retention and request for outpatient labs. Patient and family do not want to wait for laboratory testing these will be obtained in the emergency department, they are pending and have not been reviewed. Urinary catheter is removed with the patient's request. They will return with any issues. They're very eager for discharge. Patient left prior to laboratory testing being completed. Disposition Clinical Impression: Urinary retention Disposition: HOME SELF-CARE Condition: Fair Instructions (If sedation given, give patient instructions): Urinary Retention in Men (ED) Is patient prescribed a controlled substance at d/c from ED?: No Referrals: None,Stated [Primary Care Provider] - 1-2 days Estrella Hussein MD [STAFF PHYSICIAN] - 1-2 days Time of Disposition: 15:59
[2019-09-30 16:01] LABS: INR 1.5 (<1.2); Prothrombin Time 14.9 sec (9.0-12.0)
[2019-09-30 16:13] LABS: African American GFR (CKD) >90 (>60 ml/min/1.73 sqM); Anion Gap 5 mmol/L; Blood Urea Nitrogen 19 mg/dL (9-20); Calcium 8.5 mg/dL (8.4-10.2); Carbon Dioxide 30 mmol/L (22-30); Chloride 95 mmol/L (98-107); Glucose 123 mg/dL (74-99); Non-African American GFR(CKD) >90 (>60 ml/min/1.73 sqM); Potassium 4.8 mmol/L (3.5-5.1); Sodium 130 mmol/L (137-145)
== END 2019-09-30 16:05 | disposition home or self-care (01) ==
LOC: EC 14:35
DX: R33.9 Retention of urine, unspecified (principal); J43.9 Emphysema, unspecified; G20 Parkinson's disease; F17.200 Nicotine dependence, unspecified, uncomplicated; Z88.1 Allergy status to other antibiotic agents; Z88.8 Allergy status to other drugs, medicaments and biological substances; Z79.51 Long term (current) use of inhaled steroids; Z79.82 Long term (current) use of aspirin; Z79.899 Other long term (current) drug therapy; Z85.118 Personal history of other malignant neoplasm of bronchus and lung; Z92.21 Personal history of antineoplastic chemotherapy
CPT/HCPCS: 36415; 80048; 85610; 99284

== ENCOUNTER 2019-10-03 08:50 | Inpatient (IN) | payer OTHER ==
[2019-10-03] MEDS ORDERED: LACTULOSE 20 GM/30 ML CUP PO PRN (18:13)
[2019-10-03] MEDS ORDERED: POLYETHYLENE GLYCOL 3350 17 GM POWD.PACK PO PRN (18:13)
--- NOTE | 2019-10-03 18:24 | P.HPIM ---
History of Present Illness 68-year-old pleasant gentleman now with known history of metastatic lung cancer was recently discharged from the hospital. MS did not approve for rehabilitation because of which we'll have to discharge the patient with home care patient has not been doing well was complaining of severe abdominal pain since his discharge patient that is significant metastatic disease. Patient had a CAT scan of the abdomen which did not show any significant abnormality patient was also complaining of shortness of breath and presented to [facility] and was wheezing at that time patient was given steroid and inhalational treatments with which his shortness of breath improved patient does use 2 L of oxygen at home. Patient presently denied any fever chills. Patient has been delirious and confused and does have sundowners which all of which are believed to be secondary to pain and patient has not been sleeping well because of the pain patient takes only [place] for pain. His main concern is an main reason for coming to the hospital his pain significantly in the left lower quadrant of the abdomen including pain in the buttock area where he had hemorrhoids. Chest CAT scan did not show any pulmonary embolism or pneumonia. had bilateral pedal edema all the CAT scan was did not show any evidence of pulmonary edema will obtain a Doppler of bilateral lower extremity patient received a dose of Lasix we'll Allsop an echocardiogram patient apparently had elevated BNP at the other places that is [facility]. Patient CAT scan of the chest did show decrease in mediastinal lymphadenopathy Review of Systems REVIEW OF SYSTEMS: CONSTITUTIONAL: No fever, no malaise, no fatigue. HEENT: No recent visual problems or hearing problems. Denied any sore throat. CARDIOVASCULAR: No chest pain, orthopnea, PND, no palpitations, no syncope. PULMONARY: no cough, no hemoptysis. GASTROINTESTINAL: No diarrhea, no nausea, no vomiting. NEUROLOGICAL: No headaches, no weakness, no numbness. HEMATOLOGICAL: Denies any bleeding or petechiae. GENITOURINARY: Denies any burning micturition, frequency, or urgency. MUSCULOSKELETAL/RHEUMATOLOGICAL: Denies any joint pain, swelling, or any muscle pain. ENDOCRINE: Denies any polyuria or polydipsia. The rest of the 14-point review of systems is negative. 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 - last chemo was Sep 19, 0f 2018,lesions seen on CT scan on adrenal gland and kidneys, pacer, emphesyma,Parkinsons,chronic diarrhea History of Any Multi-Drug Resistant Organisms: None Reported Past Surgical History: Hernia Repair, Pacemaker Additional Past Surgical History / Comment(s): Lung biopsy, pacer Past Anesthesia/Blood Transfusion Reactions: No Reported Reaction Type of Cardiac Device: Permanent Pacemaker Device Placement Date:: 2016 Past Psychological History: No Psychological Hx Reported Smoking Status: Current every day smoker Past Alcohol Use History: None Reported Past Drug Use History: None Reported - Past Family History Mother Family Medical History: Coronary Artery Disease (CAD), Hypertension Father Family Medical History: Hyperlipidemia, Hypertension Medications and Allergies Home Medications Medication Instructions Recorded Confirmed Type Albuterol Inhaler [Ventolin Hfa 2 puff INHALATION RT-QID 09/13/19 09/13/19 History Inhaler] Artificial Tears-Hypromellose 1 drop BOTH EYES QID 09/13/19 09/13/19 History [Artificial Tear Drops] Aspirin EC [Ecotrin Low Dose] 81 mg PO DAILY 09/13/19 09/13/19 History Budesonide/Formoterol Fumarate 2 puff INHALATION RT-BID 09/13/19 09/13/19 History [Symbicort 80-4.5 Mcg Inhaler] Cetirizine HCl [Zyrtec] 10 mg PO DAILY 09/13/19 09/13/19 History Cholecalciferol [Vitamin D3 (25 2,000 unit PO DAILY 09/13/19 09/13/19 History Mcg = 1000 Iu)] Gabapentin 300 mg PO BID 09/13/19 09/13/19 History Loperamide HCl [Loperamide] 4 mg PO Q6H 09/13/19 09/13/19 History Magnesium Oxide [Mag-Ox] 800 mg PO DAILY 09/13/19 09/13/19 History Metoprolol Tartrate [Lopressor] 12.5 mg PO BID 09/13/19 09/13/19 History Omeprazole 40 mg PO BID 09/13/19 09/13/19 History Primidone [Mysoline] 50 mg PO BID 09/13/19 09/13/19 History Terbinafine [LamISIL] 250 mg PO DAILY 09/13/19 09/13/19 History Vits A,C,E/Lutein/Minerals 1 tab PO BID 09/13/19 09/13/19 History [Ocuvite with Lutein Tablet] Bisacodyl [Dulcolax] 10 mg PO DAILY PRN #10 tablet. 09/21/19 Rx Diclofenac Sodium Gel [Voltaren 2 gm TOPICAL QID 30 Days #1 tube 09/21/19 Rx Gel] Budesonide-Formot 160-4.5 Mcg 2 puff INHALATION BID #1 inhaler 09/27/19 Rx [Symbicort 160-4.5 Mcg Inhaler] Hydrocortisone Suppository 25 mg RECTAL DAILY #20 supp 09/27/19 Rx [Anusol-Hc] Tamsulosin [Flomax] 0.4 mg PO PC-SUPPER #30 cap.er.24h 09/27/19 Rx Warfarin Sodium [Coumadin] 5 mg PO HS 30 Days #30 tab 09/27/19 Rx predniSONE 10 mg PO DAILY #10 tab 09/27/19 Rx valACYclovir [Valtrex] 500 mg PO BID #14 tab 09/27/19 Rx Allergies Allergy/AdvReac Type Severity Reaction Status Date / Time cephradine AdvReac Cough Verified 09/13/19 19:24 lisinopril AdvReac Cough Verified 09/13/19 19:24 Physical Exam Vitals: Vital Signs Temp Pulse Resp BP Pulse Ox 10/03/19 17:09 98.3 F 70 17 124/67 97 Intake and Output 10/03/19 10/03/19 10/03/19 06:59 14:59 22:59 Output Total 350 Balance -350 Output: Urine 350 Other: Weight 67 kg PHYSICAL EXAMINATION: GENERAL: The patient is alert and oriented x3, not in any acute distress. Well developed, well nourished. Patient appears to be tired and fatigued HEENT: Pupils are round and equally reacting to light. EOMI. No scleral icterus. No conjunctival pallor. Normocephalic, atraumatic. No pharyngeal erythema. No thyromegaly. CARDIOVASCULAR: S1 and S2 present. No murmurs, rubs, or gallops. PULMONARY: Chest is clear to auscultation, no wheezing or crackles. ABDOMEN: Soft, nontender, nondistended, normoactive bowel sounds. No palpable organomegaly. MUSCULOSKELETAL: No joint swelling or deformity. EXTREMITIES: No cyanosis, clubbing, or pedal edema. NEUROLOGICAL: Gross neurological examination did not reveal any focal deficits. SKIN: No rashes. Thrombosis Risk Factor Assmnt - Choose All That Apply Any of the Below Risk Factors Present?: Yes Each Factor Represents 1 point: Abnormal pulmonary function (COPD), Swollen legs (current) Other Risk Factors: Yes Each Risk Factor Represents 2 Points: Age 61-74 years, Malignancy Other congenital or acquired thrombophilia - If yes, enter type in comment: No Thrombosis Risk Factor Assessment Total Risk Factor Score: 6 Thrombosis Risk Factor Assessment Level: High Risk Assessment and Plan Plan: -Abdominal pain: Appears to be secondary to metastatic disease no other significant abnormality was evidenced on the abdominal CAT scan. Patient will be started on low-dose of fentanyl patch along with tramadol for breakthrough pain and morphine for breakthrough pain and patient will be started on GI prophylaxis patient's delirium is probably secondary to pain but all these opiates can cause delirium closely monitor for delirium and treat accordingly as needed. Will use Haldol if needed for delirium of Seroquel at nighttime for delirium Encephalopathy, delirium: Probably secondary to pain, patient pain will be treated and if patient has toxic encephalopathy from pain medications will have to change her pain medication or treat him symptomatically with Seroquel. 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
[2019-10-03] MEDS: traMADol 50 MG TAB PO PRN (18:40)
[2019-10-03] MEDS: TAMSULOSIN 0.4 MG CAP.ER.24H PO SCH (18:40)
[2019-10-03] MEDS: MORPHINE SULFATE 4 MG/ML SYRINGE IVP PRN (19:02)
[2019-10-03 20:17] LABS: INR 2.1 (<1.2); Prothrombin Time 20.8 sec (9.0-12.0)
[2019-10-03 20:20] LABS: HCT 23.4 % (39.0-53.0); MCH 33.4 pg (25.0-35.0); MCHC 35.1 g/dL (31.0-37.0); MCV 95.3 fL (80.0-100.0); Mean Platelet Volume 8.1; RBC 2.45 m/uL (4.30-5.90)
[2019-10-03 20:21] LABS: HGB 8.2 gm/dL (13.0-17.5)
[2019-10-03 20:24] LABS: WBC 0.7 k/uL (3.8-10.6)
[2019-10-03 20:35] LABS: Platelet Count 99 k/uL (150-450)
[2019-10-03] MEDS ORDERED: WARFARIN 5 MG TAB PO SCH (21:00)
[2019-10-03] MEDS: GABAPENTIN 300 MG CAP PO SCH (21:02)
[2019-10-03] MEDS: PRIMIDONE 50 MG TAB PO SCH (21:02)
[2019-10-03] MEDS: valACYclovir 500 MG TAB PO SCH (21:02)
[2019-10-03] MEDS: PANTOPRAZOLE 40 MG TABLET PO SCH (21:02)
[2019-10-03] MEDS: ARTIFICIAL TEARS-HYPROMELLOSE DROPS 15 ML BTL BOTH EYES SCH (21:02)
[2019-10-03] MEDS: METOPROLOL TARTRATE 12.5 MG TAB PO SCH (21:04)
[2019-10-03] MEDS: SYMBICORT 160-4.5 MCG INHALER INHALATION SCH (22:11)
[2019-10-03] MEDS: ALBUTEROL NEBULIZED 2.5 MG/3 ML INHALATION SCH (22:11)
[2019-10-04] MEDS: MORPHINE SULFATE 4 MG/ML SYRINGE IVP PRN ×3 (02:00→14:15)
[2019-10-04] MEDS: GABAPENTIN 300 MG CAP PO SCH ×2 (07:58→22:22)
[2019-10-04] MEDS: METOPROLOL TARTRATE 12.5 MG TAB PO SCH ×2 (07:58→22:22)
[2019-10-04] MEDS: ARTIFICIAL TEARS-HYPROMELLOSE DROPS 15 ML BTL BOTH EYES SCH ×4 (07:58→22:23)
[2019-10-04] MEDS: ASPIRIN 81 MG PO SCH (07:58)
[2019-10-04] MEDS: MAGNESIUM OXIDE 400 MG TAB PO SCH (07:58)
[2019-10-04] MEDS: PANTOPRAZOLE 40 MG TABLET PO SCH ×2 (07:59→22:22)
[2019-10-04] MEDS: HYDROCORTISONE SUPPOSITORY 25 MG SUPP RECTAL SCH (08:00)
[2019-10-04] MEDS: PRIMIDONE 50 MG TAB PO SCH ×2 (08:00→22:22)
[2019-10-04] MEDS: valACYclovir 500 MG TAB PO SCH ×2 (08:00→22:22)
[2019-10-04] MEDS: TERBINAFINE 250 MG TAB PO SCH (08:00)
[2019-10-04] MEDS: SYMBICORT 160-4.5 MCG INHALER INHALATION SCH ×2 (09:08→22:17)
[2019-10-04] MEDS: ALBUTEROL NEBULIZED 2.5 MG/3 ML INHALATION SCH ×4 (09:08→22:17)
[2019-10-04 09:12] LABS: African American GFR (CKD) >90 (>60 ml/min/1.73 sqM); Anion Gap 5 mmol/L; Blood Urea Nitrogen 10 mg/dL (9-20); Calcium 8.8 mg/dL (8.4-10.2); Carbon Dioxide 40 mmol/L (22-30); Chloride 93 mmol/L (98-107); Glucose 92 mg/dL (74-99); INR 1.9 (<1.2); Magnesium 1.9 mg/dL (1.6-2.3); Non-African American GFR(CKD) >90 (>60 ml/min/1.73 sqM); Potassium 3.9 mmol/L (3.5-5.1); Prothrombin Time 18.8 sec (9.0-12.0); Sodium 138 mmol/L (137-145)
--- NOTE | 2019-10-04 10:01 | ECHOF ---
Referral Reason:r/o chf MEASUREMENTS -------- HEIGHT: 177.8 cm WEIGHT: 68.9 kg BP: 135/75 RVIDd: 3.2 cm (< 3.3) IVSd: 1.1 cm (0.6 - 1.1) LVIDd: 4.7 cm (3.9 - 5.3) LVPWd: 1.2 cm (0.6 - 1.1) IVSs: 1.8 cm LVIDs: 2.9 cm LVPWs: 1.7 cm LA Diam: 4.2 cm (2.7 - 3.8) LAESV Index (A-L): 30.18 ml/m Ao Diam: 3.0 cm (2.0 - 3.7) AV Cusp: 1.4 cm (1.5 - 2.6) MV EXCURSION: 19.197 mm (> 18.000) MV EF SLOPE: 78 mm/s (70 - 150) EPSS: 0.7 cm AR PHT: 630 ms RAP: 5.00 mmHg RVSP: 28.12 mmHg FINDINGS -------- Sinus rhythm. This was a technically good study. The left ventricular size is normal. There is borderline concentric left ventricular hypertrophy. Overall left ventricular systolic function is low-normal with, an EF between 50 - 55 %. Apical inf erior LV wall motion is hypokinetic. Apical septum LV wall motion is hypokinetic. The right ventricle is normal in size. LA is midly dilated 29-33ml/m2. The right atrium is normal in size. Interatrial and interventricular septum intact. There is mild aortic valve sclerosis. There is indw-lt-[id number] aortic regurgitation. Mild mitral annular calcification present. Mild mitral regurgitation is present. Mild tricuspid regurgitation present. Right ventricular systolic pressure is normal at < 35 mmHg. Trace/mild (physiologic) pulmonic regurgitation. The aortic root size is normal. Normal inferior vena cava with normal inspiratory collapse consistent with estimated right atrial pre ssure of 5 mmHg. The inferior vena cava is mildly dilated. There is no pericardial effusion. CONCLUSIONS -------- 1. Sinus rhythm. 2. This was a technically good study. 3. The left ventricular size is normal. 4. There is borderline concentric left ventricular hypertrophy. 5. Overall left ventricular systolic function is low-normal with, an EF between 50 - 55 %. 6. Apical inferior LV wall motion is hypokinetic. 7. Apical septum LV wall motion is hypokinetic. 8. The right ventricle is normal in size. 9. LA is midly dilated 29-33ml/m2. 10. The right atrium is normal in size. 11. Interatrial and interventricular septum intact. 12. There is mild aortic valve sclerosis. 13. There is hqol-hg-frdfqabz aortic regurgitation. 14. Mild mitral annular calcification present. 15. Mild mitral regurgitation is present. 16. Mild tricuspid regurgitation present. 17. Right ventricular systolic pressure is normal at < 35 mmHg. 18. Trace/mild (physiologic) pulmonic regurgitation. 19. The aortic root size is normal. 20. Normal inferior vena cava with normal inspiratory collapse consistent with estimated right atrial pressure of 5 mmHg. 21. The inferior vena cava is mildly dilated. 22. There is no pericardial effusion. MENTAL HEALTH PROGRAM SPECIALIST: Shannan Lamar RDCS
--- NOTE | 2019-10-04 10:13 | US ---
EXAMINATION TYPE: US venous doppler duplex LE DATE OF EXAM: 10/04/2019 9:53 AM COMPARISON: NONE CLINICAL HISTORY: r/o DVT. swollen legs, no h/o dvt SIDE PERFORMED: Bilateral TECHNIQUE: The lower extremity deep venous system is examined utilizing real time linear array sonog isaías with graded compression, doppler sonography and color-flow sonography. VESSELS IMAGED: External Iliac Vein (EIV) Common Femoral Vein Deep Femoral Vein Greater Saphenous Vein * Femoral Vein Popliteal Vein Small Saphenous Vein * Proximal Calf Veins (* superficial vessels) There is normal flow, compressibility, vascular waveforms. Right Leg: Appears negative for DVT Left Leg: Appears negative for DVT IMPRESSION: No evident deep venous thrombosis at or above the knees, follow-up as indicated.
--- NOTE | 2019-10-04 10:59 | P.PN ---
Subjective Progress Note Date: 10/04/19 Principal diagnosis: 68-year-old pleasant gentleman now with known history of metastatic lung cancer was recently discharged from the hospital. MA did not approve for rehabilitati on because of which we'll have to discharge the patient with home care patient has not been doing well was complaining of severe abdominal pain since his discharge patient that is significant metastatic disease. Patient had a CAT scan of the abdomen which did not show any significant abnormality patient was also complaining of shortness of breath and presented to [facility] and was wheezing at that time patient was given steroid and inhalational treatments with which his shortness of breath improved patient does use 2 L of oxygen at home. Patient presently denied any fever chills. Patient has been delirious and confused and does have sundowners which all of which are believed to be se condary to pain and patient has not been sleeping well because of the pain patient takes only Ord for pain. His main concern is an main reason for coming to the hospital his pain significantly in the left lower quadrant of the abdomen including pain in the buttock area where he had hemorrhoids. Chest CAT scan did not show any pulmonary embolism or pneumonia. Patient had bilateral pedal edema all the CAT scan was did not show any evidence of pulmonary edema will obtain a Doppler of bilateral lower extremity patient received a dose of Lasix we'll also obtain an echocardiogram. patient apparently had elevated BNP at the other places that is [facility]. Patient CAT scan of the chest did show decrease in mediastinal lymphadenopathy. 10/04/2019 Patient is sitting up in the chair in no acute distress no acute overnight issues. Patient continues to have severe pain of his buttocks and is currently still requesting IV pain medications. Fentanyl Patch was started and will likely need to be increased. Patient's venous Doppler for bilateral lower extremities are negative for DVTs. Echo done this morning shows overall LV systolic function low to normal with an EF of 50-55%. Patient states that he is eating and tolerating diet and had a large bowel movement this morning. Will continue with bowel regimen. Review of Systems: Cardiovascular: No reports of chest pain or palpitations Respiratory: Reports of shortness of breath or cough GI: No reports of nausea, vomiting, or diarrhea : No reports of dysuria or retention Objective - Vital Signs Vital signs: Vital Signs Temp 97.9 F 10/04/19 04:12 Pulse 88 10/04/19 09:25 Resp 25 H 10/04/19 04:12 BP 135/75 10/04/19 04:12 Pulse Ox 92 L 10/04/19 09:25 Intake & Output 10/03/19 10/04/19 10/04/19 18:59 06:59 18:59 Output Total 350 Balance -350 Weight 67 kg 69 kg Output: Urine 350 Other: Voiding Method Toilet Urinal # Voids 2 - Exam GENERAL: The patient is alert and oriented x3, not in any acute distress. Well developed, well nourished. Patient appears to be tired and fatigued HEENT: Pupils are round and equally reacting to light. EOMI. No scleral icterus. No conjunctival pallor. Normocephalic, atraumatic. No pharyngeal erythema. No thyromegaly. CARDIOVASCULAR: S1 and S2 present. No murmurs, rubs, or gallops. PULMONARY: Chest is clear to auscultation, no wheezing or crackles. ABDOMEN: Soft, nontender, nondistended, normoactive bowel sounds. No palpable organomegaly. MUSCULOSKELETAL: No joint swelling or deformity. EXTREMITIES: No cyanosis, clubbing, or pedal edema. NEUROLOGICAL: Gross neurological examination did not reveal any focal deficits. SKIN: No rashes. - Labs CBC & Chem 7: 10/03/19 19:15 10/04/19 07:57 Labs: Abnormal Lab Results - Last 24 Hours (Table) 10/03/19 10/03/19 10/04/19 Range/Units 19:15 19:15 07:57 WBC 0.7 L* (3.8-10.6) k/uL RBC 2.45 L (4.30-5.90) m/uL Hgb 8.2 L D (13.0-17.5) gm/dL Hct 23.4 L (39.0-53.0) % Plt Count 99 L (150-450) k/uL PT 20.8 H (9.0-12.0) sec INR 2.1 H (<1.2) Chloride 93 L (98-107) mmol/L Carbon Dioxide 40 H (22-30) mmol/L Creatinine 0.53 L (0.66-1.25) mg/dL 10/04/19 Range/Units 07:57 WBC (3.8-10.6) k/uL RBC (4.30-5.90) m/uL Hgb (13.0-17.5) gm/dL Hct (39.0-53.0) % Plt Count (150-450) k/uL PT 18.8 H (9.0-12.0) sec INR 1.9 H (<1.2) Chloride (98-107) mmol/L Carbon Dioxide (22-30) mmol/L Creatinine (0.66-1.25) mg/dL Assessment and Plan Assessment: -Abdominal pain: Appears to be secondary to metastatic disease no other signif icant abnormality was evidenced on the abdominal CAT scan. Patient will be started on low-dose of fentanyl patch along with tramadol for breakthrough pain and morphine for breakthrough pain and patient will be started on GI prophylaxis -patient's delirium is probably secondary to pain but all these opiates can cause delirium closely monitor for delirium and treat accordingly as needed. Will use Haldol if needed for delirium of Seroquel at nighttime for delirium -Encephalopathy, delirium: Probably secondary to pain, patient pain will be treated and if patient has toxic encephalopathy from pain medications will have to change his pain medication or treat him symptomatically with Seroquel. 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 INR today is 1.9 -Bilateral pedal edema we'll rule out any CHF after an echocardiogram after a BMP patient doesn't have any significant JVD and also to rule out DVT Plan: Patient underwent a venous Doppler showing no evidence of DVTs and bilateral lower extremities. Echo showed overall left ventricular systolic function is low to normal with an EF between 50 and 55%, mild aortic valve sclerosis, mild to moderate aortic regurgitation, mild mitral and tricuspid regurgitation presen t. Oncology is consulted and pending at this time. Case management and social work will be consulted for possible rehab upon discharge. Per patient's request, will discuss this with his daughter Krystina who is caring for him. Further recommendations to follow.
[2019-10-04 12:10] LABS: HCT 30.2 % (39.0-53.0); HGB 10.3 gm/dL (13.0-17.5); MCH 33.4 pg (25.0-35.0); MCV 98.3 fL (80.0-100.0); Macrocytosis Slight; Mean Platelet Volume 8.2; Platelet Count 130 k/uL (150-450); RBC 3.08 m/uL (4.30-5.90); RDW 15.1 % (11.5-15.5)
[2019-10-04] MEDS: FILGRASTIM-SNDZ 300 MCG/0.5 ML SYRINGE SQ SCH (13:00)
[2019-10-04] MEDS: TRIAMCINOLONE ACET 0.1% ORAL PASTE 5 GM TUBE MUCOUS MEM SCH ×2 (14:13→18:40)
--- NOTE | 2019-10-04 14:23 | CT ---
EXAMINATION TYPE: CT pelvis wo con DATE OF EXAM: 10/04/2019 COMPARISON: 09/22/2019 HISTORY: perirectal abscess CT DLP: 277 mGycm Automated exposure control for dose reduction was used. FINDINGS: Benign splenic granulomas. Right renal cyst measures 1.1 cm. Left renal atrophy and contrast within t he collecting system from a prior CT. Additional right renal cyst measuring 8 mm. Extensive atheroscl erosis of the abdominal aorta and its branches. Descending duodenal diverticulum is noted. Colonic in terposition of the liver. Periumbilical hernia contains a loop of nondilated small bowel. Urinary castillo dder contains contrast. There is soft tissue thickening and border irregularity near the anal verge however no measurable flu id collection is seen nor air to correlate with this patient's perirectal abscess. Mild anasarca. Heterogenous prostate gland. Advanced degenerative changes of the spine with bridging anterior osteophytes and known compression deformity of L5. IMPRESSION: 1. SOFT TISSUE THICKENING AND IRREGULARITY NEAR THE ANAL VERGE WITHOUT MEASURABLE FLUID COLLECTION TO CORRESPOND TO A DRAINABLE ABSCESS. 2. SMALL BOWEL CONTAINING PERIUMBILICAL HERNIA. CORRELATE FOR REDUCIBILITY.
[2019-10-04 14:42] LABS: Lymphocytes # (M) 0.61 k/uL (1.0-4.8); Monocytes # (M) 0.29 k/uL (0-1.0); Neutrophils % (M) 10 %; Nucleated Red Blood Cells 0 /100 WBC (0-0); Total Cells Counted 100
[2019-10-04] MEDS: traMADol 50 MG TAB PO PRN (17:29)
--- NOTE | 2019-10-04 18:13 | P.CONS ---
History of Present Illness - Reason for Consult Consult date: 10/04/19 SCLC Requesting physician: June Barajas - Chief Complaint perirectal pain - History of Present Illness Mr. Guzman is a very pleasant 68-year-old male patient of the ID in [place] who presented 09/14/19 to the hospital with progressive shortness of breath and difficulty in breathing. Lung mass found on imaging, pt was status post a biopsy at the ID in [place] with pathology revealing SCLC, he had recent changes in speech, some slurring and loss of words, voice changes, significant wt loss, progressive weakness. Was due for PET outpatient but, prolonged hospitalization prevented this. CT CAP showed disease in the lungs, medistinal LN, bilateral axillary adenopathy and bilateral adrenals, no disease in the brain. He received his 1st treatment in the hospital of carbo/[employer] days 1-3, he did rather well overall, no significant SE, CBC remained stable and he was discharged, was qualified to go to [facility] but, ID wouldn't approve it so, he was sent home with home care. He is back in the hospital <5 days later with persistent, intractable perirectal pain. His CBC showed leukopenia/neutropenia. He states feeling weak, tired, no energy. Denied vomiting, chest pain, TRUDY, abd pain, diarrhea, constipation, black or bloody stool, mild swelling in the legs. 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 - last chemo was Sep 19,,27 0f 2018,lesions seen on CT scan on adrenal gland and kidneys, pacer, emphesyma,Parkinsons,chronic diarrhea History of Any Multi-Drug Resistant Organisms: None Reported Past Surgical History: Hernia Repair, Pacemaker Additional Past Surgical History / Comment(s): Lung biopsy, pacer Past Anesthesia/Blood Transfusion Reactions: No Reported Reaction Type of Cardiac Device: Permanent Pacemaker Device Placement Date:: 2016 Past Psychological History: No Psychological Hx Reported Smoking Status: Current every day smoker Past Alcohol Use History: None Reported Past Drug Use History: None Reported - Past Family History Mother Family Medical History: Coronary Artery Disease (CAD), Hypertension Father Family Medical History: Hyperlipidemia, Hypertension Medications and Allergies Home Medications Medication Instructions Recorded Confirmed Type Albuterol Inhaler [Ventolin Hfa 2 puff INHALATION RT-QID 09/13/19 10/03/19 History Inhaler] Artificial Tears-Hypromellose 1 drop BOTH EYES QID 09/13/19 10/03/19 History [Artificial Tear Drops] Aspirin EC [Ecotrin Low Dose] 81 mg PO DAILY 09/13/19 10/03/19 History Cetirizine HCl [Zyrtec] 10 mg PO DAILY 09/13/19 10/03/19 History Cholecalciferol [Vitamin D3 (25 2,000 unit PO DAILY 09/13/19 10/03/19 History Mcg = 1000 Iu)] Gabapentin 300 mg PO BID 09/13/19 10/03/19 History Loperamide HCl [Loperamide] 4 mg PO Q6H 09/13/19 10/03/19 History Magnesium Oxide [Mag-Ox] 800 mg PO DAILY 09/13/19 10/03/19 History Metoprolol Tartrate [Lopressor] 12.5 mg PO BID 09/13/19 10/03/19 History Omeprazole 40 mg PO BID 09/13/19 10/03/19 History Primidone [Mysoline] 50 mg PO BID 09/13/19 10/03/19 History Terbinafine [LamISIL] 250 mg PO DAILY 09/13/19 10/03/19 History Vits A,C,E/Lutein/Minerals 1 tab PO BID 09/13/19 10/03/19 History [Ocuvite with Lutein Tablet] Bisacodyl [Dulcolax] 10 mg PO DAILY PRN #10 tablet.dr 09/21/19 10/03/19 Rx Diclofenac Sodium Gel [Voltaren 2 gm TOPICAL QID 30 Days #1 tube 09/21/19 10/03/19 Rx Gel] Hydrocortisone Suppository 25 mg RECTAL DAILY #20 supp 09/27/19 10/03/19 Rx [Anusol-Hc] Tamsulosin [Flomax] 0.4 mg PO PC-SUPPER #30 cap.er.24h 09/27/19 10/03/19 Rx Warfarin Sodium [Coumadin] 5 mg PO HS 30 Days #30 tab 09/27/19 10/03/19 Rx valACYclovir [Valtrex] 500 mg PO BID #14 tab 09/27/19 10/03/19 Rx Budesonide/Formoterol Fumarate 2 puff INHALATION RT-BID 10/03/19 10/03/19 Hi story [Symbicort 160-4.5 Mcg Inhaler] Allergies Allergy/AdvReac Type Severity Reaction Status Date / Time cephradine AdvReac Cough Verified 09/13/19 19:24 lisinopril AdvReac Cough Verified 09/13/19 19:24 Physical Exam Vitals: Vital Signs Temp Pulse Pulse Resp BP Pulse Ox 10/04/19 09:25 88 92 L 10/04/19 09:10 80 10/04/19 04:14 71 97 10/04/19 04:12 97.9 F 74 25 H 135/75 82 L 10/03/19 22:12 88 10/03/19 21:32 98.6 F 64 16 98/54 94 L 10/03/19 17:09 98.3 F 70 17 124/67 97 Intake and Output 10/03/19 10/04/19 10/04/19 22:59 06:59 14:59 Output Total 350 Balance -350 Output: Urine 350 Other: Voiding Method Toilet Urinal # Voids 2 2 Weight 67 kg 69 kg - Constitutional General appearance: cooperative, mild distress, thin - EENT Eyes: anicteric sclerae, EOMI, poor dentition ENT: hearing grossly normal, normal oropharynx - Neck Neck: no lymphadenopathy - Respiratory Respiratory: bilateral: CTA, diminished - Cardiovascular Rhythm: regular Heart sounds: normal: S1, S2 Abnormal Heart Sounds: no systolic murmur, no diastolic murmur, no rub, no S3 Gallop, no S4 Gallop, no click, no other leg Peripheral Edema: bilateral: 1+ - Gastrointestinal General gastrointestinal: no absent bowel sounds, no decreased bowel sounds, no distended, no hepatomegaly, no hyperactive bowel sounds, normal bowel sounds, no organomegaly, no rigid, no scaphoid, soft, no splenomegaly, no tenderness, no umbilical hernia, no ventral hernia - Integumentary shahid-rectal/gluteal fold indurated, red, swollen, no slough or purluent drainage - Neurologic slurred speech, unchanged - Musculoskeletal Musculoskeletal: generalized weakness - Psychiatric Psychiatric: A&O x's 3, appropriate affect, intact judgment & insight Results CBC & Chem 7: 10/04/19 07:57 10/04/19 07:57 Labs: Abnormal Lab Results - Last 24 Hours (Table) 10/03/19 10/03/19 10/04/19 Range/Units 19:15 19:15 07:57 WBC 0.7 L* (3.8-10.6) k/uL RBC 2.45 L (4.30-5.90) m/uL Hgb 8.2 L D (13.0-17.5) gm/dL Hct 23.4 L (39.0-53.0) % Plt Count 99 L (150-450) k/uL PT 20.8 H (9.0-12.0) sec INR 2.1 H (<1.2) Chloride 93 L (98-107) mmol/L Carbon Dioxide 40 H (22-30) mmol/L Creatinine 0.53 L (0.66-1.25) mg/dL 10/04/19 Range/Units 07:57 WBC (3.8-10.6) k/uL RBC (4.30-5.90) m/uL Hgb (13.0-17.5) gm/dL Hct (39.0-53.0) % Plt Count (150-450) k/uL PT 18.8 H (9.0-12.0) sec INR 1.9 H (<1.2) Chloride (98-107) mmol/L Carbon Dioxide (22-30) mmol/L Creatinine (0.66-1.25) mg/dL Comments: ECHO and BLE doppler report reviewed Assessment and Plan (1) Perirectal discomfort Narrative/Plan: Pt is on supportive medications, ID consulted for evaluation and treatment plan. ? progression of previous viral/fungal diagnosis Current Visit: Yes Status: Acute Priority: High Code(s): K62.89 - OTHER SPECIFIED DISEASES OF ANUS AND RECTUM SNOMED Code(s): 368930645 (2) Small cell lung cancer Narrative/Plan: Pt is s/p 1st carbo/[employer] cycle. GCSF started for significantly low WBC/ANC. No PRBCs or platelets needed yet. Pt would be due for cycle #2 next week but, this will be postponed until clearance of infection. Current Visit: No Status: Acute Priority: High Code(s): C34.90 - MALIGNANT NEOPLASM OF UNSP PART OF UNSP BRONCHUS OR LUNG SNOMED Code(s): 939766159 (3) Leukopenia due to antineoplastic chemotherapy Narrative/Plan: GCSF initiated Current Visit: Yes Status: Acute Priority: High Code(s): D70.1 - AGRANULOCYTOSIS SECONDARY TO CANCER CHEMOTHERAPY; T45.1X5A - ADVERSE EFFECT OF ANTINEOPLASTIC AND IMMUNOSUP DRUGS, INIT SNOMED Code(s): 823878801 Plan: Attests: I have performed H&P and developed impression and plan of care of patient, discussed with dictator. I agree with dictated note, documented as a scribe.
[2019-10-04] MEDS: ALPRAZolam 0.25 MG TAB PO PRN (18:36)
[2019-10-04] MEDS: TAMSULOSIN 0.4 MG CAP.ER.24H PO SCH (18:37)
[2019-10-04] MEDS ORDERED: WARFARIN 3 MG TAB PO ONE (21:00)
[2019-10-05] MEDS: ALBUTEROL NEBULIZED 2.5 MG/3 ML INHALATION SCH ×4 (06:15→19:09)
[2019-10-05] MEDS: SYMBICORT 160-4.5 MCG INHALER INHALATION SCH ×2 (06:15→19:09)
[2019-10-05] MEDS: ALPRAZolam 0.25 MG TAB PO PRN ×2 (06:22→19:05)
[2019-10-05] MEDS: ARTIFICIAL TEARS-HYPROMELLOSE DROPS 15 ML BTL BOTH EYES SCH ×4 (07:28→20:54)
[2019-10-05] MEDS: FILGRASTIM-SNDZ 300 MCG/0.5 ML SYRINGE SQ SCH (07:28)
[2019-10-05] MEDS: TRIAMCINOLONE ACET 0.1% ORAL PASTE 5 GM TUBE MUCOUS MEM SCH ×3 (07:28→17:40)
[2019-10-05] MEDS: ASPIRIN 81 MG PO SCH (07:28)
[2019-10-05] MEDS: HYDROCORTISONE SUPPOSITORY 25 MG SUPP RECTAL SCH (07:29)
[2019-10-05] MEDS: valACYclovir 500 MG TAB PO SCH ×2 (07:29→20:38)
[2019-10-05] MEDS: PRIMIDONE 50 MG TAB PO SCH ×2 (07:29→20:38)
[2019-10-05] MEDS: TERBINAFINE 250 MG TAB PO SCH (07:29)
[2019-10-05] MEDS: GABAPENTIN 300 MG CAP PO SCH ×2 (07:30→20:37)
[2019-10-05] MEDS: MAGNESIUM OXIDE 400 MG TAB PO SCH (07:32)
[2019-10-05] MEDS: METOPROLOL TARTRATE 12.5 MG TAB PO SCH ×2 (07:32→20:37)
[2019-10-05] MEDS: PANTOPRAZOLE 40 MG TABLET PO SCH ×2 (07:32→20:36)
[2019-10-05 08:12] LABS: HCT 27.1 % (39.0-53.0); HGB 9.3 gm/dL (13.0-17.5); MCH 33.2 pg (25.0-35.0); MCHC 34.3 g/dL (31.0-37.0); MCV 96.6 fL (80.0-100.0); Macrocytosis Slight; Mean Platelet Volume 7.6; Platelet Count 155 k/uL (150-450); RBC 2.81 m/uL (4.30-5.90); RDW 15.5 % (11.5-15.5); WBC 5.1 k/uL (3.8-10.6)
[2019-10-05 08:16] LABS: INR 1.8 (<1.2); Prothrombin Time 17.9 sec (9.0-12.0)
[2019-10-05] MEDS: traMADol 50 MG TAB PO PRN ×3 (08:28→23:02)
[2019-10-05 08:46] LABS: Band Neutrophils % 20 %; Lymphocytes # (M) 0.87 k/uL (1.0-4.8); Metamyelocytes % 2 %; Monocytes # (M) 0.46 k/uL (0-1.0); Neutrophils % (M) 53 %; Nucleated Red Blood Cells 0 /100 WBC (0-0); Total Cells Counted 200
[2019-10-05 08:47] LABS: Toxic Granulation Present
[2019-10-05 08:49] LABS: Polychromasia Present
--- NOTE | 2019-10-05 08:58 | P.CON ---
Consult Note - . Consult date: 10/05/19 Assessment/Plan:: This is a 69-year-old patient being seen by the wound care center for nonhealing ulcerations to the pre-perirectal area. Patient is a history of herpes. He is currently receiving chemotherapy. Patient has had a outbreak recently. Patient is currently on Valtrex. He has been utilizing triamcinolone cream to the site. Has multiple blisters and open ulcerations around his rectum. Areas are open and draining with granulation noted. Patient has history of squamous cell lung cancer TM and stage IV, last chemo was September 19, atrial fibrillation, heart failure, COPD, acid reflux, hypertension. Review of systems Integumentary: Reports ulcerations, denies any new lesions, denies greatest, denies unusual bleeding Physical exam: Integumentary: See HPI Assessment/plan: 1. Nonhealing ulcerations fatty layer exposure to perirectal area. Continue whichever Synalar cream daily, may utilize skin barrier cream to the area. 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 3. Perirectal discomfort 4. Small cell lung cancer 5. Leukopenia due to antineoplastic chemotherapy Thank you for the consultation. Any questions please contact the wound care center DNP note has been reviewed and discussed with Dr. Ahuja and the impression and plan of care has been directed as dictated.
--- NOTE | 2019-10-05 09:23 | P.CONS ---
History of Present Illness - Reason for Consult Consult date: 10/05/19 shahid-rectal viral infection - History of Present Illness This is a 69-year-old male known to ID service as he was seen on his last admission. He has a past medical history of lung mass worked up at [facility] in [place] found to have small cell lung cancer. He was hospitalized September 13 through September 27 for pneumonia. Oncology has followed the patient and he completed his first cycle of carboplatin and etoposide days 1-3, completed on September 21. He had other factors complicating his stay including urinary retention requiring Lynch catheter placement, rectal bleeding along with constipation and fecal stasis. Patient was seen by the wound care team for nonhealing decubitus ulcer to the coccyx with wound care in the form of zinc barrier cream daily do a term and cushion for sitting. He was subsequently seen by ID for perirectalPrash concerning for viral or yeast. Patient was on Valtrex and topical steroid cream with triamcinolone paste. The patient is due to see have a second cycle of chemotherapy this week but unfortunately he came into the hospital complaining of persistent intractable perirectal pain. He has been seen by the wound team and triamcinolone and barrier cream ordered. Patient also presented initially with pancytopenia with a white count of 0.7 which has improved to 5.1. The patient states that he has a good appetite, no nausea or vomiting, no diarrhea. He did have a bowel movement this morning which was normal. He denies dysuria. He does not require Lynch catheter for retention. Review of Systems Constitutional: Reports fatigue, Reports weakness, Denies anorexia, Denies chills, Denies fever, Denies poor appetite Eyes: denies blurred vision, denies pain Ears, nose, mouth and throat: Denies dysphagia, Denies headache, Denies nasal congestion, Denies nasal discharge, Denies sore throat, Denies vertigo Cardiovascular: Denies chest pain, Denies lightheadedness, Denies shortness of breath, Denies syncope Respiratory: Denies cough, Denies dyspnea, Denies excessive sputum, Denies hemoptysis Gastrointestinal: Denies abdominal pain, Denies diarrhea, Denies nausea, Denies vomiting Genitourinary: Denies dysuria, Denies urinary retention Musculoskeletal: Reports muscle weakness, Denies frequent falls, Denies gait dysfunction, Denies myalgias Integumentary: Reports wounds, Denies pruritus, Denies rash Neurological: Denies change in mentation, Denies change in speech, Denies numbness, Denies weakness Psychiatric: Denies anxiety, Denies depression Endocrine: Denies fatigue, Denies weight change Past Medical History Past Medical History: Atrial Fibrillation, Cancer, Heart Failure, COPD, GERD/ Reflux, Hypertension Additional Past Medical History / Comment(s): 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 - last chemo was Sep 19,, 0f 2018,lesions seen on CT scan on adrenal gland and kidneys, pacer, emphesyma,Parkinsons,chronic diarrhea History of Any Multi-Drug Resistant Organisms: None Reported Past Surgical History: Hernia Repair, Pacemaker Additional Past Surgical History / Comment(s): Lung biopsy, pacer Past Anesthesia/Blood Transfusion Reactions: No Reported Reaction Type of Cardiac Device: Permanent Pacemaker Device Placement Date:: 2016 Past Psychological History: No Psychological Hx Reported Smoking Status: Current every day smoker Past Alcohol Use History: None Reported Additional Past Alcohol Use History / Comment(s): The patient was a smoker of one pack per day for 56 years. He has now cut back to 5 cigarettes per day. No marijuana, illicit drug use or alcohol use. He lives at home with daughter and son-in-law who are his primary caregivers. There are dogs in the home. He is retired. Patient served in the and was involved in the [place] and [place] wars. Past Drug Use History: None Reported - Past Family History Mother Family Medical History: Coronary Artery Disease (CAD), Hypertension Father Family Medical History: Hyperlipidemia, Hypertension Medications and Allergies Home Medications Medication Instructions Recorded Confirmed Type Albuterol Inhaler [Ventolin Hfa 2 puff INHALATION RT-QID 09/13/19 10/03/19 History Inhaler] Artificial Tears-Hypromellose 1 drop BOTH EYES QID 09/13/19 10/03/19 History [Artificial Tear Drops] Aspirin EC [Ecotrin Low Dose] 81 mg PO DAILY 09/13/19 10/03/19 History Cetirizine HCl [Zyrtec] 10 mg PO DAILY 09/13/19 10/03/19 History Cholecalciferol [Vitamin D3 (25 2,000 unit PO DAILY 09/13/19 10/03/19 History Mcg = 1000 Iu)] Gabapentin 300 mg PO BID 09/13/19 10/03/19 History Loperamide HCl [Loperamide] 4 mg PO Q6H 09/13/19 10/03/19 History Magnesium Oxide [Mag-Ox] 800 mg PO DAILY 09/13/19 10/03/19 History Metoprolol Tartrate [Lopressor] 12.5 mg PO BID 09/13/19 10/03/19 History Omeprazole 40 mg PO BID 09/13/19 10/03/19 History Primidone [Mysoline] 50 mg PO BID 09/13/19 10/03/19 History Terbinafine [LamISIL] 250 mg PO DAILY 09/13/19 10/03/19 History Vits A,C,E/Lutein/Minerals 1 tab PO BID 09/13/19 10/03/19 History [Ocuvite with Lutein Tablet] Bisacodyl [Dulcolax] 10 mg PO DAILY PRN #10 tablet.dr 09/21/19 10/03/19 Rx Diclofenac Sodium Gel [Voltaren 2 gm TOPICAL QID 30 Days #1 tube 09/21/19 10/03/19 Rx Gel] Hydrocortisone Suppository 25 mg RECTAL DAILY #20 supp 09/27/19 10/03/19 Rx [Anusol-Hc] Tamsulosin [Flomax] 0.4 mg PO PC-SUPPER #30 cap.er.24h 09/27/19 10/03/19 Rx Warfarin Sodium [Coumadin] 5 mg PO HS 30 Days #30 tab 09/27/19 10/03/19 Rx valACYclovir [Valtrex] 500 mg PO BID #14 tab 09/27/19 10/03/19 Rx Budesonide/Formoterol Fumarate 2 puff INHALATION RT-BID 10/03/19 10/03/19 History [Symbicort 160-4.5 Mcg Inhaler] Allergies Allergy/AdvReac Type Severity Reaction Status Date / Time cephradine AdvReac Cough Verified 09/13/19 19:24 lisinopril AdvReac Cough Verified 09/13/19 19:24 Physical Exam Vitals: Vital Signs Temp Pulse Pulse Resp BP Pulse Ox 10/05/19 06:26 80 10/05/19 06:16 76 10/05/19 04:52 98.6 F 70 19 126/74 100 10/04/19 22:28 80 10/04/19 22:19 80 10/04/19 21:00 98.3 F 70 20 112/60 99 10/04/19 16:26 90 10/04/19 16:16 88 10/04/19 12:30 88 10/04/19 12:19 84 10/04/19 12:11 98.5 F 70 20 108/60 99 10/04/19 09:25 88 92 L 10/04/19 09:10 80 Intake and Output 10/04/19 10/05/19 10/05/19 22:59 06:59 14:59 Intake Total 590 Output Total 600 Balance -10 Intake: Oral 590 Output: Urine 600 Other: Voiding Method Toilet Urinal # Voids 1 Weight 67.993 kg 68.5 kg Gen: This is a 68-year-old male. He is sitting on the edge of the bed and appears to be in no acute distress. HEENT: Head is atraumatic, normocephalic. Pupils equal, round. Sclerae is anicteric. NECK: Supple. No JVD. No lymphadenopathy. No thyromegaly. LUNGS: Diminished to the bases but otherwise clear to auscultation. No intercostal retractions. HEART: Regular rate and rhythm. No murmur. ABDOMEN: Soft. Bowel sounds are present. No masses. No tenderness. EXTREMITIES: No pedal edema. No calf tenderness. NEUROLOGICAL: Patient is awake, alert and oriented x3. Cranial nerves 2 through 12 are grossly intact. Patient's speech is slow and slurred which is his baseline. Results Results: Laboratory Results WBC 5.1 k/uL (3.8-10.6) 10/05/19 07:20 RBC 2.81 m/uL (4.30-5.90) L 10/05/19 07:20 Hgb 9.3 gm/dL (13.0-17.5) L 10/05/19 07:20 Hct 27.1 % (39.0-53.0) L 10/05/19 07:20 MCV 96.6 fL (80.0-100.0) 10/05/19 07:20 MCH 33.2 pg (25.0-35.0) 10/05/19 07:20 MCHC 34.3 g/dL (31.0-37.0) 10/05/19 07:20 RDW 15.5 % (11.5-15.5) 10/05/19 07:20 Plt Count 155 k/uL (150-450) 10/05/19 07:20 Neutrophils % (Manual) 53 % 10/05/19 07:20 Band Neutrophils % 20 % 10/05/19 07:20 Lymphocytes % (Manual) 17 % 10/05/19 07:20 Monocytes % (Manual) 9 % 10/05/19 07:20 Metamyelocytes % 2 % 10/05/19 07:20 Neutrophils # BILINGUAL CALL CENTER REPRESENTATIVE 10/04/19 07:57 Neutrophils # (Manual) 3.70 k/uL (1.3-7.7) 10/05/19 07:20 Lymphocytes # (Manual) 0.87 k/uL (1.0-4.8) L 10/05/19 07:20 Monocytes # (Manual) 0.46 k/uL (0-1.0) 10/05/19 07:20 Metamyelocytes # (Man) 0.10 k/uL (0) H 10/05/19 07:20 Nucleated RBCs 0 /100 WBC (0-0) 10/05/19 07:20 Differential Comment 10/03/19 19:15 Manual Slide Review Performed 10/05/19 07:20 Toxic Granulation Present 10/05/19 07:20 RBC Morphology Normal 10/04/19 07:57 Polychromasia Present 10/05/19 07:20 Macrocytosis Slight 10/05/19 07:20 PT 17.9 sec (9.0-12.0) H 10/05/19 07:20 INR 1.8 (<1.2) H 10/05/19 07:20 Sodium 138 mmol/L (137-145) 10/04/19 07:57 Potassium 3.9 mmol/L (3.5-5.1) 10/04/19 07:57 Chloride 93 mmol/L (98-107) L 10/04/19 07:57 Carbon Dioxide 40 mmol/L (22-30) H 10/04/19 07:57 Anion Gap 5 mmol/L 10/04/19 07:57 BUN 10 mg/dL (9-20) 10/04/19 07:57 Creatinine 0.53 mg/dL (0.66-1.25) L 10/04/19 07:57 Est GFR (CKD-EPI)AfAm >90 (>60 ml/min/1.73 sqM) 10/04/19 07:57 Est GFR (CKD-EPI)NonAf >90 (>60 ml/min/1.73 sqM) 10/04/19 07:57 Glucose 92 mg/dL (74-99) 10/04/19 07:57 Calcium 8.8 mg/dL (8.4-10.2) 10/04/19 07:57 Magnesium 1.9 mg/dL (1.6-2.3) 10/04/19 07:57 NT-Pro-B Natriuret Pep 4970 pg/mL 10/04/19 07:57 CBC & Chem 7: 10/05/19 07:20 10/04/19 07:57 Labs: Abnormal Lab Results - Last 24 Hours (Table) 10/04/19 10/04/19 10/04/19 Range/Units 07:57 07:57 07:57 WBC 1.0 L* (3.8-10.6) k/uL RBC 3.08 L (4.30-5.90) m/uL Hgb 10.3 L (13.0-17.5) gm/dL Hct 30.2 L (39.0-53.0) % Plt Count 130 L (150-450) k/uL Neutrophils # (Manual) 0.10 L* (1.3-7.7) k/uL Lymphocytes # (Manual) 0.61 L (1.0-4.8) k/uL Metamyelocytes # (Man) (0) k/uL PT 18.8 H (9.0-12.0) sec INR 1.9 H (<1.2) Chloride 93 L (98-107) mmol/L Carbon Dioxide 40 H (22-30) mmol/L Creatinine 0.53 L (0.66-1.25) mg/dL 10/05/19 10/05/19 Range/Units 07:20 07:20 WBC (3.8-10.6) k/uL RBC 2.81 L (4.30-5.90) m/uL Hgb 9.3 L (13.0-17.5) gm/dL Hct 27.1 L (39.0-53.0) % Plt Count (150-450) k/uL Neutrophils # (Manual) (1.3-7.7) k/uL Lymphocytes # (Manual) 0.87 L (1.0-4.8) k/uL Metamyelocytes # (Man) 0.10 H (0) k/uL PT 17.9 H (9.0-12.0) sec INR 1.8 H (<1.2) Chloride (98-107) mmol/L Carbon Dioxide (22-30) mmol/L Creatinine (0.66-1.25) mg/dL Assessment and Plan Plan: This is a 69-year-old male patient presented to hospital with perirectal pain secondary to fungal or viral rash. He has been seen by wound team and triamcinolone and barrier cream are in place. Patient is status post first cycle of chemotherapy for small cell lung cancer. He did present with pancytopenia secondary to chemotherapy and underlying cancer. And diet supplementation to be added and patient has been seen by dietitian. Continue supportive care. Further recommendations as patient progresses. The above dictated assessment and findings were discussed with Dr. Liu. The impression and plan of care have been directed as dictated. Niki Gibbs nurse practitioner acting as scribe for Dr. Liu.
--- NOTE | 2019-10-05 12:20 | CDI ---
Documentation Clarification Form Date: 10/05/2019 12:09:46 PM From: Sherin TroyOvertonMAURICE berry, CCDS Admit Date: 10/03/2019 4:53:00 PM Patient Name: Eloy Guzman Visit Number: [id number] Discharge Date: ATTENTION: The Clinical Documentation Specialists (CDI) and [facility] Coding Staff appreciate your assistance in clarifying documentation. Please respond to the clarification below the line at the bottom and electronically sign. The CDI & [facility] Coding staff will review the response and follow-up if needed. Please note: Queries are made part of the Legal Health Record. If you have any questions, please contact the author of this message via ITS. Dr. June Barajas: Patient is admitted with abdominal pain, possibly metastatic disease with history of lung cancer status post one chemotherapy treatment. Per the 10/05 Infectious Disease consult: "And diet supplementation to be added and patient has been seen by dietitian." History/Risk Factors: Stage IV lung cancer with possible metastatic cancer to abdomen nos; COPD, External & internal hemorrhoids & perineal herpes, Chronic hypercapnic respiratory failure on Home O2, Hypertension, Hyperlipidemia & atrial fibrillation. Clinical Indicators: Presented with abdominal pain, SOB & bilateral lower extremity edema. Labs: WBC 0.7((, RBC 2.45*, Hgb 8.2*, Hct 23.4*, Pl Ct 99*. Ht: 5 ft 10 in; Wt: 72 kg Current BMI: 21.7 Dietitian consulted: Intractable pain with stage IV lung cancer, on oral supplements, has difficulty chewing, edentulous. Intake fair, consuming 50-75%. Underweight, has stage II pressure ulcers to bilateral buttocks & coccyx. Treatment: Dietary, ID, Vascular Surgery & Oncology consults. O2 3Lnc, oral supplements, IV Ms, Fentanyl patch, Local wound care, INH Albuterol, In your professional opinion, can you please clarify if these findings signify one of the following conditions? Mild Protein-Calorie Malnutrition Moderate Protein-Calorie Malnutrition Severe Protein-Calorie Malnutrition Other condition, please specify Unable to determine (Last Revision: April 2019) Mild Protein-Calorie Malnutrition MTDD
--- NOTE | 2019-10-05 12:30 | CDI ---
Documentation Clarification Form Date: 10/05/2019 12:21:00 PM From: Sherin TroyOvertonMAURICE, CCDS Admit Date: 10/03/2019 4:53:00 PM Patient Name: Eloy Guzman Visit Number: [id number] Discharge Date: ATTENTION: The Clinical Documentation Specialists (CDI) and [facility] Coding Staff appreciate your assistance in clarifying documentation. Please respond to the clarification below the line at the bottom and electronically sign. The CDI & [facility] Coding staff will review the response and follow-up if needed. Please note: Queries are made part of the Legal Health Record. If you have any questions, please contact the author of this message via ITS. Dr. June Barajas: Patient is admitted with abdominal pain, possibly metastatic disease with history of lung cancer status post one chemotherapy treatment. Nursing has documented bilateral buttock stage II pressure ulcers. History/Risk Factors: Stage IV lung cancer with possible metastatic cancer to abdomen nos; COPD, External & internal hemorrhoids & perineal herpes, Chronic hypercapnic respiratory failure on Home O2, Hypertension, Hyperlipidemia & atrial fibrillation. Clinical Indicators: Presented with abdominal pain, SOB & bilateral lower extremity edema. Labs: WBC 0.7((, RBC 2.45*, Hgb 8.2*, Hct 23.4*, Pl Ct 99*. Ht: 5 ft 10 in; Wt: 72 kg Current BMI: 21.7 *Dietitian consulted: Intractable pain with stage IV lung cancer, on oral supplements, has difficulty chewing, edentulous. Intake fair, consuming 50-75%. Underweight, has stage II pressure ulcers to bilateral buttocks & coccyx. Treatment: Dietary, ID, Vascular Surgery & Oncology consults. O2 3Lnc, oral supplements, IV Ms, Fentanyl patch, Local wound care, INH Albuterol. In your professional opinion, can you please clarify the diagnosis, location, laterality and whether present on admission (POA): Stage 1 Pressure Ulcer (intact skin, non-blanching redness of local area) Stage 2 Pressure Ulcer (Partial thickness, loss of dermis, pink wound bed) Stage 3 Pressure Ulcer (Full thickness tissue loss) Stage 4 Pressure Ulcer (Full thickness tissue loss with exposed bone, tendon, or muscle. May have slough or eschar present) Unstageable Other condition, please specify Unable to determine Please indicate etiology of pressure ulcer (if known). (Last Revision: July 2017) Unstageable MTDD
--- NOTE | 2019-10-05 13:14 | P.PN ---
Subjective Progress Note Date: 10/05/19 Principal diagnosis: 68-year-old pleasant gentleman now with known history of metastatic lung cancer was recently discharged from the hospital. [place] did not approve for rehabilitati on because of which we'll have to discharge the patient with home care patient has not been doing well was complaining of severe abdominal pain since his discharge patient that is significant metastatic disease. Patient had a CAT scan of the abdomen which did not show any significant abnormality patient was also complaining of shortness of breath and presented to [facility] and was wheezing at that time patient was given steroid and inhalational treatments with which his shortness of breath improved patient does use 2 L of oxygen at home. Patient presently denied any fever chills. Patient has been delirious and confused and does have sundowners which all of which are believed to be se condary to pain and patient has not been sleeping well because of the pain patient takes only [place] for pain. His main concern is an main reason for coming to the hospital his pain significantly in the left lower quadrant of the abdomen including pain in the buttock area where he had hemorrhoids. Chest CAT scan did not show any pulmonary embolism or pneumonia. Patient had bilateral pedal edema all the CAT scan was did not show any evidence of pulmonary edema will obtain a Doppler of bilateral lower extremity patient received a dose of Lasix we'll also obtain an echocardiogram. patient apparently had elevated BNP at the other places that is [facility]. Patient CAT scan of the chest did show decrease in mediastinal lymphadenopathy. 10/04/2019 Patient is sitting up in the chair in no acute distress no acute overnight issues. Patient continues to have severe pain of his buttocks and is currently still requesting IV pain medications. Fentanyl Patch was started and will likely need to be increased. Patient's venous Doppler for bilateral lower extremities are negative for DVTs. Echo done this morning shows overall LV systolic function low to normal with an EF of 50-55%. Patient states that he is eating and tolerating diet and had a large bowel movement this morning. Will continue with bowel regimen. Review of Systems: Cardiovascular: No reports of chest pain or palpitations Respiratory: Reports of shortness of breath or cough GI: No reports of nausea, vomiting, or diarrhea : No reports of dysuria or retention 10/05/2019 Patient is sitting up in the chair in no acute distress with no acute overnight issues. Patient continues to have perirectal discomfort and has been doing position changes frequently and remaining offloading. Patient was seen by wound care and recommending to continue with Synalar cream along with barrier cream to the area. Patient's fentanyl patch was increased to 50mcg. Case management and social work are following to obtain authorization for subacute rehab or long- term placement once patient is discharged. Discussion with the family at length and they feel he needs 24/7 care and they are unable to manage this in the home. Medicare is currently pending as the patient currently only has [facility] insurance and they denied authorization to rehab previously. Will continue to monitor closely. Multiple medical consultations are following. Objective - Vital Signs Vital signs: Vital Signs Temp 98.6 F 10/05/19 04:52 Pulse 84 10/05/19 12:04 Resp 19 10/05/19 04:52 BP 126/74 10/05/19 04:52 Pulse Ox 100 10/05/19 04:52 Intake & Output 10/04/19 10/05/19 10/05/19 18:59 06:59 18:59 Intake Total 590 Output Total 600 Balance -10 Weight 67.993 kg 68.5 kg Intake: Oral 590 Output: Urine 600 Other: Voiding Method Toilet Toilet Urinal Urinal # Voids 3 1 # Bowel Movements 3 - Exam GENERAL: The patient is alert and oriented x3, not in any acute distress. Well developed, well nourished. Patient appears to be awake and alert HEENT: Pupils are round and equally reacting to light. EOMI. No scleral icterus. No conjunctival pallor. Normocephalic, atraumatic. No pharyngeal erythema. No thyromegaly. CARDIOVASCULAR: S1 and S2 present. No murmurs, rubs, or gallops. PULMONARY: Chest is clear to auscultation, no wheezing or crackles. ABDOMEN: Soft, nontender, nondistended, normoactive bowel sounds. No palpable organomegaly. MUSCULOSKELETAL: No joint swelling or deformity. EXTREMITIES: No cyanosis, clubbing, or pedal edema. NEUROLOGICAL: Gross neurological examination did not reveal any focal deficits. SKIN: No rashes. - Labs CBC & Chem 7: 10/05/19 07:20 10/04/19 07:57 Labs: Abnormal Lab Results - Last 24 Hours (Table) 12/08/1310/05/19 10/05/19 Range/Units 07:57 07:20 07:20 WBC 1.0 L* (3.8-10.6) k/uL RBC 3.08 L 2.81 L (4.30-5.90) m/uL Hgb 10.3 L 9.3 L (13.0-17.5) gm/dL Hct 30.2 L 27.1 L (39.0-53.0) % Plt Count 130 L (150-450) k/uL Neutrophils # (Manual) 0.10 L* (1.3-7.7) k/uL Lymphocytes # (Manual) 0.61 L 0.87 L (1.0-4.8) k/uL Metamyelocytes # (Man) 0.10 H (0) k/uL PT 17.9 H (9.0-12.0) sec INR 1.8 H (<1.2) Assessment and Plan Assessment: -Abdominal pain: Appears to be secondary to metastatic disease no other significant abnormality was evidenced on the abdominal CAT scan. Patient will be started on low-dose of fentanyl patch along with tramadol for breakthrough pain and morphine for breakthrough pain and patient will be started on GI prophylaxis -patient's delirium is probably secondary to pain but all these opiates can cause delirium closely monitor for delirium and treat accordingly as needed. Will use Haldol if needed for delirium of Seroquel at nighttime for delirium -Mild protein calorie malnutrition -Encephalopathy, delirium: Probably secondary to pain, patient pain will be treated and if patient has toxic encephalopathy from pain medications will have to change his pain medication or treat him symptomatically with Seroquel. 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 INR today is 1.8 -Bilateral pedal edema we'll rule out any CHF after an echocardiogram after a BMP patient doesn't have any significant JVD and also to rule out DVT Plan: Recommend continue current medications, management, and symptomatic treatment. Wound care, oncology, and infectious disease are following. Fentanyl patch dose was increased and will continue to monitor closely for any signs of delirium and will monitor pain management. Case management and social work are following in an attempt to find placement once patient has stabilized and is discharged. Medicare is pending. Further recommendations to follow.
[2019-10-05] MEDS: SENNOSIDES 8.6 MG TAB PO PRN (14:45)
--- NOTE | 2019-10-05 16:25 | P.PN ---
Subjective Progress Note Date: 10/05/19 Principal diagnosis: Generalized pain, moderate to severe perirectal pain. Patient is status post first cycle of chemotherapy for metastatic small cell lung cancer. Neutropenia. In follow-up today patient is sitting at the bedside, he is very involved in the conversation, he A explains extreme pain in the back side, complaints of constipation, generalized body aches. He denies fevers, nausea, chest pain, abdominal pain, the swelling in his legs is significantly improved. Objective - Vital Signs Vital signs: Vital Signs Temp 98.3 F 10/05/19 12:51 Pulse 83 10/05/19 15:16 Resp 22 10/05/19 15:16 BP 130/79 10/05/19 12:51 Pulse Ox 99 10/05/19 12:51 Intake & Output 10/04/19 10/05/19 10/05/19 18:59 06:59 18:59 Intake Total 590 1580 Output Total 600 Balance -10 1580 Weight 67.993 kg 68.5 kg Intake: Oral 590 1580 Output: Urine 600 Other: Voiding Method Toilet Toilet Urinal Urinal # Voids 3 1 3 # Bowel Movements 3 3 - Constitutional General appearance: Present: cooperative, mild distress, thin - EENT Eyes: Present: anicteric sclerae, EOMI ENT: Present: hearing grossly normal - Respiratory Respiratory: bilateral: diminished - Cardiovascular Heart sounds: normal: S1, S2 - Peripheral edema foot Peripheral Edema: bilateral: 1+ - Gastrointestinal General gastrointestinal: Present: normal bowel sounds - Musculoskeletal Musculoskeletal: Present: generalized weakness - Psychiatric Psychiatric: Present: A&O x's 3, appropriate affect, intact judgment & insight - Labs CBC & Chem 7: 10/05/19 07:20 10/04/19 07:57 Labs: Abnormal Lab Results - Last 24 Hours (Table) 10/05/19 10/05/19 Range/Units 07:20 07:20 RBC 2.81 L (4.30-5.90) m/uL Hgb 9.3 L (13.0-17.5) gm/dL Hct 27.1 L (39.0-53.0) % Lymphocytes # (Manual) 0.87 L (1.0-4.8) k/uL Metamyelocytes # (Man) 0.10 H (0) k/uL PT 17.9 H (9.0-12.0) sec INR 1.8 H (<1.2) Assessment and Plan (1) Perirectal discomfort Narrative/Plan: Pt is on supportive medications, ID has seen patient and reordered medications for treatment. Patient is having some improvement in his symptoms Current Visit: Yes Status: Acute Priority: High Code(s): K62.89 - OTHER SPECIFIED DISEASES OF ANUS AND RECTUM SNOMED Code(s): 461026797 (2) Small cell lung cancer Narrative/Plan: Pt is s/p 1st carbo/RELAY ENGINEER cycle. GCSF started for significantly low WBC/ANC, this is improved today, we will give one more dose tomorrow and discontinue.. No PRBCs or platelets needed. Pt would be due for cycle #2 next week. Patient does not think he wants to continue with chemotherapy. Explained to patient that that is perfectly fine. forge utility worker and myself talked with the patient's daughter and if patient is not going to pursue active treatment and the recommendation is for hospice care so that the patient and family are supported through to end-of-life. We talked about prognosis with and without treatment and all the questions were answered to the best of my ability. We will await t he final decision of the patient and his family. Current Visit: No Status: Acute Priority: High Code(s): C34.90 - MALIGNANT NEOPLASM OF UNSP PART OF UNSP BRONCHUS OR LUNG SNOMED Code(s): 466145848 (3) Leukopenia due to antineoplastic chemotherapy Narrative/Plan: GCSF initiated, WBC within normal limits today, one more dose tomorrow then discontinue. Current Visit: Yes Status: Acute Priority: High Code(s): D70.1 - AGRANULOCYTOSIS SECONDARY TO CANCER CHEMOTHERAPY; T45.1X5A - ADVERSE EFFECT OF ANTINEOPLASTIC AND IMMUNOSUP DRUGS, INIT SNOMED Code(s): 905994089
[2019-10-05] MEDS: MORPHINE SULFATE 4 MG/ML SYRINGE IVP PRN ×2 (17:02→20:37)
[2019-10-05] MEDS: TAMSULOSIN 0.4 MG CAP.ER.24H PO SCH (17:38)
[2019-10-05] MEDS ORDERED: WARFARIN 7.5 MG TAB PO ONE (21:00)
--- NOTE | 2019-10-05 22:16 | P.CONS ---
History of Present Illness - Reason for Consult Consult date: 10/04/19 - Chief Complaint pain - History of Present Illness This is a 68-year-old male with history of lung mass worked up at [facility] in [place] found to have small cell lung cancer. He presented to the hospital with difficulty breathing and has been treated for pneumonia. Oncology has followed the patient and he completed his first cycle of carboplatin and etoposide days 1-13, completed on September 21. The patient was cleared by oncology for discharge home. He has had other, complicated factors including urinary retention requiring Lynch catheter placement, rectal bleeding along with constipation and fecal stasis and seen by Dr. Tillman. Patient is also been followed by pulmonary medicine for pneumonia. Patient was seen by the wound care team for nonhealing decubitus ulcer to the coccyx with wound care in the form of zinc barrier cream daily do a term and cushion for sitting. Patient presented with leukocytosis of 20.7 now down to 4.5, hemoglobin has been stable at 11.0. He has had a slight drop in his platelet count 146. Creatinine 0.48. INR 1.0 and patient is on chronic Coumadin for atrial fibrillation status post pacemaker. Patient is on Zosyn for possible gram-negative pneumonia with plan for Augmentin at the time of discharge. Blood culture shows no growth after 144 hours. Sputum cultures finalized with normal matteo Patient did present with signs of sepsis with leukocytosis and hypotension. Blood pressure is improved. Consult is regarding lesions around the rectal and gluteal cleft patient thinks this was first noticed early yesterday. He has been complaining of rectal pain. Nursing has applied barrier cream. Herpes simplex virus panel is in progress and patient is on oral Valtrex 500 mg twice daily. The patient states that he had chills this morning but no fever. He feels tired and states he cannot sleep in the hospital. He denies any nausea vomiting or diarrhea. He thinks that he is eating and drinking okay. He has had significant weight loss. He was stabilized and discharged home. Shortly after being home his pain became unbearable. He has generalized pain in the severe pain to the perirectal area. They're using sitz baths and Silvadene at home but is pain just was not well controlled. He constantly was admitted. Review of Systems Constitutional: Reports chills, Reports fatigue, Reports weakness, Reports weight loss, Denies fever, Denies poor appetite Eyes: denies blurred vision, denies pain Ears, nose, mouth and throat: Denies dysphagia, Denies headache, Denies nasal congestion, Denies nasal discharge, Denies sore throat, Denies vertigo Cardiovascular: Reports dyspnea on exertion, Reports shortness of breath, Denies chest pain, Denies leg edema, Denies lightheadedness Respiratory: Reports cough, Reports cough with sputum, Reports dyspnea, Reports respiratory infections, Denies excessive sputum, Denies hemoptysis, Denies home oxygen, Denies wheezing Gastrointestinal: Reports constipation, Denies abdominal pain, Denies diarrhea, Denies loss of appetite, Denies nausea, Denies vomiting Genitourinary: Reports urinary retention, Denies dysuria Musculoskeletal: Reports muscle weakness, Denies myalgias Integumentary: Reports wounds to rectal area, Denies pruritus, Denies rash Neurological: Denies change in mentation, Denies change in speech, Denies numbness, Denies seizures, Denies weakness Psychiatric: Has some anxiety and depression 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 - last chemo was Sep 19,, 0f 2018,lesions seen on CT scan on adrenal gland and kidneys, pacer, emphesyma,Parkinsons,chronic diarrhea History of Any Multi-Drug Resistant Organisms: None Reported Past Surgical History: Hernia Repair, Pacemaker Additional Past Surgical History / Comment(s): Lung biopsy, pacer Past Anesthesia/Blood Transfusion Reactions: No Reported Reaction Type of Cardiac Device: Permanent Pacemaker Device Placement Date:: 2016 Past Psychological History: No Psychological Hx Reported Smoking Status: Current every day smoker Past Alcohol Use History: None Reported Past Drug Use History: None Reported - Past Family History Mother Family Medical History: Coronary Artery Disease (CAD), Hypertension Father Family Medical History: Hyperlipidemia, Hypertension Medications and Allergies Home Medications and Allergies Comment(s): Current Medications Albuterol Sulfate (Ventolin Nebulized) 2.5 mg INHALATION RT-QID TOM Last Admin: 10/04/19 22:17 Dose: 2.5 mg Documented by: Alprazolam (Xanax) 0.25 mg PO TID PRN PRN Reason: Anxiety Last Admin: 10/04/19 18:36 Dose: 0.25 mg Documented by: Artificial Tears (Artificial Tear Drops) 1 drops BOTH EYES QID [facility] Last Admin: 10/04/19 22:23 Dose: 1 drops Documented by: Aspirin (Aspirin) 81 mg PO DAILY [facility] Last Admin: 10/04/19 07:58 Dose: 81 mg Documented by: Budesonide/Formoterol Fumarate (Symbicort 160-4.5 Mcg Inhaler) 2 puff INHALATION RT-BID [facility] Last Admin: 10/04/19 22:17 Dose: 2 puff Documented by: Fentanyl (Duragesic 25mcg/Hr Patch) 1 patch TRANSDERM Q72H [facility] Last Admin: 10/03/19 18:16 Dose: 1 patch Documented by: Filgrastim (Zarxio) 300 mcg SQ DAILY [facility] Last Admin: 10/04/19 13:00 Dose: 300 mcg Documented by: Gabapentin (Neurontin) 300 mg PO BID [facility] Last Admin: 10/04/19 22:22 Dose: 300 mg Documented by: Hydrocortisone Acetate (Anusol-Hc) 25 mg RECTAL DAILY [facility] Last Admin: 10/04/19 08:00 Dose: 25 mg Documented by: Lactulose (Cephulac) 20 gm PO TID PRN PRN Reason: Constipation Magnesium Oxide (Mag-Ox) 800 mg PO DAILY [facility] Last Admin: 10/04/19 07:58 Dose: 800 mg Documented by: Metoprolol Tartrate (Lopressor) 12.5 mg PO BID [facility] Last Admin: 10/04/19 22:22 Dose: 12.5 mg Documented by: Miscellaneous Information (Coumadin Per Pharmacy) 0 each MISCELLANE DIRECTED PRN PRN Reason: PER PROTOCOL Morphine Sulfate (Morphine Sulfate (Inj)) 4 mg IVP Q4HR PRN PRN Reason: Severe Pain Last Admin: 10/04/19 14:15 Dose: 4 mg Documented by: Pantoprazole Sodium (Protonix) 40 mg PO BID [facility] Last Admin: 10/04/19 22:22 Dose: 40 mg Documented by: Polyethylene Glycol (Miralax) 17 gm PO DAILY PRN PRN Reason: Constipation Primidone (Mysoline) 50 mg PO BID [facility] Last Admin: 10/04/19 22:22 Dose: 50 mg Documented by: Quetiapine Fumarate (Seroquel) 25 mg PO HS PRN PRN Reason: Agitation Senna (Senokot) 8.6 mg PO BID PRN PRN Reason: Constipation Tamsulosin HCl (Flomax) 0.4 mg PO PC-SUPPER [facility] Last Admin: 10/04/19 18:37 Dose: 0.4 mg Documented by: Terbinafine HCl (Lamisil) 250 mg PO DAILY [facility] Last Admin: 10/04/19 08:00 Dose: 250 mg Documented by: Tramadol HCl (Ultram) 50 mg PO QID PRN PRN Reason: Moderate Pain/Discomfort Last Admin: 10/04/19 17:29 Dose: 50 mg Documented by: Triamcinolone Acetonide (Oralone) 1 applic MUCOUS MEM PC-TID [facility] Last Admin: 10/04/19 18:40 Dose: 1 applic Documented by: Valacyclovir HCl (Valtrex) 500 mg PO BID [facility] Last Admin: 10/04/19 22:22 Dose: 500 mg Documented by: Home Medications Medication Instructions Recorded Confirmed Type Albuterol Inhaler [Ventolin Hfa 2 puff INHALATION RT-QID 09/13/19 10/03/19 History Inhaler] Artificial Tears-Hypromellose 1 drop BOTH EYES QID 09/13/19 10/03/19 History [Artificial Tear Drops] Aspirin EC [Ecotrin Low Dose] 81 mg PO DAILY 09/13/19 10/03/19 History Cetirizine HCl [Zyrtec] 10 mg PO DAILY 09/13/19 10/03/19 History Cholecalciferol [Vitamin D3 (25 2,000 unit PO DAILY 09/13/19 10/03/19 History Mcg = 1000 Iu)] Gabapentin 300 mg PO BID 09/13/19 10/03/19 History Loperamide HCl [Loperamide] 4 mg PO Q6H 09/13/19 10/03/19 History Magnesium Oxide [Mag-Ox] 800 mg PO DAILY 09/13/19 10/03/19 History Metoprolol Tartrate [Lopressor] 12.5 mg PO BID 09/13/19 10/03/19 History Omeprazole 40 mg PO BID 09/13/19 10/03/19 History Primidone [Mysoline] 50 mg PO BID 09/13/19 10/03/19 History Terbinafine [LamISIL] 250 mg PO DAILY 09/13/19 10/03/19 History Vits A,C,E/Lutein/Minerals 1 tab PO BID 09/13/19 10/03/19 History [Ocuvite with Lutein Tablet] Bisacodyl [Dulcolax] 10 mg PO DAILY PRN #10 tablet.dr 09/21/19 10/03/19 Rx Diclofenac Sodium Gel [Voltaren 2 gm TOPICAL QID 30 Days #1 tube 09/21/19 10/03/19 Rx Gel] Hydrocortisone Suppository 25 mg RECTAL DAILY #20 supp 09/27/19 10/03/19 Rx [Anusol-Hc] Tamsulosin [Flomax] 0.4 mg PO PC-SUPPER #30 cap.er.24h 09/27/19 10/03/19 Rx Warfarin Sodium [Coumadin] 5 mg PO HS 30 Days #30 tab 09/27/19 10/03/19 Rx valACYclovir [Valtrex] 500 mg PO BID #14 tab 09/27/19 10/03/19 Rx Budesonide/Formoterol Fumarate 2 puff INHALATION RT-BID 10/03/19 10/03/19 History [Symbicort 160-4.5 Mcg Inhaler] Allergies Allergy/AdvReac Type Severity Reaction Status Date / Time cephradine AdvReac Cough Verified 09/13/19 19:24 lisinopril AdvReac Cough Verified 09/13/19 19:24 Physical Exam Vitals: Vital Signs Temp Pulse Pulse Resp BP Pulse Ox 10/04/19 22:28 80 10/04/19 22:19 80 10/04/19 21:00 98.3 F 70 20 112/60 99 10/04/19 16:26 90 10/04/19 16:16 88 10/04/19 12:30 88 10/04/19 12:19 84 10/04/19 12:11 98.5 F 70 20 108/60 99 10/04/19 09:25 88 92 L 10/04/19 09:10 80 10/04/19 04:14 71 97 10/04/19 04:12 97.9 F 74 25 H 135/75 82 L Intake and Output 10/04/19 10/04/19 10/05/19 14:59 22:59 06:59 Other: # Voids 3 # Bowel Movements 3 Weight 67.993 kg Results CBC & Chem 7: 10/05/19 07:20 10/04/19 07:57 Labs: Abnormal Lab Results - Last 24 Hours (Table) 10/04/19 10/04/19 10/04/19 Range/Units 07:57 07:57 07:57 WBC 1.0 L* (3.8-10.6) k/uL RBC 3.08 L (4.30-5.90) m/uL Hgb 10.3 L (13.0-17.5) gm/dL Hct 30.2 L (39.0-53.0) % Plt Count 130 L (150-450) k/uL Neutrophils # (Manual) 0.10 L* (1.3-7.7) k/uL Lymphocytes # (Manual) 0.61 L (1.0-4.8) k/uL PT 18.8 H (9.0-12.0) sec INR 1.9 H (<1.2) Chloride 93 L (98-107) mmol/L Carbon Dioxide 40 H (22-30) mmol/L Creatinine 0.53 L (0.66-1.25) mg/dL Assessment and Plan (1) Leukopenia due to antineoplastic chemotherapy Narrative/Plan: 69-year-old male presents to hospital with recurrence of uncontrolled pain, worsening of pain to the perirectal area with some worsening of the lesions very poorly overall. He has evidence severe neutropenia and ongoing difficulty with HSV perirectal area. He'll continue with antiviral therapy with Valtrex. Topical triamcinolone as the mucous membrane paste is reapplied. In between the zinc cream to be applied to help with the discomfort. His oncology team is working to try to improve his pain control. And he is receiving growth factors to improve his white count. Please see the consult note as dictated per nurse practitioner Weston Niki Gibbs. Current Visit: Yes Status: Acute Priority: High Code(s): D70.1 - AGRANULOCYTOSIS SECONDARY TO CANCER CHEMOTHERAPY; T45.1X5A - ADVERSE EFFECT OF ANTINEOPLASTIC AND IMMUNOSUP DRUGS, INIT SNOMED Code(s): 384753228
--- NOTE | 2019-10-05 22:22 | P.PN ---
Subjective Progress Note Date: 10/05/19 This is a 69-year-old male known to ID service as he was seen on his last admission. He has a past medical history of lung mass worked up at [facility] in [place] found to have small cell lung cancer. He was hospitalized September 13 through September 27 for pneumonia. Oncology has followed the patient and he completed his first cycle of carboplatin and etoposide days 1-3, completed on September 21. He had other factors complicating his stay including urinary retention requiring Lynch catheter placement, rectal bleeding along with constipation and fecal stasis. Patient was seen by the wound care team for nonhealing decubitus ulcer to the coccyx with wound care in the form of zinc barrier cream daily do a term and cushion for sitting. He was subsequently seen by ID for perirectalrash concerning for viral or yeast. Patient was on Valtrex and topical steroid cream with triamcinolone paste. The patient is due to see have a second cycle of chemotherapy this week but unfortunately he came into the hospital complaining of persistent intractable perirectal pain. He has been seen by the wound team and triamcinolone and barrier cream ordered. Patient also presented initially with pancytopenia with a white count of 0.7 which has improved to 5.1. The patient states that he has a good appetite, no nausea or vomiting, no diarrhea. He did have a bowel movement this morning which was normal. He denies dysuria. He does not require Lynch catheter for retention. 10/05/2019 the patient feels is slowly better. Today is his birthday has had many visitors and his mood is elevated. His pain is slightly better controlled with similar changes. The oncology team is on board and is trying t to maximize his pain control. The topical creams have allowed further improvement of his discomfort in the perirectal area. Objective - Vital Signs Vital signs: Vital Signs Temp 98.2 F 10/05/19 20:18 Pulse 66 10/05/19 20:18 Resp 18 10/05/19 20:18 BP 111/65 10/05/19 20:18 Pulse Ox 97 10/05/19 20:18 Intake & Output 10/05/19 10/05/19 10/06/19 06:59 18:59 06:59 Intake Total 590 1580 Output Total 600 Balance -10 1580 Weight 68.5 kg Intake: Oral 590 1580 Output: Urine 600 Other: Voiding Method Toilet Toilet Urinal Urinal # Voids 1 3 # Bowel Movements 3 - Exam Gen: This is a 68-year-old male. He is sitting on the edge of the bed and appears to be in no acute distress. HEENT: Head is atraumatic, normocephalic. Pupils equal, round. Sclerae is anicteric. NECK: Supple. No JVD. No lymphadenopathy. No thyromegaly. LUNGS: Diminished to the bases but otherwise clear to auscultation. No intercostal retractions. HEART: Regular rate and rhythm. No murmur. ABDOMEN: Soft. Bowel sounds are present. No masses. No tenderness. Skin the perirectal area is evidence of the healing vesicles that are circumferential around the perirectal area. There is the larger ulceration that is sent to the left side more for the base of the scrotum which is somewhat tender. There is only scant drainage. does appear to be slightly improved. EXTREMITIES: No pedal edema. No calf tenderness. NEUROLOGICAL: Patient is awake, alert and oriented x3. - Labs CBC & Chem 7: 10/05/19 07:20 10/04/19 07:57 Labs: Abnormal Lab Results - Last 24 Hours (Table) 10/05/19 10/05/19 Range/Units 07:20 07:20 RBC 2.81 L (4.30-5.90) m/uL Hgb 9.3 L (13.0-17.5) gm/dL Hct 27.1 L (39.0-53.0) % Lymphocytes # (Manual) 0.87 L (1.0-4.8) k/uL Metamyelocytes # (Man) 0.10 H (0) k/uL PT 17.9 H (9.0-12.0) sec INR 1.8 H (<1.2) Assessment and Plan (1) Leukopenia due to antineoplastic chemotherapy Narrative/Plan: 69-year-old male presents to hospital with recurrence of uncontrolled pain, worsening of pain to the perirectal area with some worsening of the lesions very poorly overall. He has evidence severe neutropenia and ongoing difficulty with HSV perirectal area. He'll continue with antiviral therapy with Valtrex. Topical triamcinolone as the mucous membrane paste is reapplied. In between the zinc cream to be applied to help with the discomfort. His oncology team is working to try to improve his pain control. And he is receiving growth factors to improve his white count. 10/05/2019 the patient is feeling slightly better. He is not having significant fevers or chills. His pain is with some improvement of his control. And his mood is somewhat improved given all his visitors for his 69st birthday which is today. Continue the antiviral therapy with Valtrex. Topical triamcinolone paste as well as the zinc cream seemed to be allowing improvement. Continue. Current Visit: Yes Status: Acute Priority: High Code(s): D70.1 - AGRANULOCYTOSIS SECONDARY TO CANCER CHEMOTHERAPY; T45.1X5A - ADVERSE EFFECT OF ANTINEOPLASTIC AND IMMUNOSUP DRUGS, INIT SNOMED Code(s): 404345799
[2019-10-06] MEDS: QUEtiapine 25 MG TAB PO PRN (00:27)
[2019-10-06] MEDS: ARTIFICIAL TEARS-HYPROMELLOSE DROPS 15 ML BTL BOTH EYES SCH ×3 (08:32→17:54)
[2019-10-06] MEDS: ASPIRIN 81 MG PO SCH (08:32)
[2019-10-06] MEDS: TRIAMCINOLONE ACET 0.1% ORAL PASTE 5 GM TUBE MUCOUS MEM SCH ×3 (08:32→17:53)
[2019-10-06] MEDS: PRIMIDONE 50 MG TAB PO SCH ×2 (08:33→20:46)
[2019-10-06] MEDS: GABAPENTIN 300 MG CAP PO SCH ×2 (08:33→20:45)
[2019-10-06] MEDS: PANTOPRAZOLE 40 MG TABLET PO SCH ×2 (08:33→20:45)
[2019-10-06] MEDS: MAGNESIUM OXIDE 400 MG TAB PO SCH (08:33)
[2019-10-06] MEDS: valACYclovir 500 MG TAB PO SCH ×2 (08:33→20:45)
[2019-10-06] MEDS: TERBINAFINE 250 MG TAB PO SCH (08:33)
[2019-10-06] MEDS: METOPROLOL TARTRATE 12.5 MG TAB PO SCH ×2 (08:33→20:45)
[2019-10-06] MEDS: traMADol 50 MG TAB PO PRN ×2 (08:36→20:47)
[2019-10-06] MEDS: FILGRASTIM-SNDZ 300 MCG/0.5 ML SYRINGE SQ SCH (08:44)
[2019-10-06 09:24] LABS: INR 1.9 (<1.2); Prothrombin Time 18.6 sec (9.0-12.0)
[2019-10-06 09:36] LABS: HCT 32.9 % (39.0-53.0); HGB 10.8 gm/dL (13.0-17.5); MCH 32.2 pg (25.0-35.0); MCV 97.7 fL (80.0-100.0); Macrocytosis Slight; Mean Platelet Volume 7.7; Platelet Count 284 k/uL (150-450); RBC 3.36 m/uL (4.30-5.90); RDW 15.5 % (11.5-15.5); WBC 20.1 k/uL (3.8-10.6)
[2019-10-06] MEDS: ALBUTEROL NEBULIZED 2.5 MG/3 ML INHALATION SCH ×4 (10:29→19:41)
[2019-10-06] MEDS: SYMBICORT 160-4.5 MCG INHALER INHALATION SCH ×2 (10:30→19:41)
[2019-10-06 11:36] LABS: Band Neutrophils % 9 %; Lymphocytes # (M) 2.21 k/uL (1.0-4.8); Monocytes # (M) 1.41 k/uL (0-1.0); Myelocytes % 1 %; Neutrophils % (M) 73 %; Nucleated Red Blood Cells 0 /100 WBC (0-0); Promyelocytes % 1 %; Total Cells Counted 200; Toxic Vacuolation Present
[2019-10-06 11:37] LABS: Hypochromasia (M) Present
[2019-10-06 11:38] LABS: Anisocytosis (M) Present; Poikilocytosis (M) Present
--- NOTE | 2019-10-06 12:41 | P.PN ---
Subjective Progress Note Date: 10/06/19 Principal diagnosis: 68-year-old pleasant gentleman now with known history of metastatic lung cancer was recently discharged from the hospital. [place] did not approve for rehabilitati on because of which we'll have to discharge the patient with home care patient has not been doing well was complaining of severe abdominal pain since his discharge patient that is significant metastatic disease. Patient had a CAT scan of the abdomen which did not show any significant abnormality patient was also complaining of shortness of breath and presented to [facility] and was wheezing at that time patient was given steroid and inhalational treatments with which his shortness of breath improved patient does use 2 L of oxygen at home. Patient presently denied any fever chills. Patient has been delirious and confused and does have sundowners which all of which are believed to be se condary to pain and patient has not been sleeping well because of the pain patient takes only [place] for pain. His main concern is an main reason for coming to the hospital his pain significantly in the left lower quadrant of the abdomen including pain in the buttock area where he had hemorrhoids. Chest CAT scan did not show any pulmonary embolism or pneumonia. Patient had bilateral pedal edema all the CAT scan was did not show any evidence of pulmonary edema will obtain a Doppler of bilateral lower extremity patient received a dose of Lasix we'll also obtain an echocardiogram. patient apparently had elevated BNP at the other places that is [facility]. Patient CAT scan of the chest did show decrease in mediastinal lymphadenopathy. 10/04/2019 Patient is sitting up in the chair in no acute distress no acute overnight issues. Patient continues to have severe pain of his buttocks and is currently still requesting IV pain medications. Fentanyl Patch was started and will likely need to be increased. Patient's venous Doppler for bilateral lower extremities are negative for DVTs. Echo done this morning shows overall LV systolic function low to normal with an EF of 50-55%. Patient states that he is eating and tolerating diet and had a large bowel movement this morning. Will continue with bowel regimen. Review of Systems: Cardiovascular: No reports of chest pain or palpitations Respiratory: Reports of shortness of breath or cough GI: No reports of nausea, vomiting, or diarrhea : No reports of dysuria or retention 10/05/2019 Patient is sitting up in the chair in no acute distress with no acute overnight issues. Patient continues to have perirectal discomfort and has been doing position changes frequently and remaining offloading. Patient was seen by wound care and recommending to continue with Synalar cream along with barrier cream to the area. Patient's fentanyl patch was increased to 50mcg. Case management and social work are following to obtain authorization for subacute rehab or long- term placement once patient is discharged. Discussion with the family at length and they feel he needs 24/7 care and they are unable to manage this in the home. Medicare is currently pending as the patient currently only has [facility] insurance and they denied authorization to rehab previously. Will continue to monitor closely. Multiple medical consultations are following. 10/06/2019 Patient is sitting up in the chair in no acute distress after just returning fro m the bathroom. Per nursing staff patient had a difficult night with pain management but states he feels much better today. Case management and social work meeting with the daughter Krystina today to discuss possible hospice options as the patient is opting to have no further treatment of his cancer at this time. Patient states that the side effects of his last round of chemo were too much and does not want to continue with it at this time. Family was to discuss overnight about this option and will be having a meeting with social work this afternoon. Patient continues to have some tenderness and discomfort in the perirectal region and is continuing with the Synalar cream and barrier cream. Patient is much more alert and has a positive attitude today. We'll continue to monitor closely. Oncology is aware of the patient and family's request to discontinue treatment at this time. Objective - Vital Signs Vital signs: Vital Signs Temp 98.5 F 10/06/19 05:00 Pulse 69 10/06/19 05:00 Resp 20 10/06/19 05:00 BP 105/54 10/06/19 05:00 Pulse Ox 99 10/06/19 05:00 Intake & Output 10/05/19 10/06/19 10/06/19 18:59 06:59 18:59 Intake Total 1580 580 Output Total 1 Balance 1580 579 Weight 74 kg Intake: Oral 1580 580 Output: Urine 1 Other: Voiding Method Toilet Toilet Urinal Urinal # Voids 3 1 # Bowel Movements 3 1 2 - Exam GENERAL: The patient is alert and oriented x3, not in any acute distress. Well d eveloped, well nourished. Patient is awake and alert HEENT: Pupils are round and equally reacting to light. EOMI. No scleral icterus. No conjunctival pallor. Normocephalic, atraumatic. No pharyngeal erythema. No thyromegaly. CARDIOVASCULAR: S1 and S2 present. No murmurs, rubs, or gallops. PULMONARY: Chest is clear to auscultation, no wheezing or crackles. ABDOMEN: Soft, nontender, nondistended, normoactive bowel sounds. No palpable organomegaly. MUSCULOSKELETAL: No joint swelling or deformity. EXTREMITIES: No cyanosis, clubbing, or pedal edema. NEUROLOGICAL: Gross neurological examination did not reveal any focal deficits. SKIN: No rashes. Perirectal and bilateral buttock nonhealing ulcerations noted - Labs CBC & Chem 7: 10/06/19 08:37 10/04/19 07:57 Labs: Abnormal Lab Results - Last 24 Hours (Table) 10/06/19 10/06/19 Range/Units 08:37 08:37 WBC 20.1 H (3.8-10.6) k/uL RBC 3.36 L (4.30-5.90) m/uL Hgb 10.8 L (13.0-17.5) gm/dL Hct 32.9 L (39.0-53.0) % Neutrophils # (Manual) 16.40 H (1.3-7.7) k/uL Monocytes # (Manual) 1.41 H (0-1.0) k/uL Myelocytes # (Manual) 0.20 H (0) k/uL Promyelocytes # (Man) 0.20 H (0) k/uL PT 18.6 H (9.0-12.0) sec INR 1.9 H (<1.2) Assessment and Plan Assessment: -Abdominal pain: Appears to be secondary to metastatic disease no other significant abnormality was evidenced on the abdominal CAT scan. Patient will be started on low-dose of fentanyl patch along with tramadol for breakthrough pain and morphine for breakthrough pain and patient will be started on GI pro phylaxis -patient's delirium is probably secondary to pain but all these opiates can cause delirium closely monitor for delirium and treat accordingly as needed. Will use Haldol if needed for delirium of Seroquel at nighttime for delirium -Mild protein calorie malnutrition -Encephalopathy, delirium: Probably secondary to pain, patient pain will be treated and if patient has toxic encephalopathy from pain medications will have to change his pain medication or treat him symptomatically with Seroquel. 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 INR today is 1.9 -Bilateral pedal edema we'll rule out any CHF after an echocardiogram after a BMP patient doesn't have any significant JVD and also to rule out DVT Plan: Recommend continue current medications, management, and symptomatic treatment. Wound care, oncology, and infectious disease are following. Case management and social work are following and having a meeting with the family and patient to discuss possible hospice options as the patient is currently refusing any further treatment for his cancer at this time. Medicaid is pending. Further recommendations to follow.
[2019-10-06] MEDS: TAMSULOSIN 0.4 MG CAP.ER.24H PO SCH (17:52)
[2019-10-06] MEDS: ALPRAZolam 0.25 MG TAB PO PRN (19:10)
[2019-10-06] MEDS ORDERED: WARFARIN 5 MG TAB PO ONE (21:00)
[2019-10-07] MEDS: ARTIFICIAL TEARS-HYPROMELLOSE DROPS 15 ML BTL BOTH EYES SCH ×5 (00:02→21:11)
[2019-10-07 07:43] LABS: HGB 9.4 gm/dL (13.0-17.5); MCH 31.6 pg (25.0-35.0); MCHC 32.2 g/dL (31.0-37.0); Macrocytosis Slight; Mean Platelet Volume 7.5; Platelet Count 277 k/uL (150-450); RBC 2.96 m/uL (4.30-5.90); RDW 15.1 % (11.5-15.5); WBC 32.4 k/uL (3.8-10.6)
[2019-10-07 07:52] LABS: INR 2.3 (<1.2); Prothrombin Time 22.1 sec (9.0-12.0)
[2019-10-07] MEDS: ALBUTEROL NEBULIZED 2.5 MG/3 ML INHALATION SCH ×4 (07:57→19:31)
[2019-10-07 08:41] LABS: Band Neutrophils % 3 %; Lymphocytes # (M) 1.94 k/uL (1.0-4.8); Metamyelocytes # (M) 0.32 k/uL (0); Metamyelocytes % 1 %; Myelocytes % 4 %; Neutrophils % (M) 84 %; Nucleated Red Blood Cells 0 /100 WBC (0-0); Total Cells Counted 200
[2019-10-07] MEDS: MORPHINE SULFATE 4 MG/ML SYRINGE IVP PRN ×2 (08:56→19:29)
[2019-10-07] MEDS: MAGNESIUM OXIDE 400 MG TAB PO SCH (08:57)
[2019-10-07] MEDS: valACYclovir 500 MG TAB PO SCH ×2 (08:57→21:10)
[2019-10-07] MEDS: ASPIRIN 81 MG PO SCH (08:57)
[2019-10-07] MEDS: PRIMIDONE 50 MG TAB PO SCH ×2 (08:57→21:10)
[2019-10-07] MEDS: PANTOPRAZOLE 40 MG TABLET PO SCH ×2 (08:57→21:09)
[2019-10-07] MEDS: TERBINAFINE 250 MG TAB PO SCH (08:58)
[2019-10-07] MEDS: TRIAMCINOLONE ACET 0.1% ORAL PASTE 5 GM TUBE MUCOUS MEM SCH ×3 (08:58→17:31)
[2019-10-07] MEDS: GABAPENTIN 300 MG CAP PO SCH ×2 (08:58→21:10)
[2019-10-07] MEDS: FILGRASTIM-SNDZ 300 MCG/0.5 ML SYRINGE SQ SCH (09:12)
[2019-10-07] MEDS: METOPROLOL TARTRATE 12.5 MG TAB PO SCH ×2 (09:13→21:10)
[2019-10-07] MEDS: traMADol 50 MG TAB PO PRN ×2 (10:28→21:09)
[2019-10-07] MEDS: ONDANSETRON 4 MG/2 ML VIAL IVP PRN ×2 (11:21→18:28)
[2019-10-07] MEDS: SYMBICORT 160-4.5 MCG INHALER INHALATION SCH ×2 (11:47→19:31)
--- NOTE | 2019-10-07 13:42 | CDI ---
Documentation Clarification Form Date: 10/07/2019 1:31:19 PM From: Sherin TroyOvertonMAURICE berry, CCDS Admit Date: 10/03/2019 4:53:00 PM Patient Name: Eloy Guzman Visit Number: [id number] Discharge Date: ATTENTION: The Clinical Documentation Specialists (CDI) and [facility] Coding Staff appreciate your assistance in clarifying documentation. Please respond to the clarification below the line at the bottom and electronically sign. The CDI & [facility] Coding staff will review the response and follow-up if needed. Please note: Queries are made part of the Legal Health Record. If you have any questions, please contact the author of this message via ITS. Dr. 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 Current smoker. Clinical Indicators: Presented with "known history of metastatic lung cancer, was recently discharged from the hospital. [place] did not approve for rehabilitation because of which we'll have to discharge the patient with home care patient has not been doing well was complaining of severe abdominal pain since his discharge patient that is significant metastatic disease." EKG/telemetry: No EKG ECHO: Sinus rhythm, Borderline LVH, Systolic low normal w/EF 50-55%, Mild aortic valve sclerosis, Mild-mod AR, Mild MR/TR. Treatment: IV Ms, po Tramadol, Fentanyl patch, INH Albuterol, INH Symbicort, po Lopressor, po Coumadin, po ASA. Cardiology was not consulted. In your professional opinion, can you please clarify the type of Atrial Fibrillation, if known? Chronic (with RVR) Permanent Persistent (chronic) (nos) (other Other, please specify Unable to determine (Last Revision: January 2018) Unable to determine MTDD
--- NOTE | 2019-10-07 14:40 | P.PN ---
<Halley Crane - Last Filed: 10/07/19 14:29> Subjective Progress Note Date: 10/07/19 Principal diagnosis: 68-year-old pleasant gentleman now with known history of metastatic lung cancer was recently discharged from the hospital. [place] did not approve for rehabilitation because of which we'll have to discharge the patient with home care patient has not been doing well was complaining of severe abdominal pain since his discharge patient that is significant metastatic disease. Patient had a CAT scan of the abdomen which did not show any significant abnormality patient was also complaining of shortness of breath and presented to [facility] and was wheezing at that time patient was given steroid and inhalational treatments with which his shortness of breath improved patient does use 2 L of oxygen at home. Patient presently denied any fever chills. Patient has been delirious and confused and does have sundowners which all of which are believed to be secondary to pain and patient has not been sleeping well because of the pain patient takes only [place] for pain. His main concern is an main reason for coming to the hospital his pain significantly in the left lower quadrant of the abdomen including pain in the buttock area where he had hemorrhoids. Chest CAT scan did not show any pulmonary embolism or pneumonia. Patient had bilateral pedal edema all the CAT scan was did not show any evidence of pulmonary edema will obtain a Doppler of bilateral lower extremity patient received a dose of Lasix we'll also obtain an echocardiogram. patient apparently had elevated BNP at the other places that is [facility]. Patient CAT scan of the chest did show decrease in mediastinal lymphadenopathy. 10/04/2019 Patient is sitting up in the chair in no acute distress no acute overnight issues. Patient continues to have severe pain of his buttocks and is currently still requesting IV pain medications. Fentanyl Patch was started and will likely need to be increased. Patient's venous Doppler for bilateral lower extremities are negative for DVTs. Echo done this morning shows overall LV systolic function low to normal with an EF of 50-55%. Patient states that he is eating and tolerating diet and had a large bowel movement this morning. Will continue with bowel regimen. Review of Systems: Cardiovascular: No reports of chest pain or palpitations Respiratory: Reports of shortness of breath or cough GI: No reports of nausea, vomiting, or diarrhea : No reports of dysuria or retention 10/05/2019 Patient is sitting up in the chair in no acute distress with no acute overnight issues. Patient continues to have perirectal discomfort and has been doing position changes frequently and remaining offloading. Patient was seen by wound care and recommending to continue with Synalar cream along with barrier cream to the area. Patient's fentanyl patch was increased to 50mcg. Case management and social work are following to obtain authorization for subacute rehab or long- term placement once patient is discharged. Discussion with the family at length and they feel he needs 24/7 care and they are unable to manage this in the home. Medicare is currently pending as the patient currently only has [facility] insurance and they denied authorization to rehab previously. Will continue to monitor closely. Multiple medical consultations are following. 10/06/2019 Patient is sitting up in the chair in no acute distress after just returning from the bathroom. Per nursing staff patient had a difficult night with pain management but states he feels much better today. Case management and social work meeting with the daughter Krystina today to discuss possible hospice options as the patient is opting to have no further treatment of his cancer at this time. Patient states that the side effects of his last round of chemo were too much and does not want to continue with it at this time. Family was to discuss overnight about this option and will be having a meeting with social work this afternoon. Patient continues to have some tenderness and discomfort in the shahid rectal region and is continuing with the Synalar cream and barrier cream. Patient is much more alert and has a positive attitude today. We'll continue to monitor closely. Oncology is aware of the patient and family's request to discontinue treatment at this time. 10/07/2019 Patient is sitting up in the chair in no acute distress with no acute overnight issues. White blood count has been increasing daily and is currently 32.4 with no obvious signs of infection. Most likely due to the medication that he has been on. Filgrastim has been discontinued. Oncology is following and is aware. Patient continues to be adamant about requesting no further treatment of his cancer at this time and family have been looking into possible hospice options at [facility] or at the [facility]. Patient does have Medicaid pending and family is concerned about the cost of hospice. Case management and social work are following closely and working out the details of possibly obtaining [place] funds or assistance from the [facility] for these hospice costs. Patient continues to be a positive spirits and states that his perirectal pain comes and goes. Currently patient denies any chest pain, shortness of breath, or palpitations. Patient has been afebrile. Patient denies any nausea or vomiting and has been and tolerating diet. Will continue to monitor closely. Repeat labs in the morning. Objective - Vital Signs Vital signs: Vital Signs Temp 97.1 F L 10/07/19 11:24 Pulse 68 10/07/19 11:50 Resp 16 10/07/19 11:24 BP 126/58 10/07/19 11:24 Pulse Ox 100 10/07/19 11:24 Intake & Output 10/06/19 10/07/19 10/07/19 18:59 06:59 18:59 Weight 74.5 kg Other: Voiding Method Toilet Toilet Toilet Urinal Urinal Urinal # Voids 4 1 # Bowel Movements 1 - Exam GENERAL: The patient is alert and oriented x3, not in any acute distress. Well developed, well nourished. Patient is awake and alert HEENT: Pupils are round and equally reacting to light. EOMI. No scleral icterus. No conjunctival pallor. Normocephalic, atraumatic. No pharyngeal erythema. No thyromegaly. CARDIOVASCULAR: S1 and S2 present. No murmurs, rubs, or gallops. PULMONARY: Chest is clear to auscultation, no wheezing or crackles. ABDOMEN: Soft, nontender, nondistended, normoactive bowel sounds. No palpable organomegaly. MUSCULOSKELETAL: No joint swelling or deformity. EXTREMITIES: No cyanosis, clubbing, or pedal edema. NEUROLOGICAL: Gross neurological examination did not reveal any focal deficits. SKIN: No rashes. Perirectal and bilateral buttock nonhealing ulcerations noted - Labs CBC & Chem 7: 10/07/19 06:49 10/04/19 07:57 Labs: Abnormal Lab Results - Last 24 Hours (Table) 10/07/19 10/07/19 Range/Units 06:49 06:49 WBC 32.4 H (3.8-10.6) k/uL RBC 2.96 L (4.30-5.90) m/uL Hgb 9.4 L (13.0-17.5) gm/dL Hct 29.0 L (39.0-53.0) % Neutrophils # (Manual) 28.10 H (1.3-7.7) k/uL Monocytes # (Manual) 1.30 H (0-1.0) k/uL Metamyelocytes # (Man) 0.32 H (0) k/uL Myelocytes # (Manual) 1.30 H (0) k/uL PT 22.1 H (9.0-12.0) sec INR 2.3 H (<1.2) Assessment and Plan Assessment: -Abdominal pain: Appears to be secondary to metastatic disease no other significant abnormality was evidenced on the abdominal CAT scan. Patient will be started on low-dose of fentanyl patch along with tramadol for breakthrough pain and morphine for breakthrough pain and patient will be started on GI prophylaxis -patient's delirium is probably secondary to pain but all these opiates can cause delirium closely monitor for delirium and treat accordingly as needed. Will use Haldol if needed for delirium of Seroquel at nighttime for delirium -Mild protein calorie malnutrition -Encephalopathy, delirium: Probably secondary to pain, patient pain will be treated and if patient has toxic encephalopathy from pain medications will have to change his pain medication or treat him symptomatically with Seroquel. 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 INR today is 2.3 -Bilateral pedal edema we'll rule out any CHF after an echocardiogram after a BMP patient doesn't have any significant JVD and also to rule out DVT Plan: Recommend continue current medications, management, and symptomatic treatment. Wound care, oncology, and infectious disease are following. Case management and social work are following and having a meeting with the family and patient to discuss possible hospice options as the patient is currently refusing any further treatment for his cancer at this time. Awaiting authorization from [facility] or the [facility] and possible assistance from the VA to aid and assist in carrying out hospice wishes. Patient and family are in agreement with hospice at this time and currently awaiting feedback on the financial situation affording hospice or if the VA will be able to assist the patient with these fees. Medicaid is pending. Further recommendations to follow. <Kristen,Jomar E - Last Filed: 10/08/19 00:28> Subjective Principal diagnosis: I have discussed the plan and I have reviewed the note with DISTANCE LEARNING COORDINATOR halley and I agree with it except what is mentioned below Pt is seen and examined by me at bed side Objective - Vital Signs Vital signs: Vital Signs Temp 98.2 F 10/07/19 20:39 Pulse 70 10/07/19 20:39 Resp 20 10/07/19 20:39 BP 104/59 10/07/19 20:39 Pulse Ox 99 10/07/19 20:39 Intake & Output 10/07/19 10/07/19 10/08/19 06:59 18:59 06:59 Intake Total 600 120 Balance 600 120 Weight 74.5 kg Intake: Oral 600 120 Other: Voiding Method Toilet Toilet Toilet Urinal Urinal Urinal # Voids 1 3 1 # Bowel Movements 1 - Labs CBC & Chem 7: 10/07/19 06:49 10/04/19 07:57 Labs: Abnormal Lab Results - Last 24 Hours (Table) 10/07/19 10/07/19 Range/Units 06:49 06:49 WBC 32.4 H (3.8-10.6) k/uL RBC 2.96 L (4.30-5.90) m/uL Hgb 9.4 L (13.0-17.5) gm/dL Hct 29.0 L (39.0-53.0) % Neutrophils # (Manual) 28.10 H (1.3-7.7) k/uL Monocytes # (Manual) 1.30 H (0-1.0) k/uL Metamyelocytes # (Man) 0.32 H (0) k/uL Myelocytes # (Manual) 1.30 H (0) k/uL PT 22.1 H (9.0-12.0) sec INR 2.3 H (<1.2)
[2019-10-07] MEDS: TAMSULOSIN 0.4 MG CAP.ER.24H PO SCH (17:30)
[2019-10-07] MEDS ORDERED: WARFARIN 5 MG TAB PO ONE (18:00)
[2019-10-07] MEDS: ALPRAZolam 0.25 MG TAB PO PRN (18:28)
[2019-10-08] MEDS: traMADol 50 MG TAB PO PRN ×3 (03:13→21:01)
[2019-10-08] MEDS: ALPRAZolam 0.25 MG TAB PO PRN (04:10)
[2019-10-08 07:35] LABS: INR 2.5 (<1.2); Prothrombin Time 24.1 sec (9.0-12.0)
[2019-10-08] MEDS: valACYclovir 500 MG TAB PO SCH ×2 (07:37→21:02)
[2019-10-08] MEDS: TERBINAFINE 250 MG TAB PO SCH (07:37)
[2019-10-08] MEDS: MAGNESIUM OXIDE 400 MG TAB PO SCH (07:37)
[2019-10-08] MEDS: ASPIRIN 81 MG PO SCH (07:38)
[2019-10-08] MEDS: GABAPENTIN 300 MG CAP PO SCH ×2 (07:38→21:02)
[2019-10-08] MEDS: METOPROLOL TARTRATE 12.5 MG TAB PO SCH ×2 (07:38→21:02)
[2019-10-08] MEDS: ARTIFICIAL TEARS-HYPROMELLOSE DROPS 15 ML BTL BOTH EYES SCH ×4 (07:38→21:04)
[2019-10-08] MEDS: PRIMIDONE 50 MG TAB PO SCH ×2 (07:38→21:02)
[2019-10-08] MEDS: PANTOPRAZOLE 40 MG TABLET PO SCH ×2 (07:38→21:01)
[2019-10-08 07:44] LABS: HCT 28.1 % (39.0-53.0); HGB 9.6 gm/dL (13.0-17.5); MCH 33.2 pg (25.0-35.0); MCHC 34.2 g/dL (31.0-37.0); MCV 97.2 fL (80.0-100.0); Macrocytosis Slight; Mean Platelet Volume 7.6; Platelet Count 316 k/uL (150-450); RBC 2.89 m/uL (4.30-5.90); RDW 15.3 % (11.5-15.5)
[2019-10-08 08:31] LABS: Anisocytosis (M) Present; Band Neutrophils % 5 %; Hypochromasia (M) Present; Lymphocytes # (M) 2.24 k/uL (1.0-4.8); Metamyelocytes # (M) 0.96 k/uL (0); Metamyelocytes % 3 %; Monocytes # (M) 2.56 k/uL (0-1.0); Myelocytes # (M) 0.64 k/uL (0); Myelocytes % 2 %; Neutrophils % (M) 76 %; Nucleated Red Blood Cells 0 /100 WBC (0-0); Polychromasia Present; Total Cells Counted 200
[2019-10-08] MEDS: SYMBICORT 160-4.5 MCG INHALER INHALATION SCH ×2 (09:12→20:38)
[2019-10-08] MEDS: ALBUTEROL NEBULIZED 2.5 MG/3 ML INHALATION SCH ×4 (09:12→20:38)
[2019-10-08] MEDS: TRIAMCINOLONE ACET 0.1% ORAL PASTE 5 GM TUBE MUCOUS MEM SCH ×3 (14:29→18:13)
--- NOTE | 2019-10-08 14:45 | P.PN ---
Subjective 68-year-old pleasant gentleman now with known history of metastatic lung cancer was recently discharged from the hospital. [facility] did not approve for rehabilitation because of which we'll have to discharge the patient with home care patient has not been doing well was complaining of severe abdominal pain since his discharge patient that is significant metastatic disease. Patient had a CAT scan of the abdomen which did not show any significant abnormality patient was also complaining of shortness of breath and presented to [facility] and was wheezing at that time patient was given steroid and inhalational treatments with which his shortness of breath improved patient does use 2 L of oxygen at home. Patient presently denied any fever chills. Patient has been delirious and confused and does have sundowners which all of which are believed to be secondary to pain and patient has not been sleeping well because of the pain patient takes only [place] for pain. His main concern is an main reason for coming to the hospital his pain significantly in the left lower quadrant of the abdomen including pain in the buttock area where he had hemorrhoids. Chest CAT scan did not show any pulmonary embolism or pneumonia. Patient had bilateral pedal edema all the CAT scan was did not show any evidence of pulmonary edema will obtain a Doppler of bilateral lower extremity patient received a dose of Lasix we'll also obtain an echocardiogram. patient apparently had elevated BNP at the other places that is [facility]. Patient CAT scan of the chest did show decrease in mediastinal lymphadenopathy. 10/04/2019 Patient is sitting up in the chair in no acute distress no acute overnight issues. Patient continues to have severe pain of his buttocks and is currently still requesting IV pain medications. Fentanyl Patch was started and will likely need to be increased. Patient's venous Doppler for bilateral lower extremities are negative for DVTs. Echo done this morning shows overall LV systolic function low to normal with an EF of 50-55%. Patient states that he is eating and tolerating diet and had a large bowel movement this morning. Will continue with bowel regimen. Review of Systems: Cardiovascular: No reports of chest pain or palpitations Respiratory: Reports of shortness of breath or cough GI: No reports of nausea, vomiting, or diarrhea : No reports of dysuria or retention 10/05/2019 Patient is sitting up in the chair in no acute distress with no acute overnight issues. Patient continues to have perirectal discomfort and has been doing position changes frequently and remaining offloading. Patient was seen by wound care and recommending to continue with Synalar cream along with barrier cream to the area. Patient's fentanyl patch was increased to 50mcg. Case management and social work are following to obtain authorization for subacute rehab or long- term placement once patient is discharged. Discussion with the family at length and they feel he needs 24/7 care and they are unable to manage this in the home. Medicare is currently pending as the patient currently only has VA insurance and they denied authorization to rehab previously. Will continue to monitor closely. Multiple medical consultations are following. 10/06/2019 Patient is sitting up in the chair in no acute distress after just returning from the bathroom. Per nursing staff patient had a difficult night with pain management but states he feels much better today. Case management and social work meeting with the daughter Krystina today to discuss possible hospice options as the patient is opting to have no further treatment of his cancer at this time. Patient states that the side effects of his last round of chemo were too much and does not want to continue with it at this time. Family was to discuss overnight about this option and will be having a meeting with social work this afternoon. Patient continues to have some tenderness and discomfort in the perirectal region and is continuing with the Synalar cream and barrier cream. Patient is much more alert and has a positive attitude today. We'll continue to monitor closely. Oncology is aware of the patient and family's request to discontinue treatment at this time. 10/07/2019 Patient is sitting up in the chair in no acute distress with no acute overnight issues. White blood count has been increasing daily and is currently 32.4 with no obvious signs of infection. Most likely due to the medication that he has been on. Filgrastim has been discontinued. Oncology is following and is aware. Patient continues to be adamant about requesting no further treatment of his cancer at this time and family have been looking into possible hospice options at [facility] or at the [facility]. Patient does have Medicaid pending and family is concerned about the cost of hospice. Case management and social work are following closely and working out the details of possibly obtaining karlene funds or assistance from the VA for these hospice costs. Patient continues to be a positive spirits and states that his perirectal pain comes and goes. Currently patient denies any chest pain, shortness of breath, or palpitations. Patient has been afebrile. Patient denies any nausea or vomiting and has been and tolerating diet. Will continue to monitor closely. Repeat labs in the morning. 10/08/2019 Patient was sitting on the edge of the bed not in distress, he feels generally weak. He has sound mind and he can make decisions for himself. Patient today confirms to me he does not want any chemotherapy because of the side effects and the quality of life. He states that the perirectal pain is controlled and has no chest pain or abdominal pain or anywhere else. He agrees for the planned for hospice service pending authorization Objective - Vital Signs Vital signs: Vital Signs Temp 97.6 F 10/08/19 12:01 Pulse 72 10/08/19 12:49 Resp 17 10/08/19 12:01 BP 98/57 10/08/19 12:01 Pulse Ox 93 L 10/08/19 12:01 Intake & Output 10/07/19 10/08/19 10/08/19 18:59 06:59 18:59 Intake Total 600 120 Output Total 1 Balance 600 120 -1 Weight 65.907 kg Intake: Oral 600 120 Output: Urine 1 Other: Voiding Method Toilet Toilet Toilet Urinal Urinal Urinal # Voids 3 1 1 # Bowel Movements 1 - Exam GENERAL: The patient is alert and oriented x3, not in any acute distress. Well developed, well nourished. Patient is awake and alert HEENT: Pupils are round and equally reacting to light. EOMI. No scleral icterus. No conjunctival pallor. Normocephalic, atraumatic. No pharyngeal erythema. No thyromegaly. CARDIOVASCULAR: S1 and S2 present. No murmurs, rubs, or gallops. PULMONARY: Chest is clear to auscultation, no wheezing or crackles. ABDOMEN: Soft, nontender, nondistended, normoactive bowel sounds. No palpable organomegaly. MUSCULOSKELETAL: No joint swelling or deformity. EXTREMITIES: No cyanosis, clubbing, or pedal edema. NEUROLOGICAL: Gross neurological examination did not reveal any focal deficits. SKIN: No rashes. Perirectal and bilateral buttock nonhealing ulcerations noted - Labs CBC & Chem 7: 10/08/19 07:00 10/04/19 07:57 Labs: Abnormal Lab Results - Last 24 Hours (Table) 10/08/19 10/08/19 Range/Units 07:00 07:00 WBC 32.0 H (3.8-10.6) k/uL RBC 2.89 L (4.30-5.90) m/uL Hgb 9.6 L (13.0-17.5) gm/dL Hct 28.1 L (39.0-53.0) % Neutrophils # (Manual) 25.90 H (1.3-7.7) k/uL Monocytes # (Manual) 2.56 H (0-1.0) k/uL Metamyelocytes # (Man) 0.96 H (0) k/uL Myelocytes # (Manual) 0.64 H (0) k/uL PT 24.1 H (9.0-12.0) sec INR 2.5 H (<1.2) Assessment and Plan Assessment: -Abdominal pain: Appears to be secondary to metastatic disease no other sign ificant abnormality was evidenced on the abdominal CAT scan. Patient will be started on low-dose of fentanyl patch along with tramadol for breakthrough pain and morphine for breakthrough pain and patient will be started on GI prophylaxis -patient's delirium is probably secondary to pain but all these opiates can cause delirium closely monitor for delirium and treat accordingly as needed. Will use Haldol if needed for delirium of Seroquel at nighttime for delirium -Mild protein calorie malnutrition -Encephalopathy, delirium: Probably secondary to pain, patient pain will be treated and if patient has toxic encephalopathy from pain medications will have to change his pain medication or treat him symptomatically with Seroquel. 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 INR today is 2.3 -Bilateral pedal edema we'll rule out any CHF after an echocardiogram after a BMP patient doesn't have any significant JVD and also to rule out DVT Plan: this is a pleasant 69 years old male who presents with advanced-stage lung cancer, patient does not want anymore with oncology team are aware of this sohe was referred to hospice pending authorization. 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 Continue same treatment. Continue with s ymptomatic treatment. Resume home medication. Monitor lytes and vitals. DVT and GI prophylaxis. Further recommendations of the clinical course of the patient DVT prophylaxis: on warfarin Prognosis is guarded
[2019-10-08] MEDS ORDERED: WARFARIN 5 MG TAB PO ONE (18:00)
[2019-10-08] MEDS: TAMSULOSIN 0.4 MG CAP.ER.24H PO SCH (18:13)
[2019-10-08] MEDS: MORPHINE SULFATE 4 MG/ML SYRINGE IVP PRN (19:41)
[2019-10-08] MEDS: SENNOSIDES 8.6 MG TAB PO PRN (19:43)
[2019-10-09] MEDS: traMADol 50 MG TAB PO PRN ×4 (02:32→21:47)
[2019-10-09 06:52] LABS: HCT 27.4 % (39.0-53.0); MCH 32.5 pg (25.0-35.0); MCHC 32.7 g/dL (31.0-37.0); MCV 99.2 fL (80.0-100.0); Macrocytosis Slight; Mean Platelet Volume 7.5; Platelet Count 316 k/uL (150-450); RBC 2.76 m/uL (4.30-5.90); RDW 15.4 % (11.5-15.5); WBC 22.1 k/uL (3.8-10.6)
[2019-10-09 07:01] LABS: INR 2.4 (<1.2); Prothrombin Time 23.2 sec (9.0-12.0)
[2019-10-09 07:08] LABS: Monocytes # (M) 1.11 k/uL (0-1.0); Myelocytes # (M) 1.55 k/uL (0); Myelocytes % 7 %; Nucleated Red Blood Cells 0 /100 WBC (0-0)
[2019-10-09 07:10] LABS: Band Neutrophils % 4 %; Lymphocytes # (M) 1.55 k/uL (1.0-4.8); Metamyelocytes # (M) 1.55 k/uL (0); Metamyelocytes % 7 %; Neutrophils % (M) 72 %; Total Cells Counted 200
[2019-10-09 07:11] LABS: Anisocytosis (M) Present; Hypochromasia (M) Present; Polychromasia Present
[2019-10-09] MEDS: GABAPENTIN 300 MG CAP PO SCH ×2 (08:38→21:44)
[2019-10-09] MEDS: MAGNESIUM OXIDE 400 MG TAB PO SCH (08:38)
[2019-10-09] MEDS: METOPROLOL TARTRATE 12.5 MG TAB PO SCH ×2 (08:38→21:44)
[2019-10-09] MEDS: ASPIRIN 81 MG PO SCH (08:39)
[2019-10-09] MEDS: PANTOPRAZOLE 40 MG TABLET PO SCH ×2 (08:39→21:44)
[2019-10-09] MEDS: PRIMIDONE 50 MG TAB PO SCH ×2 (08:40→21:45)
[2019-10-09] MEDS: TERBINAFINE 250 MG TAB PO SCH (08:40)
[2019-10-09] MEDS: valACYclovir 500 MG TAB PO SCH ×2 (08:40→21:45)
[2019-10-09] MEDS: ARTIFICIAL TEARS-HYPROMELLOSE DROPS 15 ML BTL BOTH EYES SCH ×4 (08:45→21:45)
[2019-10-09] MEDS: ALBUTEROL NEBULIZED 2.5 MG/3 ML INHALATION SCH ×5 (08:55→22:37)
[2019-10-09] MEDS: SYMBICORT 160-4.5 MCG INHALER INHALATION SCH ×2 (08:55→19:37)
[2019-10-09] MEDS: TRIAMCINOLONE ACET 0.1% ORAL PASTE 5 GM TUBE MUCOUS MEM SCH ×3 (10:00→17:25)
--- NOTE | 2019-10-09 17:11 | P.PN ---
Subjective 68-year-old pleasant gentleman now with known history of metastatic lung cancer was recently discharged from the hospital. VA did not approve for rehabilitation because of which we'll have to discharge the patient with home care patient has not been doing well was complaining of severe abdominal pain since his discharge patient that is significant metastatic disease. Patient had a CAT scan of the abdomen which did not show any significant abnormality patient was also complaining of shortness of breath and presented to [facility] and was wheezing at that time patient was given steroid and inhalational treatments with which his shortness of breath improved patient does use 2 L of oxygen at home. Patient presently denied any fever chills. Patient has been delirious and confused and does have sundowners which all of which are believed to be secondary to pain and patient has not been sleeping well because of the pain patient takes only [place] for pain. His main concern is an main reason for coming to the hospital his pain significantly in the left lower quadrant of the abdomen including pain in the buttock area where he had hemorrhoids. Chest CAT scan did not show any pulmonary embolism or pneumonia. Patient had bilateral pedal edema all the CAT scan was did not show any evidence of pulmonary edema will obtain a Doppler of bilateral lower extremity patient received a dose of Lasix we'll also obtain an echocardiogram. patient apparently had elevated BNP at the other places that is [facility]. Patient CAT scan of the chest did show decrease in mediastinal lymphadenopathy. 10/04/2019 Patient is sitting up in the chair in no acute distress no acute overnight issues. Patient continues to have severe pain of his buttocks and is currently still requesting IV pain medications. Fentanyl Patch was started and will likely need to be increased. Patient's venous Doppler for bilateral lower extremities are negative for DVTs. Echo done this morning shows overall LV systolic function low to normal with an EF of 50-55%. Patient states that he is eating and tolerating diet and had a large bowel movement this morning. Will continue with bowel regimen. Review of Systems: Cardiovascular: No reports of chest pain or palpitations Respiratory: Reports of shortness of breath or cough GI: No reports of nausea, vomiting, or diarrhea : No reports of dysuria or retention 10/05/2019 Patient is sitting up in the chair in no acute distress with no acute overnight issues. Patient continues to have perirectal discomfort and has been doing position changes frequently and remaining offloading. Patient was seen by wound care and recommending to continue with Synalar cream along with barrier cream to the area. Patient's fentanyl patch was increased to 50mcg. Case management and social work are following to obtain authorization for subacute rehab or long- term placement once patient is discharged. Discussion with the family at length and they feel he needs 24/7 care and they are unable to manage this in the home. Medicare is currently pending as the patient currently only has VA insurance and they denied authorization to rehab previously. Will continue to monitor closely. Multiple medical consultations are following. 10/06/2019 Patient is sitting up in the chair in no acute distress after just returning from the bathroom. Per nursing staff patient had a difficult night with pain management but states he feels much better today. Case management and social work meeting with the daughter Krystina today to discuss possible hospice options as the patient is opting to have no further treatment of his cancer at this time. Patient states that the side effects of his last round of chemo were too much and does not want to continue with it at this time. Family was to discuss overnight about this option and will be having a meeting with social work this afternoon. Patient continues to have some tenderness and discomfort in the perirectal region and is continuing with the Synalar cream and barrier cream. Patient is much more alert and has a positive attitude today. We'll continue to monitor closely. Oncology is aware of the patient and family's request to discontinue treatment at this time. 10/07/2019 Patient is sitting up in the chair in no acute distress with no acute overnight issues. White blood count has been increasing daily and is currently 32.4 with no obvious signs of infection. Most likely due to the medication that he has been on. Filgrastim has been discontinued. Oncology is following and is aware. Patient continues to be adamant about requesting no further treatment of his cancer at this time and family have been looking into possible hospice options at [facility] or at the [facility]. Patient does have Medicaid pending and family is concerned about the cost of hospice. Case management and social work are following closely and working out the details of possibly obtaining [place] funds or assistance from the VA for these hospice costs. Patient continues to be a positive spirits and states that his perirectal pain comes and goes. Currently patient denies any chest pain, shortness of breath, or palpitations. Patient has been afebrile. Patient denies any nausea or vomiting and has been and tolerating diet. Will continue to monitor closely. Repeat labs in the morning. 10/08/2019 Patient was sitting on the edge of the bed not in distress, he feels generally weak. He has sound mind and he can make decisions for himself. Patient today confirms to me he does not want any chemotherapy because of the side effects and the quality of life. He states that the perirectal pain is controlled and has no chest pain or abdominal pain or anywhere else. He agrees for the planned for hospice service pending authorization 10/09/2019 Patient pending hospice placement after he refused chemotherapy as mentioned ab ove. Patient has pain painful defecation controlled with local measures and stool softeners and laxatives Objective - Vital Signs Vital signs: Vital Signs Temp 97.5 F L 10/09/19 12:43 Pulse 72 10/09/19 16:51 Resp 15 10/09/19 15:53 BP 126/71 10/09/19 12:43 Pulse Ox 100 10/09/19 12:43 Intake & Output 10/08/19 10/09/19 10/09/19 18:59 06:59 18:59 Intake Total 240 240 Output Total 1 800 Balance 239 -560 Weight 80.5 kg 74.979 kg Intake: Oral 240 240 Output: Urine 1 800 Other: Voiding Method Toilet Toilet Toilet Urinal Urinal Urinal # Voids 1 2 3 # Bowel Movements 1 1 - Labs CBC & Chem 7: 10/09/19 05:36 10/04/19 07:57 Labs: Abnormal Lab Results - Last 24 Hours (Table) 10/09/19 10/09/19 Range/Units 05:36 05:36 WBC 22.1 H (3.8-10.6) k/uL RBC 2.76 L (4.30-5.90) m/uL Hgb 9.0 L (13.0-17.5) gm/dL Hct 27.4 L (39.0-53.0) % Neutrophils # (Manual) 16.70 H (1.3-7.7) k/uL Monocytes # (Manual) 1.11 H (0-1.0) k/uL Metamyelocytes # (Man) 1.55 H (0) k/uL Myelocytes # (Manual) 1.55 H (0) k/uL PT 23.2 H (9.0-12.0) sec INR 2.4 H (<1.2)
[2019-10-09] MEDS: TAMSULOSIN 0.4 MG CAP.ER.24H PO SCH (17:21)
[2019-10-09] MEDS: ALPRAZolam 0.25 MG TAB PO PRN (17:28)
[2019-10-09] MEDS ORDERED: WARFARIN 5 MG TAB PO ONE (18:00)
--- NOTE | 2019-10-09 19:27 | P.PN ---
Subjective Progress Note Date: 10/09/19 Principal diagnosis: small cell lung cancer on chemotherapy patient continues to complain about significant pain, discomfort not well controlled. Complains of some shortness of breath and soreness in buttock Objective - Vital Signs Vital signs: Vital Signs Temp 97.5 F L 10/09/19 12:43 Pulse 72 10/09/19 16:51 Resp 15 10/09/19 15:53 BP 126/71 10/09/19 12:43 Pulse Ox 100 10/09/19 12:43 Intake & Output 10/09/19 10/09/19 10/10/19 06:59 18:59 06:59 Intake Total 240 Output Total 800 Balance -560 Weight 80.5 kg 74.979 kg Intake: Oral 240 Output: Urine 800 Other: Voiding Method Toilet Toilet Urinal Urinal # Voids 2 3 # Bowel Movements 1 1 - Exam The patient appeared well nourished and normally developed. Vital signs as documented. Head exam is unremarkable. No scleral icterus or corneal arcus noted. Neck is without jugular venous distension, thyromegaly, or carotid bruits. Carotid upstrokes are brisk bilaterally. Lungs are clear to auscultation and percussion. Cardiac exam reveals the PMI to be normally sized and situated. Rhythm is regular. First and second heart sounds normal. No murmurs, rubs or gallops. Abdominal exam reveals normal bowel sounds, no masses, no organomegaly and no aortic enlargement. Extremities are nonedematous and both femoral and pedal pulses are normal. lesions in the NL and buttocks - Labs CBC & Chem 7: 10/09/19 05:36 10/04/19 07:57 Labs: Abnormal Lab Results - Last 24 Hours (Table) 10/09/19 10/09/19 Range/Units 05:36 05:36 WBC 22.1 H (3.8-10.6) k/uL RBC 2.76 L (4.30-5.90) m/uL Hgb 9.0 L (13.0-17.5) gm/dL Hct 27.4 L (39.0-53.0) % Neutrophils # (Manual) 16.70 H (1.3-7.7) k/uL Monocytes # (Manual) 1.11 H (0-1.0) k/uL Metamyelocytes # (Man) 1.55 H (0) k/uL Myelocytes # (Manual) 1.55 H (0) k/uL PT 23.2 H (9.0-12.0) sec INR 2.4 H (<1.2) Assessment and Plan Assessment: Mr. Guzman is a very pleasant 68-year-old male patient of the [facility] in [place] who presented 09/14/19 to the hospital with progressive shortness of breath and difficulty in breathing. Lung mass found on imaging, pt was status post a biopsy at the [facility] in [place] with pathology revealing SCLC, he had recent changes in speech, some slurring and loss of words, voice changes, significant wt loss, progressive weakness. Was due for PET outpatient but, prolonged hospitalization prevented this. CT CAP showed disease in the lungs, medistinal LN, bilateral axillary adenopathy and bilateral adrenals, no disease in the brain. He received his 1st treatment in the hospital of carbo/[facility] days 1-3, he did rather well overall, no significant SE, CBC remained stable and he was discharged, was qualified to go to [facility] but, [place] wouldn't approve it so, he was sent home with home care. He is back in the hospital <5 days later with persistent, intractable perirectal pain. His CBC showed leukopenia/neutropenia. He states feeling weak, tired, no energy. Denied vomiting, chest pain, TRUDY, abd pain, diarrhea, constipation, black or bloody stool, mild swelling in the legs. 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 - Significant discomfort, pain, lesions in both buttocks, perianal area, coccyx. Pt is on supportive medications, ID consulted for evaluation and treatment plan. - patient continues to complain of soreness, pain and discomfort in the area. continue pain medications. 2. Stage IV/metastatic Small cell lung cancer: - Recently diagnosed with extensive staging workup, no brain metastases currently started on chemotherapy. - Currently on carboplatin with etoposide, GCSF started for significantly low WBC/ANC. No PRBCs or platelets needed yet. - Cycle second planned this week however will have to reschedule it to current sepsis/infection resolves. 3. Pancytopenia, Leukopenia due to antineoplastic chemotherapy - Current hemoglobin 9 platelets normal, white cell count has bounced back to 22,000 now. - on GCSF . 4. Abdominal pain - Better controlled however continues to have 5. COPD, hypertension, hyperlipidemia, atrial fibrillationon anticoagulation with Coumadin. Thank you for allowing me to participate in the [place] [id number], [address] [place] [address] Office: [phone]
[2019-10-09] MEDS: SENNOSIDES 8.6 MG TAB PO SCH (21:45)
[2019-10-09] MEDS ORDERED: ALBUTEROL NEBULIZED 2.5 MG/3 ML INHALATION PRN (22:41)
[2019-10-09] MEDS: QUEtiapine 25 MG TAB PO PRN (23:52)
[2019-10-10 06:49] LABS: INR 2.9 (<1.2); Prothrombin Time 27.8 sec (9.0-12.0)
[2019-10-10 06:52] LABS: HCT 26.5 % (39.0-53.0); HGB 8.7 gm/dL (13.0-17.5); MCH 31.9 pg (25.0-35.0); MCHC 32.8 g/dL (31.0-37.0); MCV 97.3 fL (80.0-100.0); Macrocytosis Slight; Mean Platelet Volume 7.4; Platelet Count 271 k/uL (150-450); RBC 2.72 m/uL (4.30-5.90); RDW 15.2 % (11.5-15.5); WBC 14.3 k/uL (3.8-10.6)
[2019-10-10 07:57] LABS: Eosinophils # (M) 0.14 k/uL (0-0.7); Lymphocytes # (M) 0.72 k/uL (1.0-4.8); Metamyelocytes # (M) 0.29 k/uL (0); Metamyelocytes % 2 %; Monocytes # (M) 1.57 k/uL (0-1.0); Myelocytes # (M) 0.43 k/uL (0); Myelocytes % 3 %; Neutrophils % (M) 79 %; Nucleated Red Blood Cells 0 /100 WBC (0-0); Promyelocytes # (M) 0.14 k/uL (0); Promyelocytes % 1 %; Total Cells Counted 200
[2019-10-10 07:58] LABS: Anisocytosis (M) Present; Poikilocytosis (M) Present
[2019-10-10] MEDS: ASPIRIN 81 MG PO SCH (09:08)
[2019-10-10] MEDS: valACYclovir 500 MG TAB PO SCH (09:08)
[2019-10-10] MEDS: PANTOPRAZOLE 40 MG TABLET PO SCH (09:08)
[2019-10-10] MEDS: PRIMIDONE 50 MG TAB PO SCH (09:08)
[2019-10-10] MEDS: ARTIFICIAL TEARS-HYPROMELLOSE DROPS 15 ML BTL BOTH EYES SCH ×2 (09:08→12:54)
[2019-10-10] MEDS: MAGNESIUM OXIDE 400 MG TAB PO SCH (09:08)
[2019-10-10] MEDS: METOPROLOL TARTRATE 12.5 MG TAB PO SCH (09:08)
[2019-10-10] MEDS: GABAPENTIN 300 MG CAP PO SCH (09:08)
[2019-10-10] MEDS: SENNOSIDES 8.6 MG TAB PO SCH (09:08)
[2019-10-10] MEDS: TERBINAFINE 250 MG TAB PO SCH (09:08)
[2019-10-10] MEDS: TRIAMCINOLONE ACET 0.1% ORAL PASTE 5 GM TUBE MUCOUS MEM SCH ×2 (09:09→12:54)
[2019-10-10] MEDS: ALBUTEROL NEBULIZED 2.5 MG/3 ML INHALATION SCH ×2 (09:22→12:46)
[2019-10-10] MEDS: SYMBICORT 160-4.5 MCG INHALER INHALATION SCH (09:24)
[2019-10-10 10:26] VITALS: BMI 24.5
[2019-10-10 11:30] VITALS: BP 109/62; RESP 17; TEMP 98.7
--- NOTE | 2019-10-10 12:30 | P.DS ---
Providers Date of admission: 10/03/19 16:53 Expected date of discharge: 10/10/19 Attending physician: Jnue Barajas Consults: 10/03/19 18:00 Consult Physician Routine Consulting Provider: Duane Stark Consult Reason/Comments: stage 4 lung cancer,intractable pain Do you want consulting provider notified?: Yes 10/04/19 09:38 Consult Physician Routine Consulting Provider: Honorio Liu Consult Reason/Comments: shahid-rectal viral infection Do you want consulting provider notified?: Yes Primary care physician: Stated None Hospital Course: final diagnosis -Abdominal pain -acute delirium is probably secondary to pain -Mild protein calorie malnutrition -Encephalopathy, delirium: -Shortness of breath probably secondary to mild COPD exacerbation -External or internal hemorrhoids -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 Total time taken is 35 minutes. History of present illness This is a 69-year-old male who was recently admitted for shortness of breath, abdominal pain, and perirectal pain and is being closely monitored. Patient was recently hospitalized and received chemo therapy with oncology. Due to the side effects of the previous chemo treatment patient is refusing any further treatment and have discussed in length with family and is opting for hospice at this time. Medicaid is pending. Patient will be going to [facility] and will initiate hospice once there. Patient will continue on breathing treatments and nasal cannula for comfort along with the Ultram and fentanyl patch. Patient continues to have perirectal pain and will continue with Valtrex along with barrier cream that he's been using.patient is currently on Coumadin for atrial fibrillation and INR today was 2.9. Hold Coumadin today and recheck PT/INR tomorrow and then may resume Coumadin 3 mg daily with close monitoring. Currently patient's condition is stable and would like to go today. family we will be transporting patient to [facility]. patient is a no code. On exam vital signs are stable. Temp is 98.7F, pulse 70, respirations are 17, blood pressure is 109/62, oxygen saturation is 99% on 4 L via nasal cannula. Cardio S1, S2 are muffled. respiratory system shows diminished breath sounds at the bases. Abdomen is soft and nontender. Nervous system shows no focal deficits with mild diffuse weakness. Please refer to medication reconciliation sheet for a list of medications. Patient Condition at Discharge: Stable Plan - Discharge Summary Discharge Rx Participant: Yes New Discharge Prescriptions: New Lactulose [Cephulac] 20 gm PO TID PRN ml PRN Reason: Constipation Warfarin Sodium [Coumadin] 3 mg PO DAILY #2 tab fentaNYL 50MCG/HR PATCH [Duragesic 50MCG/HR] 1 patch TRANSDERM Q72H #1 patch Polyethylene Glycol 3350 [Miralax] 17 gm PO DAILY PRN powd.pack PRN Reason: Constipation Triamcinolone 0.1% Paste [Oralone 0.1% Paste] 1 applic MUCOUS MEM PC-TID applic Sennosides [Senokot] 8.6 mg PO BID tab QUEtiapine [SEROquel] 25 mg PO HS PRN tab PRN Reason: Agitation traMADol HCl [Ultram] 50 mg PO QID PRN #4 tab PRN Reason: Moderate Pain/Discomfort Albuterol Nebulized [Ventolin Nebulized] 2.5 mg INHALATION RT-Q2H PRN nebu PRN Reason: Shortness Of Breath Or Wheezing ALPRAZolam [Xanax] 0.25 mg PO TID PRN #3 tab PRN Reason: Anxiety Continue Vits A,C,E/Lutein/Minerals [Ocuvite with Lutein Tablet] 1 tab PO BID Omeprazole 40 mg PO BID Magnesium Oxide [Mag-Ox] 800 mg PO DAILY Cholecalciferol [Vitamin D3 (25 Mcg = 1000 Iu)] 2,000 unit PO DAILY Terbinafine [LamISIL] 250 mg PO DAILY Loperamide HCl [Loperamide] 4 mg PO Q6H Gabapentin 300 mg PO BID Artificial Tears-Hypromellose [Artificial Tear Drops] 1 drop BOTH EYES QID Albuterol Inhaler [Ventolin Hfa Inhaler] 2 puff INHALATION RT-QID Aspirin EC [Ecotrin Low Dose] 81 mg PO DAILY Metoprolol Tartrate [Lopressor] 12.5 mg PO BID Cetirizine HCl [Zyrtec] 10 mg PO DAILY Primidone [Mysoline] 50 mg PO BID Bisacodyl [Dulcolax] 10 mg PO DAILY PRN #10 tablet.dr SANTOS Reason: Constipation Diclofenac Sodium Gel [Voltaren Gel] 2 gm TOPICAL QID 30 Days #1 tube Hydrocortisone Suppository [Anusol-Hc] 25 mg RECTAL DAILY #20 supp Tamsulosin [Flomax] 0.4 mg PO PC-SUPPER #30 cap.er.24h valACYclovir [Valtrex] 500 mg PO BID #14 tab Budesonide/Formoterol Fumarate [Symbicort 160-4.5 Mcg Inhaler] 2 puff INHALATION RT-BID Discontinued Warfarin Sodium [Coumadin] 5 mg PO HS 30 Days #30 tab Discharge Medication List Albuterol Inhaler [Ventolin Hfa Inhaler] 2 puff INHALATION RT-QID 09/13/19 [History] Artificial Tears-Hypromellose [Artificial Tear Drops] 1 drop BOTH EYES QID 09/13/19 [History] Aspirin EC [Ecotrin Low Dose] 81 mg PO DAILY 09/13/19 [History] Cetirizine HCl [Zyrtec] 10 mg PO DAILY 09/13/19 [History] Cholecalciferol [Vitamin D3 (25 Mcg = 1000 Iu)] 2,000 unit PO DAILY 09/13/19 [History] Gabapentin 300 mg PO BID 09/13/19 [History] Loperamide HCl [Loperamide] 4 mg PO Q6H 09/13/19 [History] Magnesium Oxide [Mag-Ox] 800 mg PO DAILY 09/13/19 [History] Metoprolol Tartrate [Lopressor] 12.5 mg PO BID 09/13/19 [History] Omeprazole 40 mg PO BID 09/13/19 [History] Primidone [Mysoline] 50 mg PO BID 09/13/19 [History] Terbinafine [LamISIL] 250 mg PO DAILY 09/13/19 [History] Vits A,C,E/Lutein/Minerals [Ocuvite with Lutein Tablet] 1 tab PO BID 09/13/19 [History] Bisacodyl [Dulcolax] 10 mg PO DAILY PRN #10 tablet. 09/21/19 [Rx] Diclofenac Sodium Gel [Voltaren Gel] 2 gm TOPICAL QID 30 Days #1 tube 09/21/19 [Rx] Hydrocortisone Suppository [Anusol-Hc] 25 mg RECTAL DAILY #20 supp 09/27/19 [Rx] Tamsulosin [Flomax] 0.4 mg PO PC-SUPPER #30 cap.er.24h 09/27/19 [Rx] valACYclovir [Valtrex] 500 mg PO BID #14 tab 09/27/19 [Rx] Budesonide/Formoterol Fumarate [Symbicort 160-4.5 Mcg Inhaler] 2 puff INHALATION RT-BID 10/03/19 [History] ALPRAZolam [Xanax] 0.25 mg PO TID PRN #3 tab 10/10/19 [Rx] Albuterol Nebulized [Ventolin Nebulized] 2.5 mg INHALATION RT-Q2H PRN nebu 10/10/19 [Rx] Lactulose [Cephulac] 20 gm PO TID PRN ml 10/10/19 [Rx] Polyethylene Glycol 3350 [Miralax] 17 gm PO DAILY PRN powd.pack 10/10/19 [Rx] QUEtiapine [SEROquel] 25 mg PO HS PRN tab 10/10/19 [Rx] Sennosides [Senokot] 8.6 mg PO BID tab 10/10/19 [Rx] Triamcinolone 0.1% Paste [Oralone 0.1% Paste] 1 applic MUCOUS MEM PC-TID applic 10/10/19 [Rx] Warfarin Sodium [Coumadin] 3 mg PO DAILY #2 tab 10/10/19 [Rx] fentaNYL 50MCG/HR PATCH [Duragesic 50MCG/HR] 1 patch TRANSDERM Q72H #1 patch 10/10/19 [Rx] traMADol HCl [Ultram] 50 mg PO QID PRN #4 tab 10/10/19 [Rx] Follow up Appointment(s)/Referral(s): [facility], [NON-STAFF] - 1-2 Days Ambulatory/Diagnostic Orders: Prothrombin Time INR [LAB.AMB] Time Frame: 1 Day, Location: None Selected Activity/Diet/Wound Care/Special Instructions: patient is going to [facility] Continue current diet Follow-up with hospice Hold Coumadin today and recheck PT/INR. INR today was 2.9. May resume Coumadin 3 mg tomorrow continue with oxygen via nasal cannula Continue with breathing treatments scheduled and as needed Discharge Disposition: TRANSFER TO SNF/ECF
[2019-10-10 12:56] VITALS: PULSE 78
[2019-10-10] MEDS ORDERED: WARFARIN 2 MG TAB PO ONE (18:00)
== END 2019-10-10 14:45 | DRG 947 ==
LOC: 3NMEDONC 16:53 → 5NMEDONC 10-09 07:11
PROVIDERS: ADMIT Internal Medicine; ATTEND Internal Medicine
DX: G89.3 Neoplasm related pain (acute) (chronic) (principal); D61.810 Antineoplastic chemotherapy induced pancytopenia; C34.90 Malignant neoplasm of unspecified part of unspecified bronchus or lung; E44.1 Mild protein-calorie malnutrition; G93.40 Encephalopathy, unspecified; J44.1 Chronic obstructive pulmonary disease with (acute) exacerbation; J96.12 Chronic respiratory failure with hypercapnia; C77.3 Secondary and unspecified malignant neoplasm of axilla and upper limb lymph nodes; C77.1 Secondary and unspecified malignant neoplasm of intrathoracic lymph nodes; C79.72 Secondary malignant neoplasm of left adrenal gland; C79.71 Secondary malignant neoplasm of right adrenal gland; L89.150 Pressure ulcer of sacral region, unstageable; I11.0 Hypertensive heart disease with heart failure; I50.9 Heart failure, unspecified; G20 Parkinson's disease; I48.91 Unspecified atrial fibrillation; E78.5 Hyperlipidemia, unspecified; F17.200 Nicotine dependence, unspecified, uncomplicated; K52.9 Noninfective gastroenteritis and colitis, unspecified; K59.00 Constipation, unspecified; K64.8 Other hemorrhoids; T45.1X5A Adverse effect of antineoplastic and immunosuppressive drugs, initial encounter; B00.9 Herpesviral infection, unspecified; A60.1 Herpesviral infection of perianal skin and rectum; K21.9 Gastro-esophageal reflux disease without esophagitis; I08.3 Combined rheumatic disorders of mitral, aortic and tricuspid valves; Z79.01 Long term (current) use of anticoagulants; Z79.51 Long term (current) use of inhaled steroids; Z79.82 Long term (current) use of aspirin; Z79.899 Other long term (current) drug therapy; Z95.0 Presence of cardiac pacemaker; Z99.81 Dependence on supplemental oxygen; Z88.1 Allergy status to other antibiotic agents; Z88.8 Allergy status to other drugs, medicaments and biological substances; Z87.01 Personal history of pneumonia (recurrent); Z82.49 Family history of ischemic heart disease and other diseases of the circulatory system
CPT/HCPCS: 72192; 80048; 83735; 83880; 85025; 85610; 93306; 93970; 94640; 94760